=== PATIENT | male | born 1960 | race American Indian/Alaskan Native ===

== ENCOUNTER 2017-01-27 03:15 | Inpatient (IN) | payer MEDICAID ==
[2017-01-27 03:21] VITALS: BMI 47.1
--- NOTE | 2017-01-27 03:52 | ED PDOC ---
Arrival/HPI - General Chief Complaint: Shortness Of Breath Time Seen by Provider: 01/27/17 03:30 Historian: Patient - History of Present Illness Narrative History of Present Illness (Text): 01/27/17 03:52 Naresh Riley is a 56 year old male, whose past medical history includes hypertension, COPD, sleep apnea, and DVT/PE, who presents to the Emergency department complaining of shortness of breath at home tonight. Patient was given Solu-medrol and Albuterol by EMS in the field. Patient denies any fever, chills, chest pain, nausea, vomiting, diarrhea, urinary symptoms, back pain, neck pain, headache, dizziness, or any other complaints. Time/Duration: Other (tonight) Symptom Onset: Gradual Symptom Course: Unchanged Activities at Onset: Rest, Light Context: Home Past Medical History - Provider Review Nursing Documentation Reviewed: Yes - Infectious Disease Hx of Infectious Diseases: None - Tetanus Immunization Tetanus Immunization: Unknown - Cardiac Hx Cardiac Disorders: Yes (cardiomyopathy, dvt pe) Hx Cardiac Arrhythmia: Yes Hx Congestive Heart Failure: Yes Hx Hypertension: Yes Hx Pacemaker: No Hx Peripheral Edema: Yes (renal insuff) - Pulmonary Hx Respiratory Disorders: (pe has monty filter) Hx Asthma: Yes Hx Chronic Obstructive Pulmonary Disease (COPD): Yes Hx Pneumonia: Yes Hx Sleep Apnea: Yes - Neurological Hx Neurological Disorder: No - HEENT Hx HEENT Disorder: No - Renal Hx Renal Failure: (RENAL INSUFFICIENCY) - Endocrine/Metabolic Hx Endocrine Disorders: No Hx Diabetes Mellitus Type 2: Yes - Hematological/Oncological Hx Blood Disorders: No - Integumentary Hx Dermatological Disorder: No Other/Comment: bilateral lower extremity and feet discolored dry skin , redness tightness - Musculoskeletal/Rheumatological Hx Falls: No - Gastrointestinal Hx Gastrointestinal Disorders: (obese) Hx Gastroesophageal Reflux: Yes - Genitourinary/Gynecological Hx Genitourinary Disorders: No - Psychiatric Hx Anxiety: Yes Hx Depression: No Hx Emotional Abuse: No Hx Physical Abuse: No Hx Substance Use: No Other/Comment: hx heroin use quit 3 yrs ago, substance abuse. - Past Surgical History Past Surgical History: Non-Contributing - Surgical History Hx Cardiac Catheterization: Yes Other/Comment: back sx "yrs ago", right shoulder sx for fx has pins,monty filter - Anesthesia Hx Anesthesia: Yes Hx Anesthesia Reactions: No Hx Malignant Hyperthermia: No - Suicidal Assessment Feels Threatened In Home Enviroment: No Family/Social History - Physician Review Nursing Documentation Reviewed: Yes Family/Social History: No Known Family HX Smoking Status: Heavy Smoker > 10 Cigarettes Daily Hx Alcohol Use: No Hx Substance Use: No Hx Substance Use Treatment: No Allergies/Home Meds Allergies/Adverse Reactions: Allergies No Known Allergies Allergy (Verified 06/07/16 20:28) Home Medications: Home Meds Medication Instructions Recorded Confirmed Digoxin 250 mcg PO DAILY 05/24/12 10/16/15 Enalapril Maleate [Enalapril] 10 mg PO DAILY 05/24/12 10/16/15 Furosemide 40 mg PO DAILY 05/24/12 10/16/15 Metoprolol Tartrate 50 mg PO DAILY 02/09/14 10/16/15 Albuterol Sulfate [Ventolin Hfa] 0.09 mg IH PRN PRN 12/23/14 10/16/15 Metformin Hydrochloride [Metformin] 500 mg PO BID 12/23/14 10/16/15 Cyclobenzaprine [Flexeril] 1 tab PO Q8 PRN 09/28/15 10/16/15 Spironolactone [Aldactone] 1 tab PO BID 09/28/15 10/16/15 Tizanidine HCl 2 tab PO HS PRN 09/28/15 10/16/15 Multivitamin [Ashanti-Plus G] 1 cap PO DAILY 09/29/15 10/16/15 Review of Systems - Physician Review All systems were reviewed & negative as marked: Yes - Review of Systems Constitutional: Normal. absent: Fevers Eyes: Normal ENT: Normal Respiratory: SOB. absent: Cough Cardiovascular: Normal. absent: Chest Pain Gastrointestinal: Normal. absent: Abdominal Pain, Diarrhea, Nausea, Vomiting Genitourinary Male: Normal. absent: Dysuria, Frequency, Hematuria, Urinary Output Changes Musculoskeletal: Normal. absent: Back Pain, Neck Pain Skin: Normal. absent: Rash Neurological: Normal. absent: Headache, Dizziness Endocrine: Normal Hemo/Lymphatic: Normal Psychiatric: Normal Physical Exam Vital Signs Reviewed: Yes Vital Signs Temp Pulse Resp BP Pulse Ox 01/27/17 05:36 112 H 01/27/17 05:24 116/63 01/27/17 03:21 99.1 F 126 H 96 H 134/70 96 Temperature: Afebrile Blood Pressure: Normal Pulse: Regular Respiratory Rate: Normal Appearance: Positive for: Well-Appearing, Non-Toxic, Comfortable Pain Distress: None Mental Status: Positive for: Alert and Oriented X 3 - Systems Exam Head: Present: Atraumatic, Normocephalic Pupils: Present: PERRL Extroacular Muscles: Present: EOMI Conjunctiva: Present: Normal Mouth: Present: Moist Mucous Membranes Neck: Present: Normal Range of Motion Respiratory/Chest: Present: Decreased Breath Sounds (Decreased breath sounds bilaterally). No: Respiratory Distress, Accessory Muscle Use Cardiovascular: Present: Regular Rate and Rhythm, Normal S1, S2. No: Murmurs Abdomen: Present: Normal Bowel Sounds. No: Tenderness, Distention, Peritoneal Signs Back: Present: Normal Inspection Upper Extremity: Present: Normal Inspection. No: Cyanosis, Edema Lower Extremity: Present: Normal Inspection. No: Edema Neurological: Present: GCS=15, CN II-XII Intact, Speech Normal Skin: Present: Warm, Dry, Normal Color. No: Rashes Psychiatric: Present: Alert, Oriented x 3, Normal Insight, Normal Concentration Medical Decision Making ED Course and Treatment: 01/27/17 03:52 Impression: 56 year old male complaining of shortness of breath tonight. Differential Diagnosis include but are not limited to: CHF vs. COPD vs. pneumonia vs. dyspnea Plan: -- EKG -- Chest X-ray -- Labs, cardiac enzymes, BNP -- Duoneb -- Reassess and disposition Prior Visits: Notes and results from previous visits were reviewed. Progress Notes: Reviewed EKG, sinus tachycardia at 120 bpm. Inferior infarct. Non-specific ST/T wave changes. 01/27/17 05:06 Reviewed radiology, Chest X-ray shows mild vascular congestion. Case discussed with manager medical writing, who is aware and agrees with plan. 01/27/17 05:[address] Kingsley, who is aware and agrees with plan. Accepts pt in to hospitalist service. Pt will be admitted to Telemetry for COPD and CHF. - Lab Interpretations Lab Results: 01/27/17 04:08 01/27/17 04:08 Lab Results 01/27/17 04:50: pCO2 56 H, pO2 109.0 H, HCO3 31.6 H, ABG pH 7.36, ABG Total CO2 33.3 H, ABG O2 Saturation 99.5 H, ABG O2 Content 17.4, ABG Base Excess 4.6 H, ABG Hemoglobin 13.5, ABG Carboxyhemoglobin 7.7 H, POC ABG HHb (Measured) 0.5, ABG Methemoglobin 0.9, ABG O2 Capacity 17.5, Hgb O2 Saturation 90.9 L, FiO2 40.0 01/27/17 04:08: WBC 10.2, RBC 4.74, Hgb 14.3, Hct 42.7, MCV 90.1, MCH 30.2, MCHC 33.5, RDW 17.1 H, Plt Count 189, MPV 11.2 H, PT 15.2 H, INR 1.41 H, APTT 28.8, Sodium 138, Potassium 4.2, Chloride 95 L, Carbon Dioxide 37 H, Anion Gap 10, BUN 15, Creatinine 0.9, Est GFR ( Amer) > 60, Est GFR (Non-Af Amer) > 60, Random Glucose 222 H, Calcium 8.1 L, Total Bilirubin 1.0, AST 29, ALT 46, Alkaline Phosphatase 76, Lactate Dehydrogenase 593, Total Creatine Kinase 212, Troponin I 0.09 D, NT-Pro-B Natriuret Pep 1989 H, Total Protein 6.9, Albumin 3.4, Globulin 3.6, Albumin/Globulin Ratio 0.9 L I have reviewed the lab results: Yes - RAD Interpretation Radiology Orders: 01/27/17 03:31 CHEST PORTABLE [RAD] Stat Teaching Dietitian: ED Physician - EKG Interpretation Interpreted by ED Physician: Yes Type: 12 lead EKG - Medication Orders Current Medication Orders: Albuterol/Ipratropium (Duoneb 3 Mg/0.5 Mg (3 Ml) Ud) 3 ml IH Q2 PRN PRN Reason: Shortness of Breath Stop: 01/27/17 10:01 Albuterol/Ipratropium (Duoneb 3 Mg/0.5 Mg (3 Ml) Ud) 3 ml IH Q6 KATIE Stop: 01/27/17 18:01 Cyclobenzaprine HCl (Flexeril) 10 mg PO Q8 PRN PRN Reason: Pain, Mild (1-3) Digoxin (Lanoxin) 0.25 mg PO 1400 KATIE Enoxaparin Sodium (Lovenox) 40 mg SC DAILY KATIE PRN Reason: Protocol Escitalopram Oxalate (Lexapro) 10 mg PO DAILY KATIE Furosemide (Lasix) 60 mg IVP Q12 KATIE Azithromycin (Zithromax 500mg In Ns) 250 mls @ 167 mls/hr IVPB DAILY KATIE PRN Reason: Protocol Insulin Human Regular (Humulin R Low) 0 units SC ACHS KATIE PRN Reason: Protocol Lisinopril (Zestril) 10 mg PO DAILY KATIE Methylprednisolone (Solu-Medrol) 40 mg IVP Q8 KATIE Metoprolol Tartrate (Lopressor) 50 mg PO DAILY KATIE Multivitamins (Thera Tab) 1 tab PO DAILY KATIE Pantoprazole Sodium (Protonix Inj) 40 mg IVP DAILY KATIE Spironolactone (Aldactone) 25 mg PO BID KATIE Warfarin Sodium (Coumadin) 7.5 mg PO 1800 KATIE Discontinued Medications Albuterol/Ipratropium (Duoneb 3 Mg/0.5 Mg (3 Ml) Ud) 3 ml IH ONCE STA Stop: 01/27/17 03:54 Last Admin: 01/27/17 04:10 Dose: 3 ML Albuterol/Ipratropium (Duoneb 3 Mg/0.5 Mg (3 Ml) Ud) 3 ml IH ONCE STA Stop: 01/27/17 04:27 Last Admin: 01/27/17 04:46 Dose: 3 ML Furosemide (Lasix) 60 mg IVP ONCE ONE Stop: 01/27/17 05:07 Last Admin: 01/27/17 05:24 Dose: Not Given Non-Admin Reason: BP Parameters Not Met MAR Blood Pressure Document 01/27/17 05:24 SB (Rec: 01/27/17 05:24 SB [id number]) Blood Pressure Blood Pressure (100/60-150/90 mm Hg) 116/63 - Scribe Statement The provider has reviewed the documentation as recorded by the Curt Smith Provider Attestation: All medical record entries made by the Curt were at my direction and personally dictated by me. I have reviewed the chart and agree that the record accurately reflects my personal performance of the history, physical exam, medical decision making, and the department course for this patient. I have also personally directed, reviewed, and agree with the discharge instructions and disposition. Disposition/Present on Arrival - Present on Arrival Any Indicators Present on Arrival: No History of DVT/PE: Yes History of Uncontrolled Diabetes: No Urinary Catheter: No History of Decub. Ulcer: No History Surgical Site Infection Following: None - Disposition Have Diagnosis and Disposition been Completed?: Yes Diagnosis: COPD (chronic obstructive pulmonary disease), Congestive heart failure (CHF) Disposition: HOSPITALIZED Disposition Time: 05:12 Patient Plan: Admission Patient Problems: Current Active Problems Problem Status Diagnosed COPD (chronic obstructive pulmonary disease) Acute Congestive heart failure (CHF) Acute Condition: STABLE
[2017-01-27] MEDS ORDERED: Albuterol-Ipratrop 3 mg / 0.5 (3 ml) UD IH STA ×2 (03:53→04:26)
[2017-01-27 04:28] LABS: HEMATOCRIT 42.7 % (42.0-52.0); MEAN CELL VOLUME 90.1 fL (80.0-105.0); MEAN CORPUSCULAR HEMOGLOBIN 30.2 pg (25.0-35.0); MEAN CORPUSCULAR HGB CONC 33.5 g/dl (31.0-37.0); MEAN PLATELET VOLUME 11.2 fl (7.0-11.0); RED CELL DISTRIBUTION WIDTH 17.1 % (11.5-14.5); WHITE BLOOD COUNT 10.2 10^3/ul (4.5-11.0)
[2017-01-27 04:34] LABS: ALB/GLOB RATIO 0.9 (1.1-1.8); ALKALINE PHOSPHATASE 76 U/L (38-133); ALT/SGPT 46 U/L (7-56); AST/SGOT 29 U/L (15-59); BLOOD UREA NITROGEN 15 mg/dL (7-21); CALCIUM 8.1 mg/dL (8.4-10.5); CARBON DIOXIDE 37 mmol/L (21-33); CHLORIDE 95 mmol/L (98-107); GFR AFRICAN-AMERICAN > 60; GLUCOSE,RANDOM 222 mg/dL (70-110); POTASSIUM 4.2 mmol/L (3.6-5.0); SODIUM 138 mmol/L (132-148); TOTAL PROTEIN 6.9 g/dL (5.8-8.3)
[2017-01-27 04:36] LABS: INR 1.41 (0.93-1.08); PARTIAL THROMBOPLASTIN TIME 28.8 Seconds (23.7-30.8)
[2017-01-27 04:47] LABS: TROPONIN I 0.09 ng/mL
[2017-01-27 05:00] LABS: ARTERIAL BLOOD GAS HCO3 31.6 mmol/L (21-28); ARTERIAL BLOOD GAS O2 CAPACITY 17.5 mL/dl (16-24); ARTERIAL BLOOD GAS O2 CONTENT 17.4 ML/dl (15-23); ARTERIAL BLOOD GAS PH 7.36 (7.35-7.45); ARTERIAL BLOOD HGB O2 SAT 90.9 % (95.0-98.0); CARBOXYHEMOGLOBIN 7.7 % (0.5-1.5); HHB 0.5 % (0-5); METHEMOGLOBIN 0.9 % (0.0-3.0)
[2017-01-27] MEDS ORDERED: Albuterol-Ipratrop 3 mg / 0.5 (3 ml) UD IH PRN (05:19)
--- NOTE | 2017-01-27 05:30 | CP.PCM.HP ---
<Luis Antonio Snow - Last Filed: 01/27/17 05:52> History of Present Illness - History of Present Illness History of Present Illness: This is a 56yo male with pmh COPD, likely DESTINEE, PE/DVT, HTN, HLD, CHF presenting with sob x 1 day. Pt was at home, began experiencing sob, called ambulance. Got albuterol and solumedrol in field. Pt is poor historian and lethargic at time of evaluation. Unable to answer many questions. Prior hx reviewed in chart. Pt denies fevers, chills, headache, nausea, vomiting, diarrhea, urinary sx, bloody BMs, any bleeding. PMH: COPD, DESTINEE, HTN, PE/DVT, HTN, HLD, CHF PSH: Unknown Allergies: NKDA Home meds: metformin, dig, lasix, spironolactone, enalapril, flexeril, tizanadine, metoprolol FH: Non contributory Social hx: Former smoker. Denies drinking and drug abuse. Present on Admission - Present on Admission Any Indicators Present on Admission: Yes History of DVT/PE: Yes History of Uncontrolled Diabetes: No Urinary Catheter: No Decubitus Ulcer Present: No Review of Systems - Review of Systems Systems not reviewed;Unavailable: Respiratory Distress All systems: reviewed and no additional remarkable complaints except Review of Systems: Negative except as stated in HPI. Past Patient History - Infectious Disease Hx of Infectious Diseases: None - Tetanus Immunizations Tetanus Immunization: Unknown - Past Medical History & Family History Past Medical History?: Yes Past Family History: Reviewed and not pertinent - Past Social History Smoking Status: Former Smoker Chewing Tobacco Use: No Cigar Use: No Alcohol: None Drugs: Denies Home Situation {Lives}: Alone Domestic Violence: Negative - CARDIAC Hx Cardiac Disorders: Yes (cardiomyopathy, dvt pe) Hx Cardia Arrhythmia: Yes Hx Congestive Heart Failure: Yes Hx Hypertension: Yes Hx Pacemaker: No Hx Peripheral Edema: Yes (renal insuff) - PULMONARY Hx Respiratory Disorders: (pe has monty filter) Hx Asthma: Yes Hx Chronic Obstructive Pulmonary Disease (COPD): Yes Hx Pneumonia: Yes Hx Sleep Apnea: Yes - NEUROLOGICAL Hx Neurological Disorder: No - HEENT Hx HEENT Problems: No - RENAL Hx Renal Failure: (RENAL INSUFFICIENCY) - ENDOCRINE/METABOLIC Hx Endocrine Disorders: No Hx Diabetes Mellitus Type 2: Yes - HEMATOLOGICAL/ONCOLOGICAL Hx Blood Disorders: No - INTEGUMENTARY Hx Dermatological Problems: No Other/Comment: bilateral lower extremity and feet discolored dry skin , redness tightness - MUSCULOSKELETAL/RHEUMATOLOGICAL Hx Falls: No - GASTROINTESTINAL Hx Gastrointestinal Disorders: (obese) Hx Gastroesophageal Reflux: Yes - GENITOURINARY/GYNECOLOGICAL Hx Genitourinary Disorders: No - PSYCHIATRIC Hx Anxiety: Yes Hx Depression: No Hx Emotional Abuse: No Hx Physical Abuse: No Hx Substance Use: No Other/Comment: hx heroin use quit 3 yrs ago, substance abuse. - SURGICAL HISTORY Hx Cardiac Catheterization: Yes Other/Comment: back sx "yrs ago", right shoulder sx for fx has pins,monty filter - ANESTHESIA Hx Anesthesia: Yes Hx Anesthesia Reactions: No Hx Malignant Hyperthermia: No Meds Allergies/Adverse Reactions: Allergies Allergy/AdvReac Type Severity Reaction Status Date / Time No Known Allergies Allergy Verified 06/07/16 20:28 Physical Exam - Constitutional Appears: In Acute Distress - Head Exam Head Exam: ATRAUMATIC, NORMAL INSPECTION, NORMOCEPHALIC - Eye Exam Eye Exam: EOMI - ENT Exam ENT Exam: Mucous Membranes Moist - Neck Exam Neck exam: Positive for: Normal Inspection - Respiratory Exam Respiratory Exam: Rales, Wheezes. absent: Accessory Muscle Use, NORMAL BREATHING PATTERN - Cardiovascular Exam Cardiovascular Exam: Tachycardia, +S1, +S2 - GI/Abdominal Exam GI & Abdominal Exam: Normal Bowel Sounds, Soft. absent: Tenderness - Extremities Exam Extremities exam: Positive for: normal inspection - Back Exam Back exam: NORMAL INSPECTION - Neurological Exam Neurological exam: Altered - Psychiatric Exam Psychiatric exam: Flat Affect - Skin Skin Exam: Dry, Intact, Normal Color, Warm Results - Vital Signs Recent Vital Signs: Last Vital Signs Temp 99.1 F 01/27/17 03:21 Pulse 126 H 01/27/17 03:21 Resp 96 H 01/27/17 03:21 BP 116/63 01/27/17 05:24 Pulse Ox 96 01/27/17 03:21 - Labs Result Diagrams: 01/27/17 04:08 01/27/17 04:08 Labs: Laboratory Results - last 24 hr 01/27/17 01/27/17 04:08 04:50 WBC 10.2 RBC 4.74 Hgb 14.3 Hct 42.7 MCV 90.1 MCH 30.2 MCHC 33.5 RDW 17.1 H Plt Count 189 MPV 11.2 H PT 15.2 H INR 1.41 H APTT 28.8 pCO2 56 H pO2 109.0 H HCO3 31.6 H ABG pH 7.36 ABG Total CO2 33.3 H ABG O2 Saturation 99.5 H ABG O2 Content 17.4 ABG Base Excess 4.6 H ABG Hemoglobin 13.5 ABG Carboxyhemoglobin 7.7 H POC ABG HHb (Measured) 0.5 ABG Methemoglobin 0.9 ABG O2 Capacity 17.5 Hgb O2 Saturation 90.9 L FiO2 40.0 Sodium 138 Potassium 4.2 Chloride 95 L Carbon Dioxide 37 H Anion Gap 10 BUN 15 Creatinine 0.9 Est GFR ( Amer) > 60 Est GFR (Non-Af Amer) > 60 Random Glucose 222 H Calcium 8.1 L Total Bilirubin 1.0 AST 29 ALT 46 Alkaline Phosphatase 76 Lactate Dehydrogenase 593 Total Creatine Kinase 212 Troponin I 0.09 D NT-Pro-B Natriuret Pep 1990 H Total Protein 6.9 Albumin 3.4 Globulin 3.6 Albumin/Globulin Ratio 0.9 L Assessment & Plan - Assessment and Plan (Free Text) Assessment: This is a 56 yo male with past medical hx of COPD, DESTINEE, PE/DVT, HTN, HLD, CHF presenting with sob secondary to COPD exacerbation 1. COPD exacerbation -on Bipap 10/04 with O2 30 percent -cardio consult. Dr. Hayden. recs appreciated. -d dimer pending -serial cardiac enzymes, 1st trop indeterminate -duonebs prn and milton -azithromycin daily -solumedrol 40 q 8 2. hx of CHF -continue lasix 60 q 12 -serial cardiac enzymes -CXR pending -EKG shows sinus tachycardia -continue enalapril -continue dig -dig level pending -continue metoprolol -continue spironolactone 3. Hx of anxiety/depression -continue lexapro 4. hx of DM -hold metformin -ISS 5. hx of DVT -continue warfarin daily 6. GI/DVT ppx -lovenox 40 daily -protonix daily discussed with Dr. Kingsley <Sumanth Kingsley - Last Filed: 01/27/17 07:01> Results - Vital Signs Recent Vital Signs: Last Vital Signs Temp 99.1 F 01/27/17 03:21 Pulse 107 H 01/27/17 06:15 Resp 20 04/06/17 06:15 BP 120/80 01/27/17 06:15 Pulse Ox 93 L 01/27/17 06:15 - Labs Result Diagrams: 01/27/17 04:08 01/27/17 04:08 Attending/Attestation - Attestation I have personally seen and examined this patient.: Yes I have fully participated in the care of the patient.: Yes I have reviewed all pertinent clinical information: Yes Notes (Text): 01/27/17 07:01 Patient was seen when he was in bed # 8 in the ER . Agree with history, physical examination, assessment and plan.
[2017-01-27] MEDS: Insulin Reg-LOW-Coverage SC SCH ×4 (08:04→22:33)
[2017-01-27] MEDS: MethylPREDNISolone 40 mg Vial IVP SCH ×3 (08:05→21:23)
[2017-01-27] MEDS: Albuterol-Ipratrop 3 mg / 0.5 (3 ml) UD IH SCH ×2 (08:27→14:17)
[2017-01-27] MEDS: Enoxaparin 40 mg Syringe SC SCH (09:16)
[2017-01-27] MEDS: Multivitamin Therapeutic Tab PO SCH (09:17)
[2017-01-27] MEDS: Azithromycin 500MG/NS 250ml 250 ML IVPB SCH (09:17)
[2017-01-27 09:21] LABS: BASO # 0.01 K/mm3 (0.0-2.0); BASO % 0.1 % (0.0-3.0); GRAN # 9.56 (1.4-6.5); GRAN % 95.9 % (50.0-68.0); HEMATOCRIT 45.4 % (42.0-52.0); LYMPH # 0.4 (1.2-3.4); LYMPH % 3.6 % (22.0-35.0); MEAN CELL VOLUME 90.3 fL (80.0-105.0); MEAN CORPUSCULAR HGB CONC 33.3 g/dl (31.0-37.0); MEAN PLATELET VOLUME 11.6 fl (7.0-11.0); MONO % 0.4 % (1.0-6.0); PLATELET COUNT 197 10^3/uL (120.0-450.0)
[2017-01-27 09:23] LABS: ADD MANUAL DIFF? NO
[2017-01-27 09:31] LABS: ALB/GLOB RATIO 0.9 (1.1-1.8); ALKALINE PHOSPHATASE 98 U/L (38-133); ALT/SGPT 48 U/L (7-56); AST/SGOT 30 U/L (15-59); BILIRUBIN,TOTAL 0.9 mg/dL (0.2-1.3); BLOOD UREA NITROGEN 14 mg/dL (7-21); CALCIUM 8.4 mg/dL (8.4-10.5); CARBON DIOXIDE 34 mmol/L (21-33); CHLORIDE 94 mmol/L (98-107); GFR AFRICAN-AMERICAN > 60; GLUCOSE,RANDOM 254 mg/dL (70-110); POTASSIUM 4.3 mmol/L (3.6-5.0); SODIUM 138 mmol/L (132-148); TOTAL PROTEIN 7.7 g/dL (5.8-8.3)
[2017-01-27 09:36] LABS: INR 1.37 (0.93-1.08); PARTIAL THROMBOPLASTIN TIME 30.3 Seconds (23.7-30.8)
[2017-01-27 09:38] LABS: D DIMER 0.66 mg/L FEU (0-0.50)
--- NOTE | 2017-01-27 09:55 | RAD ---
HISTORY: sob COMPARISON: 10/20/2015 FINDINGS: LUNGS: Ill-defined opacities at lung bases may reflect atelectasis. Followup advised. PLEURA: No significant pleural effusion identified, no pneumothorax apparent. CARDIOVASCULAR: Normal. OSSEOUS STRUCTURES: No significant abnormalities. VISUALIZED UPPER ABDOMEN: Normal. OTHER FINDINGS: None. IMPRESSION: Ill-defined opacities at lung bases. Possible atelectasis. Followup advised.
[2017-01-27 12:17] LABS: TROPONIN I 0.09 ng/mL
[2017-01-27] MEDS: Digoxin 250 mcg (0.25 mg) Tab PO SCH (13:52)
[2017-01-27] MEDS ORDERED: Pneumococcal 23-Valent Vaccine IM ONE (13:59)
--- NOTE | 2017-01-27 17:56 | CARD ---
APPROVED REPORT EKG Measurement Heart [id number] <Conclusion> Sinus tachycardia Inferior infarct, age undetermined Possible Anterior infarct, age undetermined Abnormal ECG
--- NOTE | 2017-01-27 17:57 | CARD ---
APPROVED REPORT EKG Measurement Heart [id number] 104P [id number] <Conclusion> Sinus tachycardia with short UT Possible Inferior infarct, age undetermined Possible Anterior infarct, age undetermined Abnormal ECG
[2017-01-28 07:24] LABS: ADD MANUAL DIFF? NO
--- NOTE | 2017-01-28 07:28 | CON ---
DATE: 01/27/2017 REASON FOR CONSULTATION AND FOLLOWUP: Shortness of breath, possible acute exacerbation of COPD, card iac evaluation. 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 Came in to the Emergency Room with complaint of progressive worsening shortness of breath and COPD exacerbation. PAST HISTORY: Significant for PE, history of DVT, history of inferior vena cava filter, history of m orbid obesity, history of cardiac catheterization in 05/2014, nonobstructive coronary artery disease, essentially normal coronaries, ____ nonischemic cardiomyopathy, ejection fraction 25%. Later, unimpr donya. On 03/15/2014, patient had a ANTONIETA that shows ejection fraction 55% to 60%. Later on, the patien t had another repeat echo on 05/31/2014 that shows left ventricle is normal in size, ejection fraction 55%, diastolic dysfunction, trace mitral regurgitation, mild tricuspid regurgitation, RV systolic pre ssure 43, trace pericardial effusion dated ____. History of hypertension, diabetes, hyperlipidemia, morbid obesity, and COPD, active tobacco abuse. PREVIOUS CARDIAC WORKUP: As follows: The patient's most recent echocardiography on 09/27/2015 that s hows ejection fraction 55% to 60%, right ventricle moderately dilated, systolic function of RV is mod erately reduced, trace aortic regurgitation, mild aortic stenosis, trace mitral regurgitation, RV sys tolic pressure 43, dated ____. Prior to that, patient had a cardiac catheterization on 05/25/2014 that showed essentially normal coronaries. At that time, patient has cardiomyopathy, nonischemic and whi ch later on improved and subsequent echo 03/15/2014 ____ the ANTONIETA showed ejection fraction 55% to 60%. Later on, patient had another echo on 05/31/2014 that also showed ejection fraction 55%, diastolic dys function, trace mitral regurgitation, mild tricuspid regurgitation, RV systolic pressure of 43. SOCIAL HISTORY: Active tobacco abuse, ____ one pack a day, still smokes off and on. Denies any hist ory of alcohol abuse. ALLERGIES: No known drug allergy. CURRENT MEDICATIONS: The patient is taking digoxin, lisinopril, azithromycin, ____, metoprolol, cycl obenzaprine, Coumadin, spironolactone. History of DVT, PE ____ taking Coumadin. REVIEW OF SYSTEMS: As per follows. PHYSICAL EXAMINATION: As follows: VITAL SIGNS: Temperature afebrile, heart rate ____, blood pressure 123/86. HEENT: PERRLA, intact. NECK: Supple. No carotid bruits. No thyromegaly. CHEST: Clear to auscultation. HEART: S1, S2 regular. ABDOMEN: Soft. EXTREMITIES: Clubbing and cyanosis negative. BLOOD WORKUP: As follows: WBC 10, hemoglobin 15.1, hematocrit 45.4, platelet count 197. Chemistry shows sodium 130, potassium ____, chloride 94, carbon dioxide 34, anion gap of 14, BUN 14, creatinine 0.9. Troponin 0.09. IMPRESSION: Exacerbation of chronic obstructive pulmonary disease, right heart failure, severe hypok inesis, preserved left ventricular function on multiple echoes. Last echo was in 2014 with preserved left ventricular function. Prior to that, patient had a transesophageal echocardiogram on 03/15/2014 , ejection fraction 55% to 60%. Prior to that, patient had 05/2014 that shows ejection fraction 55%, trace mitral regurgitation, mild tricuspid regurgitation, right ventricular systolic pressure 43. Ch ronic obstructive pulmonary disease exacerbation, morbid obesity, diabetes, hypertension, hyperlipide víctor, history of chronic obstructive pulmonary disease, no evidence of acute myocardial infarction. PHYSICAL EXAMINATION: As follows: VITAL SIGNS: Temperature afebrile, heart rate ____, blood pressure 123/86. HEENT: PERRLA, intact. NECK: Supple. No carotid bruits. No thyromegaly. CHEST: Clear to auscultation. HEART: S1, S2 regular. ABDOMEN: Soft. EXTREMITIES: Clubbing and cyanosis negative. BLOOD WORKUP: As follows: WBC 10.0, hemoglobin 15.1, hematocrit 45.4, platelet count 197. Chemistr y shows sodium 130, potassium ____, chloride 94, carbon dioxide 34, anion gap of 14, BUN 14, creatini ne 0.9. Troponin 0.09. BNP ____. IMPRESSION: Essentially right heart failure, preserved left ventricular function on multiple echoes, history of nonischemic cardiomyopathy 2 years ago when the patient had cardiac catheterization. Nor mal coronaries dated 05/25/2014. History of deep venous thrombosis, pulmonary embolism, active tobacco abuse, hypertension, hyperlipidemia, morbid obesity. RECOMMENDATIONS: Continue aggressive treatment for COPD. Continue diuretics. We will get a MUGA sc an to assess LV function. We will follow with you. Thank you, Dr. Yi, for providing us the opportunity in taking care of the patient. We will ge t echo to assess valvular function and we will get a MUGA scan to assess RV and LV function. We will follow with you. Lulu Jacobo MD cc: [id number] TT: 01/27/2017 19:35:34 Confirmation # [id number] Dictation # [id number] 01/28/2017 06:27:16
[2017-01-28 07:32] LABS: BASO # 0.01 K/mm3 (0.0-2.0); BASO % 0.1 % (0.0-3.0); GRAN # 14.32 (1.4-6.5); GRAN % 89.4 % (50.0-68.0); HEMATOCRIT 43.9 % (42.0-52.0); LYMPH # 0.9 (1.2-3.4); LYMPH % 5.7 % (22.0-35.0); MEAN CELL VOLUME 90.3 fL (80.0-105.0); MEAN CORPUSCULAR HGB CONC 33.3 g/dl (31.0-37.0); MEAN PLATELET VOLUME 11.6 fl (7.0-11.0); MONO # 0.8 (0.1-0.6); MONO % 4.8 % (1.0-6.0); PLATELET COUNT 208 10^3/uL (120.0-450.0); RED CELL DISTRIBUTION WIDTH 16.8 % (11.5-14.5)
[2017-01-28 07:40] LABS: INR 1.49 (0.93-1.08)
[2017-01-28 07:43] LABS: ALB/GLOB RATIO 0.9 (1.1-1.8); ALKALINE PHOSPHATASE 79 U/L (38-133); ALT/SGPT 39 U/L (7-56); AST/SGOT 22 U/L (15-59); BILIRUBIN,TOTAL 0.8 mg/dL (0.2-1.3); BLOOD UREA NITROGEN 19 mg/dL (7-21); CALCIUM 8.3 mg/dL (8.4-10.5); CARBON DIOXIDE 37 mmol/L (21-33); CHLORIDE 93 mmol/L (98-107); CHOLESTEROL 148 mg/dL (130-200); GFR AFRICAN-AMERICAN > 60; GLUCOSE,RANDOM 163 mg/dL (70-110); PHOSPHOROUS 2.9 mg/dL (2.5-4.5); POTASSIUM 5.1 mmol/L (3.6-5.0); SODIUM 135 mmol/L (132-148); TOTAL PROTEIN 7.3 g/dL (5.8-8.3)
[2017-01-28] MEDS: MethylPREDNISolone 40 mg Vial IVP SCH (07:43)
[2017-01-28] MEDS: Insulin Reg-LOW-Coverage SC SCH ×4 (08:04→21:32)
[2017-01-28] MEDS: Enoxaparin 40 mg Syringe SC SCH (09:23)
[2017-01-28] MEDS: Azithromycin 500MG/NS 250ml 250 ML IVPB SCH (09:24)
[2017-01-28] MEDS: Multivitamin Therapeutic Tab PO SCH (09:24)
--- NOTE | 2017-01-28 11:30 | CP.PCM.PN ---
Addendum entered and electronically signed by Timothy Marie DO 01/28/17 12: 35: General: AAOx3, No acute distress Heart: RRR, +S1, +S2 Lungs: Clear to auscultation B/L, No rales, rhonchi, or wheezes Abdomen: Soft, nontender, nondistended. No distention Extremities: +1 pitting edema b/l lower extremities, improved from yesterday. Skin: Intact, warm, normal color Psych: Normal mood and affect. Original Note: <Timothy Marie - Last Filed: 01/28/17 12:11> Subjective - Date & Time of Evaluation Date of Evaluation: 01/28/17 Time of Evaluation: 11:24 - Subjective Subjective: Pt seen and examined at bedside. Pt states his breathing from previous day is improved, but he is still slightly short of breath. Pt is unable to sleep laying down due to increased abdominal circumference and size. Denies CP, fever , N/V/D, headaches. Objective - Vital Signs/Intake and Output Vital Signs (last 24 hours): Temp Pulse Resp BP Pulse Ox 98.3 F 82 19 118/75 99 01/28/17 06:00 01/28/17 09:24 01/28/17 06:00 01/28/17 09:24 01/28/17 06:00 - Medications Medications: Current Medications Alprazolam (Xanax) 0.25 mg PO DAILY PRN; Protocol PRN Reason: Anxiety Stop: 02/03/17 14:05 Last Admin: 01/27/17 14:22 Dose: 0.25 mg Cefpodoxime Proxetil (Vantin) 100 mg PO Q12 [facility] PRN Reason: Protocol Cyclobenzaprine HCl (Flexeril) 10 mg PO Q8 PRN PRN Reason: Pain, Mild (1-3) Last Admin: 01/27/17 22:08 Dose: 10 mg Digoxin (Lanoxin) 0.25 mg PO 1400 [facility] Last Admin: 01/27/17 13:52 Dose: 0.25 mg Enoxaparin Sodium (Lovenox) 40 mg SC DAILY [facility] PRN Reason: Protocol Last Admin: 01/28/17 09:23 Dose: 40 mg Escitalopram Oxalate (Lexapro) 10 mg PO DAILY [facility] Last Admin: 01/28/17 09:23 Dose: 10 mg Furosemide (Lasix) 60 mg IVP Q12 [facility] Last Admin: 01/28/17 09:22 Dose: 60 mg Insulin Human Regular (Humulin R Low) 0 units SC ACHS [facility] PRN Reason: Protocol Last Admin: 01/28/17 08:04 Dose: 1 units Lisinopril (Zestril) 10 mg PO DAILY [facility] Last Admin: 01/28/17 09:24 Dose: 10 mg Metoprolol Tartrate (Lopressor) 50 mg PO DAILY [facility] Last Admin: 01/28/17 09:23 Dose: 50 mg Multivitamins (Thera Tab) 1 tab PO DAILY [facility] Last Admin: 01/28/17 09:24 Dose: 1 tab Pantoprazole Sodium (Protonix Inj) 40 mg IVP DAILY [facility] Last Admin: 01/28/17 09:24 Dose: 40 mg Prednisone (Prednisone Tab) 40 mg PO DAILY [facility] Last Admin: 01/28/17 09:27 Dose: 40 mg Warfarin Sodium (Coumadin) 7.5 mg PO 1800 [facility] - Labs Labs: 01/28/17 06:30 01/28/17 06:30 PT 16.1 Seconds (9.9-11.8) H 01/28/17 06:30 INR 1.49 (0.93-1.08) H 01/28/17 06:30 APTT 30.3 Seconds (23.7-30.8) 01/27/17 09:00 - Constitutional Appears: Non-toxic Assessment and Plan - Assessment and Plan (Free Text) Plan: 56 y/o male with PMH of COPD, DESTINEE, PE/DVT, HTN, HLD, CHF presenting for COPD exacerbation. Pt being tapered on oral prednisone. Pt is scheduled for a MUGA scan and echocardiogram. Pt is being followed by cardiology at this time. 1. COPD exacerbation - Azithromycin switched to Vantin PO - Solumedrol switched to oral prednisone, continue to taper - Duonebs prn 2. Hx of CHF - Continue IV lasix - daily weights - strict I's and O's - Sprinolactone stopped as potassium elevated this morning, monitor in AM and restart accordingly. - Monitor for worsening SOB - MUGA scan ordered - Repeat EKG - Echocardriogram results pending - cardiology following, Dr. Meredith 3. Hx of anxiety/depression - Continue lexapro 4. Hx of DM - ISS - Glucose stable 5. hx of DVT - Continue warfarin - INR 1.49 - Extra dose given this morning to achieve therapeutic INR. 6. GI/DVT ppx - lovenox - protonix Seen, reviewed, and discussed with attending. Cynthia, PGY-1 <Abbie MONROE,Lulu - Last Filed: 01/28/17 17:24> Objective - Vital Signs/Intake and Output Vital Signs (last 24 hours): Temp Pulse Resp BP Pulse Ox 98 F 69 20 178/84 H 99 01/28/17 12:00 01/28/17 13:38 01/28/17 12:00 01/28/17 12:00 01/28/17 06:00 - Medications Medications: Current Medications Alprazolam (Xanax) 0.25 mg PO DAILY PRN; Protocol PRN Reason: Anxiety Stop: 02/03/17 14:05 Last Admin: 01/28/17 13:09 Dose: 0.25 mg Cefpodoxime Proxetil (Vantin) 100 mg PO Q12 [facility] PRN Reason: Protocol Cyclobenzaprine HCl (Flexeril) 10 mg PO Q8 PRN PRN Reason: Pain, Mild (1-3) Last Admin: 01/27/17 22:08 Dose: 10 mg Digoxin (Lanoxin) 0.25 mg PO 1400 [facility] Last Admin: 01/28/17 13:09 Dose: 0.25 mg Enoxaparin Sodium (Lovenox) 40 mg SC DAILY [facility] PRN Reason: Protocol Last Admin: 01/28/17 09:23 Dose: 40 mg Escitalopram Oxalate (Lexapro) 10 mg PO DAILY [facility] Last Admin: 01/28/17 09:23 Dose: 10 mg Furosemide (Lasix) 60 mg IVP Q12 [facility] Last Admin: 01/28/17 09:22 Dose: 60 mg Insulin Human Regular (Humulin R Low) 0 units SC ACHS [facility] PRN Reason: Protocol Last Admin: 01/28/17 16:40 Dose: Not Given Lisinopril (Zestril) 10 mg PO DAILY [facility] Last Admin: 01/28/17 09:24 Dose: 10 mg Metoprolol Tartrate (Lopressor) 50 mg PO DAILY [facility] Last Admin: 01/28/17 09:23 Dose: 50 mg Multivitamins (Thera Tab) 1 tab PO DAILY [facility] Last Admin: 01/28/17 09:24 Dose: 1 tab Pantoprazole Sodium (Protonix Inj) 40 mg IVP DAILY [facility] Last Admin: 01/28/17 09:24 Dose: 40 mg Prednisone (Prednisone Tab) 40 mg PO DAILY [facility] Last Admin: 01/28/17 09:27 Dose: 40 mg Warfarin Sodium (Coumadin) 7.5 mg PO 1800 [facility] - Labs Labs: 01/28/17 06:30 01/28/17 16:32 PT 16.1 Seconds (9.9-11.8) H 01/28/17 06:30 INR 1.49 (0.93-1.08) H 01/28/17 06:30 APTT 30.3 Seconds (23.7-30.8) 01/27/17 09:00 Attending/Attestation - Attestation I have personally seen and examined this patient.: Yes I have fully participated in the care of the patient.: Yes I have reviewed all pertinent clinical information, including history, physical exam and plan: Yes Notes (Text): Patient was seen and examined with medical writer .Agreed with resident assessment and plan. 56 M with acute on hypoxic respiratory failure due to CHF exacrbation and mild COPD exacerbation.Patient is improving, we will continue IV lasix. Patient has leukocytosis due to steroid.He is afebrile..IV steroid has been discontinued and he has been started on oral prednisone.We will continue monitoring. We will follow up Echo. Patient INR is not therapeautic.He has IVC filter, we will continue warfarin and monitor INR. He was not compliance with warfarin at home. The issue of compliance with medication was discussed in detail with him. Management plan was discussed in detail with patient Education was provided.
[2017-01-28] MEDS: Digoxin 250 mcg (0.25 mg) Tab PO SCH (13:09)
[2017-01-28 16:44] LABS: BLOOD UREA NITROGEN 22 mg/dL (7-21); CALCIUM 8.4 mg/dL (8.4-10.5); CHLORIDE 89 mmol/L (98-107); GFR AFRICAN-AMERICAN > 60; GLUCOSE,RANDOM 152 mg/dL (70-110); POTASSIUM 5.1 mmol/L (3.6-5.0); SODIUM 134 mmol/L (132-148)
[2017-01-28 16:55] LABS: CARBON DIOXIDE 41 mmol/L (21-33)
--- NOTE | 2017-01-28 18:48 | CARD ---
APPROVED REPORT EXAM: Two-dimensional and M-mode echocardiogram with Doppler and color Doppler. INDICATION Congestive Heart Failure 2D DIMENSIONS Left Atrium (2D)2.6 (1.6-4.0cm)IVSd1.0 (0.7-1.1cm) LVDd4.7 (3.9-5.9cm)PWd1.2 (0.7-1.1cm) LVDs3.4 (2.5-4.0cm)FS (%) 27.6 % LVEF (%)53.7 (>50%) M-Mode DIMENSIONS Aortic Root2.90 (2.2-3.7cm)Aortic Cusp Exc.1.30 (1.5-2.0cm) Aortic Valve AoV Peak Crgyxleh241.0cm/Sonja Peak GR.14mmHg Mitral Valve MV E Eduvjrrs33.4cm/sMV A Lrgagktc62.3cm/sE/A ratio0.8 TDI E/Lateral E'0.0E/Medial E'0.0 Tricuspid Valve TR Peak Boagziev393fr/sRAP [id number] Peak Gr.36mmHg [id number] LEFT VENTRICLE The left ventricle is normal size. There is borderline to mild concentric left ventricular hypertrophy. The left ventricular function is normal.EF-55-60% There is normal LV segmental wall motion. Transmitral Doppler flow pattern is Grade III-reversible restrictive diastolic dysfunction. No left ventricle thrombus noted on this study. There is no ventricular septal defect visualized. There is no left ventricular aneurysm. There is no mass noted in the left ventricle. RIGHT VENTRICLE The right ventricle is moderately dilated. The right ventricle is mildly hypertrophied. Systolic function of RV is moderately reduced. ATRIA The left atrium size is normal. The right atrium is moderately dilated. The interatrial septum is intact with no evidence for an atrial septal defect. AORTIC VALVE The aortic valve is calcified and displays decreased opening. There is trace aortic regurgitation. There is mild to moderate valvular aortic stenosis. There is no aortic valvular vegetation. MITRAL VALVE The mitral valve is thickened but opens well. Mitral regurgitation is trace. There is no mitral valve stenosis. There is no evidence of mitral valve prolapse. TRICUSPID VALVE The tricuspid valve leaflets are thickened , but open well. There is moderate tricuspid regurgitation.RVSP-46 mmof Hg. There is no tricuspid valve stenosis. There is no tricuspid valve prolapse or vegetation. PULMONIC VALVE The pulmonary valve is normal in structure. There is trace pulmonic valvular regurgitation. There is no pulmonic valvular stenosis. GREAT VESSELS The aortic root is normal in size. The ascending aorta is normal in size. The pulmonary artery is normal. The IVC is dilated. PERICARDIAL EFFUSION There is no pleural effusion. There is no pericardial effusion. <Conclusion> The left ventricle is normal size. There is borderline to mild concentric left ventricular hypertrophy. The left ventricular function is normal.EF-55-60% Systolic function of RV is moderately reduced. The right atrium is moderately dilated. There is trace aortic regurgitation. There is mild to moderate valvular aortic stenosis. Mitral regurgitation is trace. There is moderate tricuspid regurgitation.RVSP-46 mmof Hg. The IVC is dilated. There is no pericardial effusion.
--- NOTE | 2017-01-28 20:08 | PN ---
DATE: 01/28/2017 REASON FOR CONSULTATION AND FOLLOWUP: Shortness of breath, possible acute exacerbation of COPD and c ardiac evaluation. BRIEF CLINICAL HISTORY: This is a 56-year-old morbidly obese male with past medical history signific ant for morbid obesity, cardiomyopathy, history of COPD, hypoventilation, possible pickwickian syndro me, came to the Emergency Room with COPD exacerbation. The patient had a cardiac catheterization in 05/2014, nonobstructive coronary artery disease, essentially normal coronaries, cardiomyopathy, ejecti on fraction at that time was 25. Later on, the patient had significantly improved LV function. Repe at echo on 05/31/2014 shows ejection fraction 55%, diastolic dysfunction, trace mitral regurgitation, m ild tricuspid regurgitation, RV systolic pressure 43, trace pericardial effusion, history of hyperten toro, diabetes and morbid obesity. Denies any chest pain, shortness of breath. The patient is sched uled for MUGA scan today. PHYSICAL EXAMINATION: VITAL SIGNS: Temperature afebrile, heart rate 69, blood pressure 118/75. HEENT: PERRLA. Extraocular muscles intact. NECK: Supple. No carotid bruits. No thyromegaly. CHEST: Clear to auscultation. HEART: S1, S2 regular. ABDOMEN: Soft. EXTREMITIES: Clubbing, cyanosis negative. BLOOD WORKUP: WBC 16, hemoglobin 14.6, hematocrit 43.9, platelet count 208. Chemistry shows sodium 134, potassium 5.0, chloride 89, carbon dioxide 41, anion gap of 10, BUN 22, creatinine 0.9. TSH is 0.11. IMPRESSION: No evidence for acute myocardial infarction, chronic obstructive pulmonary disease exace rbation, status post cardiac catheterization 05/2014, nonobstructive coronary artery disease, normal c oronaries, cardiomyopathy, later on improved, hypertension, history of deep venous thrombosis, pulmon ricky embolism, right heart failure, preserved left ventricular function. RECOMMENDATION: Followup echo and followup MUGA scan today. Continue to aggressively treat blood pr essure. Avoid nephrotoxic medication. Continue aggressive treatment for COPD. We will put p.r.n. h ydralazine for deep venous thrombosis prophylaxis. We will follow with you. Thank you, Dr. Yi, for providing the opportunity in taking care of the patient. Will disconti nue telemetry. Repeat the blood workup in the morning. Will discontinue telemetry now. Lulu Jacobo MD cc: [id number] TT: 01/28/2017 20:08:02 Confirmation # [id number] Dictation # [id number] rn
--- NOTE | 2017-01-28 21:03 | CARD ---
APPROVED REPORT PROCEDURE The above named patient recieved 27.8 millicuries of Tc99m tagged red blood cells intravenously. After achieving equilibrium, gated imaging of 16/frame/cycle was performed utillizing Gamma camera interfaced with a digital computer and gated device. Gated imaging was then performed in the left anterior oblique, anterior, and the left lateral projections. Findings Left Ventricle: The quality of the study is suboptimal due to poor positioning. The left ventricle is within normal limits in size. The right ventricle is normal in size. Wall motion study shows good contractility of the left ventricle. RV wall motion is normal. The right atrium is dynamic.. The remainder of the study is unremarkable. Impressions Technically suboptimal study. Normal gated wall motion of left ventricle wall. LVEF = 60%. Normal RV wall motion.
[2017-01-28] MEDS: Albuterol-Ipratrop 3 mg / 0.5 (3 ml) UD IH SCH (21:06)
[2017-01-28] MEDS: Cefpodoxime (Vantin) 100 mg Tab PO SCH (21:49)
[2017-01-29 07:11] LABS: ADD MANUAL DIFF? NO
[2017-01-29 07:38] LABS: BASO # 0.01 K/mm3 (0.0-2.0); BASO % 0.1 % (0.0-3.0); EOS % 0.1 % (1.5-5.0); GRAN # 13.55 (1.4-6.5); HEMATOCRIT 43.5 % (42.0-52.0); LYMPH # 2.9 (1.2-3.4); LYMPH % 16.6 % (22.0-35.0); MEAN CELL VOLUME 90.2 fL (80.0-105.0); MEAN CORPUSCULAR HEMOGLOBIN 29.5 pg (25.0-35.0); MEAN CORPUSCULAR HGB CONC 32.6 g/dl (31.0-37.0); MEAN PLATELET VOLUME 11.3 fl (7.0-11.0); MONO # 0.9 (0.1-0.6); MONO % 5.2 % (1.0-6.0); PLATELET COUNT 226 10^3/uL (120.0-450.0); RED CELL DISTRIBUTION WIDTH 16.9 % (11.5-14.5); WHITE BLOOD COUNT 17.4 10^3/ul (4.5-11.0)
[2017-01-29] MEDS: Insulin Reg-LOW-Coverage SC SCH ×4 (08:14→22:26)
[2017-01-29] MEDS: Pantoprazole 40 mg EC Tab PO SCH (08:26)
[2017-01-29 08:55] LABS: INR 1.78 (0.93-1.08)
[2017-01-29 08:56] LABS: BLOOD UREA NITROGEN 24 mg/dL (7-21); CALCIUM 8.5 mg/dL (8.4-10.5); CARBON DIOXIDE 40 mmol/L (21-33); CHLORIDE 89 mmol/L (95-110); GFR AFRICAN-AMERICAN > 60; GLUCOSE,RANDOM 110 mg/dL (70-110); MAGNESIUM 2.1 mg/dL (1.7-2.2); PHOSPHOROUS 3.2 mg/dL (2.5-4.5); POTASSIUM 4.2 mmol/L (3.6-5.0); SODIUM 136 mmol/L (132-148)
[2017-01-29] MEDS: Enoxaparin 40 mg Syringe SC SCH (09:57)
[2017-01-29] MEDS: Multivitamin Therapeutic Tab PO SCH (09:58)
[2017-01-29] MEDS: Cefpodoxime (Vantin) 100 mg Tab PO SCH ×2 (09:58→22:26)
--- NOTE | 2017-01-29 10:14 | CP.PCM.PN ---
<CkAd - Last Filed: 01/29/17 10:07> Subjective - Date & Time of Evaluation Date of Evaluation: 01/29/17 Time of Evaluation: 07:40 - Subjective Subjective: Medicine Progress note. Dr. Leiva Pt seen and examined at bedside. No acute events overnight. States that the breathing has improved slightly. Denies F/C. No CP, still with mild SOB. No Abd pain. No N/V/D. No new complaints. Objective - Vital Signs/Intake and Output Vital Signs (last 24 hours): Temp Pulse Resp BP Pulse Ox 97.5 F L 59 L 18 96/57 L 95 01/29/17 06:00 01/29/17 06:00 01/29/17 06:00 01/29/17 09:56 01/29/17 06:00 - Medications Medications: Current Medications Alprazolam (Xanax) 0.25 mg PO DAILY PRN; Protocol PRN Reason: Anxiety Stop: 02/03/17 14:05 Last Admin: 01/28/17 13:09 Dose: 0.25 mg Cefpodoxime Proxetil (Vantin) 100 mg PO Q12 [facility] PRN Reason: Protocol Last Admin: 01/29/17 09:58 Dose: 100 mg Cyclobenzaprine HCl (Flexeril) 10 mg PO Q8 [facility] PRN Reason: Pain, Mild (1-3) Last Admin: 01/27/17 22:08 Dose: 10 mg Digoxin (Lanoxin) 0.25 mg PO 1400 [facility] Last Admin: 01/28/17 13:09 Dose: 0.25 mg Enoxaparin Sodium (Lovenox) 40 mg SC DAILY [facility] PRN Reason: Protocol Last Admin: 01/29/17 09:57 Dose: 40 mg Escitalopram Oxalate (Lexapro) 10 mg PO DAILY [facility] Last Admin: 01/29/17 09:57 Dose: 10 mg Furosemide (Lasix) 60 mg IVP Q12 [facility] Last Admin: 01/29/17 09:56 Dose: 60 mg Hydralazine HCl (Apresoline) 10 mg PO QID PRN PRN Reason: for sbp.170 & Diastolic>100 Insulin Human Regular (Humulin R Low) 0 units SC ACHS [facility] PRN Reason: Protocol Last Admin: 01/29/17 08:14 Dose: Not Given Lisinopril (Zestril) 10 mg PO DAILY [facility] Last Admin: 01/29/17 09:58 Dose: 10 mg Metoprolol Tartrate (Lopressor) 50 mg PO DAILY [facility] Last Admin: 01/29/17 09:57 Dose: 50 mg Multivitamins (Thera Tab) 1 tab PO DAILY [facility] Last Admin: 01/29/17 09:58 Dose: 1 tab Pantoprazole Sodium (Protonix Ec Tab) 40 mg PO ACB [facility] Last Admin: 01/29/17 08:26 Dose: 40 mg Prednisone (Prednisone Tab) 40 mg PO DAILY [facility] Last Admin: 01/29/17 09:57 Dose: 40 mg Warfarin Sodium (Coumadin) 7.5 mg PO 1800 [facility] Last Admin: 01/28/17 17:35 Dose: 7.5 mg - Labs Labs: 01/29/17 07:10 01/29/17 08:30 PT 19.2 Seconds (9.9-11.8) H 01/29/17 08:30 INR 1.78 (0.93-1.08) H 01/29/17 08:30 APTT 30.3 Seconds (23.7-30.8) 01/27/17 09:00 - Constitutional Appears: Well, No Acute Distress - Head Exam Head Exam: ATRAUMATIC, NORMAL INSPECTION, NORMOCEPHALIC - Eye Exam Eye Exam: EOMI, Normal appearance, PERRL. absent: Scleral icterus Pupil Exam: PERRL - ENT Exam ENT Exam: Mucous Membranes Moist - Respiratory Exam Respiratory Exam: NORMAL BREATHING PATTERN Additional comments: occasional ronchi bilaterally. No wheezes - Cardiovascular Exam Cardiovascular Exam: REGULAR RHYTHM, RRR, +S1, +S2. absent: JVD - GI/Abdominal Exam GI & Abdominal Exam: Soft, Normal Bowel Sounds. absent: Tenderness - Extremities Exam Extremities Exam: Normal Inspection Additional comments: Trace pretibial edema - Back Exam Back Exam: NORMAL INSPECTION - Neurological Exam Neurological Exam: Alert, Awake, Normal Gait, Oriented x3 - Psychiatric Exam Psychiatric exam: Normal Affect, Normal Mood - Skin Skin Exam: Normal Color, Warm Assessment and Plan - Assessment and Plan (Free Text) Assessment: 56yo M with PMHx of COPD, DESTINEE, PE/DVT on anticoagulation, HTN, HLD, CHF here with COPD exacerbation. 1. COPD exacerbation Vantin PO continue to taper Prednisone Duonebs prn f/u Procalcitonin due increased WBC. Likely secondary to steroids 2. Hx of CHF Continue IV lasix daily weights: 318 lbs to 315 lbs strict I's and O's K improved this morning. Will discontinue Spironolactone Monitor for worsening SOB MUGA scan - LVEF 60% Echocardriogram - mild LVH, EF 55%-60%, Trace AR, Trace MR, Moderate TR, Moderate cardiology following, Dr. Jacobo 3. Hx of anxiety/depression Continue lexapro 4. Hx of DM ISS Accuchecks HbA1c 5.9 5. hx of DVT Continue warfarin INR 1.78 6. GI/DVT ppx lovenox until INR therapeutic protonix Seen, reviewed, and discussed with Dr. Abbie Stover PGY1 <Abbie MONROE,[place]ont[place] cityj[place] daniel - Last Filed: 01/30/17 13:19> Objective - Vital Signs/Intake and Output Vital Signs (last 24 hours): Temp Pulse Resp BP Pulse Ox 97.6 F 66 20 104/65 97 01/30/17 08:00 01/30/17 10:10 01/30/17 08:00 01/30/17 10:10 01/30/17 08:00 Intake and Output: 01/30/17 01/30/17 06:59 18:59 Intake Total 1020 Balance 1020 - Medications Medications: Current Medications Alprazolam (Xanax) 0.25 mg PO DAILY PRN; Protocol PRN Reason: Anxiety Stop: 02/03/17 14:05 Last Admin: 01/29/17 13:10 Dose: 0.25 mg Cefpodoxime Proxetil (Vantin) 100 mg PO Q12 [facility] PRN Reason: Protocol Last Admin: 01/30/17 10:09 Dose: 100 mg Cyclobenzaprine HCl (Flexeril) 10 mg PO Q8 PRN PRN Reason: Pain, Mild (1-3) Last Admin: 01/30/17 10:09 Dose: 10 mg Digoxin (Lanoxin) 0.25 mg PO 1400 [facility] Last Admin: 01/29/17 13:10 Dose: 0.25 mg Escitalopram Oxalate (Lexapro) 10 mg PO DAILY [facility] Last Admin: 01/30/17 10:09 Dose: 10 mg Furosemide (Lasix) 60 mg IVP Q12 [facility] Last Admin: 01/30/17 10:09 Dose: 60 mg Hydralazine HCl (Apresoline) 10 mg PO QID PRN PRN Reason: for sbp.170 & Diastolic>100 Insulin Human Regular (Humulin R Low) 0 units SC ACHS [facility] PRN Reason: Protocol Last Admin: 01/30/17 08:13 Dose: 1 units Lisinopril (Zestril) 10 mg PO DAILY [facility] Last Admin: 01/30/17 10:10 Dose: Not Given Metoprolol Tartrate (Lopressor) 50 mg PO DAILY [facility] Last Admin: 01/30/17 10:10 Dose: Not Given Multivitamins (Thera Tab) 1 tab PO DAILY [facility] Last Admin: 01/30/17 10:09 Dose: 1 tab Pantoprazole Sodium (Protonix Ec Tab) 40 mg PO ACB [facility] Last Admin: 01/30/17 08:14 Dose: 40 mg Prednisone (Prednisone Tab) 40 mg PO DAILY [facility] Last Admin: 01/30/17 10:09 Dose: 40 mg Warfarin Sodium (Coumadin) 7.5 mg PO 1800 [facility] - Labs Labs: 01/30/17 07:06 01/30/17 07:06 PT 24.1 Seconds (9.9-11.8) H 01/30/17 07:06 INR 2.23 (0.93-1.08) H 01/30/17 07:06 APTT 30.3 Seconds (23.7-30.8) 01/27/17 09:00 Attending/Attestation - Attestation I have personally seen and examined this patient.: Yes I have fully participated in the care of the patient.: Yes I have reviewed all pertinent clinical information, including history, physical exam and plan: Yes Notes (Text): Patient was seen and examined with medical pathologist .Agreed with resident assessment and plan. Patient breathing is better but his WBC has increased likely due to steroid.We will get repeat chest x ray and will continue monitoring.Patient is afebrile. Management plan was discussed in detail with patient Education was provided.
[2017-01-29] MEDS: Digoxin 250 mcg (0.25 mg) Tab PO SCH (13:10)
--- NOTE | 2017-01-29 15:12 | RAD ---
HISTORY: CHF COMPARISON: 01/27/2017 TECHNIQUE: Chest PA and lateral FINDINGS: LUNGS: No active pulmonary disease. PLEURA: No significant pleural effusion identified. No pneumothorax apparent. CARDIOVASCULAR: Normal. OSSEOUS STRUCTURES: No significant abnormalities. VISUALIZED UPPER ABDOMEN: Normal. OTHER FINDINGS: None. IMPRESSION: No active disease.
[2017-01-29 17:07] VITALS: RESP 20
--- NOTE | 2017-01-29 17:09 | PN ---
DATE: 01/29/2017 REASON FOR CONSULTATION AND FOLLOWUP: Shortness of breath, possible acute exacerbation of COPD, card iac evaluation. BRIEF CLINICAL HISTORY: This is a 56-year-old morbidly obese male with past medical history signific ant for morbid obesity, cardiomyopathy, history of COPD, hypoventilation, possible Pickwickian syndro me, who came to the Emergency Room with shortness of breath exacerbation. The patient had a cardiac catheterization in 05/2014 showing nonobstructive coronary artery disease, essentially normal coronar ies, cardiomyopathy, ejection fraction 25%. Later on, ejection fraction significantly improved. Lat er on, echo shows preserved left ventricular function, ejection fraction 55%, dated 05/31/2014. Yest erday, patient underwent a MUGA scan that shows ejection fraction 60% LV, normal RV. The patient den ies any chest pain, shortness of breath, any palpitation. PHYSICAL EXAMINATION: VITAL SIGNS: Temperature afebrile, heart rate 59, blood pressure 102/63. HEENT: PERRLA. Extraocular muscles intact. NECK: Supple. No carotid bruits. No thyromegaly. CHEST: Clear to auscultation. HEART: S1, S2 regular. ABDOMEN: Soft. EXTREMITIES: Clubbing and cyanosis negative. BLOOD WORKUP: WBC ____, hemoglobin 14.____, hematocrit 43.5, platelet count 226. Chemistry shows so dium ____, potassium 4.2, chloride 99, carbon dioxide 40, anion gap of 11, BUN 24, creatinine 0.8. IMPRESSION: Acute exacerbation of chronic obstructive pulmonary disease, morbid obesity, body mass i ndex 47 kg/m2 with body weight 314 pounds. Yesterday, MUGA scan showed ejection fraction 60% left ve ntricular, normal right ventricle, status post cardiac catheterization on 05/31/2014, essentially nor mal coronaries. At that time, patient ____ ejection fraction was significantly reduced. Morbid obes ity, history of chronic obstructive pulmonary disease, history of deep venous thrombosis, history of pulmonary embolism, right heart failure secondary to obesity and chronic obstructive pulmonary diseas e. RECOMMENDATION: Continue anticoagulation. Goal is to keep INR between 2 to 2.5. INR is today 1.75. Continue anticoagulation. Continue with Coumadin. Continue digoxin. Continue Lasix. Continue me toprolol. Once the INR is more than 2, will discontinue Lovenox. Will follow with you. Thank you, Dr. Lulu Leiva, for providing the opportunity in taking care of the patient. Will fol low with you. Lulu Jacobo MD cc: [id number] TT: 01/29/2017 17:07:49 Confirmation # [id number] Dictation # [id number] mn
[2017-01-30 07:07] LABS: ADD MANUAL DIFF? NO
[2017-01-30 07:19] LABS: BASO # 0.01 K/mm3 (0.0-2.0); BASO % 0.1 % (0.0-3.0); EOS % 0.2 % (1.5-5.0); GRAN # 9.34 (1.4-6.5); GRAN % 70.5 % (50.0-68.0); HEMATOCRIT 44.5 % (42.0-52.0); LYMPH % 22.6 % (22.0-35.0); MEAN CELL VOLUME 89.4 fL (80.0-105.0); MEAN CORPUSCULAR HEMOGLOBIN 29.5 pg (25.0-35.0); MEAN PLATELET VOLUME 10.8 fl (7.0-11.0); MONO # 0.9 (0.1-0.6); MONO % 6.6 % (1.0-6.0); PLATELET COUNT 215 10^3/uL (120.0-450.0); RED CELL DISTRIBUTION WIDTH 16.8 % (11.5-14.5); WHITE BLOOD COUNT 13.3 10^3/ul (4.5-11.0)
[2017-01-30 07:25] LABS: INR 2.23 (0.93-1.08)
[2017-01-30 07:27] LABS: ALB/GLOB RATIO 0.8 (1.1-1.8); ALKALINE PHOSPHATASE 70 U/L (38-133); ALT/SGPT 36 U/L (7-56); AST/SGOT 16 U/L (15-59); BILIRUBIN,TOTAL 0.7 mg/dL (0.2-1.3); BLOOD UREA NITROGEN 33 mg/dL (7-21); CALCIUM 8.1 mg/dL (8.4-10.5); CARBON DIOXIDE 39 mmol/L (21-33); CHLORIDE 92 mmol/L (98-107); GFR AFRICAN-AMERICAN > 60; GLUCOSE,RANDOM 96 mg/dL (70-110); POTASSIUM 3.8 mmol/L (3.6-5.0); SODIUM 136 mmol/L (132-148); TOTAL PROTEIN 6.8 g/dL (5.8-8.3)
[2017-01-30 08:07] VITALS: PULSE 66; TEMP 97.6; O2SAT 97
[2017-01-30] MEDS: Insulin Reg-LOW-Coverage SC SCH ×2 (08:13→12:00)
[2017-01-30] MEDS: Pantoprazole 40 mg EC Tab PO SCH (08:14)
[2017-01-30] MEDS: Cefpodoxime (Vantin) 100 mg Tab PO SCH (10:09)
[2017-01-30] MEDS: Multivitamin Therapeutic Tab PO SCH (10:09)
[2017-01-30 10:11] VITALS: BP 104/65
[2017-01-30] MEDS: Enoxaparin 40 mg Syringe SC SCH (11:23)
--- NOTE | 2017-01-30 12:55 | CP.PCM.DIS ---
<CanoAgustoandre - Last Filed: 02/02/17 23:24> Provider - Provider Date of Admission: 01/27/17 05:08 Attending physician: Lulu Leiva MD Primary care physician: Dr. Young Consults: Cardio: Dr. Hayden Time Spent in preparation of Discharge (in minutes): 40 Diagnosis - Discharge Diagnosis (1) COPD (chronic obstructive pulmonary disease) Status: Chronic (2) Congestive heart failure (CHF) Status: Chronic (3) History of DVT (deep vein thrombosis) Status: Resolved (4) Diabetes Status: Chronic (5) Anxiety Status: Chronic (6) Depression Status: Chronic Hospital Course - Lab Results Lab Results: Most Recent Lab Values WBC 13.3 10^3/ul (4.5-11.0) H D 01/30/17 07:06 RBC 4.98 10^6/uL (3.5-6.1) 01/30/17 07:06 Hgb 14.7 gm/dL (14.0-18.0) 01/30/17 07:06 Hct 44.5 % (42.0-52.0) 01/30/17 07:06 MCV 89.4 fL (80.0-105.0) 01/30/17 07:06 MCH 29.5 pg (25.0-35.0) 01/30/17 07:06 MCHC 33.0 g/dl (31.0-37.0) 01/30/17 07:06 RDW 16.8 % (11.5-14.5) H 01/30/17 07:06 Plt Count 215 10^3/uL (120.0-450.0) 01/30/17 07:06 MPV 10.8 fl (7.0-11.0) 01/30/17 07:06 Gran % 70.5 % (50.0-68.0) H 01/30/17 07:06 Lymph % (Auto) 22.6 % (22.0-35.0) 01/30/17 07:06 [place] % (Auto) 6.6 % (1.0-6.0) H 01/30/17 07:06 Eos % (Auto) 0.2 % (1.5-5.0) L 01/30/17 07:06 Baso % (Auto) 0.1 % (0.0-3.0) 01/30/17 07:06 Gran # 9.34 (1.4-6.5) H 01/30/17 07:06 Lymph # 3.0 (1.2-3.4) 01/30/17 07:06 Blackford # 0.9 (0.1-0.6) H 01/30/17 07:06 Eos # 0.0 (0.0-0.7) 01/30/17 07:06 Baso # 0.01 K/mm3 (0.0-2.0) 01/30/17 07:06 PT 24.1 Seconds (9.9-11.8) H 01/30/17 07:06 INR 2.23 (0.93-1.08) H 01/30/17 07:06 APTT 30.3 Seconds (23.7-30.8) 01/27/17 09:00 D-Dimer, Quantitative 0.66 mg/L FEU (0-0.50) H 01/27/17 09:00 pCO2 56 mm/Hg (35-45) H 01/27/17 04:50 pO2 109.0 mm/Hg (80-100) H 01/27/17 04:50 HCO3 31.6 mmol/L (21-28) H 01/27/17 04:50 ABG pH 7.36 (7.35-7.45) 01/27/17 04:50 ABG Total CO2 33.3 mmol.L (22-28) H 01/27/17 04:50 ABG O2 Saturation 99.5 % (95-98) H 01/27/17 04:50 ABG O2 Content 17.4 ML/dl (15-23) 01/27/17 04:50 ABG Base Excess 4.6 mmol/L (-2.0-3.0) H 01/27/17 04:50 ABG Hemoglobin 13.5 g/dL (11.7-17.4) 01/27/17 04:50 ABG Carboxyhemoglobin 7.7 % (0.5-1.5) H 01/27/17 04:50 POC ABG HHb (Measured) 0.5 % (0-5) 01/27/17 04:50 ABG Methemoglobin 0.9 % (0.0-3.0) 01/27/17 04:50 ABG O2 Capacity 17.5 mL/dl (16-24) 01/27/17 04:50 Hgb O2 Saturation 90.9 % (95.0-98.0) L 01/27/17 04:50 FiO2 40.0 % 01/27/17 04:50 Sodium 136 mmol/L (132-148) 01/30/17 07:06 Potassium 3.8 mmol/L (3.6-5.0) 01/30/17 07:06 Chloride 92 mmol/L (98-107) L 01/30/17 07:06 Carbon Dioxide 39 mmol/L (21-33) H 01/30/17 07:06 Anion Gap 9 (10-20) L 01/30/17 07:06 BUN 33 mg/dL (7-21) H 01/30/17 07:06 Creatinine 0.9 mg/dL (0.5-1.4) 01/30/17 07:06 Est GFR ( Amer) > 60 01/30/17 07:06 Est GFR (Non-Af Amer) > 60 01/30/17 07:06 POC Glucose (mg/dL) 112 mg/dL (65-110) H 01/29/17 07:58 Random Glucose 96 mg/dL (70-110) 01/30/17 07:06 Hemoglobin A1c 5.9 % (4.2-6.5) 01/28/17 06:30 Calcium 8.1 mg/dL (8.4-10.5) L 01/30/17 07:06 Phosphorus 3.2 mg/dL (2.5-4.5) 01/29/17 08:30 Magnesium 2.1 mg/dL (1.7-2.2) 01/29/17 08:30 Total Bilirubin 0.7 mg/dL (0.2-1.3) 01/30/17 07:06 AST 16 U/L (15-59) 01/30/17 07:06 ALT 36 U/L (7-56) 01/30/17 07:06 Alkaline Phosphatase 70 U/L (38-133) 01/30/17 07:06 Lactate Dehydrogenase 533 U/L (333-699) 01/27/17 11:40 Total Creatine Kinase 203 U/L (35-230) 01/27/17 11:40 Troponin I 0.06 ng/mL D 01/27/17 20:15 NT-Pro-B Natriuret Pep 1990 pg/mL (0-450) H 01/27/17 04:08 Total Protein 6.8 g/dL (5.8-8.3) 01/30/17 07:06 Albumin 3.1 g/dL (3.0-4.8) 01/30/17 07:06 Globulin 3.7 gm/dL 01/30/17 07:06 Albumin/Globulin Ratio 0.8 (1.1-1.8) L 01/30/17 07:06 Triglycerides 98 mg/dL (35-160) 01/28/17 06:30 Cholesterol 148 mg/dL (130-200) 01/28/17 06:30 LDL Cholesterol Direct 88 mg/dL (0-129) 01/28/17 06:30 HDL Cholesterol 31 mg/dL (29-60) 01/28/17 06:30 Procalcitonin 0.12 NG/ML (0.19-0.49) L 01/29/17 12:20 TSH 3rd Generation 0.11 mIU/mL (0.46-4.68) L 01/28/17 06:30 Digoxin 0.6 ng/mL (0.8-2.0) L 01/27/17 09:00 - Hospital Course Hospital Course: 56 year old male with past medical history of COPD, DESTINEE, PE/DVT, HTN, HLD, CHF presenting with sob x 1 day. Pt was at home, began experiencing sob, called ambulance. Got albuterol and solumedrol in field. Pt is poor historian and lethargic at time of evaluation. Unable to answer many questions. Prior hx reviewed in chart. Pt denies fevers, chills, headache, nausea, vomiting, diarrhea, urinary sx, bloody BMs, any bleeding. In the ED, EKG showed sinus tachycardia at 120 bpm. Inferior infarct. Non-specific ST/T wave changes. Chest X-ray shows mild vascular congestion. BNP was found to be at 1990 and troponin of 0,09. Patient was given Duoneb. Upon admission, patient was started on BIPAP , azithromycin, solumedrol, resumed all home meds except for metformin. Cardiology was consulted. Patient had leukocytosis likely secondary to IV steroid. Patient was switched to PO prednisone. ECHO and MUGA showed patient's EF at 60%. Patient's symptoms improved. Repeat CXR showed improvement of congestion. The discharge plan and follow ups were extensively discussed with the patient and her son. At this time, after discussion of all issues, the patient was deemed medically fit for discharge. - Date & Time of H&P Date of H&P: 01/27/17 Time of H&P: 05:29 Discharge Exam - Head Exam Head Exam: ATRAUMATIC, NORMAL INSPECTION, NORMOCEPHALIC - Eye Exam Eye Exam: EOMI, Normal appearance, PERRL - ENT Exam ENT Exam: Mucous Membranes Moist - Neck Exam Neck exam: Normal Inspection - Respiratory Exam Respiratory Exam: NORMAL BREATHING PATTERN. absent: Wheezes, Respiratory Distress - Cardiovascular Exam Cardiovascular Exam: REGULAR RHYTHM, RRR, +S1, +S2 - GI/Abdominal Exam GI & Abdominal Exam: Normal Bowel Sounds, Soft. absent: Tenderness - Extremities Exam Extremities exam: normal inspection - Back Exam Back exam: NORMAL INSPECTION - Neurological Exam Neurological exam: Alert, Oriented x3 - Psychiatric Exam Psychiatric exam: Normal Affect, Normal Mood - Skin Skin Exam: Normal Color, Warm Discharge Plan - Discharge Medications Prescriptions: Furosemide [Lasix] 60 mg PO BID 14 Days Cefpodoxime [Vantin] 100 mg PO Q12 #4 tab predniSONE [predniSONE Tab] 20 mg PO DAILY #2 tab - Follow Up Plan Condition: STABLE Disposition: HOME/ ROUTINE Instructions: Warfarin (By mouth), Heart Failure (DC), Hypertrophic Cardiomyopathy (GEN), Heart Healthy Diet (DC), Weight Management (DC), Multigated Acquisition Scan (GEN), COPD (Chronic Obstructive Pulmonary Disease) (DC), Basic Carbohydrate Counting (DC), Meal Planning with the Plate Method (DC) , Meal Planning with Diabetes Exchanges (DC), Obesity (DC) Additional Instructions: Patient was instructed to follow with PMD Dr. Young and Cardiology Dr. Jacobo within 1 week of hospital discharge Patient was instructed to have his INR checked with Dr. Young in 3 days Patient will take medications as prescribed Go to the nearest ED if symptoms return or worsen Referrals: Lulu Jacobo MD [Staff Provider] - Yoni Young MD [Family Provider] - <Lulu Leiva MD - Last Filed: 02/07/17 14:15> Provider - Provider Date of Admission: 01/27/17 05:08 Attending physician: Lulu Leiva MD Hospital Course - Lab Results Lab Results: Most Recent Lab Values WBC 13.3 10^3/ul (4.5-11.0) H D 01/30/17 07:06 RBC 4.98 10^6/uL (3.5-6.1) 01/30/17 07:06 Hgb 14.7 gm/dL (14.0-18.0) 01/30/17 07:06 Hct 44.5 % (42.0-52.0) 01/30/17 07:06 MCV 89.4 fL (80.0-105.0) 01/30/17 07:06 MCH 29.5 pg (25.0-35.0) 01/30/17 07:06 MCHC 33.0 g/dl (31.0-37.0) 01/30/17 07:06 RDW 16.8 % (11.5-14.5) H 01/30/17 07:06 Plt Count 215 10^3/uL (120.0-450.0) 01/30/17 07:06 MPV 10.8 fl (7.0-11.0) 01/30/17 07:06 Gran % 70.5 % (50.0-68.0) H 01/30/17 07:06 Lymph % (Auto) 22.6 % (22.0-35.0) 01/30/17 07:06 Blackford % (Auto) 6.6 % (1.0-6.0) H 01/30/17 07:06 Eos % (Auto) 0.2 % (1.5-5.0) L 01/30/17 07:06 Baso % (Auto) 0.1 % (0.0-3.0) 01/30/17 07:06 Gran # 9.34 (1.4-6.5) H 01/30/17 07:06 Lymph # 3.0 (1.2-3.4) 01/30/17 07:06 Blackford # 0.9 (0.1-0.6) H 01/30/17 07:06 Eos # 0.0 (0.0-0.7) 01/30/17 07:06 Baso # 0.01 K/mm3 (0.0-2.0) 01/30/17 07:06 PT 24.1 Seconds (9.9-11.8) H 01/30/17 07:06 INR 2.23 (0.93-1.08) H 01/30/17 07:06 APTT 30.3 Seconds (23.7-30.8) 01/27/17 09:00 D-Dimer, Quantitative 0.66 mg/L FEU (0-0.50) H 01/27/17 09:00 pCO2 56 mm/Hg (35-45) H 01/27/17 04:50 pO2 109.0 mm/Hg (80-100) H 01/27/17 04:50 HCO3 31.6 mmol/L (21-28) H 01/27/17 04:50 ABG pH 7.36 (7.35-7.45) 01/27/17 04:50 ABG Total CO2 33.3 mmol.L (22-28) H 01/27/17 04:50 ABG O2 Saturation 99.5 % (95-98) H 01/27/17 04:50 ABG O2 Content 17.4 ML/dl (15-23) 01/27/17 04:50 ABG Base Excess 4.6 mmol/L (-2.0-3.0) H 01/27/17 04:50 ABG Hemoglobin 13.5 g/dL (11.7-17.4) 01/27/17 04:50 ABG Carboxyhemoglobin 7.7 % (0.5-1.5) H 01/27/17 04:50 POC ABG HHb (Measured) 0.5 % (0-5) 01/27/17 04:50 ABG Methemoglobin 0.9 % (0.0-3.0) 01/27/17 04:50 ABG O2 Capacity 17.5 mL/dl (16-24) 01/27/17 04:50 Hgb O2 Saturation 90.9 % (95.0-98.0) L 01/27/17 04:50 FiO2 40.0 % 01/27/17 04:50 Sodium 136 mmol/L (132-148) 01/30/17 07:06 Potassium 3.8 mmol/L (3.6-5.0) 01/30/17 07:06 Chloride 92 mmol/L (98-107) L 01/30/17 07:06 Carbon Dioxide 39 mmol/L (21-33) H 01/30/17 07:06 Anion Gap 9 (10-20) L 01/30/17 07:06 BUN 33 mg/dL (7-21) H 01/30/17 07:06 Creatinine 0.9 mg/dL (0.5-1.4) 01/30/17 07:06 Est GFR ( Amer) > 60 01/30/17 07:06 Est GFR (Non-Af Amer) > 60 01/30/17 07:06 POC Glucose (mg/dL) 112 mg/dL (65-110) H 01/29/17 07:58 Random Glucose 96 mg/dL (70-110) 01/30/17 07:06 Hemoglobin A1c 5.9 % (4.2-6.5) 01/28/17 06:30 Calcium 8.1 mg/dL (8.4-10.5) L 01/30/17 07:06 Phosphorus 3.2 mg/dL (2.5-4.5) 01/29/17 08:30 Magnesium 2.1 mg/dL (1.7-2.2) 01/29/17 08:30 Total Bilirubin 0.7 mg/dL (0.2-1.3) 01/30/17 07:06 AST 16 U/L (15-59) 01/30/17 07:06 ALT 36 U/L (7-56) 01/30/17 07:06 Alkaline Phosphatase 70 U/L (38-133) 01/30/17 07:06 Lactate Dehydrogenase 533 U/L (333-699) 01/27/17 11:40 Total Creatine Kinase 203 U/L (35-230) 01/27/17 11:40 Troponin I 0.06 ng/mL D 01/27/17 20:15 NT-Pro-B Natriuret Pep 1990 pg/mL (0-450) H 01/27/17 04:08 Total Protein 6.8 g/dL (5.8-8.3) 01/30/17 07:06 Albumin 3.1 g/dL (3.0-4.8) 01/30/17 07:06 Globulin 3.7 gm/dL 01/30/17 07:06 Albumin/Globulin Ratio 0.8 (1.1-1.8) L 01/30/17 07:06 Triglycerides 98 mg/dL (35-160) 01/28/17 06:30 Cholesterol 148 mg/dL (130-200) 01/28/17 06:30 LDL Cholesterol Direct 88 mg/dL (0-129) 01/28/17 06:30 HDL Cholesterol 31 mg/dL (29-60) 01/28/17 06:30 Procalcitonin 0.12 NG/ML (0.19-0.49) L 01/29/17 12:20 TSH 3rd Generation 0.11 mIU/mL (0.46-4.68) L 01/28/17 06:30 Digoxin 0.6 ng/mL (0.8-2.0) L 01/27/17 09:00 Attending/Attestation - Attestation I have personally seen and examined this patient.: Yes I have fully participated in the care of the patient.: Yes I have reviewed all pertinent clinical information, including history, physical exam and plan: Yes Notes (Text): Patient was seen and examined with medical and health services manager .Agreed with resident assessment and plan. 56 year old male with past medical history of COPD, DESTINEE, PE/DVT, SP IVC filter on anticoagulation with warfarin HTN, Hyperlipidemia , diastolic CHF , non compliance with medication was admitted with worsening dyspnea due to CHF exacerbation due to acute on chronic diastolic CHF. Patient symptoms are improved with diuresis.Patient is feeling close to his base line.His INR is therapeutic at the time of discharge.The issue of compliance with medication was discussed in detail. Patient will be discharged home and will follow up with PCP . Management plan was discussed in detail with patient Education was provided.
[2017-01-30] MEDS: Digoxin 250 mcg (0.25 mg) Tab PO SCH (13:17)
[2017-01-30 13:18] VITALS: PULSE 68
--- NOTE | 2017-01-30 16:13 | PN ---
DATE: 01/30/2017 REASON FOR CONSULTATION AND FOLLOWUP: Shortness of breath, possible acute exacerbation of chronic ob structive pulmonary disease, cardiac evaluation. 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 The patient had a ca rdiac catheterization on 05/2014 showing nonobstructive coronary artery disease, essentially normal c oronaries, cardiomyopathy, ejection fraction 25%. Later on ejection fraction significantly improved. Later on echo also shows preserved left ventricular function with ejection fraction 55% dated 05/31. Yesterday, the patient underwent a MUGA scan that shows ejection fraction LV 60%, normal RV f unction. The patient denies any chest pain, shortness of breath or any palpitations. PHYSICAL EXAMINATION: VITAL SIGNS: Temperature afebrile, heart rate , blood pressure 104/65. HEENT: PERRLA. Extraocular muscles intact. NECK: Supple. No carotid bruit or thyromegaly. CHEST: Clear to auscultation. HEART: S1, S2 regular. ABDOMEN: Soft. EXTREMITIES: Clubbing and cyanosis negative. LABORATORY DATA: Blood workup as follows: WBC 13.3, hemoglobin , hematocrit 44.5, platelet cou nt 215. Chemistry shows sodium 130, potassium , chloride , carbon dioxide 39, anion gap of 9, BUN 33, creatinine 0.9. IMPRESSION: Acute exacerbation of chronic obstructive pulmonary disease, morbid obesity, body mass i ndex of 50 kg/m2, weight of the patient is 315 pounds, is status post cardiac catheterization and nor mal coronaries 05/2014. His MUGA shows preserved left ventricular function, normal right ventricular function, history of deep venous thrombosis, pulmonary embolus, right heart failure secondary to obe sity and chronic obstructive pulmonary disease . Recommendation is to continue anticoagulation. Goa l is to keep INR between 2-2.5. Today's INR is 2.23. RECOMMENDATIONS: Continue anticoagulation. Continue hydralazine. Continue Lasix p.o. Continue met oprolol. Will follow with you. Thank you, Dr. Yi, for providing us the opportunity in taking care of your patient. Lulu Jacobo MD cc: [id number] TT: 01/30/2017 16:13:42 Confirmation # [id number] Dictation # [id number]
== END 2017-01-30 14:46 | disposition home or self-care (01) | DRG 541 ==
LOC: ED 03:15 → ERH 05:08 → 2RNO 07:08 → 5RNO 01-29 10:44
PROVIDERS: ADMIT Internal Medicine; ATTEND Internal Medicine
PROC: 5A0935Z Assistance with Respiratory Ventilation, Less than 24 Consecutive Hours (ICD-10-PCS; principal; 2017-01-27)
PROC: 3E0F7GC Introduction of Other Therapeutic Substance into Respiratory Tract, Via Natural or Artificial Opening (ICD-10-PCS; 2017-01-27)
DX: J44.1 Chronic obstructive pulmonary disease with (acute) exacerbation (principal); J96.01 Acute respiratory failure with hypoxia; I11.0 Hypertensive heart disease with heart failure; I50.9 Heart failure, unspecified; Z68.42 Body mass index [BMI] 45.0-49.9, adult; I42.9 Cardiomyopathy, unspecified; E11.9 Type 2 diabetes mellitus without complications; I25.10 Atherosclerotic heart disease of native coronary artery without angina pectoris; F17.210 Nicotine dependence, cigarettes, uncomplicated; E66.01 Morbid (severe) obesity due to excess calories; G47.33 Obstructive sleep apnea (adult) (pediatric); E78.5 Hyperlipidemia, unspecified; D72.829 Elevated white blood cell count, unspecified; T38.0X5A Adverse effect of glucocorticoids and synthetic analogues, initial encounter; F32.9 Major depressive disorder, single episode, unspecified; F41.9 Anxiety disorder, unspecified; Z79.84 Long term (current) use of oral hypoglycemic drugs; Z79.01 Long term (current) use of anticoagulants; Z86.718 Personal history of other venous thrombosis and embolism; Z86.711 Personal history of pulmonary embolism

== ENCOUNTER 2017-04-06 20:18 | Inpatient (IN) | payer MEDICAID ==
[2017-04-06] MEDS ORDERED: Albuterol-Ipratrop 3 mg / 0.5 (3 ml) UD IH STA (20:45)
--- NOTE | 2017-04-06 20:56 | ED PDOC ---
Arrival/HPI - General Chief Complaint: Shortness Of Breath Time Seen by Provider: 04/06/17 20:25 Historian: Patient - History of Present Illness Narrative History of Present Illness (Text): 04/06/17 20:57 A 56 year old male, whose past medical history includes obesity, COPD, cardiomyopathy, hypoventilation syndrome and DVT, presents to the emergency department complaining of shortness of breath for the past few days. Patient denies chest pain, fever, chills, cough or any other complaints at this time. Time/Duration: < week Symptom Onset: Sudden Symptom Course: Unchanged Activities at Onset: Rest Context: Home Past Medical History - Provider Review Nursing Documentation Reviewed: Yes - Infectious Disease Hx of Infectious Diseases: None - Tetanus Immunization Tetanus Immunization: Unknown - Cardiac Hx Cardiac Disorders: Yes (cardiomyopathy, dvt pe) Hx Cardiac Arrhythmia: Yes Hx Congestive Heart Failure: Yes Hx Hypertension: Yes Hx Pacemaker: No Hx Peripheral Edema: Yes (renal insuff) - Pulmonary Hx Respiratory Disorders: (pe has monty filter) Hx Asthma: Yes Hx Chronic Obstructive Pulmonary Disease (COPD): Yes Hx Pneumonia: Yes Hx Sleep Apnea: Yes - Neurological Hx Neurological Disorder: Yes (SYNCOPE) - HEENT Hx HEENT Disorder: No - Renal Hx Renal Failure: (RENAL INSUFFICIENCY) - Endocrine/Metabolic Hx Endocrine Disorders: No Hx Diabetes Mellitus Type 2: Yes - Hematological/Oncological Hx Blood Disorders: No - Integumentary Hx Dermatological Disorder: No Other/Comment: bilateral lower extremity and feet discolored dry skin , redness tightness - Musculoskeletal/Rheumatological Hx Falls: Yes - Gastrointestinal Hx Gastrointestinal Disorders: (obese) Hx Gastroesophageal Reflux: Yes - Genitourinary/Gynecological Hx Genitourinary Disorders: No - Psychiatric Hx Psychophysiologic Disorder: Yes (DRUG OD) Hx Anxiety: Yes Hx Depression: No Hx Emotional Abuse: No Hx Physical Abuse: No Hx Substance Use: Yes (HEROINE ABUSE.HAS QUIT 3 YRS AGO.DENIES BEING IN A PROGRAM.) Other/Comment: hx heroin use quit 3 yrs ago, substance abuse. - Past Surgical History Past Surgical History: Non-Contributing - Surgical History Hx Cardiac Catheterization: Yes Other/Comment: back sx "yrs ago", right shoulder sx for fx has pins,monty filter - Anesthesia Hx Anesthesia: Yes Hx Anesthesia Reactions: No Hx Malignant Hyperthermia: No - Suicidal Assessment Feels Threatened In Home Enviroment: No Family/Social History - Physician Review Nursing Documentation Reviewed: Yes Family/Social History: No Known Family HX Smoking Status: Heavy Smoker > 10 Cigarettes Daily Hx Alcohol Use: No Hx Substance Use: Yes (HEROINE ABUSE.HAS QUIT 3 YRS AGO.DENIES BEING IN A PROGRAM.) Hx Substance Use Treatment: No Allergies/Home Meds Allergies/Adverse Reactions: Allergies No Known Allergies Allergy (Verified 04/06/17 20:31) Home Medications: Home Meds Medication Instructions Recorded Confirmed Digoxin [Digitek] 250 mcg PO DAILY 01/27/17 04/06/17 Enalapril Maleate [Vasotec] 10 mg PO DAILY 01/27/17 04/06/17 Metformin HCl [Glucophage] 500 mg PO BID 01/27/17 04/06/17 Metoprolol Tartrate [Lopressor] 50 mg PO DAILY 01/27/17 04/06/17 Warfarin Sodium [Jantoven] 7.5 mg PO DAILY 01/27/17 04/06/17 Review of Systems - Physician Review All systems were reviewed & negative as marked: Yes - Review of Systems Constitutional: absent: Fevers, Other (chills) Respiratory: SOB. absent: Cough Cardiovascular: absent: Chest Pain Physical Exam Vital Signs Temp Pulse Resp BP Pulse Ox 04/06/17 23:45 98.1 F 90 18 105/67 94 L 04/06/17 20:45 20 93 L Appearance: Positive for: Well-Appearing, Non-Toxic, Comfortable Pain Distress: None Mental Status: Positive for: Alert and Oriented X 3 - Systems Exam Head: Present: Atraumatic, Normocephalic Pupils: Present: PERRL Extroacular Muscles: Present: EOMI Conjunctiva: Present: Normal Mouth: Present: Moist Mucous Membranes Neck: Present: Normal Range of Motion Respiratory/Chest: Present: Decreased Breath Sounds (bilaterally). No: Accessory Muscle Use Cardiovascular: Present: Regular Rate and Rhythm, Normal S1, S2. No: Murmurs Abdomen: Present: Normal Bowel Sounds. No: Tenderness, Distention, Peritoneal Signs Back: Present: Normal Inspection Upper Extremity: Present: Normal Inspection. No: Cyanosis, Edema Lower Extremity: Present: Normal Inspection. No: Edema Neurological: Present: GCS=15, CN II-XII Intact, Speech Normal Skin: Present: Warm, Dry, Normal Color. No: Rashes Psychiatric: Present: Alert, Oriented x 3, Normal Insight, Normal Concentration Medical Decision Making ED Course and Treatment: 04/06/17 20:52 Impression: A 56 year old male with shortness of breath. Differential Diagnosis included but are not limited to: COPD vs. cor pulmonale vs. bronchitis vs. pneumonia Plan: -- EKG -- chest xray -- labs -- Duoneb -- Reassess and disposition Prior Visits: Notes and results from previous visits were reviewed. Patient last reported to the emergency department on 01/27/17 for evaluation of shortness of breath. Patient admitted to Telemetry for COPD and CHF. Patient discharged 01/30/17. Progress Notes: Reviewed EKG, sinus tachycardia at 113 bpm. Inferior infarct. Anterior infarct. Non-specific ST/T wave changes. Unchanged from EKG on 01/27/2017. 04/06/17 23:16 Reviewed radiology, CXR shows cardiomegaly, no other acute processes. 04/07/17 00:[address] Young, who requests pt go to hospitalist service. 04/07/17 00:35 Case discussed with medical office representative combination man, who is aware and agrees with plan. 04/07/17 00:[address] Gonzáles, who is aware and agrees with plan. Accepts pt in to hospitalist service. Pt will be admitted to Telemetry for NSTEMI and COPD exacerbation. - Critical Care Critical Care Minutes: 30 minutes - Lab Interpretations Lab Results: 04/06/17 22:10 04/06/17 22:10 Lab Results 04/06/17 22:10: WBC 11.5 H, RBC 5.37, Hgb 15.8, Hct 49.0, MCV 91.2, MCH 29.4, MCHC 32.2, RDW 16.7 H, Plt Count 170, MPV 10.6 04/06/17 22:10: Sodium 138, Potassium 3.4 L, Chloride 96 L, Carbon Dioxide 35 H , Anion Gap 10, BUN 9, Creatinine 0.8, Est GFR ( Amer) > 60, Est GFR (Non -Af Amer) > 60, Random Glucose 130 H, Calcium 8.5, Total Bilirubin 2.6 H, AST 17 , ALT 28, Alkaline Phosphatase 69, Lactate Dehydrogenase 476, Total Creatine Kinase 91, Troponin I 0.18 H* D, NT-Pro-B Natriuret Pep 1790 H, Total Protein 6.3, Albumin 3.2, Globulin 3.1, Albumin/Globulin Ratio 1.0 L 04/06/17 22:10: PT 12.4 H, INR 1.15 H, APTT 27.8 I have reviewed the lab results: Yes - RAD Interpretation Radiology Orders: 04/06/17 20:44 CHEST PORTABLE [RAD] Stat Technical Business Systems Analyst: ED Physician - EKG Interpretation Interpreted by ED Physician: Yes Type: 12 lead EKG - Medication Orders Current Medication Orders: Acetaminophen (Tylenol 325mg Tab) 650 mg PO Q6H PRN PRN Reason: Fever >100.4 F Atorvastatin Calcium (Lipitor) 80 mg PO DIN KATIE Famotidine (Pepcid) 20 mg IVP Q12 KATIE Lisinopril (Zestril) 10 mg PO DAILY KATIE Metoprolol Tartrate (Lopressor) 50 mg PO DAILY KATIE Discontinued Medications Albuterol/Ipratropium (Duoneb 3 Mg/0.5 Mg (3 Ml) Ud) 3 ml IH ONCE STA Stop: 04/06/17 20:46 Last Admin: 04/06/17 22:18 Dose: 3 ml Albuterol/Ipratropium (Duoneb 3 Mg/0.5 Mg (3 Ml) Ud) 3 ml IH ONCE STA Stop: 04/07/17 00:24 Last Admin: 04/07/17 00:59 Dose: 3 ml Aspirin (Aspirin Chewable) 324 mg PO STAT STA Stop: 04/07/17 01:41 Atorvastatin Calcium (Lipitor) 80 mg PO ONCE STA Stop: 04/07/17 01:44 Enoxaparin Sodium (Lovenox) 100 mg SC STAT STA PRN Reason: Protocol Stop: 04/06/17 23:18 Last Admin: 04/06/17 23:41 Dose: 100 mg Methylprednisolone (Solu-Medrol) 125 mg IVP ONCE ONE Stop: 04/07/17 00:24 Last Admin: 04/07/17 01:00 Dose: 125 mg Metoprolol Tartrate (Lopressor) 50 mg PO DAILY KATIE Non-Formulary Medication (Enalapril Maleate [Vasotec]) 10 mg PO DAILY KATIE Potassium Chloride (K-Dur 20 Meq Er Tab) 20 meq PO STAT STA Stop: 04/07/17 00:24 Last Admin: 04/07/17 01:00 Dose: 20 meq - Scribe Statement The provider has reviewed the documentation as recorded by the Curt Zeng Provider Curt Attestation: All medical record entries made by the Laureenibrussell were at my direction and personally dictated by me. I have reviewed the chart and agree that the record accurately reflects my personal performance of the history, physical exam, medical decision making, and the department course for this patient. I have also personally directed, reviewed, and agree with the discharge instructions and disposition. Disposition/Present on Arrival - Present on Arrival Any Indicators Present on Arrival: No History of DVT/PE: Yes History of Uncontrolled Diabetes: Yes Urinary Catheter: No History of Decub. Ulcer: No History Surgical Site Infection Following: None - Disposition Have Diagnosis and Disposition been Completed?: Yes Diagnosis: COPD (chronic obstructive pulmonary disease), NSTEMI (non-ST elevated myocardial infarction) Disposition: HOSPITALIZED Disposition Time: 00:26 Patient Plan: Admission Patient Problems: Current Active Problems Problem Status Onset NSTEMI (non-ST elevated myocardial infarction) Acute COPD (chronic obstructive pulmonary disease) Chronic Condition: STABLE
[2017-04-06 22:40] LABS: ALKALINE PHOSPHATASE 69 U/L (38-133); ALT/SGPT 28 U/L (7-56); AST/SGOT 17 U/L (15-59); BILIRUBIN,TOTAL 2.6 mg/dL (0.2-1.3); BLOOD UREA NITROGEN 9 mg/dL (7-21); CALCIUM 8.5 mg/dL (8.4-10.5); CARBON DIOXIDE 35 mmol/L (21-33); GFR AFRICAN-AMERICAN > 60; GLUCOSE,RANDOM 130 mg/dL (70-110); POTASSIUM 3.4 mmol/L (3.6-5.0); SODIUM 138 mmol/L (132-148); TOTAL PROTEIN 6.3 g/dL (5.8-8.3)
[2017-04-06 22:42] LABS: CHLORIDE 96 mmol/L (98-107)
[2017-04-06 22:46] LABS: MEAN CELL VOLUME 91.2 fL (80.0-105.0); MEAN CORPUSCULAR HEMOGLOBIN 29.4 pg (25.0-35.0); MEAN CORPUSCULAR HGB CONC 32.2 g/dl (31.0-37.0); MEAN PLATELET VOLUME 10.6 fl (7.0-11.0); RED CELL DISTRIBUTION WIDTH 16.7 % (11.5-14.5); WHITE BLOOD COUNT 11.5 10^3/ul (4.5-11.0)
[2017-04-06 22:54] LABS: TROPONIN I 0.18 ng/mL
[2017-04-06 23:07] LABS: INR 1.15 (0.93-1.08); PARTIAL THROMBOPLASTIN TIME 27.8 Seconds (23.7-30.8)
[2017-04-06] MEDS ORDERED: Enoxaparin 100 mg Syringe SC STA (23:17)
[2017-04-07] MEDS: Albuterol-Ipratrop 3 mg / 0.5 (3 ml) UD IH STA ×2 (00:59→09:11)
[2017-04-07] MEDS: Potassium Chloride 20 mEq ER Tab PO STA ×2 (01:00→09:12)
--- NOTE | 2017-04-07 01:48 | CP.PCM.HP ---
Addendum entered and electronically signed by Matt Swenson DO 04/07/17 03:28: not CP-->CC (chief complaint) Addendum entered and electronically signed by Matt Swenson DO 04/07/17 03:27: beginning should read "CP: SOB This is a patient with COPD, DESTINEE..." and continue from there Original Note: <Matt Swenson - Last Filed: 04/07/17 02:14> History of Present Illness - History of Present Illness History of Present Illness: OPD, DESTINEE, PE/DVT, SP IVC filter on anticoagulation with warfarin HTN, Hyperlipidemia , diastolic CHF , non compliance with medication who is an extremely poor historian; was trying to urinate for over 30minutes and slurring most of his words. States he has not been taking any of his medications " because I don't know why". Patient states he took a xanx before he got here, and takes multiple different pain medicines that are not in his MAR and he could not provide dosages or a doctor that prescribes them. I could not get any more worthwhile history from him. Past medical history: COPD, DESTINEE, PE/DVT, SP IVC filter on anticoagulation with warfarin HTN, Hyperlipidemia , diastolic CHF , non compliance with medication PSH: Unknown Allergies: NKDA Home meds: metformin, dig, lasix, spironolactone, enalapril, flexeril, tizanadine, metoprolol, noncompliant with all of them FH: Non contributory Social hx: Former smoker. Denies drinking and drug abuse Present on Admission - Present on Admission Any Indicators Present on Admission: No History of DVT/PE: Yes History of Uncontrolled Diabetes: No Urinary Catheter: No Decubitus Ulcer Present: No Past Patient History - Infectious Disease Hx of Infectious Diseases: None - Tetanus Immunizations Tetanus Immunization: Unknown - Past Medical History & Family History Past Medical History?: Yes - Past Social History Smoking Status: Heavy Smoker > 10 Cigarettes Daily - CARDIAC Hx Cardiac Disorders: Yes (cardiomyopathy, dvt pe) Hx Cardia Arrhythmia: Yes Hx Congestive Heart Failure: Yes Hx Hypertension: Yes Hx Pacemaker: No Hx Peripheral Edema: Yes (renal insuff) - PULMONARY Hx Respiratory Disorders: (pe has monty filter) Hx Asthma: Yes Hx Chronic Obstructive Pulmonary Disease (COPD): Yes Hx Pneumonia: Yes Hx Sleep Apnea: Yes - NEUROLOGICAL Hx Neurological Disorder: Yes (SYNCOPE) - HEENT Hx HEENT Problems: No - RENAL Hx Renal Failure: (RENAL INSUFFICIENCY) - ENDOCRINE/METABOLIC Hx Endocrine Disorders: No Hx Diabetes Mellitus Type 2: Yes - HEMATOLOGICAL/ONCOLOGICAL Hx Blood Disorders: No - INTEGUMENTARY Hx Dermatological Problems: No Other/Comment: bilateral lower extremity and feet discolored dry skin , redness tightness - MUSCULOSKELETAL/RHEUMATOLOGICAL Hx Falls: Yes - GASTROINTESTINAL Hx Gastrointestinal Disorders: (obese) Hx Gastroesophageal Reflux: Yes - GENITOURINARY/GYNECOLOGICAL Hx Genitourinary Disorders: No - PSYCHIATRIC Hx Psychophysiologic Disorder: Yes (DRUG OD) Hx Anxiety: Yes Hx Depression: No Hx Emotional Abuse: No Hx Physical Abuse: No Hx Substance Use: Yes (HEROINE ABUSE.HAS QUIT 3 YRS AGO.DENIES BEING IN A PROGRAM.) Other/Comment: hx heroin use quit 3 yrs ago, substance abuse. - SURGICAL HISTORY Hx Cardiac Catheterization: Yes Other/Comment: back sx "yrs ago", right shoulder sx for fx has pins,monty filter - ANESTHESIA Hx Anesthesia: Yes Hx Anesthesia Reactions: No Hx Malignant Hyperthermia: No Meds Allergies/Adverse Reactions: Allergies Allergy/AdvReac Type Severity Reaction Status Date / Time No Known Allergies Allergy Verified 04/06/17 20:31 Physical Exam - Constitutional Appears: Non-toxic Additional comments: Morbidly obese male, responding inappropriately to questions, mumbling, and slurring words - Head Exam Head Exam: ATRAUMATIC - Eye Exam Eye Exam: EOMI Pupil Exam: NORMAL ACCOMODATION - ENT Exam ENT Exam: Mucous Membranes Moist - Neck Exam Neck exam: Positive for: Full Rom. Negative for: Lymphadenopathy - Respiratory Exam Additional comments: crackles at lung bases - Cardiovascular Exam Cardiovascular Exam: REGULAR RHYTHM Additional comments: distant heart sounds; patient is extremely obese with extreme gynecomastia - GI/Abdominal Exam Additional comments: morbidely rotund and obese abdomen - Rectal Exam Rectal Exam: Deferred - Extremities Exam Extremities exam: Positive for: full ROM, normal inspection. Negative for: calf tenderness, pedal edema - Back Exam Back exam: NORMAL INSPECTION. absent: CVA tenderness (L), CVA tenderness (R) - Psychiatric Exam Psychiatric exam: Normal Affect, Normal Mood - Skin Skin Exam: Warm Results - Vital Signs Recent Vital Signs: Last Vital Signs Temp 98.1 F 04/06/17 23:45 Pulse 90 04/06/17 23:45 Resp 18 04/06/17 23:45 BP 105/67 04/06/17 23:45 Pulse Ox 94 L 04/06/17 23:45 - Labs Result Diagrams: 04/06/17 22:10 04/06/17 22:10 Assessment & Plan - Assessment and Plan (Free Text) Assessment: NSTEMI -patient getting Lovenox 100mcg/Q12H -Aspirin 325 given in hospital, continue 81mg aspirin daily, beta tony, RACHAEL -Cardiology Consult placed; [place] -trend troponins -patient is chronically non compliant with meds; has multiple stents in the past Previous DVT/PE -supposed to be taking warfarin; not -INR not therapeutic -s/p IVC filter -restarting warfin 7.5mg to bridge with lovenox COPD -no prescribed inhalers that the patient is taking -O2 saturation good currently -PRN duonebs DESTINEE, -CPAP ordered, Pressure 12 on room air HTN, -c/w home meds Hyperlipidemia -Lipitor 80mg daily Diastolic CHF -Chronic -c/w digoxin -check dig level -last echo 02/07 Proph -Pepcid -On Lovenox and Warfarin -Fall Risk Case discussed with Dr. Gonzáles Decision To Admit - Pt Status Changed To: Hospital Disposition Of: Inpatient Admission - Admit Certification Admit to Inpatient:: After my assessment, the patient will require hospitalization for at least two midnights. This is because of the severity of symptoms shown, intensity of services needed, and/or the medical risk in this patient being treated as an outpatient. - . Bed Request Type: Telemetry Admitting Physician: Fernie Gonzáles <Fernie Gonzáles - Last Filed: 04/07/17 04:54> Results - Vital Signs Recent Vital Signs: Last Vital Signs Temp 98.1 F 04/06/17 23:45 Pulse 91 H 04/07/17 03:56 Resp 18 04/07/17 03:56 BP 105/61 04/07/17 03:56 Pulse Ox 95 04/07/17 03:56 - Labs Result Diagrams: 04/06/17 22:10 04/06/17 22:10 Labs: Laboratory Results - last 24 hr 04/07/17 04/07/17 04/07/17 02:20 02:20 03:30 POC Glucose (mg/dL) Urine Color Yellow Urine Appearance Sl cloudy Urine pH 6.0 Ur Specific [place] >= 1.030 Urine Protein 100 H Urine Glucose (UA) Negative Urine Ketones Negative Urine Blood Negative Urine Nitrate Negative Urine Bilirubin Small H Urine Urobilinogen >=8.0 Ur Leukocyte Esterase Negative Urine RBC 0 - 2 Urine WBC 1 - 3 Ur Epithelial Cells 0 - 2 Urine Bacteria Occ Digoxin < 0.4 L Urine Opiates Screen Positive H Urine Methadone Screen Negative Ur Barbiturates Screen Negative Ur Phencyclidine Scrn Negative Ur Amphetamines Screen Negative U Benzodiazepines Scrn Positive H U Oth Cocaine Metabols Negative U Cannabinoids Screen Negative 04/07/17 04:14 POC Glucose (mg/dL) 140 H Urine Color Urine Appearance Urine pH Ur Specific [place] Urine Protein Urine Glucose (UA) Urine Ketones Urine Blood Urine Nitrate Urine Bilirubin Urine Urobilinogen Ur Leukocyte Esterase Urine RBC Urine WBC Ur Epithelial Cells Urine Bacteria Digoxin Urine Opiates Screen Urine Methadone Screen Ur Barbiturates Screen Ur Phencyclidine Scrn Ur Amphetamines Screen U Benzodiazepines Scrn U Oth Cocaine Metabols U Cannabinoids Screen Attending/Attestation - Attestation I have personally seen and examined this patient.: Yes I have fully participated in the care of the patient.: Yes I have reviewed all pertinent clinical information: Yes
[2017-04-07 03:31] LABS: URINE BILIRUBIN SMALL (NEGATIVE); URINE BLOOD NEGATIVE (NEGATIVE); URINE GLUCOSE (UA) NEGATIVE (NEGATIVE); URINE KETONE NEGATIVE (NEGATIVE); URINE LEUKOCYTE ESTERASE NEGATIVE Leu/uL (NEGATIVE); URINE PROTEIN 100 mg/dL (<30 mg/dL); URINE UROBILINOGEN >=8.0 E.U./dL (<1 E.U./dL)
[2017-04-07] MEDS ORDERED: Levalbuterol 1.25 MG/3 ML Inhal Soln UD IH PRN (03:31)
[2017-04-07 03:32] LABS: URINE APPEARANCE SL CLOUDY (CLEAR); URINE COLOR YELLOW (YELLOW)
[2017-04-07] MEDS: Digoxin 125 mcg (0.125 mg) Tab PO STA ×2 (03:35→09:12)
[2017-04-07 03:41] LABS: URINE BACTERIA OCC (NEG); URINE EPITHELIAL CELLS 0 - 2 /hpf (0-5); URINE RBC 0 - 2 /hpf (0-2)
[2017-04-07 05:29] VITALS: BMI 53.6
[2017-04-07] MEDS: Insulin Lispro 1 UNITS/0.01 ML SC SCH ×4 (08:04→22:43)
--- NOTE | 2017-04-07 08:26 | RAD ---
HISTORY: Shortness of breath COMPARISON: 01/29/2017 FINDINGS: LUNGS: The lungs are clear. PLEURA: No significant pleural effusion identified, no pneumothorax apparent. CARDIOVASCULAR: Normal. OSSEOUS STRUCTURES: No significant abnormalities. VISUALIZED UPPER ABDOMEN: Normal. OTHER FINDINGS: None. IMPRESSION: No active pulmonary disease.
[2017-04-07 09:31] LABS: ALKALINE PHOSPHATASE 77 U/L (38-133); ALT/SGPT 34 U/L (7-56); AST/SGOT 20 U/L (15-59); BILIRUBIN,TOTAL 2.1 mg/dL (0.2-1.3); BLOOD UREA NITROGEN 9 mg/dL (7-21); CALCIUM 8.5 mg/dL (8.4-10.5); CARBON DIOXIDE 35 mmol/L (21-33); CHLORIDE 97 mmol/L (98-107); GFR AFRICAN-AMERICAN > 60; GLUCOSE,RANDOM 144 mg/dL (70-110); POTASSIUM 4.4 mmol/L (3.6-5.0); SODIUM 137 mmol/L (132-148); TOTAL PROTEIN 6.8 g/dL (5.8-8.3)
[2017-04-07] MEDS ORDERED: Famotidine 20mg/50ml 50 ML IV SCH (10:00)
[2017-04-07] MEDS ORDERED: Iohexol 350 MG/100 ML VIAL ONE (12:33)
--- NOTE | 2017-04-07 15:14 | CT ---
PROCEDURE: CT Chest with contrast (Pulmonary Angiogram) HISTORY: R/O PE COMPARISON: None available. TECHNIQUE: Axial computed tomography images were obtained of the chest in the pulmonary arterial phase of enhancement. Coronal and sagittal reformatted images were created and reviewed. Intravenous contrast dose: 100 cc of Visipaque Radiation dose: Total exam DLP = 851 mGy-cm. This CT exam was performed using one or more of the following dose reduction techniques: Automated exposure control, adjustment of the mA and/or kV according to patient size, and/or use of iterative reconstruction technique. FINDINGS: PULMONARY ARTERIES: Unremarkable. No pulmonary embolism. AORTA: No acute findings. No thoracic aortic aneurysm. LUNGS: Unremarkable. No nodule, mass or pulmonary consolidation. Minimal bibasilar atelectasis PLEURAL SPACES: Unremarkable. No effusion or pneuomothorax. HEART: Unremarkable. No cardiomegaly. No significant pericardial effusion. Minimal coronary artery calcification LYMPH NODES: No lymphadenopathy. BONES, CHEST WALL: Unremarkable. No fracture or destructive lesion OTHER FINDINGS: Unremarkable. IMPRESSION: Unremarkable CT pulmonary angiogram. No pulmonary embolus.
--- NOTE | 2017-04-07 15:46 | US ---
HISTORY: Leg pain and swelling. Evaluate for DVT PHYSICIAN(S): Edgar Cifuentes MD. TECHNIQUE: Duplex sonography and color-flow Doppler with graded compression were used to evaluate the deep venous systems of both lower extremities. The exam is limited by edema and body habitus. FINDINGS: The visualized deep venous systems of both lower extremities are sonographically normal and compressible. Normal wave forms and augmentation are seen. There is no sonographic evidence for deep venous thrombosis in the visualized segments of both lower extremities. IMPRESSION: No sonographic evidence for deep venous thrombosis in the visualized segments of both lower extremities. Limited study.
[2017-04-07] MEDS: Enoxaparin 100 mg Syringe SC SCH (15:56)
[2017-04-07] MEDS: Digoxin 250 mcg (0.25 mg) Tab PO SCH (15:56)
--- NOTE | 2017-04-07 16:31 | CON ---
DATE: 04/07/2017 REASON FOR CONSULTATION: Congestive heart failure. HISTORY OF PRESENT ILLNESS: The patient is a 56-year-old -Greek male who has a history of nonischemic cardiomyopathy, history of atrial fibrillation in the past. Was on Lopressor, digoxin an d warfarin therapy according to him. He was admitted because of drowsiness according to the patient after he consulted with his primary physician. The patient denies any history of stroke in the past. The patient underwent cardiac catheterization in 05/2012 which concluded nonischemic cardiomyopathy with ejection fraction of 30%, however, a recent echocardiographic study in 01/2017 revealed an ejec tion fraction in the range of 55-60% with mild to moderate aortic stenosis and right ventricular syst olic pressure of 46 mmHg. REVIEW OF SYSTEMS: No fever or chills. No productive cough. No history of stroke in the past. MEDICATIONS: Coumadin 10 mg daily, aspirin 81 mg once a day, Lanoxin 0.25 mg daily, Lasix 40 mg intr avenous twice a day, Lipitor 80 mg once a day, Lopressor 50 mg daily, Lovenox 100 mg subcutaneous twi ce a day, Pepcid 20 mg intravenous twice a day, Xopenex inhaler q. 4 hours p.r.n., Zestril 10 mg once a day. PHYSICAL EXAMINATION: GENERAL: The patient is an obese, middle-aged male who does not appear to be in acute distress. VITAL SIGNS: Blood pressure 124/79, heart rate 81, temperature 97.8, respirations 19. HEENT: No facial edema. NECK: No JVD. CHEST: Bibasilar rhonchi. HEART: S1, S2 regular and distant. ABDOMEN: Soft. EXTREMITIES: 2+ pitting edema. LABORATORY DATA: CBC: WBC 11.5, hemoglobin 15.8, hematocrit 49, platelet count 170,000. SMA-7: So dium 137, potassium 4.4, chloride 97, CO2 35, glucose 144. BUN 9, creatinine 0.7. Troponin 0.18 and 0.08. ProBNP is 1790. INR is 1.15. Chest x-ray revealed cardiomegaly with mild CHF. EKG revealed sinus rhythm at a rate of 86m anterior ischemic T-wave changes; however, right ventricular strain pa ttern is a possibility. ASSESSMENT: 1. Nonischemic cardiomyopathy. 2. Rule out pulmonary embolism. 3. Borderline troponin elevation. Rule out [id number] myocardial infarction. RECOMMENDATIONS: Continue aspirin 81 mg once a day, Lanoxin 0.25 mg daily, Lasix 40 mg intravenous t wice a day, Lipitor at 80 mg once a day, Lopressor at 50 mg once a day, therapeutic subcutaneous Love nox at 100 mg twice a day, Zestril at [address] angio of the chest as well as venous Do ppler of the lower extremities. Digoxin level was obtained and is less than less than 0.4. Pacheco Wilburn MD cc: [id number] TT: 04/07/2017 16:30:39 Confirmation # [id number] Dictation # [id number]
--- NOTE | 2017-04-07 22:52 | CARD ---
APPROVED REPORT EKG Measurement Heart [id number] ME [id number] [id number] <Conclusion> Normal sinus rhythm Cannot rule out Inferior infarct, age undetermined ST & T wave abnormality, consider anterior ischemia Abnormal ECG
--- NOTE | 2017-04-07 23:22 | CARD ---
APPROVED REPORT EKG Measurement Heart [id number] <Conclusion> Sinus tachycardia Possible Inferior infarct, age undetermined Possible Anterior infarct, age undetermined Abnormal ECG
[2017-04-08] MEDS: Enoxaparin 100 mg Syringe SC SCH ×3 (00:30→23:48)
[2017-04-08 06:25] LABS: ADD MANUAL DIFF? NO
[2017-04-08 06:29] LABS: BASO # 0.01 K/mm3 (0.0-2.0); BASO % 0.1 % (0.0-3.0); EOS % 0.1 % (1.5-5.0); GRAN # 11.23 (1.4-6.5); GRAN % 79.3 % (50.0-68.0); HEMATOCRIT 50.2 % (42.0-52.0); LYMPH # 1.8 (1.2-3.4); MEAN CORPUSCULAR HEMOGLOBIN 29.3 pg (25.0-35.0); MEAN CORPUSCULAR HGB CONC 32.9 g/dl (31.0-37.0); MEAN PLATELET VOLUME 11.2 fl (7.0-11.0); MONO # 1.1 (0.1-0.6); MONO % 7.5 % (1.0-6.0); PLATELET COUNT 184 10^3/uL (120.0-450.0); RED CELL DISTRIBUTION WIDTH 16.6 % (11.5-14.5); WHITE BLOOD COUNT 14.2 10^3/ul (4.5-11.0)
[2017-04-08 06:47] LABS: ALB/GLOB RATIO 0.9 (1.1-1.8); ALKALINE PHOSPHATASE 75 U/L (38-133); ALT/SGPT 28 U/L (7-56); AST/SGOT 17 U/L (15-59); BILIRUBIN,TOTAL 2.1 mg/dL (0.2-1.3); BLOOD UREA NITROGEN 13 mg/dL (7-21); CALCIUM 8.5 mg/dL (8.4-10.5); CARBON DIOXIDE 36 mmol/L (21-33); CHLORIDE 94 mmol/L (98-107); GFR AFRICAN-AMERICAN > 60; GLUCOSE,RANDOM 94 mg/dL (70-110); POTASSIUM 3.5 mmol/L (3.6-5.0); SODIUM 139 mmol/L (132-148); TOTAL PROTEIN 6.7 g/dL (5.8-8.3)
[2017-04-08 06:48] LABS: INR 1.24 (0.93-1.08)
[2017-04-08] MEDS: Insulin Lispro 1 UNITS/0.01 ML SC SCH ×4 (08:27→21:38)
--- NOTE | 2017-04-08 09:58 | PN ---
DATE: 04/08/2017 SUBJECTIVE: The patient is more awake. He actually could not sleep overnight. He denies any chest pain or shortness of breath. PHYSICAL EXAMINATION: VITAL SIGNS: Blood pressure 122/64, heart rate 82, temperature 98.6, respirations 22. HEENT: Normocephalic. NECK: No JVD. CHEST: Minimal basal rhonchi. HEART: S1, S2 regular. ABDOMEN: Soft. EXTREMITIES: 1+ pitting edema. LABORATORIES: Hemoglobin and hematocrit 16.5 and 50.2, white count and platelet count are 14.1 and 1 84,000. Urine drug screen is positive for opiates and benzodiazepines. Digoxin level is less than 0 .4. Today's potassium is 3.5. Venous Doppler of lower extremities, no sonographic evidence of DVT. CT angio of the chest was unremarkable, no pulmonary embolus. ASSESSMENT: 1. Nonischemic cardiomyopathy. 2. Indeterminate range of troponin. 3. Mild hypokalemia. 4. Cor pulmonale and right-sided failure. RECOMMENDATIONS: Continue current Coumadin 10 mg daily, aspirin 81 mg once a day, digoxin 0.25 mg grace villar, Lasix at 40 mg intravenous twice a day, Lipitor at 80 mg once a day, Lopressor 50 mg daily, ther apeutic subcutaneous Lovenox at 10 mg twice a day until therapeutic INR is achieved. Continue Zestri l at 10 mg once a day. Pacheco Wilburn MD cc: [id number] TT: 04/08/2017 09:57:19 Confirmation # [id number] Dictation # [id number]
[2017-04-08] MEDS ORDERED: Potassium Chloride 20 mEq ER Tab PO STA (10:24)
--- NOTE | 2017-04-08 12:03 | CP.PCM.PN ---
<Jose Odonnell - Last Filed: 04/08/17 11:56> Subjective - Date & Time of Evaluation Date of Evaluation: 04/08/17 Time of Evaluation: 08:20 - Subjective Subjective: Internal Medicine Progress Note for Dr. Yi Patient seen and examined at bedside. Today is hospital day 2. No acute events overnight. Patient denies any complaints today. Not somnolent/drowsy during exam today, but remains flat affect and mumbling few word answers. Denies chest pain, shortness of breath, nausea, emesis, leg swelling, leg pain, or weakness. Objective - Vital Signs/Intake and Output Vital Signs (last 24 hours): Temp Pulse Resp BP Pulse Ox 98.7 F 74 18 122/76 95 04/08/17 11:54 04/08/17 11:54 04/08/17 11:54 04/08/17 11:54 04/07/17 03:56 Intake and Output: 04/08/17 04/08/17 06:59 18:59 Intake Total 840 Output Total 2975 Balance -2135 - Medications Medications: Current Medications Acetaminophen (Tylenol 325mg Tab) 650 mg PO Q6H PRN PRN Reason: Fever >100.4 F Last Admin: 04/08/17 07:38 Dose: 650 mg Aspirin (Ecotrin) 81 mg PO DAILY [facility] Last Admin: 04/08/17 09:49 Dose: 81 mg Atorvastatin Calcium (Lipitor) 80 mg PO DIN [facility] Last Admin: 04/07/17 17:14 Dose: 80 mg Digoxin (Lanoxin) 0.25 mg PO 1400 [facility] Last Admin: 04/07/17 15:56 Dose: 0.25 mg Enoxaparin Sodium (Lovenox) 100 mg SC Q12H [facility] PRN Reason: Protocol Last Admin: 04/08/17 00:30 Dose: 100 mg Famotidine (Pepcid) 20 mg PO Q12 [facility] Last Admin: 04/08/17 09:50 Dose: 20 mg Furosemide (Lasix) 40 mg IVP DAILY [facility] Insulin Human Lispro (Humalog) 0 units SC ACHS [facility] PRN Reason: Protocol Last Admin: 04/08/17 08:27 Dose: Not Given Levalbuterol HCl (Xopenex) 1.25 mg IH Q4H PRN PRN Reason: SOB Lisinopril (Zestril) 10 mg PO DAILY [facility] Last Admin: 04/08/17 09:49 Dose: 10 mg Metoprolol Tartrate (Lopressor) 50 mg PO DAILY [facility] Last Admin: 04/08/17 09:51 Dose: 50 mg Warfarin Sodium (Coumadin) 10 mg PO 1800 [facility] PRN Reason: Protocol Last Admin: 04/07/17 17:14 Dose: 10 mg Warfarin Sodium (Coumadin) 2.5 mg PO 1800 ONE PRN Reason: Protocol Stop: 04/08/17 18:01 - Labs Labs: 04/08/17 05:45 04/08/17 05:45 PT 13.4 Seconds (9.9-11.8) H 04/08/17 05:45 INR 1.24 (0.93-1.08) H 04/08/17 05:45 APTT 27.8 Seconds (23.7-30.8) 04/06/17 22:10 - Constitutional Appears: Non-toxic, No Acute Distress, Other (morbidly obese) - Head Exam Head Exam: ATRAUMATIC, NORMAL INSPECTION, NORMOCEPHALIC - Eye Exam Eye Exam: EOMI, Normal appearance. absent: Conjunctival injection, Scleral icterus Pupil Exam: absent: Irregular, Unequal - ENT Exam ENT Exam: Mucous Membranes Moist - Neck Exam Neck Exam: Full ROM - Respiratory Exam Respiratory Exam: Decreased Breath Sounds (diffusely decreased breath sounds in all auscultated alexandre, likely 2/2 body habitus), Clear to Ausculation Bilateral , NORMAL BREATHING PATTERN. absent: Accessory Muscle Use, Chest Wall Tenderness , Rales, Rhonchi, Wheezes - Cardiovascular Exam Cardiovascular Exam: REGULAR RHYTHM, RRR, +S1, +S2. absent: Bradycardia, Tachycardia, Irregular Rhythm, +S4 Additional comments: Distant heart sounds, Difficult to auscultate due to body habitus - GI/Abdominal Exam GI & Abdominal Exam: Soft, Normal Bowel Sounds. absent: Distended (obese but not distended), Firm, Rigid, Tenderness, Diminished Bowel Sounds, Hyperactive Bowel Sounds, Hypoactive Bowel Sounds - Extremities Exam Extremities Exam: Full ROM. absent: Calf Tenderness, Pedal Edema, Tenderness - Back Exam Back Exam: NORMAL INSPECTION. absent: rash noted - Neurological Exam Neurological Exam: Alert, Awake, Oriented x3 - Psychiatric Exam Psychiatric exam: Flat Affect, Normal Mood - Skin Skin Exam: Dry, Intact, Normal Color, Warm Assessment and Plan - Assessment and Plan (Free Text) Assessment: This is a 56 yo AA M with COPD, DESTINEE, PE/DVT s/p IVC filter on anticoagulation with warfarin HTN, Hyperlipidemia, diastolic CHF, and medication non-compliance who presented to [facility] [place] for suspected medication overdose (Xanax +/- percocet), COPD exacerbation, and was later found to have an NSTEMI (Trop 0.18). Plan: 1) NSTEMI: Improved -patient getting Lovenox 100mcg/Q12H, bridging to coumadin (INR 1.24, was 1.15) -Aspirin 325 given in hospital, continue 81mg aspirin daily, beta tony, RACHAEL -Cardio (Dr. Wilburn) consulted, appreciate all recs; continue medical management, Lovenox until bridged to coumadin -Continue Asa, Lisinopril, high-dose statin, Lopressor, Digoxin, Lasix -Initial Trop 0.18, repeat 0.08 -patient is chronically non compliant with meds; has multiple stents in the past 2) Hx DVT/PE -INR not therapeutic, patient again non-compliant with regimen -s/p IVC filter -INR still subtherapeutic at 1.24, increased coumadin tonight to 12.5mg, will f/ u AM INR -Therapeutic Lovenox covers for DVT/PE ppx 3) Diastolic CHF -Chronic -Dig level low, unsurprising in setting of chronic non-compliance with home medications -Continue dig as per cardio -last echo 02/07: LVEF 53.7, Normal LV size, borderline-mild concentric LVH, mod reduction of RV systolic fxn, RA mod dilated, trace AR, mild-mod , trace MR, mod TR with RVSP 46 mmHg, dilated IVC, no pericardial effusion 4) Possible Drug Overdose -patient reports taking extra Xanax, states OD as accident -poor insight into medications, their purposes, unclear on what he is taking -Psych consulted, appreciate their recs 5) COPD -O2 saturation good currently -PRN Xopenex -PT to see 6) DESTINEE -CPAP ordered, Pressure 12 on room air 7) HTN -continue Lisinopril, Lopressor, Lasix 8) Hyperlipidemia -continue high dose statin Dispo: Telemetry, bridging to coumadin with Lovenox, pending therapeutic INR FEN: Consistent carb heart healthy Access: Peripheral IV Consults: Psych, Cardio Ppx: Pepcid for GI, Lovenox/Coumadin covers for DVT Patient seen, reviewed, and discussed with attending, Dr. Yi. <Smiley Yi - Last Filed: 04/08/17 13:58> Objective - Vital Signs/Intake and Output Vital Signs (last 24 hours): Temp Pulse Resp BP Pulse Ox 98.7 F 74 18 122/76 95 04/08/17 11:54 04/08/17 11:54 04/08/17 11:54 04/08/17 11:54 04/07/17 03:56 Intake and Output: 04/08/17 04/08/17 06:59 18:59 Intake Total 840 Output Total 2975 Balance -2135 - Medications Medications: Current Medications Acetaminophen (Tylenol 325mg Tab) 650 mg PO Q6H PRN PRN Reason: Fever >100.4 F Last Admin: 04/08/17 07:38 Dose: 650 mg Aspirin (Ecotrin) 81 mg PO DAILY [facility] Last Admin: 04/08/17 09:49 Dose: 81 mg Atorvastatin Calcium (Lipitor) 80 mg PO DIN [facility] Last Admin: 04/07/17 17:14 Dose: 80 mg Digoxin (Lanoxin) 0.25 mg PO 1400 [facility] Last Admin: 04/07/17 15:56 Dose: 0.25 mg Enoxaparin Sodium (Lovenox) 100 mg SC Q12H [facility] PRN Reason: Protocol Last Admin: 04/08/17 00:30 Dose: 100 mg Famotidine (Pepcid) 20 mg PO Q12 [facility] Last Admin: 04/08/17 09:50 Dose: 20 mg Furosemide (Lasix) 40 mg IVP DAILY [facility] Insulin Human Lispro (Humalog) 0 units SC ACHS [facility] PRN Reason: Protocol Last Admin: 04/08/17 08:27 Dose: Not Given Levalbuterol HCl (Xopenex) 1.25 mg IH Q4H PRN PRN Reason: SOB Lisinopril (Zestril) 10 mg PO DAILY [facility] Last Admin: 04/08/17 09:49 Dose: 10 mg Metoprolol Tartrate (Lopressor) 50 mg PO DAILY [facility] Last Admin: 04/08/17 09:51 Dose: 50 mg Warfarin Sodium (Coumadin) 10 mg PO 1800 [facility] PRN Reason: Protocol Last Admin: 04/07/17 17:14 Dose: 10 mg Warfarin Sodium (Coumadin) 2.5 mg PO 1800 ONE PRN Reason: Protocol Stop: 04/08/17 18:01 - Labs Labs: 04/08/17 05:45 04/08/17 05:45 PT 13.4 Seconds (9.9-11.8) H 04/08/17 05:45 INR 1.24 (0.93-1.08) H 04/08/17 05:45 APTT 27.8 Seconds (23.7-30.8) 04/06/17 22:10 Attending/Attestation - Attestation I have personally seen and examined this patient.: Yes I have fully participated in the care of the patient.: Yes I have reviewed all pertinent clinical information, including history, physical exam and plan: Yes Notes (Text): 04/08/17 13:53 attending note; Patient seen and examined with resident. Patient is a 56-year-old male with a past medical history of diastolic dysfunction, hypertension, diastolic heart failure, COPD, obesity, noncompliance with follow-up is admitted with lethargy. Patient took extra Xanax and Percocet. Drug abuse cessation is strongly advised. Patient is more alert and awake. Denied any suicidal ideation. Psychiatric evaluation requested. Side effects of Combination of opiates and benzodiazepine with a history of COPD and CHF explained in detail. Leg edema; is improving. Continue IV Lasix. shortness of breath; resolving. Lower extremity Doppler is negative. CT angios is negative. history of DVT; INR is subtherapeutic secondary to noncompliance. Coumadin dosage increased. Follow up INR closely. Cardiology evaluation appreciated. Physical therapy evaluation requested. upon discharge the patient will follow-up with PMD Dr. Young. 04/08/17 13:56
--- NOTE | 2017-04-08 14:23 | CON ---
DATE: 04/08/2017 HISTORY OF PRESENT ILLNESS: Shortly, the patient is a 56-year-old -Algerian male with multipl e medical problems including obesity, COPD, cardiomyopathy, hyperventilation syndrome and DVT. The p kip was admitted on the medical floor for evaluation of shortness of breath. A psych consult was called for evaluation of depressive symptoms as well as insomnia and possible drug overdose. The stephanie payne was seen and examined today. The patient denied that he overdosed intentionally on Xanax. The patient reported that he has chronic insomnia. The patient reported that he was not able to sleep an d took extra pills of Xanax. The patient reported that he has difficulty to fall asleep and to stay asleep for a while and his primary care physician sent him here for evaluation of sleep apnea and it was not confirmed. The patient denied being depressed, denied thoughts of harming himself or others, denied intent or plan. The patient denied hearing voices, denied seeing things. The patient denied intentional overdose on medications. The patient was interested to be started on medication for sle ep. This fha underwriter offered the patient to be on trazodone in order to address mood symptoms as well as insomnia. The patient is willing to do so. Risks, benefits, alternatives of the medication were exp lained to the patient. PAST PSYCHIATRIC HISTORY: The patient denied ever being evaluated by psychiatrist before. Denied vaughn icidal attempts, denied family history of mental illness. VITAL SIGNS: This fha underwriter reviewed vital signs. Temperature 98.7, pulse 74, blood pressure 122/96, r espirations 18. MEDICATIONS: Reviewed. Tylenol, aspirin, Lipitor, digoxin, Lovenox, Pepcid, Lasix, Humalog, Xopenex , Zestril, Lopressor, Coumadin as well. LABORATORY DATA: Reviewed. WBC cells elevated 14.2 today. The patient has some electrolyte imbalan ce, potassium 3.5, chloride 94, carbon dioxide is 36. Urinalysis within normal limits. Toxicology p ositive for opioids as well as benzodiazepines. MENTAL STATUS EXAMINATION: The patient presented to be alert and oriented, pleasant and cooperative. Speech was normal rate, tone, quality, and quantity. Fair eye contact. Mood described as, "I have difficulty to fall asleep, to stay asleep, at the morning time I feel worse." Affect was reactive, but constricted. Thought process was coherent and goal directed. Thought content: The patient shana ed visual, auditory, or tactile hallucinations. Denied paranoid ideations. The patient denied thoug hts of harming himself or others, denied intent or plan. Insight and judgment are improving. Impuls es are well controlled. The patient does not present in any distress. Not psychotic. Does not pres ent to be depressed. IMPRESSION: Most likely accidental overdose on Xanax. The patient has chronic insomnia, rule out mo od disorder due to general medical condition. PLAN: This fha underwriter implemented trazodone at the nighttime 50 mg. The patient was educated about risks , benefits and alternatives of that medication. The patient needs to lose weight and eat healthy. T his fha underwriter will this case to Dr. Lee in order to make sure that the patient tolerates trazodo ne at the nighttime well. Will follow up and advise accordingly. The patient adamantly denied that he wanted to kill himself prior to coming to the hospital, but he wanted to take medication in order to fall asleep and to stay asleep. Sleep study is recommended. The patient needs to be seen by pulmo nologist. Thank you very much for letting me participate in the care of your patient. Should you have any ques tions, give me a call back. Felicia Kothari MD cc: [id number] TT: 04/08/2017 14:22:24 Confirmation # [id number] Dictation # [id number] edmund
[2017-04-08] MEDS: Digoxin 250 mcg (0.25 mg) Tab PO SCH (14:28)
[2017-04-09 07:32] LABS: ADD MANUAL DIFF? NO
[2017-04-09 07:36] LABS: BASO # 0.02 K/mm3 (0.0-2.0); BASO % 0.2 % (0.0-3.0); EOS # 0.1 (0.0-0.7); EOS % 0.6 % (1.5-5.0); GRAN # 7.16 (1.4-6.5); GRAN % 71.8 % (50.0-68.0); HEMATOCRIT 49.6 % (42.0-52.0); LYMPH # 1.9 (1.2-3.4); LYMPH % 18.7 % (22.0-35.0); MEAN CORPUSCULAR HEMOGLOBIN 29.1 pg (25.0-35.0); MEAN CORPUSCULAR HGB CONC 32.7 g/dl (31.0-37.0); MEAN PLATELET VOLUME 11.2 fl (7.0-11.0); MONO # 0.9 (0.1-0.6); MONO % 8.7 % (1.0-6.0); PLATELET COUNT 205 10^3/uL (120.0-450.0); RED CELL DISTRIBUTION WIDTH 16.5 % (11.5-14.5)
[2017-04-09 07:55] LABS: INR 1.28 (0.93-1.08)
[2017-04-09 08:06] LABS: ALKALINE PHOSPHATASE 72 U/L (38-133); ALT/SGPT 30 U/L (7-56); AST/SGOT 21 U/L (15-59); BILIRUBIN,TOTAL 1.8 mg/dL (0.2-1.3); BLOOD UREA NITROGEN 14 mg/dL (7-21); CARBON DIOXIDE 36 mmol/L (21-33); CHLORIDE 93 mmol/L (98-107); GFR AFRICAN-AMERICAN > 60; GLUCOSE,RANDOM 87 mg/dL (70-110); POTASSIUM 3.9 mmol/L (3.6-5.0); SODIUM 137 mmol/L (132-148); TOTAL PROTEIN 6.7 g/dL (5.8-8.3)
[2017-04-09] MEDS: Insulin Lispro 1 UNITS/0.01 ML SC SCH ×4 (08:37→21:47)
--- NOTE | 2017-04-09 10:51 | CP.PCM.PN ---
<German Stinson - Last Filed: 04/09/17 10:43> Subjective - Date & Time of Evaluation Date of Evaluation: 04/09/17 Time of Evaluation: 08:30 - Subjective Subjective: Medicine Progress Note: Patient seen and examined at bedside. No acute events overnight. Patient denies any complaints today. Denies any amaya, dizziness, f/c, sob, cp, abd pain, n/v/d. Objective - Vital Signs/Intake and Output Vital Signs (last 24 hours): Temp Pulse Resp BP Pulse Ox 96.1 F L 69 20 110/76 98 04/09/17 06:00 04/09/17 06:00 04/09/17 06:00 04/09/17 06:00 04/09/17 06:00 Intake and Output: 04/09/17 04/09/17 06:59 18:59 Output Total 600 Balance -600 - Medications Medications: Current Medications Acetaminophen (Tylenol 325mg Tab) 650 mg PO Q6H PRN PRN Reason: Fever >100.4 F Last Admin: 04/08/17 07:38 Dose: 650 mg Aspirin (Ecotrin) 81 mg PO DAILY [facility] Last Admin: 04/08/17 09:49 Dose: 81 mg Atorvastatin Calcium (Lipitor) 80 mg PO DIN [facility] Last Admin: 04/08/17 17:20 Dose: 80 mg Digoxin (Lanoxin) 0.25 mg PO 1400 [facility] Last Admin: 04/08/17 14:28 Dose: 0.25 mg Enoxaparin Sodium (Lovenox) 100 mg SC Q12H KATIE PRN Reason: Protocol Last Admin: 04/08/17 23:48 Dose: 100 mg Famotidine (Pepcid) 20 mg PO Q12 [facility] Last Admin: 04/08/17 21:07 Dose: 20 mg Furosemide (Lasix) 40 mg IVP DAILY [facility] Insulin Human Lispro (Humalog) 0 units SC ACHS [facility] PRN Reason: Protocol Last Admin: 04/09/17 08:37 Dose: Not Given Levalbuterol HCl (Xopenex) 1.25 mg IH Q4H PRN PRN Reason: SOB Lisinopril (Zestril) 10 mg PO DAILY [facility] Last Admin: 04/08/17 09:49 Dose: 10 mg Metoprolol Tartrate (Lopressor) 50 mg PO DAILY [facility] Last Admin: 04/08/17 09:51 Dose: 50 mg Trazodone HCl (Desyrel) 50 mg PO HS KATIE Warfarin Sodium (Coumadin) 12.5 mg PO 1800 [facility] PRN Reason: Protocol - Labs Labs: 04/09/17 07:00 04/09/17 07:00 PT 13.8 Seconds (9.9-11.8) H 04/09/17 07:00 INR 1.28 (0.93-1.08) H 04/09/17 07:00 APTT 27.8 Seconds (23.7-30.8) 04/06/17 22:10 - Constitutional Appears: No Acute Distress - Head Exam Head Exam: ATRAUMATIC, NORMAL INSPECTION, NORMOCEPHALIC - Eye Exam Eye Exam: EOMI, Normal appearance, PERRL Pupil Exam: NORMAL ACCOMODATION, PERRL - ENT Exam ENT Exam: Mucous Membranes Moist, Normal Exam - Neck Exam Neck Exam: Full ROM, Normal Inspection. absent: Lymphadenopathy - Respiratory Exam Respiratory Exam: Clear to Ausculation Bilateral, NORMAL BREATHING PATTERN. absent: Wheezes - Cardiovascular Exam Cardiovascular Exam: REGULAR RHYTHM, RRR, +S1, +S2. absent: Murmur - GI/Abdominal Exam GI & Abdominal Exam: Soft, Normal Bowel Sounds. absent: Distended, Tenderness - Extremities Exam Extremities Exam: Full ROM, Normal Capillary Refill, Normal Inspection, Pedal Edema (1+ b/l ). absent: Joint Swelling - Neurological Exam Neurological Exam: Alert, Awake, CN II-XII Intact, Normal Gait, Oriented x3 - Psychiatric Exam Psychiatric exam: Normal Affect, Normal Mood - Skin Skin Exam: Dry, Intact, Normal Color, Warm Assessment and Plan - Assessment and Plan (Free Text) Assessment: This is a 56 yo AA M with COPD, DESTINEE, PE/DVT s/p IVC filter on anticoagulation with warfarin HTN, Hyperlipidemia, diastolic CHF, and medication non-compliance who presented to [facility] suspected medication overdose (Xanax +/- percocet), COPD exacerbation, and was later found to have an NSTEMI (Trop 0.18). 1) NSTEMI: resolved -Cont Lovenox 100mcg/Q12H, bridging to coumadin (INR 1.24, was 1.15) -Aspirin 81mg daily, beta tony, RACHAEL -Cardio (Dr. Wilburn) consulted, appreciate all recs; continue medical management, Lovenox until bridged to coumadin -Continue Asa, Lisinopril, high-dose statin, Lopressor, Digoxin, Lasix -Initial Trop 0.18-->0.08 -patient is chronically non compliant with meds; has multiple stents in the past 2) Hx DVT/PE -INR not therapeutic, patient again non-compliant with regimen -s/p IVC filter -INR still subtherapeutic at 1.28, Coumadin 12.5mg ton, will f/u AM INR -Therapeutic Lovenox covers for DVT/PE ppx 3) Diastolic CHF -Chronic -Continue dig as per cardio -last echo 02/07: LVEF 53.7, Normal LV size, borderline-mild concentric LVH, mod reduction of RV systolic fxn, RA mod dilated, trace AR, mild-mod , trace MR, mod TR with RVSP 46 mmHg, dilated IVC, no pericardial effusion 4) Possible Drug Overdose -patient reports taking extra Xanax, states OD as accident -poor insight into medications, their purposes, unclear on what he is taking -Psych consulted - started trazadone 5) COPD -O2 saturation good currently -PRN Xopenex 6) DESTINEE -CPAP ordered, Pressure 12 on room air - may benefit from sleep study 7) HTN -continue Lisinopril, Lopressor, Lasix 8) Hyperlipidemia -continue high dose statin 9) GI/DVT ppx - Protonix and Lovenox - Cont PT Patient seen, reviewed, and discussed in detail with Dr. Tsang. <Kody Tsang - Last Filed: 04/09/17 11:43> Objective - Vital Signs/Intake and Output Vital Signs (last 24 hours): Temp Pulse Resp BP Pulse Ox 96.1 F L 69 20 110/76 98 04/09/17 06:00 04/09/17 06:00 04/09/17 06:00 04/09/17 06:00 04/09/17 06:00 Intake and Output: 04/09/17 04/09/17 06:59 18:59 Output Total 600 Balance -600 - Medications Medications: Current Medications Acetaminophen (Tylenol 325mg Tab) 650 mg PO Q6H PRN PRN Reason: Fever >100.4 F Last Admin: 04/08/17 07:38 Dose: 650 mg Aspirin (Ecotrin) 81 mg PO DAILY [facility] Last Admin: 04/08/17 09:49 Dose: 81 mg Atorvastatin Calcium (Lipitor) 80 mg PO DIN [facility] Last Admin: 04/08/17 17:20 Dose: 80 mg Digoxin (Lanoxin) 0.25 mg PO 1400 [facility] Last Admin: 04/08/17 14:28 Dose: 0.25 mg Enoxaparin Sodium (Lovenox) 100 mg SC Q12H [facility] PRN Reason: Protocol Last Admin: 04/08/17 23:48 Dose: 100 mg Famotidine (Pepcid) 20 mg PO Q12 [facility] Last Admin: 04/08/17 21:07 Dose: 20 mg Furosemide (Lasix) 40 mg IVP DAILY [facility] Insulin Human Lispro (Humalog) 0 units SC ACHS [facility] PRN Reason: Protocol Last Admin: 04/09/17 08:37 Dose: Not Given Levalbuterol HCl (Xopenex) 1.25 mg IH Q4H PRN PRN Reason: SOB Lisinopril (Zestril) 10 mg PO DAILY [facility] Last Admin: 04/08/17 09:49 Dose: 10 mg Metoprolol Tartrate (Lopressor) 50 mg PO DAILY [facility] Last Admin: 04/08/17 09:51 Dose: 50 mg Trazodone HCl (Desyrel) 50 mg PO HS [facility] Warfarin Sodium (Coumadin) 12.5 mg PO 1800 [facility] PRN Reason: Protocol - Labs Labs: 04/09/17 07:00 04/09/17 07:00 PT 13.8 Seconds (9.9-11.8) H 04/09/17 07:00 INR 1.28 (0.93-1.08) H 04/09/17 07:00 APTT 27.8 Seconds (23.7-30.8) 04/06/17 22:10 Attending/Attestation - Attestation I have personally seen and examined this patient.: Yes I have fully participated in the care of the patient.: Yes I have reviewed all pertinent clinical information, including history, physical exam and plan: Yes Notes (Text): 04/09/17 11:35 56 year old male with past medical history of DVT on coumadin, hypertension, COPD and diastolic heart failure who presented with lethargy likely secondary to medications (reports taking an extra xanax and percocet). He was counselled on risks of drug abuse. Psychiatry evaluation was appreciated. He was found to have elevated troponin which has trended down. Cardiology is following. He is on lovenox, aspirin, statin and metoprolol. He is on lovenox and increased dose of coumadin for subtherapeutic INR for history of DVT. LE doppler and CT angio were negative. PT evaluation was requested and is pending. Upon discharge patient can follow up with his pmd Dr. Young. Kody Tsang MD Hospitalist.
[2017-04-09] MEDS: Enoxaparin 100 mg Syringe SC SCH (12:45)
--- NOTE | 2017-04-09 14:37 | PN ---
DATE: 04/09/2017 The patient denies chest pain. His leg swelling has improved. PHYSICAL EXAMINATION: VITAL SIGNS: Blood pressure 138/95, heart rate 85, temperature 98.3, respirations 18. HEENT: Normocephalic. CHEST: Clear. HEART: S1, S2 regular. EXTREMITIES: 2+ pitting edema. LABORATORIES: Hemoglobin and hematocrit 16.1, 49.6, white count and platelet count are within normal limits. SMA-7 is within normal limits, except for chloride of 93 and carbon dioxide 36. Total bili caicedo slightly elevated at 1.8. ASSESSMENT: 1. Nonischemic cardiomyopathy. 2. Indeterminate range of troponin. 3. Improved hypokalemia. 4. Cor pulmonale and right-sided failure. RECOMMENDATIONS: Continue aspirin 81 mg once a day, Lanoxin 0.25 mg daily, Lasix 40 mg intravenously daily, Lipitor 80 mg once a day, Lopressor 50 mg daily, Lovenox at 100 mg subcutaneous twice a day. Coumadin will be given 12.5 mg today, and the most recent INR is 1.28. I will repeat 12-lead EKG to day. Pacheco Wilburn MD cc: [id number] TT: 04/09/2017 14:36:24 Confirmation # [id number] Dictation # [id number] ln
--- NOTE | 2017-04-09 14:53 | CON ---
DATE: 04/09/2017 The patient is a 56-year-old -Dominican male who is being followed by psychiatry after a consul t was called for evaluation of depression, as well as insomnia and possible drug overdose. I reviewe d Dr. Kothari's consultation and it did appear the patient did not overdose intentional on Xanax and rather this was an accidental overdose, because he has difficulty falling asleep and staying asle ep. The patient denied being depressed, denied thoughts of harming herself or others, intent or plan , per Dr. Kothari. I reviewed her consult and I also met with the patient at bedside and the pat ient continues to indicate that he does not have any suicidal thoughts and denies having any depressi on at this time. He denies hearing voices. He is not delusional, and he continues to report that he has difficulty with sleep. The patient was supposed to be started on trazodone dose yesterday . On review of the records, indicates the trazodone was never started for him. an alternativ e to trazodone was effective, and this could not be done. Nonetheless, the patient does report that to determine. The patient is consistent with his report that he did not overdose on the Xanax intentionally and is not currently suffering any mood or for acute anxiety symptoms. Thought process is coherent and responses seems fairly reliable. Insight and judgment are considered to be fair. VITAL SIGNS: Reviewed by this provider. LABORATORY DATA: Reviewed by this provider. Relevant to the patient's medications, the patient does not seem to be on any psychiatric medications at this time, as trazodone was not started yesterday. IMPRESSION: Accidental overdose on Xanax, issues of sleep. The patient denies any mood symptoms cur rently and reports that he is doing fairly well. RECOMMENDATIONS: We will start trazodone 50 mg p.o. at bedtime to help patient with insomnia. Again , I reviewed indications and off label indications of this medication. The patient was agreeable to trial. I also reviewed possible side effects of this medication. Discussed careful use of the Xanax , including the risks of respiratory depression and if taken excessively, as well as the risks of withdrawal seizures if stopped abruptly. Psychiatry will continue to follow up with patient and jose daniel hernandezine his tolerance to trazodone. If he should be medically cleared, he may be discharged with a referral for psychiatric management, to help with his insomnia, to further elucidate causes of his in somnia. He does not meet criteria for psychiatric inpatient hospitalization at this time. Mc Lee MD cc: [id number] TT: 04/09/2017 14:53:04 Confirmation # [id number] Dictation # [id number] ln
[2017-04-09] MEDS: Digoxin 250 mcg (0.25 mg) Tab PO SCH (14:57)
--- NOTE | 2017-04-09 16:00 | CARD ---
APPROVED REPORT EKG Measurement Heart [id number] MA [id number] <Conclusion> Normal sinus rhythm Anterior infarct, age undetermined ST & T wave abnormality, consider lateral ischemia Abnormal ECG
[2017-04-10] MEDS: Enoxaparin 100 mg Syringe SC SCH ×2 (00:51→12:42)
[2017-04-10 07:49] LABS: ADD MANUAL DIFF? NO
[2017-04-10 08:17] LABS: ALKALINE PHOSPHATASE 74 U/L (38-133); ALT/SGPT 33 U/L (7-56); AST/SGOT 27 U/L (15-59); BILIRUBIN,TOTAL 2.1 mg/dL (0.2-1.3); BLOOD UREA NITROGEN 14 mg/dL (7-21); CALCIUM 8.7 mg/dL (8.4-10.5); CARBON DIOXIDE 34 mmol/L (21-33); CHLORIDE 93 mmol/L (95-110); GFR AFRICAN-AMERICAN > 60; GLUCOSE,RANDOM 96 mg/dL (70-110); POTASSIUM 3.6 mmol/L (3.6-5.0); SODIUM 134 mmol/L (132-148); TOTAL PROTEIN 6.9 g/dL (5.8-8.3)
[2017-04-10 08:23] LABS: BASO # 0.02 K/mm3 (0.0-2.0); BASO % 0.2 % (0.0-3.0); EOS % 0.1 % (1.5-5.0); GRAN # 9.47 (1.4-6.5); GRAN % 81.8 % (50.0-68.0); HEMATOCRIT 48.6 % (42.0-52.0); LYMPH # 1.3 (1.2-3.4); MEAN CELL VOLUME 86.5 fL (80.0-105.0); MEAN CORPUSCULAR HEMOGLOBIN 28.6 pg (25.0-35.0); MEAN CORPUSCULAR HGB CONC 33.1 g/dl (31.0-37.0); MEAN PLATELET VOLUME 11.4 fl (7.0-11.0); MONO # 0.8 (0.1-0.6); MONO % 6.9 % (1.0-6.0); PLATELET COUNT 208 10^3/uL (120.0-450.0); RED CELL DISTRIBUTION WIDTH 16.1 % (11.5-14.5); WHITE BLOOD COUNT 11.6 10^3/ul (4.5-11.0)
[2017-04-10 08:28] LABS: INR 1.43 (0.93-1.08)
[2017-04-10] MEDS: Insulin Lispro 1 UNITS/0.01 ML SC SCH ×4 (08:48→21:48)
--- NOTE | 2017-04-10 10:15 | CON ---
DATE: 04/10/2017 The patient is a 56-year-old, -Malian male who is being followed by psychiatry after consult was called for evaluation of depression, as well as insomnia and possible drug overdose. I reviewed Dr. Kothari's consultation, and it appeared that the patient did not overdose intentionally on X anax, and rather, this was an accidental overdose. He has had difficulty falling and staying asleep. I met with patient yesterday, and the patient confirmed this account, and I meet again with him aquilino davidson to determine how well he tolerates trazodone 50 mg at bedtime, which we were using to primarily tr eat symptoms of insomnia, as the patient has denied any mood or anxiety symptoms at this time. The p atient recalls me from our interview yesterday, and he remains oriented to month, year, location, and circumstances. He reports that he did not sleep very well yesterday, and he does not even recall ge tting the trazodone dose, though nursing MAR indicated that the patient received 1 dose. He continue s to report that his mood is fine. Denies any anxiety issues. He denies hallucinations, and the res ponses are coherent and relevant to questioning. The patient is generally consistent with his report s, future oriented, and agreeable to increasing trazodone tonight to 100 mg to help with insomnia. I nsight and judgment are considered to be fair at this time. VITAL SIGNS AND LABORATORY DATA: Reviewed by this provider. PSYCHIATRIC MEDICATIONS: Include trazodone 50 mg at bedtime. IMPRESSION: Accidental overdose on Xanax, as well as insomnia. The patient denies any mood or anxie ty symptoms and currently reports that he is doing fairly well. The patient is looking forward to alis maria from the hospital once he is medically optimized. RECOMMENDATIONS: We will increase trazodone to 100 mg p.o. at bedtime to help the patient with insom bright. The patient is aware of the FDA-approved indications and off-label indications of this medicati on, and he was agreeable to increasing dose. Again, I discussed the of Xanax, including risk o f respiratory depression and if taken excessively, as well as the risks of withdrawal or seizur es if stopped abruptly. Psychiatry will continue to follow up with the patient to determine his tole mi to the trazodone. Mc Lee MD cc: [id number] TT: 04/10/2017 10:14:54 Confirmation # [id number] Dictation # [id number] fn
--- NOTE | 2017-04-10 10:47 | CP.PCM.PN ---
<Luis Antonio Snow - Last Filed: 04/10/17 10:47> Subjective - Date & Time of Evaluation Date of Evaluation: 04/10/17 Time of Evaluation: 10:45 - Subjective Subjective: Medicine progress note. Attending: Dr. Tsang Pt seen and examined at bedside. No acute distress. Pt may go for cardiac cath tomorrow. No cp, no sob. No fevers, chills. Cardio w/u in progress. Objective - Vital Signs/Intake and Output Vital Signs (last 24 hours): Temp Pulse Resp BP Pulse Ox 98.6 F 75 20 110/70 95 04/10/17 06:00 04/10/17 10:05 04/10/17 06:00 04/10/17 10:06 04/10/17 06:00 Intake and Output: 04/10/17 04/10/17 06:59 18:59 Intake Total 560 Output Total 400 Balance 160 - Medications Medications: Current Medications Acetaminophen (Tylenol 325mg Tab) 650 mg PO Q6H PRN PRN Reason: Fever >100.4 F Last Admin: 04/08/17 07:38 Dose: 650 mg Aspirin (Ecotrin) 81 mg PO DAILY [facility] Last Admin: 04/10/17 10:05 Dose: 81 mg Atorvastatin Calcium (Lipitor) 80 mg PO DIN [facility] Last Admin: 04/09/17 18:27 Dose: 80 mg Digoxin (Lanoxin) 0.25 mg PO 1400 [facility] Last Admin: 04/09/17 14:57 Dose: 0.25 mg Enoxaparin Sodium (Lovenox) 100 mg SC Q12H [facility] PRN Reason: Protocol Last Admin: 04/10/17 00:51 Dose: 100 mg Famotidine (Pepcid) 20 mg PO Q12 [facility] Last Admin: 04/10/17 10:05 Dose: 20 mg Furosemide (Lasix) 40 mg IVP DAILY [facility] Last Admin: 04/10/17 10:06 Dose: 40 mg Insulin Human Lispro (Humalog) 0 units SC ACHS [facility] PRN Reason: Protocol Last Admin: 04/10/17 08:48 Dose: Not Given Levalbuterol HCl (Xopenex) 1.25 mg IH Q4H PRN PRN Reason: SOB Lisinopril (Zestril) 10 mg PO DAILY [facility] Last Admin: 04/09/17 10:40 Dose: 10 mg Metoprolol Tartrate (Lopressor) 50 mg PO DAILY [facility] Last Admin: 04/10/17 10:05 Dose: 50 mg Trazodone HCl (Desyrel) 100 mg PO HS [facility] - Labs Labs: 04/10/17 07:47 04/10/17 07:45 PT 15.4 Seconds (9.9-11.8) H 04/10/17 07:47 INR 1.43 (0.93-1.08) H 04/10/17 07:47 APTT 27.8 Seconds (23.7-30.8) 04/06/17 22:10 - Constitutional Appears: Non-toxic, No Acute Distress - Head Exam Head Exam: ATRAUMATIC, NORMAL INSPECTION, NORMOCEPHALIC - Eye Exam Eye Exam: EOMI - ENT Exam ENT Exam: Mucous Membranes Moist - Neck Exam Neck Exam: Full ROM, Normal Inspection - Respiratory Exam Respiratory Exam: NORMAL BREATHING PATTERN. absent: Respiratory Distress - Cardiovascular Exam Cardiovascular Exam: +S1, +S2 - GI/Abdominal Exam GI & Abdominal Exam: Soft, Normal Bowel Sounds. absent: Tenderness - Extremities Exam Extremities Exam: Full ROM, Normal Inspection - Neurological Exam Neurological Exam: Alert, Awake, Oriented x3 - Psychiatric Exam Psychiatric exam: Normal Affect, Normal Mood - Skin Skin Exam: Dry, Intact, Normal Color, Warm Assessment and Plan - Assessment and Plan (Free Text) Assessment: This is a 56 yo male with COPD, DESTINEE, PE/DVT s/p IVC filter on anticoagulation with warfarin, HTN, hyperlipidemia, diastolic CHF, and medication non-compliance who [place] [facility] [place] (Xanax +/- percocet), COPD exacerbation, and was later found to have an NSTEMI (Trop 0.18). 1) NSTEMI: resolved -Cont Lovenox 100 mgQ12H, bridging to coumadin -Aspirin 81mg daily, beta tony, RACHAEL -Cardio (Dr. Wilburn) consulted, appreciate all recs; continue medical management, Lovenox until bridged to coumadin -Continue Asa, Lisinopril, high-dose statin, Lopressor, Digoxin, Lasix -Initial Trop 0.18-->0.08 -patient is chronically non compliant with meds; has multiple stents in the past -depending on cardiology, may go for cardiac cath in am. 2) Hx DVT/PE -will f/u INR today -s/p IVC filter -warfarin depending on INR today -Therapeutic Lovenox covers for DVT/PE ppx 3) Diastolic CHF -Chronic -Continue dig as per cardio -last echo 02/07: LVEF 53.7, Normal LV size, borderline-mild concentric LVH, mod reduction of RV systolic fxn, RA mod dilated, trace AR, mild-mod , trace MR, mod TR with RVSP 46 mmHg, dilated IVC, no pericardial effusion 4) Possible Drug Overdose -patient reports taking extra Xanax, states OD as accident -poor insight into medications, their purposes, unclear on what he is taking -Psych consulted - started trazadone 5) COPD -O2 saturation good currently -PRN Xopenex 6) DESTINEE -continue to monitor - may benefit from sleep study 7) HTN -continue Lisinopril, Lopressor, Lasix 8) Hyperlipidemia -continue high dose statin 9) GI/DVT ppx - Protonix and Lovenox - Cont PT Patient seen, reviewed, and discussed in detail with Dr. Tsang. <Kody Tsang - Last Filed: 04/11/17 08:36> Objective - Vital Signs/Intake and Output Vital Signs (last 24 hours): Temp Pulse Resp BP Pulse Ox 98.2 F 75 22 101/63 97 04/11/17 05:44 04/11/17 05:44 04/11/17 05:44 04/11/17 05:44 04/11/17 05:44 Intake and Output: 04/11/17 04/11/17 06:59 18:59 Intake Total 480 Output Total 1000 Balance -520 - Medications Medications: Current Medications Acetaminophen (Tylenol 325mg Tab) 650 mg PO Q6H PRN PRN Reason: Fever >100.4 F Last Admin: 04/08/17 07:38 Dose: 650 mg Aspirin (Ecotrin) 81 mg PO DAILY [facility] Last Admin: 04/10/17 10:05 Dose: 81 mg Atorvastatin Calcium (Lipitor) 80 mg PO DIN [facility] Last Admin: 04/10/17 17:11 Dose: 80 mg Digoxin (Lanoxin) 0.25 mg PO 1400 [facility] Last Admin: 04/10/17 14:34 Dose: 0.25 mg Enoxaparin Sodium (Lovenox) 100 mg SC Q12H [facility] PRN Reason: Protocol Last Admin: 04/11/17 00:00 Dose: 100 mg Famotidine (Pepcid) 20 mg PO Q12 [facility] Last Admin: 04/10/17 21:51 Dose: 20 mg Furosemide (Lasix) 40 mg IVP DAILY [facility] Last Admin: 04/10/17 10:06 Dose: 40 mg Insulin Human Lispro (Humalog) 0 units SC ACHS [facility] PRN Reason: Protocol Last Admin: 04/10/17 21:48 Dose: Not Given Levalbuterol HCl (Xopenex) 1.25 mg IH Q4H PRN PRN Reason: SOB Lisinopril (Zestril) 10 mg PO DAILY [facility] Last Admin: 04/10/17 12:42 Dose: 10 mg Metoprolol Tartrate (Lopressor) 50 mg PO DAILY [facility] Last Admin: 04/10/17 10:05 Dose: 50 mg Trazodone HCl (Desyrel) 100 mg PO HS [facility] Last Admin: 04/10/17 21:50 Dose: 100 mg Warfarin Sodium (Coumadin) 12.5 mg PO 1800 [facility] PRN Reason: Protocol Last Admin: 04/10/17 17:10 Dose: 12.5 mg - Labs Labs: 04/11/17 05:30 04/11/17 05:30 PT 17.1 Seconds (9.9-11.8) H 04/11/17 05:30 INR 1.58 (0.93-1.08) H 04/11/17 05:30 APTT 35.9 Seconds (23.7-30.8) H 04/11/17 05:30 Attending/Attestation - Attestation I have personally seen and examined this patient.: Yes I have fully participated in the care of the patient.: Yes I have reviewed all pertinent clinical information, including history, physical exam and plan: Yes Notes (Text): 04/10/17 56 year old male with past medical history of DVT on coumadin, hypertension, COPD and diastolic heart failure who presented with lethargy likely secondary to medications (reports taking an extra xanax and percocet). He was counselled on risks of drug abuse. He is being followed by psychiatry. He was found to have elevated troponin which has trended down. Cardiology is following and discussed with him regarding possible cardiac cath which he stated he will think about. He is on lovenox, aspirin, statin and metoprolol. He is on lovenox and increased dose of coumadin for subtherapeutic INR for history of DVT. LE doppler and CT angio were negative. He has history of noncompliance and was counselled on risks of noncompliance with his medications. He has history of IVC filter placement. Upon discharge patient can follow up with his pmd Dr. Young. Kody Tsang MD Hospitalist.
--- NOTE | 2017-04-10 14:11 | PN ---
DATE: 04/10/2017 SUBJECTIVE: The patient denies any chest pain or shortness of breath. He complains of insomnia. PHYSICAL EXAMINATION: VITAL SIGNS: Blood pressure 110/70, heart rate 74, temperature 98, respirations 19. HEENT: Normocephalic. CHEST: Minimal rhonchi. HEART: S1, S2 regular. EXTREMITIES: 1+ pitting edema. LABORATORIES: Hemoglobin and hematocrit 16.1 and 48.6. White count and platelet count are 11.6 and 208. SMA-7: Sodium 134, potassium 3.6, chloride 93, CO2 of 34, glucose 96, BUN 14, creatinine 0.8. Today's INR is 1.43. ASSESSMENT: 1. Cardiomyopathy. 2. New ischemic anterior EKG changes. 3. Cor pulmonale, right-sided failure. 4. History of atrial fibrillation. RECOMMENDATIONS: 1. Coumadin was discontinued yesterday. 2. Presented the cardiac catheterization option to the patient. When I discussed cardiac catheteriz ation, the patient declined the procedure, and he said he would think about it at a later time. In t he meantime, I will resume Coumadin today and continue Lasix at 40 mg intravenously twice a day, digo brianda 0.25 mg once a day, Lopressor 50 mg once a day, therapeutic subcutaneous Lovenox at 100 mg twice a day and Zestril at 10 mg once a day. The patient wants to leave by tomorrow because of some import ant appointments. Pacheco Wilburn MD cc: [id number] TT: 04/10/2017 14:10:47 Confirmation # [id number] Dictation # [id number] mn
[2017-04-10] MEDS: Digoxin 250 mcg (0.25 mg) Tab PO SCH (14:34)
[2017-04-11 05:45] VITALS: O2SAT 97
[2017-04-11 06:43] LABS: ADD MANUAL DIFF? NO
[2017-04-11 07:03] LABS: INR 1.58 (0.93-1.08); PARTIAL THROMBOPLASTIN TIME 35.9 Seconds (23.7-30.8)
[2017-04-11 07:11] LABS: BASO # 0.03 K/mm3 (0.0-2.0); BASO % 0.2 % (0.0-3.0); EOS # 0.1 (0.0-0.7); EOS % 0.5 % (1.5-5.0); GRAN # 9.75 (1.4-6.5); HEMATOCRIT 50.5 % (42.0-52.0); LYMPH # 1.4 (1.2-3.4); LYMPH % 11.3 % (22.0-35.0); MEAN CELL VOLUME 85.7 fL (80.0-105.0); MEAN CORPUSCULAR HEMOGLOBIN 29.2 pg (25.0-35.0); MEAN CORPUSCULAR HGB CONC 34.1 g/dl (31.0-37.0); MEAN PLATELET VOLUME 11.1 fl (7.0-11.0); PLATELET COUNT 199 10^3/uL (120.0-450.0); RED CELL DISTRIBUTION WIDTH 16.1 % (11.5-14.5); WHITE BLOOD COUNT 12.2 10^3/ul (4.5-11.0)
[2017-04-11 07:15] LABS: ALKALINE PHOSPHATASE 75 U/L (38-133); ALT/SGPT 34 U/L (7-56); AST/SGOT 39 U/L (15-59); BILIRUBIN,TOTAL 2.1 mg/dL (0.2-1.3); BLOOD UREA NITROGEN 15 mg/dL (7-21); CALCIUM 9.1 mg/dL (8.4-10.5); CARBON DIOXIDE 31 mmol/L (21-33); CHLORIDE 97 mmol/L (98-107); GFR AFRICAN-AMERICAN > 60; GLUCOSE,RANDOM 102 mg/dL (70-110); MAGNESIUM 1.8 mg/dL (1.7-2.2); PHOSPHOROUS 2.8 mg/dL (2.5-4.5); POTASSIUM 3.7 mmol/L (3.6-5.0); SODIUM 136 mmol/L (132-148); TOTAL PROTEIN 7.1 g/dL (5.8-8.3)
[2017-04-11] MEDS: Insulin Lispro 1 UNITS/0.01 ML SC SCH ×2 (09:00→11:55)
--- NOTE | 2017-04-11 09:53 | PN ---
DATE: 04/11/2017 The patient was followed up today. The patient reported that his sleep is improving. Denied any sadie e effects from the trazodone. The patient reported that he has future plans. He is thinking to move into his kids. The patient reported his mood is improving. The patient denied thoughts of harming himself or others. Denied intent or plan. VITAL SIGNS: Stable. Temperature 98.2, pulse is 75, blood pressure 101/63, respiration 22, oxygen s aturation is 97%. MEDICATIONS: Reviewed. The patient is on Tylenol, aspirin, Lipitor, digoxin, Lovenox, Pepcid, Lasix , Humalog, levalbuterol, lisinopril, Lopressor, trazodone 100 mg at the nighttime, Coumadin 12.5 mg a t 6 p.m. LABORATORIES: Reviewed. WBC cells 12.2, granulocytes 9.75. Coagulation reviewed. Chemistry review ed. Urinalysis reviewed. Toxicology: Benzodiazepines and opioids were positive at the time of admi ssion. Collaterals from the nursing staff. The patient slept better. No behavioral incidents. The patient does not present to be psychotic, depressed or anxious. MENTAL STATUS EXAMINATION: The patient appears to be alert and oriented, pleasant, cooperative. Anand r eye contact. Speech was underproductive, low volume. Mood described as "I feel better." Affect w as more reactive, mood congruent, but still constricted. Thought process coherent, goal directed. T hought content: The patient denied visual, auditory, or tactile hallucinations, denied paranoid idea tions. The patient denied thoughts of harming himself or others. Denied intent or plan. Insight an d judgment improving. Impulses are well controlled. IMPRESSION: Rule out mood disorder due to general medical condition, rule out insomnia. The patient has multiple medical problems. Please see medical team note for more detailed information. The pat ient had a non-ST elevation myocardial infarction, diastolic congestive heart failure, chronic obstru ctive pulmonary disease, hypertension, hyperlipidemia. PLAN: Continue current management. Continue trazodone 100 mg daily at the nighttime for insomnia an d depressive symptoms. Social work evaluation. [facility], please provide phone number either for [facility], [facility]. The patient appears to be not depressed. The patient denied thoug hts of harming himself or others. This resume writer will sign off from this case. Should you have any que stions, give me a call back. Thank you very much for letting me participate in care of your patient. Felicia Kothari MD cc: [phone] TT: 04/11/2017 09:53:15 Confirmation # [id number] Dictation # [id number]
[2017-04-11 12:32] VITALS: BP 101/70; PULSE 79; RESP 19; TEMP 98.6
[2017-04-11] MEDS: Digoxin 250 mcg (0.25 mg) Tab PO SCH (13:18)
[2017-04-11] MEDS: Enoxaparin 100 mg Syringe SC SCH ×2 (13:19)
[2017-04-11 13:20] VITALS: PULSE 71
--- NOTE | 2017-04-11 16:04 | PN ---
DATE: 04/11/2017 The patient denies any chest pain or shortness of breath. PHYSICAL EXAMINATION: VITAL SIGNS: Blood pressure 101/70, heart rate 79, temperature 98.6, respirations 19. HEENT: Normocephalic. CHEST: Minimal rhonchi. HEART: S1, S2 regular. EXTREMITIES: Have 1+ pitting edema. LABORATORIES: Today's white count is 12.2, hemoglobin and hematocrit 17.1 and 50.5, platelet count 1 99,000. Today's SMA-7 is within normal limits except for carbon dioxide of 97 and total bilirubin sl ightly elevated at 2.1. Today's INR is 1.58. ASSESSMENT: 1. Right-sided heart failure. 2. History of deep venous thrombosis and pulmonary embolus. 3. Morbid obesity. RECOMMENDATIONS: Continue therapeutic subcutaneous Lovenox. The case was discussed with Dr. Tsang. The patient will receive today 12.5 mg of Coumadin and will be discharged as per the patient request today on Coumadin 7.5 mg daily and to follow up with his primary physician, Dr. Young and have a fo llowup PT, PTT and INR monthly. In the meantime, the patient will be maintained on digoxin, oral Las ix, Lopressor and Vistaril therapy. Pacheco Wilburn MD cc: [id number] TT: 04/11/2017 16:03:58 Confirmation # [id number] Dictation # [id number] mn
[2017-04-11] MEDS ORDERED: Pneumococcal 23-Valent Vaccine IM ONE (16:05)
--- NOTE | 2017-04-11 16:10 | CP.PCM.DIS ---
<German Stinson - Last Filed: 04/11/17 15:55> Provider - Provider Date of Admission: 04/07/17 00:23 Attending physician: Kody Tsang MD Primary care physician: Yoni Young MD Consults: Cardiology, Psychiatry Time Spent in preparation of Discharge (in minutes): 45 Hospital Course - Lab Results Lab Results: Most Recent Lab Values WBC 12.2 10^3/ul (4.5-11.0) H 04/11/17 05:30 RBC 5.89 10^6/uL (3.5-6.1) 04/11/17 05:30 Hgb 17.2 gm/dL (14.0-18.0) 04/11/17 05:30 Hct 50.5 % (42.0-52.0) 04/11/17 05:30 MCV 85.7 fL (80.0-105.0) 04/11/17 05:30 MCH 29.2 pg (25.0-35.0) 04/11/17 05:30 MCHC 34.1 g/dl (31.0-37.0) 04/11/17 05:30 RDW 16.1 % (11.5-14.5) H 04/11/17 05:30 Plt Count 199 10^3/uL (120.0-450.0) 04/11/17 05:30 MPV 11.1 fl (7.0-11.0) H 04/11/17 05:30 Gran % 80.0 % (50.0-68.0) H 04/11/17 05:30 Lymph % (Auto) 11.3 % (22.0-35.0) L 04/11/17 05:30 [place] % (Auto) 8.0 % (1.0-6.0) H 04/11/17 05:30 Eos % (Auto) 0.5 % (1.5-5.0) L 04/11/17 05:30 Baso % (Auto) 0.2 % (0.0-3.0) 04/11/17 05:30 Gran # 9.75 (1.4-6.5) H 04/11/17 05:30 Lymph # 1.4 (1.2-3.4) 04/11/17 05:30 [place] # 1.0 (0.1-0.6) H 04/11/17 05:30 Eos # 0.1 (0.0-0.7) 04/11/17 05:30 Baso # 0.03 K/mm3 (0.0-2.0) 04/11/17 05:30 PT 17.1 Seconds (9.9-11.8) H 04/11/17 05:30 INR 1.58 (0.93-1.08) H 04/11/17 05:30 APTT 35.9 Seconds (23.7-30.8) H 04/11/17 05:30 Sodium 136 mmol/L (132-148) 04/11/17 05:30 Potassium 3.7 mmol/L (3.6-5.0) 04/11/17 05:30 Chloride 97 mmol/L (98-107) L 04/11/17 05:30 Carbon Dioxide 31 mmol/L (21-33) 04/11/17 05:30 Anion Gap 12 (10-20) 04/11/17 05:30 BUN 15 mg/dL (7-21) 04/11/17 05:30 Creatinine 0.8 mg/dL (0.5-1.4) 04/11/17 05:30 Est GFR ( Amer) > 60 04/11/17 05:30 Est GFR (Non-Af Amer) > 60 04/11/17 05:30 POC Glucose (mg/dL) 135 mg/dL (65-110) H 04/11/17 11:07 Random Glucose 102 mg/dL (70-110) 04/11/17 05:30 Calcium 9.1 mg/dL (8.4-10.5) 04/11/17 05:30 Phosphorus 2.8 mg/dL (2.5-4.5) 04/11/17 05:30 Magnesium 1.8 mg/dL (1.7-2.2) 04/11/17 05:30 Total Bilirubin 2.1 mg/dL (0.2-1.3) H 04/11/17 05:30 AST 39 U/L (15-59) 04/11/17 05:30 ALT 34 U/L (7-56) 04/11/17 05:30 Alkaline Phosphatase 75 U/L (38-133) 04/11/17 05:30 Lactate Dehydrogenase 476 U/L (333-699) 04/06/17 22:10 Total Creatine Kinase 91 U/L (35-230) 04/06/17 22:10 Troponin I 0.08 ng/mL D 04/07/17 09:14 NT-Pro-B Natriuret Pep 1790 pg/mL (0-450) H 04/06/17 22:10 Total Protein 7.1 g/dL (5.8-8.3) 04/11/17 05:30 Albumin 3.6 g/dL (3.0-4.8) 04/11/17 05:30 Globulin 3.5 gm/dL 04/11/17 05:30 Albumin/Globulin Ratio 1.0 (1.1-1.8) L 04/11/17 05:30 Urine Color Yellow (YELLOW) 04/07/17 02:20 Urine Appearance Sl cloudy (CLEAR) 04/07/17 02:20 Urine pH 6.0 (4.7-8.0) 04/07/17 02:20 Ur Specific [place] >= 1.030 (1.005-1.035) 04/07/17 02:20 Urine Protein 100 mg/dL (<30 mg/dL) H 04/07/17 02:20 Urine Glucose (UA) Negative mg/dL (NEGATIVE) 04/07/17 02:20 Urine Ketones Negative mg/dL (NEGATIVE) 04/07/17 02:20 Urine Blood Negative (NEGATIVE) 04/07/17 02:20 Urine Nitrate Negative (NEGATIVE) 04/07/17 02:20 Urine Bilirubin Small (NEGATIVE) H 04/07/17 02:20 Urine Urobilinogen >=8.0 E.U./dL (<1 E.U./dL) 04/07/17 02:20 Ur Leukocyte Esterase Negative [place]/uL (NEGATIVE) 04/07/17 02:20 Urine RBC 0 - 2 /hpf (0-2) 04/07/17 02:20 Urine WBC 1 - 3 /hpf (0-6) 04/07/17 02:20 Ur Epithelial Cells 0 - 2 /hpf (0-5) 04/07/17 02:20 Urine Bacteria Occ (NEG) 04/07/17 02:20 Digoxin 0.5 ng/mL (0.8-2.0) L 04/10/17 07:45 Urine Opiates Screen Positive (NEGATIVE) H 04/07/17 02:20 Urine Methadone Screen Negative (NEGATIVE) 04/07/17 02:20 Ur Barbiturates Screen Negative (NEGATIVE) 04/07/17 02:20 Ur Phencyclidine Scrn Negative (NEGATIVE) 04/07/17 02:20 Ur Amphetamines Screen Negative (NEGATIVE) 04/07/17 02:20 U Benzodiazepines Scrn Positive (NEGATIVE) H 04/07/17 02:20 U Oth Cocaine Metabols Negative (NEGATIVE) 04/07/17 02:20 U Cannabinoids Screen Negative (NEGATIVE) 04/07/17 02:20 - Hospital Course Hospital Course: 56 M with pmh of COPD, DESTINEE, PE/DVT, SP IVC filter on anticoagulation with warfarin HTN, Hyperlipidemia , diastolic CHF, non compliance with medication who presented with overdose of benzos at home. Pt very drowsy on presentation. In the Ed basic labwork and cardiac Iso was done. EKG showed sinus tach 112bpm, inferior/anterior infarct age undeterminate. Troponin was elevated .18 --> .08. CXR was done and showed no active pulmonary disease. CT angio did was negative for any PE. US of ext was negative for any DVTs. Pt was therapeutically anticoagulated with Lovenox and transferred [facility]. Cardiology was consulted and stated to continue medical management at this time. Psychiatry was consulted and stated accidental overdose of home med Xanax. Cardiology upon reevaluation recommended a cardiac cath which the patient refused, understanding the risks of not doing it. Coumadin was started. Upon poor compliance of the patient and the strict follow up required with Coumadin - Eliquis was started. I explained to the patient clearly the risks vs benefit of Eliquis and pt chose Eliquis for anticoagulation. Psychiatry recommended Trazadone 100mg HS PRN. Today the patient is feeling much better. Sob and cp has much improved. No complaints. Denies any, amaya, dizziness, f/c, sob , cp, palpitations, abd pain, n/v/d. Discharge Exam - Head Exam Head Exam: ATRAUMATIC, NORMAL INSPECTION, NORMOCEPHALIC - Eye Exam Eye Exam: EOMI, Normal appearance, PERRL Pupil Exam: NORMAL ACCOMODATION, PERRL - ENT Exam ENT Exam: Mucous Membranes Moist - Respiratory Exam Respiratory Exam: Clear to PA & Lateral. absent: Rales, Rhonchi, Wheezes, NORMAL BREATHING PATTERN - Cardiovascular Exam Cardiovascular Exam: REGULAR RHYTHM, RRR, +S1, +S2 - GI/Abdominal Exam GI & Abdominal Exam: Normal Bowel Sounds, Soft. absent: Tenderness - Neurological Exam Neurological exam: Alert, CN II-XII Intact, Normal Gait, Oriented x3, Reflexes Normal - Psychiatric Exam Psychiatric exam: Normal Affect, Normal Mood - Skin Skin Exam: Dry, Intact, Normal Color, Warm Discharge Plan - Discharge Medications Prescriptions: Apixaban [Eliquis] 5 mg PO BID #60 tablet traZODone [Desyrel] 100 mg PO HS PRN #7 tab PRN Reason: Insomnia - Follow Up Plan Condition: IMPROVED Disposition: HOME/ ROUTINE Patient education suggested?: Yes Instructions: Myocardial Infarction (DC), Myocardial Infarction (GEN), Heart Failure (DC), Heart Failure (GEN), Pacemaker (DC), Pacemaker (GEN), Pulmonary Edema (DC), Pulmonary Edema (GEN), Ascites (DC), Ascites (GEN) Additional Instructions: Start anticoagulation with Eliquis, and DISCONTINUE home Warfarin/coumadin. Trazadone 100mg HS as needed. Follow up with your PMD with in 2-3 days, and aoc plans intelligence officer with in the next week. If your symptoms recur come back to the closest ED. Referrals: Pcaheco Wilburn MD [Staff Provider] - Yoni Young MD [Primary Care Provider] - <Kody Tsang - Last Filed: 04/11/17 16:58> Provider - Provider Date of Admission: 04/07/17 00:23 Attending physician: Kody Tsang MD Primary care physician: Yoni Young MD Hospital Course - Lab Results Lab Results: Most Recent Lab Values WBC 12.2 10^3/ul (4.5-11.0) H 04/11/17 05:30 RBC 5.89 10^6/uL (3.5-6.1) 04/11/17 05:30 Hgb 17.2 gm/dL (14.0-18.0) 04/11/17 05:30 Hct 50.5 % (42.0-52.0) 04/11/17 05:30 MCV 85.7 fL (80.0-105.0) 04/11/17 05:30 MCH 29.2 pg (25.0-35.0) 04/11/17 05:30 MCHC 34.1 g/dl (31.0-37.0) 04/11/17 05:30 RDW 16.1 % (11.5-14.5) H 04/11/17 05:30 Plt Count 199 10^3/uL (120.0-450.0) 04/11/17 05:30 MPV 11.1 fl (7.0-11.0) H 04/11/17 05:30 Gran % 80.0 % (50.0-68.0) H 04/11/17 05:30 Lymph % (Auto) 11.3 % (22.0-35.0) L 04/11/17 05:30 [place] % (Auto) 8.0 % (1.0-6.0) H 04/11/17 05:30 Eos % (Auto) 0.5 % (1.5-5.0) L 04/11/17 05:30 Baso % (Auto) 0.2 % (0.0-3.0) 04/11/17 05:30 Gran # 9.75 (1.4-6.5) H 04/11/17 05:30 Lymph # 1.4 (1.2-3.4) 04/11/17 05:30 [place] # 1.0 (0.1-0.6) H 04/11/17 05:30 Eos # 0.1 (0.0-0.7) 04/11/17 05:30 Baso # 0.03 K/mm3 (0.0-2.0) 04/11/17 05:30 PT 17.1 Seconds (9.9-11.8) H 04/11/17 05:30 INR 1.58 (0.93-1.08) H 04/11/17 05:30 APTT 35.9 Seconds (23.7-30.8) H 04/11/17 05:30 Sodium 136 mmol/L (132-148) 04/11/17 05:30 Potassium 3.7 mmol/L (3.6-5.0) 04/11/17 05:30 Chloride 97 mmol/L (98-107) L 04/11/17 05:30 Carbon Dioxide 31 mmol/L (21-33) 04/11/17 05:30 Anion Gap 12 (10-20) 04/11/17 05:30 BUN 15 mg/dL (7-21) 04/11/17 05:30 Creatinine 0.8 mg/dL (0.5-1.4) 04/11/17 05:30 Est GFR ( Amer) > 60 04/11/17 05:30 Est GFR (Non-Af Amer) > 60 04/11/17 05:30 POC Glucose (mg/dL) 135 mg/dL (65-110) H 04/11/17 11:07 Random Glucose 102 mg/dL (70-110) 04/11/17 05:30 Calcium 9.1 mg/dL (8.4-10.5) 04/11/17 05:30 Phosphorus 2.8 mg/dL (2.5-4.5) 04/11/17 05:30 Magnesium 1.8 mg/dL (1.7-2.2) 04/11/17 05:30 Total Bilirubin 2.1 mg/dL (0.2-1.3) H 04/11/17 05:30 AST 39 U/L (15-59) 04/11/17 05:30 ALT 34 U/L (7-56) 04/11/17 05:30 Alkaline Phosphatase 75 U/L (38-133) 04/11/17 05:30 Lactate Dehydrogenase 476 U/L (333-699) 04/06/17 22:10 Total Creatine Kinase 91 U/L (35-230) 04/06/17 22:10 Troponin I 0.08 ng/mL D 04/07/17 09:14 NT-Pro-B Natriuret Pep 1790 pg/mL (0-450) H 04/06/17 22:10 Total Protein 7.1 g/dL (5.8-8.3) 04/11/17 05:30 Albumin 3.6 g/dL (3.0-4.8) 04/11/17 05:30 Globulin 3.5 gm/dL 04/11/17 05:30 Albumin/Globulin Ratio 1.0 (1.1-1.8) L 04/11/17 05:30 Urine Color Yellow (YELLOW) 04/07/17 02:20 Urine Appearance Sl cloudy (CLEAR) 04/07/17 02:20 Urine pH 6.0 (4.7-8.0) 04/07/17 02:20 Ur Specific [place] >= 1.030 (1.005-1.035) 04/07/17 02:20 Urine Protein 100 mg/dL (<30 mg/dL) H 04/07/17 02:20 Urine Glucose (UA) Negative mg/dL (NEGATIVE) 04/07/17 02:20 Urine Ketones Negative mg/dL (NEGATIVE) 04/07/17 02:20 Urine Blood Negative (NEGATIVE) 04/07/17 02:20 Urine Nitrate Negative (NEGATIVE) 04/07/17 02:20 Urine Bilirubin Small (NEGATIVE) H 04/07/17 02:20 Urine Urobilinogen >=8.0 E.U./dL (<1 E.U./dL) 04/07/17 02:20 Ur Leukocyte Esterase Negative [place]/uL (NEGATIVE) 04/07/17 02:20 Urine RBC 0 - 2 /hpf (0-2) 04/07/17 02:20 Urine WBC 1 - 3 /hpf (0-6) 04/07/17 02:20 Ur Epithelial Cells 0 - 2 /hpf (0-5) 04/07/17 02:20 Urine Bacteria Occ (NEG) 04/07/17 02:20 Digoxin 0.5 ng/mL (0.8-2.0) L 04/10/17 07:45 Urine Opiates Screen Positive (NEGATIVE) H 04/07/17 02:20 Urine Methadone Screen Negative (NEGATIVE) 04/07/17 02:20 Ur Barbiturates Screen Negative (NEGATIVE) 04/07/17 02:20 Ur Phencyclidine Scrn Negative (NEGATIVE) 04/07/17 02:20 Ur Amphetamines Screen Negative (NEGATIVE) 04/07/17 02:20 U Benzodiazepines Scrn Positive (NEGATIVE) H 04/07/17 02:20 U Oth Cocaine Metabols Negative (NEGATIVE) 04/07/17 02:20 U Cannabinoids Screen Negative (NEGATIVE) 04/07/17 02:20 Attending/Attestation - Attestation I have personally seen and examined this patient.: Yes I have fully participated in the care of the patient.: Yes I have reviewed all pertinent clinical information, including history, physical exam and plan: Yes Notes (Text): 04/11/17 16:54 56 year old male with past medical history of DVT on coumadin, hypertension, COPD and diastolic heart failure who presented with lethargy likely secondary to medications (reports taking an extra xanax and percocet). He was counselled on risks of drug abuse. He was counselled on dangers of overdosing of benzodiazepines and opiates with risks of respiratory depression. He was followed by psychiatry and started on trazodone for insomnia. He was found to have elevated troponin which has trended down. Cardiology was following and discussed with him regarding possible cardiac cath which he decline. He was on lovenox, aspirin, statin and metoprolol. He is to follow up with cardiology as outpatient. He was on lovenox and increased dose of coumadin for subtherapeutic INR for history of DVT. LE doppler and CT angio were negative. He has history of noncompliance and was counselled on risks of noncompliance with his medications. He has history of IVC filter placement. I spoke with pmd Dr. Young today who recommended switching to eliquis. Patient is discharged home today to follow up with his pmd Dr. Young. Follow up with cardiology. Follow up with psychiatrist or at [facility]. Counselled on medication and outpatient follow up compliance. Counselled on risks of substance/medication abuse. Kody Tsang MD Hospitalist.
--- NOTE | 2017-04-12 09:09 | CP.PCM.PCO ---
Physician Communication Note - Physician Communication Note Physician Communication Note: pt was d/c
== END 2017-04-11 19:29 | disposition home or self-care (01) | DRG 121 ==
LOC: ED 20:18 → ERH 04-07 00:23 → 2RNO 04-07 04:01
PROVIDERS: ADMIT Internal Medicine; ATTEND Internal Medicine
PROC: 3E0234Z Introduction of Serum, Toxoid and Vaccine into Muscle, Percutaneous Approach (ICD-10-PCS; principal; 2017-04-11)
DX: I21.4 Non-ST elevation (NSTEMI) myocardial infarction (principal); I50.30 Unspecified diastolic (congestive) heart failure; I42.8 Other cardiomyopathies; I11.0 Hypertensive heart disease with heart failure; I27.81 Cor pulmonale (chronic); Z68.42 Body mass index [BMI] 45.0-49.9, adult; E87.6 Hypokalemia; I35.0 Nonrheumatic aortic (valve) stenosis; J44.1 Chronic obstructive pulmonary disease with (acute) exacerbation; T42.4X1A Poisoning by benzodiazepines, accidental (unintentional), initial encounter; E66.01 Morbid (severe) obesity due to excess calories; E11.9 Type 2 diabetes mellitus without complications; E78.5 Hyperlipidemia, unspecified; F51.04 Psychophysiologic insomnia; G47.33 Obstructive sleep apnea (adult) (pediatric); I48.91 Unspecified atrial fibrillation; K21.9 Gastro-esophageal reflux disease without esophagitis; Z79.01 Long term (current) use of anticoagulants; Z79.899 Other long term (current) drug therapy; Z86.711 Personal history of pulmonary embolism; Z86.718 Personal history of other venous thrombosis and embolism; Z87.01 Personal history of pneumonia (recurrent); Z91.14 Patient's other noncompliance with medication regimen; Z91.19 Patient's noncompliance with other medical treatment and regimen; Z91.81 History of falling; J45.909 Unspecified asthma, uncomplicated; N28.9 Disorder of kidney and ureter, unspecified; Z87.898 Personal history of other specified conditions; F17.210 Nicotine dependence, cigarettes, uncomplicated; F41.9 Anxiety disorder, unspecified; Z23 Encounter for immunization

== ENCOUNTER 2017-05-17 16:07 | Inpatient (IN) | payer MEDICAID ==
--- NOTE | 2017-05-17 17:12 | ED PDOC ---
Arrival/HPI - General Chief Complaint: Medical Clearance Time Seen by Provider: 05/17/17 16:24 Historian: Patient - History of Present Illness Narrative History of Present Illness (Text): 05/17/17 16:30 Naresh Riley is a 56 year old male, whose past medical history includes obesity , cardiomyopathy, hypoventilation syndrome, NSTEMI, COPD, DVT, hypertension, and CHF, who was sent to emergency department by Dr. Valdez Miller, [employer], for a syncopal episode and slurred speech in office. Patient was in Dr. Miller's office for bariatric surgery clearance when patient lost consciousness. Upon becoming arousable, patient had slurred speech. In emergency department, patient endorses that he took Xanax prior to going to Dr. Miller's office and oxycodone in the morning. Patient states that he feel asleep in the office and was responsive when his name was called. Patient denies any of the current complaints or any other complaint at this time. PMD: Dr. Young Time/Duration: 1-3 hours Symptom Onset: Sudden Symptom Course: Improving Activities at Onset: Light Context: Home, Other (Dr. Miller's office) Past Medical History - Provider Review Nursing Documentation Reviewed: Yes - Infectious Disease Hx of Infectious Diseases: None - Tetanus Immunization Tetanus Immunization: Unknown - Cardiac Hx Cardiac Disorders: Yes (cardiomyopathy, dvt pe) Hx Congestive Heart Failure: Yes Hx Hypertension: Yes - Pulmonary Hx Chronic Obstructive Pulmonary Disease (COPD): Yes - Neurological Hx Neurological Disorder: Yes (SYNCOPE) - HEENT Hx HEENT Disorder: No - Renal Hx Renal Failure: (RENAL INSUFFICIENCY) - Endocrine/Metabolic Hx Diabetes Mellitus Type 2: Yes - Hematological/Oncological Hx Blood Disorders: No - Integumentary Hx Dermatological Disorder: No Other/Comment: bilateral lower extremity and feet discolored dry skin , redness tightness - Musculoskeletal/Rheumatological Hx Falls: Yes - Gastrointestinal Hx Gastrointestinal Disorders: (obese) Hx Gastroesophageal Reflux: Yes - Genitourinary/Gynecological Hx Genitourinary Disorders: No - Psychiatric Hx Psychophysiologic Disorder: Yes (DRUG OD) Hx Anxiety: Yes Hx Depression: No Hx Emotional Abuse: No Hx Physical Abuse: No Hx Substance Use: No (quit 3 years ago) Other/Comment: hx heroin use quit 3 yrs ago, substance abuse. - Past Surgical History Past Surgical History: Non-Contributing - Surgical History Hx Cardiac Catheterization: Yes Other/Comment: back sx "yrs ago", right shoulder sx for fx has pins,monty filter - Anesthesia Hx Anesthesia: Yes Hx Anesthesia Reactions: No Hx Malignant Hyperthermia: No - Suicidal Assessment Feels Threatened In Home Enviroment: No Family/Social History - Physician Review Nursing Documentation Reviewed: Yes Family/Social History: No Known Family HX Smoking Status: Heavy Smoker > 10 Cigarettes Daily Hx Alcohol Use: No Hx Substance Use: No (quit 3 years ago) Hx Substance Use Treatment: No Allergies/Home Meds Allergies/Adverse Reactions: Allergies No Known Allergies Allergy (Verified 05/17/17 16:56) Home Medications: Home Meds Medication Instructions Recorded Confirmed Digoxin [Digitek] 250 mcg PO DAILY 01/27/17 05/17/17 Enalapril Maleate [Vasotec] 10 mg PO DAILY 01/27/17 05/17/17 Metformin HCl [Glucophage] 500 mg PO BID 01/27/17 05/17/17 Metoprolol Tartrate [Lopressor] 50 mg PO DAILY 01/27/17 05/17/17 Review of Systems - Physician Review All systems were reviewed & negative as marked: Yes - Review of Systems Constitutional: absent: Fevers, Night Sweats Eyes: absent: Vision Changes ENT: absent: Hearing Changes Respiratory: absent: SOB, Cough Cardiovascular: Syncope Gastrointestinal: absent: Abdominal Pain Genitourinary Male: absent: Dysuria Musculoskeletal: absent: Arthralgias Skin: absent: Rash Neurological: Speech Changes (slurred speech) Endocrine: absent: Diaphoresis Hemo/Lymphatic: absent: Adenopathy Psychiatric: absent: Anxiety Physical Exam Vital Signs Reviewed: Yes Vital Signs Temp Pulse Resp BP Pulse Ox 05/17/17 20:00 104 H 18 107/62 96 05/17/17 17:13 78 18 94/70 L 96 05/17/17 16:46 98.0 F 80 18 92/51 L 95 Temperature: Afebrile Blood Pressure: Hypotensive Pulse: Regular Respiratory Rate: Normal Appearance: Positive for: Non-Toxic Pain Distress: None Mental Status: Positive for: Lethargic - Systems Exam Head: Present: Atraumatic, Normocephalic Pupils: Present: PERRL Conjunctiva: Present: Normal Mouth: Present: Moist Mucous Membranes Pharnyx: Present: Normal. No: ERYTHEMA, EXUDATE Neck: Present: Normal Range of Motion Respiratory/Chest: Present: Clear to Auscultation, Good Air Exchange. No: Respiratory Distress, Accessory Muscle Use Cardiovascular: Present: Regular Rate and Rhythm, Normal S1, S2. No: Murmurs Abdomen: Present: Normal Bowel Sounds. No: Tenderness, Distention, Peritoneal Signs Back: Present: Normal Inspection Upper Extremity: Present: Normal Inspection. No: Cyanosis, Edema Lower Extremity: Present: Normal Inspection. No: Edema Neurological: No: Speech Normal (Slurred Speech) Skin: Present: Warm, Dry, Normal Color. No: Rashes Psychiatric: Present: Alert, Oriented x 3, Normal Insight, Normal Concentration Medical Decision Making ED Course and Treatment: 05/17/17 16:30 Impression: 56 year old male complaining of a syncopal episode and slurred speech in Dr. Miller's office prior to arrival. Differential: xanax / opiate toxicity vs. CO2 narcosis vs less likely cva Plan: -- EKG -- Chest X-ray -- Head Ct w/o contrast -- Urinalysis -- Labs -- Reassess and disposition Prior Visits: Notes and results from previous visits were reviewed. Patient last seen in the ED on 04/06/17 for shortness of breath for a few days. Patient was admitted to hospitalist care for further evaluation. Progress Notes: 05/17/17 21:47 Patient with noted history. Concern for patient to be possible drowsy due to xanax or percocet; however limited improvement with time in the emergency department. ABG then done showing patient's CO2 to be 78 with acidotic pH of 7.24 - will need Bipap. Patient's admissions of late go to hospitalist. Case discussed with Dr. Arrington for admission to the hospitalist's service. - Lab Interpretations Lab Results: 05/17/17 18:44 05/17/17 18:44 Lab Results 05/17/17 20:17: pCO2 78 H*, pO2 71.0 L, HCO3 33.4 H, ABG pH 7.24 L, ABG Total CO2 35.8 H, ABG O2 Saturation 96.4, ABG O2 Content 17.3, ABG Base Excess 3.4 H, ABG Hemoglobin 13.7, ABG Carboxyhemoglobin 6.5 H, POC ABG HHb (Measured) 3.3, ABG Methemoglobin 0.6, ABG O2 Capacity 17.9, Hgb O2 Saturation 89.6 L, FiO2 28.0 05/17/17 20:00: Urine Color Yellow, Urine Appearance Clear, Urine pH 6.0, Ur Specific [place] 1.010, Urine Protein Trace H, Urine Glucose (UA) Negative, Urine Ketones Negative, Urine Blood Negative, Urine Nitrate Negative, Urine Bilirubin Negative, Urine Urobilinogen 0.2, Ur Leukocyte Esterase Negative, Urine RBC 0 - 2, Urine WBC 0 - 2, Ur Epithelial Cells 0 - 2 05/17/17 18:44: Digoxin 0.8 05/17/17 18:44: PT 11.2, INR 1.04, APTT 26.6 05/17/17 18:44: Sodium 140, Potassium 3.7, Chloride 100, Carbon Dioxide 34 H, Anion Gap 10, BUN 6 L, Creatinine 0.6, Est GFR ( Amer) > 60, Est GFR (Non -Af Amer) > 60, Random Glucose 87, Calcium 8.1 L, Magnesium 1.5 L, Total Bilirubin 0.9, AST 27, ALT 37, Alkaline Phosphatase 76, Lactate Dehydrogenase 409, Total Creatine Kinase 128, Troponin I < 0.01 D, Total Protein 6.8, Albumin 3.4, Globulin 3.4, Albumin/Globulin Ratio 1.0 L, Lipase 28 05/17/17 18:44: WBC 12.0 H, RBC 4.68, Hgb 13.6 L, Hct 40.8 L, MCV 87.2, MCH 29.1 , MCHC 33.3, RDW 17.9 H, Plt Count 177, MPV 10.6, Gran % 74.6 H, Lymph % (Auto) 18.4 L, [place] % (Auto) 5.9, Eos % (Auto) 1.0 L, Baso % (Auto) 0.1, Gran # 8.96 H , Lymph # 2.2, [place] # 0.7 H, Eos # 0.1, Baso # 0.01 I have reviewed the lab results: Yes - RAD Interpretation Radiology Orders: 05/17/17 16:51 CHEST PORTABLE [RAD] Stat 05/17/17 16:52 Brain [HEAD W/O CONTRAST] [CT] Stat - Medication Orders Current Medication Orders: Magnesium Sulfate 2 gm/ Sodium (Chloride) 104 mls @ 102 mls/hr IVPB STAT STA Stop: 05/17/17 22:41 Insulin Human Lispro (Humalog Med) 0 units SC ACHS KATIE PRN Reason: Protocol Pantoprazole Sodium (Protonix Ec Tab) 40 mg PO DAILY KATIE Discontinued Medications Calcium Carbonate (Caltrate) 600 mg PO STAT STA Stop: 05/17/17 21:42 Ipratropium Bowie (Atrovent) 0.5 mg IH STAT STA Stop: 05/17/17 20:29 Last Admin: 05/17/17 21:29 Dose: 0.5 mg Levalbuterol HCl (Xopenex) 1.25 mg IH STAT STA Stop: 05/17/17 20:28 Last Admin: 05/17/17 21:29 Dose: 1.25 mg Prednisone (Prednisone Tab) 40 mg PO STAT STA Stop: 05/17/17 20:28 - Scribe Statement The provider has reviewed the documentation as recorded by the Curt Whelan Provider Scribe Attestation: All medical record entries made by the Laureenibrussell were at my direction and personally dictated by me. I have reviewed the chart and agree that the record accurately reflects my personal performance of the history, physical exam, medical decision making, and the department course for this patient. I have also personally directed, reviewed, and agree with the discharge instructions and disposition. Disposition/Present on Arrival - Present on Arrival Any Indicators Present on Arrival: Yes History of DVT/PE: Yes History of Uncontrolled Diabetes: No Urinary Catheter: No History of Decub. Ulcer: No History Surgical Site Infection Following: None - Disposition Have Diagnosis and Disposition been Completed?: Yes Diagnosis: CO2 narcosis, Altered mental status Disposition: HOSPITALIZED Disposition Time: 20:30 Patient Plan: Admission Condition: FAIR
[2017-05-17 19:30] LABS: BASO # 0.01 K/mm3 (0.0-2.0); BASO % 0.1 % (0.0-3.0); EOS # 0.1 (0.0-0.7); GRAN # 8.96 (1.4-6.5); GRAN % 74.6 % (50.0-68.0); HEMOGLOBIN 13.6 gm/dL (14.0-18.0); LYMPH # 2.2 (1.2-3.4); LYMPH % 18.4 % (22.0-35.0); MEAN CELL VOLUME 87.2 fL (80.0-105.0); MEAN CORPUSCULAR HEMOGLOBIN 29.1 pg (25.0-35.0); MEAN CORPUSCULAR HGB CONC 33.3 g/dl (31.0-37.0); MEAN PLATELET VOLUME 10.6 fl (7.0-11.0); MONO # 0.7 (0.1-0.6); MONO % 5.9 % (1.0-6.0); PLATELET COUNT 177 10^3/uL (120.0-450.0); RBC 4.68 10^6/uL (3.5-6.1); RED CELL DISTRIBUTION WIDTH 17.9 % (11.5-14.5)
[2017-05-17 19:41] LABS: INR 1.04 (0.93-1.08); PARTIAL THROMBOPLASTIN TIME 26.6 Seconds (23.7-30.8); PROTHROMBIN TIME 11.2 Seconds (9.9-11.8)
[2017-05-17 19:43] LABS: ALBUMIN 3.4 g/dL (3.0-4.8); ALT/SGPT 37 U/L (7-56); AST/SGOT 27 U/L (15-59); BLOOD UREA NITROGEN 6 mg/dL (7-21); CALCIUM 8.1 mg/dL (8.4-10.5); GFR AFRICAN-AMERICAN > 60; GFR NON-AFRICAN AMERICAN > 60; LIPASE 28 U/L (23-300); MAGNESIUM 1.5 mg/dL (1.7-2.2)
[2017-05-17 19:59] LABS: TROPONIN I < 0.01 ng/mL
[2017-05-17 20:22] LABS: ARTERIAL BLOOD GAS HCO3 33.4 mmol/L (21-28); ARTERIAL BLOOD GAS HEMOGLOBIN 13.7 g/dL (11.7-17.4); ARTERIAL BLOOD GAS O2 CAPACITY 17.9 mL/dl (16-24); ARTERIAL BLOOD GAS O2 CONTENT 17.3 ML/dl (15-23); ARTERIAL BLOOD GAS O2 SAT 96.4 % (95-98); ARTERIAL BLOOD GAS PH 7.24 (7.35-7.45); ARTERIAL BLOOD GAS TCO2 35.8 mmol.L (22-28)
[2017-05-17 20:23] LABS: ARTERIAL BLOOD GAS PCO2 78 mm/Hg (35-45)
[2017-05-17] MEDS ORDERED: Levalbuterol 1.25 MG/3 ML Inhal Soln UD IH STA (20:27)
[2017-05-17] MEDS ORDERED: Ipratropium 0.02% Inhal Soln (0.5 mg/2.5 ml) UD IH STA (20:28)
--- NOTE | 2017-05-17 20:52 | CP.PCM.HP ---
<Tyron Moran - Last Filed: 05/18/17 00:37> History of Present Illness - History of Present Illness History of Present Illness: CC: Syncope Patient is a 56 year old male with a PMHx of NSTEMI, COPD, DESTINEE, PE/DVT, SP IVC filter on anticoagulation with warfarin HTN, Hyperlipidemia , and diastolic CHF who was sent to emergency department by Dr. Valdez Miller, Biomedical Engineering Technologist, for a syncopal episode and slurred speech in office. Patient was seeing DR. Miller for surgical clearance for bariatric surgery. Patient states these symptoms occurred after taking having taken xanax at home. States that he only took one pill as prescribed. Admits to dizziness which has subsided since onset. Recalls all events at the doctors office and remembers how he arrived to [facility] [place]. Patient denies fever, chills, chest pain, SOB, abdominal pain, N/V, diarrhea, constipation, and urinary symptoms. PMHx: NSTEMI, COPD, DESTINEE, PE/DVT, SP IVC filter on anticoagulation with warfarin HTN, Hyperlipidemia , diastolic CHF , non compliance with medication PSHx: pelvic fracture repair, skull fracture repair, right shoulder surgery Allergies: NKDA FH: Non contributory Social hx: Former cigarette smoker. Denies drinking and illicit drug abuse Home meds: please see med rec PMD: Dr. Sanchez EKG: NSR, HR 81 bpm, QTc 441 Present on Admission - Present on Admission Any Indicators Present on Admission: No Review of Systems - Review of Systems Review of Systems: 12 point review of systems negative except as indicated in the HPI. Past Patient History - Infectious Disease Hx of Infectious Diseases: None - Tetanus Immunizations Tetanus Immunization: Unknown - Past Medical History & Family History Past Medical History?: Yes - Past Social History Smoking Status: Heavy Smoker > 10 Cigarettes Daily - CARDIAC Hx Cardiac Disorders: Yes (cardiomyopathy, dvt pe) Hx Congestive Heart Failure: Yes Hx Hypertension: Yes - PULMONARY Hx Chronic Obstructive Pulmonary Disease (COPD): Yes - NEUROLOGICAL Hx Neurological Disorder: Yes (SYNCOPE) - HEENT Hx HEENT Problems: No - RENAL Hx Renal Failure: (RENAL INSUFFICIENCY) - ENDOCRINE/METABOLIC Hx Diabetes Mellitus Type 2: Yes - HEMATOLOGICAL/ONCOLOGICAL Hx Blood Disorders: No - INTEGUMENTARY Hx Dermatological Problems: No Other/Comment: bilateral lower extremity and feet discolored dry skin , redness tightness - MUSCULOSKELETAL/RHEUMATOLOGICAL Hx Falls: Yes - GASTROINTESTINAL Hx Gastrointestinal Disorders: (obese) Hx Gastroesophageal Reflux: Yes - GENITOURINARY/GYNECOLOGICAL Hx Genitourinary Disorders: No - PSYCHIATRIC Hx Psychophysiologic Disorder: Yes (DRUG OD) Hx Anxiety: Yes Hx Depression: No Hx Emotional Abuse: No Hx Physical Abuse: No Hx Substance Use: No (quit 3 years ago) Other/Comment: hx heroin use quit 3 yrs ago, substance abuse. - SURGICAL HISTORY Hx Cardiac Catheterization: Yes Other/Comment: back sx "yrs ago", right shoulder sx for fx has pins,monty filter - ANESTHESIA Hx Anesthesia: Yes Hx Anesthesia Reactions: No Hx Malignant Hyperthermia: No Meds Allergies/Adverse Reactions: Allergies Allergy/AdvReac Type Severity Reaction Status Date / Time No Known Allergies Allergy Verified 05/17/17 16:56 Physical Exam - Constitutional Appears: Non-toxic, No Acute Distress - Head Exam Head Exam: ATRAUMATIC, NORMAL INSPECTION Additional comments: [place] Pix negative - Eye Exam Eye Exam: EOMI Pupil Exam: PERRL Additional comments: scleral injection bilaterally nonicteric - ENT Exam ENT Exam: Mucous Membranes Moist - Neck Exam Neck exam: Positive for: Normal Inspection. Negative for: Tenderness, Thyromegaly - Respiratory Exam Respiratory Exam: NORMAL BREATHING PATTERN. absent: Rales, Rhonchi, Wheezes Additional comments: breath sounds diminished bilateral lower lobes - Cardiovascular Exam Cardiovascular Exam: REGULAR RHYTHM, +S1, +S2 - GI/Abdominal Exam GI & Abdominal Exam: Normal Bowel Sounds, Soft. absent: Distended, Firm, Guarding, Rebound, Rigid, Tenderness - Extremities Exam Extremities exam: Positive for: normal inspection, pedal pulses present. Negative for: tenderness Additional comments: right upper extremity ROM limited due to chronic pain in the right shoulder joint - Neurological Exam Neurological exam: Alert, CN II-XII Intact, Oriented x3 Additional comments: patient is awake, alert, responds to verbal stimuli, answers questions appropriately althought voice is sometimes difficult to hear, moves extremities spontaneously - Psychiatric Exam Psychiatric exam: Normal Affect, Normal Mood - Skin Skin Exam: Intact, Normal Color, Warm Results - Vital Signs Recent Vital Signs: Last Vital Signs Temp 98.0 F 05/17/17 16:46 Pulse 104 H 05/17/17 20:00 Resp 18 05/17/17 20:00 BP 107/62 05/17/17 20:00 Pulse Ox 96 05/17/17 20:00 - Labs Result Diagrams: 05/17/17 18:44 05/17/17 18:44 Labs: Laboratory Results - last 24 hr 05/17/17 05/17/17 05/17/17 18:44 18:44 18:44 WBC 12.0 H RBC 4.68 Hgb 13.6 L Hct 40.8 L MCV 87.2 MCH 29.1 MCHC 33.3 RDW 17.9 H Plt Count 177 MPV 10.6 Gran % 74.6 H Lymph % (Auto) 18.4 L Meagher % (Auto) 5.9 Eos % (Auto) 1.0 L Baso % (Auto) 0.1 Gran # 8.96 H Lymph # 2.2 Meagher # 0.7 H Eos # 0.1 Baso # 0.01 PT 11.2 INR 1.04 APTT 26.6 pCO2 pO2 HCO3 ABG pH ABG Total CO2 ABG O2 Saturation ABG O2 Content ABG Base Excess ABG Hemoglobin ABG Carboxyhemoglobin POC ABG HHb (Measured) ABG Methemoglobin ABG O2 Capacity Hgb O2 Saturation FiO2 Sodium 140 Potassium 3.7 Chloride 100 Carbon Dioxide 34 H Anion Gap 10 BUN 6 L Creatinine 0.6 Est GFR ( Amer) > 60 Est GFR (Non-Af Amer) > 60 Random Glucose 87 Calcium 8.1 L Magnesium 1.5 L Total Bilirubin 0.9 AST 27 ALT 37 Alkaline Phosphatase 76 Lactate Dehydrogenase 409 Total Creatine Kinase 128 Troponin I < 0.01 D Total Protein 6.8 Albumin 3.4 Globulin 3.4 Albumin/Globulin Ratio 1.0 L Lipase 28 Digoxin 05/17/17 05/17/17 18:44 20:17 WBC RBC Hgb Hct MCV MCH MCHC RDW Plt Count MPV Gran % Lymph % (Auto) Meagher % (Auto) Eos % (Auto) Baso % (Auto) Gran # Lymph # Meagher # Eos # Baso # PT INR APTT pCO2 78 H* pO2 71.0 L HCO3 33.4 H ABG pH 7.24 L ABG Total CO2 35.8 H ABG O2 Saturation 96.4 ABG O2 Content 17.3 ABG Base Excess 3.4 H ABG Hemoglobin 13.7 ABG Carboxyhemoglobin 6.5 H POC ABG HHb (Measured) 3.3 ABG Methemoglobin 0.6 ABG O2 Capacity 17.9 Hgb O2 Saturation 89.6 L FiO2 28.0 Sodium Potassium Chloride Carbon Dioxide Anion Gap BUN Creatinine Est GFR ( Amer) Est GFR (Non-Af Amer) Random Glucose Calcium Magnesium Total Bilirubin AST ALT Alkaline Phosphatase Lactate Dehydrogenase Total Creatine Kinase Troponin I Total Protein Albumin Globulin Albumin/Globulin Ratio Lipase Digoxin 0.8 Assessment & Plan - Assessment and Plan (Free Text) Assessment: Patient is a 56 year old male with a PMHx of OPD, DESTINEE, PE/DVT, SP IVC filter on anticoagulation with warfarin HTN, Hyperlipidemia , diastolic CHF who is being admitted for evaluation and treatment of a syncopal episode and slurred speech. 1. Syncopal Episode, Slurred Speech - likely 2/2 to xanx and oxycodone - Noncontrast CT of the head ordered by ED- reviewed at time of admission, No definite acute intracranial abnormality noted - avoid sedative/hypnotic medications - speech is at baseline as per physician who have participated in his care in the past 2. Hypercapnic Hypoxemic Respiratory Failure, Hx of COPD, Respiratory Acidosis - BiPAP 12-5-FIbO2 35% keep SaO2 between than 88%-94% - ipratropium - xopenex 3. SIRS Criteria Met - leukocytosis, tachycardic - blood cultures, urine cultures, lactate 4. History of DM - hold home metformin at this time - accu checks ACHS - insulin sliding scale 5. History of HTN - patient is currently normotensive despite not having taken anti-hypertensive medications - hold home enalapril and metoprolol at this time 6. History of Diastolic HF - continue home digoxin - check digoxin levels 7. History of PE/DVT s/p IVC Filter - continue home apixaban - continue home aspirin 8. History of Hyperlipidemia - continue home statin 9. Anemia - iron, TIBC, ferrtin, folate, B12 - monitor closely via CBC in AM 10. Hypomagnesemia - replete - monitor closely via Mag level in AM 11. Hypocalecmia - replete - monitor closely 12. PPx - on apixaban - ppx - patient seen, evaluated, and discussed with attending, Dr. Arrington. <Nury MONROE,Stephen - Last Filed: 05/20/17 08:10> Results - Vital Signs Recent Vital Signs: Last Vital Signs Temp 98 F 05/19/17 12:00 Pulse 83 07/27/17 14:00 Resp 18 05/19/17 12:00 BP 130/87 05/19/17 12:00 Pulse Ox 95 05/19/17 06:00 - Labs Result Diagrams: 05/19/17 05:40 05/19/17 05:40 Labs: Laboratory Results - last 24 hr 05/18/17 05/18/17 05/18/17 00:09 07:09 11:03 POC Glucose (mg/dL) 100 164 H 219 H 05/18/17 05/19/17 05/19/17 15:57 07:25 11:47 POC Glucose (mg/dL) 204 H 124 H 178 H Attending/Attestation - Attestation I have personally seen and examined this patient.: Yes I have fully participated in the care of the patient.: Yes I have reviewed all pertinent clinical information: Yes Notes (Text): -I agree with the above H&P completed by the resident physician with the following additions and/or changes: The patient is a 56 year old, morbidly obese man, with a history of NSTEMI, COPD , DESTINEE, PE/DVT (s/p IVC filter and chronic Warfarin), HTN, Hyperlipidemia, and diastolic CHF admitted with syncope and acute hypoxic respiratory distress ( requiring Bipap). Of note, patient also has a history of drowsiness after Xanax use, which may potentially be the underlying trigger for his current presentation.
[2017-05-17 20:55] LABS: URINE BILIRUBIN NEGATIVE (NEGATIVE); URINE BLOOD NEGATIVE (NEGATIVE); URINE GLUCOSE (UA) NEGATIVE (NEGATIVE); URINE LEUKOCYTE ESTERASE NEGATIVE Leu/uL (NEGATIVE); URINE NITRATE NEGATIVE (NEGATIVE); URINE PROTEIN TRACE mg/dL (<30 mg/dL); URINE UROBILINOGEN 0.2 E.U./dL (<1 E.U./dL)
[2017-05-17 21:08] LABS: URINE APPEARANCE CLEAR (CLEAR); URINE COLOR YELLOW (YELLOW)
[2017-05-17 21:15] LABS: URINE EPITHELIAL CELLS 0 - 2 /hpf (0-5); URINE RBC 0 - 2 /hpf (0-2); URINE WBC 0 - 2 /hpf (0-6)
--- NOTE | 2017-05-17 21:17 | CT ---
EXAM: CT Head Without Intravenous Contrast CLINICAL HISTORY: 56 years old, male; Signs and symptoms; Speech disturbance; Slurred speech; Additional info: Slurring of speech TECHNIQUE: Axial computed tomography images of the head/brain without intravenous contrast. This CT exam was performed using one or more of the following dose reduction techniques: automated exposure control, adjustment of the mA and/or kV according to patient size, and/or use of iterative reconstruction technique. COMPARISON: CT - HEAD W/O CONTRAST 10/15/2015 11:11:36 PM FINDINGS: Brain: No intracranial hemorrhage. No mass. No definite edema. Ventricles: No hydrocephalus. Bones/joints: No acute fracture. Soft tissues: RIGHT parietal soft tissue swelling. Sinuses: No acute sinusitis. Mastoid air cells: No mastoid effusion. Orbits: Unremarkable as visualized. IMPRESSION: 1. No definite acute intracranial abnormality. Acute infarction may be CT occult within first 24 hours. If a focal deficit persists, consider followup CT or MRI for further evaluation. 2. Incidental/non-acute findings are described above.
[2017-05-17] MEDS ORDERED: Magnesium Sulfate 2 GM in Sodium Chloride 0.9% 100 ML IVPB STA (21:40)
[2017-05-17] MEDS ORDERED: Nitroglycerin 2% Ointment Foilpak UD TOP STA (22:20)
[2017-05-18 00:25] VITALS: BMI 50.3
[2017-05-18] MEDS: Ipratropium 0.02% Inhal Soln (0.5 mg/2.5 ml) UD IH SCH ×5 (00:30→19:23)
[2017-05-18] MEDS: Levalbuterol 0.63 MG/3 ML Inhal Soln UD IH SCH ×5 (00:30→19:23)
[2017-05-18] MEDS: Insulin Lispro (humaLOG) MEDIUM Coverage SC SCH ×5 (00:48→22:20)
[2017-05-18 05:30] LABS: ARTERIAL BLOOD GAS HCO3 30.6 mmol/L (21-28); ARTERIAL BLOOD GAS HEMOGLOBIN 14.9 g/dL (11.7-17.4); ARTERIAL BLOOD GAS O2 CAPACITY 19.8 mL/dl (16-24); ARTERIAL BLOOD GAS O2 CONTENT 19.1 ML/dl (15-23); ARTERIAL BLOOD GAS O2 SAT 96.7 % (95-98); ARTERIAL BLOOD GAS PCO2 58 mm/Hg (35-45); ARTERIAL BLOOD GAS PH 7.33 (7.35-7.45); ARTERIAL BLOOD GAS TCO2 32.4 mmol.L (22-28)
[2017-05-18 05:31] LABS: HEMOGLOBIN 14.8 gm/dL (14.0-18.0); MEAN CELL VOLUME 86.5 fL (80.0-105.0); MEAN CORPUSCULAR HEMOGLOBIN 28.9 pg (25.0-35.0); MEAN CORPUSCULAR HGB CONC 33.4 g/dl (31.0-37.0); MEAN PLATELET VOLUME 11.1 fl (7.0-11.0); PLATELET COUNT 195 10^3/uL (120.0-450.0); RBC 5.12 10^6/uL (3.5-6.1); RED CELL DISTRIBUTION WIDTH 17.7 % (11.5-14.5); WHITE BLOOD COUNT 13.6 10^3/ul (4.5-11.0)
[2017-05-18 05:48] LABS: ALB/GLOB RATIO 1.1 (1.1-1.8); ALBUMIN 3.5 g/dL (3.0-4.8); ALT/SGPT 39 U/L (7-56); AST/SGOT 35 U/L (15-59); BLOOD UREA NITROGEN 6 mg/dL (7-21); CALCIUM 8.7 mg/dL (8.4-10.5); GFR AFRICAN-AMERICAN > 60; GFR NON-AFRICAN AMERICAN > 60
[2017-05-18 06:11] LABS: NEUTROPHIL 95 % (50.0-70.0)
[2017-05-18 06:12] LABS: ANISOCYTOSIS 1+; BAND 3 % (0-2); LYMPHOCYTE 2 % (22.0-35.0); PLATELET ESTIMATE NORMAL (NORMAL)
[2017-05-18 06:27] VITALS: O2SAT 95
--- NOTE | 2017-05-18 08:45 | RAD ---
HISTORY: syncope COMPARISON: No prior. FINDINGS: LUNGS: Borderline shallow lung volumes. No consolidation para PLEURA: No significant pleural effusion identified, no pneumothorax apparent. CARDIOVASCULAR: Mild cardiomegaly and central pulmonary vascular crowding versus congestion OSSEOUS STRUCTURES: No significant abnormalities. VISUALIZED UPPER ABDOMEN: Normal. OTHER FINDINGS: Large body habitus IMPRESSION: Mild cardiomegaly with either central pulmonary vascular congestion (versus crowding). No pleural effusion
[2017-05-18] MEDS: Pantoprazole 40 mg EC Tab PO SCH (09:53)
[2017-05-18] MEDS: Digoxin 250 mcg (0.25 mg) Tab PO SCH (09:54)
[2017-05-18 12:13] LABS: FOLATE 5.4 ng/mL
[2017-05-18] MEDS: Potassium & Sodium Phosphate PO SCH (12:36)
--- NOTE | 2017-05-18 13:59 | RAD ---
HISTORY: copd eval COMPARISON: 05/17/2017 FINDINGS: LUNGS: Coalescing left infrahilar bronchovascular marking prominence with or without peribronchial thickening. This is an interval change here PLEURA: The central pulmonary vasculature appears more prominent than before. An element of pulmonary venous congestion is suspect An additional left infrahilar peribronchial thickening bronchitis is not excluded. No clinical history provided of cough. Hence correlate clinically. An early infiltrate here versus coalescent pulmonary edema is also in the differential. Follow-up advised CARDIOVASCULAR: Mild cardiomegaly and central pulmonary vascular congestion -this appears increased since the prior exam OSSEOUS STRUCTURES: No significant abnormalities. VISUALIZED UPPER ABDOMEN: Normal. OTHER FINDINGS: None. IMPRESSION: Cardiomegaly-similar. The central pulmonary vasculature appears on the or-pulmonary vascular congestion is suspect for a additional left infrahilar coalescing bronchovascular markings, peribronchial thickening/ inflammatory changes also considerations. Correlate clinically and follow-up advised.
--- NOTE | 2017-05-18 17:13 | CP.PCM.PN ---
Subjective - Date & Time of Evaluation Date of Evaluation: 05/18/17 Time of Evaluation: 09:15 - Subjective Subjective: Pt seen and examined this morning. Pt reports the slurred speech has resolved and his speech quality is back to his baseline. Pt would like to be discharged. Denies fever, chills, SOB, chest pain, abd pain, dysuria, constipation, diarrhea. Has not been up and out of bed since admission. Objective - Vital Signs/Intake and Output Vital Signs (last 24 hours): Temp Pulse Resp BP Pulse Ox 99 F 89 20 143/91 H 95 05/18/17 12:00 05/18/17 14:00 05/18/17 12:00 05/18/17 12:00 05/18/17 06:00 Intake and Output: 05/18/17 05/18/17 06:59 18:59 Intake Total 420 Output Total 700 Balance -280 - Medications Medications: Current Medications Apixaban (Eliquis) 5 mg PO BID [facility] PRN Reason: Protocol Last Admin: 05/18/17 09:53 Dose: 5 mg Aspirin (Ecotrin) 81 mg PO DAILY [facility] Last Admin: 05/18/17 09:54 Dose: 81 mg Atorvastatin Calcium (Lipitor) 80 mg PO DIN KATIE Digoxin (Lanoxin) 0.25 mg PO DAILY [facility] Last Admin: 05/18/17 09:54 Dose: 0.25 mg Insulin Human Lispro (Humalog Med) 0 units SC ACHS [facility] PRN Reason: Protocol Last Admin: 05/18/17 12:34 Dose: 3 units Ipratropium [place] (Atrovent) 0.5 mg IH [id number] [facility] Last Admin: 05/18/17 13:28 Dose: 0.5 mg Levalbuterol HCl (Xopenex) 0.63 mg IH [id number] [facility] Last Admin: 05/18/17 13:28 Dose: 0.63 mg Pantoprazole Sodium (Protonix Ec Tab) 40 mg PO DAILY [facility] Last Admin: 05/18/17 09:53 Dose: 40 mg Potassium Phos/Sodium Phos (Neutra-Phos) 2 pkt PO DAILY [facility] Last Admin: 05/18/17 12:36 Dose: 2 pkt - Labs Labs: 05/18/17 04:30 05/18/17 04:30 PT 11.2 Seconds (9.9-11.8) 05/17/17 18:44 INR 1.04 (0.93-1.08) 05/17/17 18:44 APTT 26.6 Seconds (23.7-30.8) 05/17/17 18:44 - Constitutional Appears: No Acute Distress, Unkempt - Head Exam Head Exam: ATRAUMATIC, NORMAL INSPECTION, NORMOCEPHALIC - Eye Exam Eye Exam: EOMI, Normal appearance, PERRL Pupil Exam: NORMAL ACCOMODATION - ENT Exam ENT Exam: Mucous Membranes Moist, Normal Exam - Neck Exam Neck Exam: Full ROM, Normal Inspection. absent: Lymphadenopathy, Meningismus, Tenderness, Thyromegaly - Respiratory Exam Respiratory Exam: Decreased Breath Sounds, Clear to Ausculation Bilateral, NORMAL BREATHING PATTERN. absent: Accessory Muscle Use, Chest Wall Tenderness, Rales, Rhonchi, Wheezes, Respiratory Distress, Stridor - Cardiovascular Exam Cardiovascular Exam: RRR, +S1, +S2. absent: Gallop, JVD, Rubs, Murmur - GI/Abdominal Exam GI & Abdominal Exam: Soft, Normal Bowel Sounds. absent: Distended, Guarding, Rigid, Tenderness, Organomegaly, Rebound Additional comments: obese - Extremities Exam Extremities Exam: Full ROM, Normal Inspection. absent: Calf Tenderness, Pedal Edema, Tenderness - Neurological Exam Neurological Exam: Altered (pt is arousable but falls asleep during conversation ), Oriented x3 - Psychiatric Exam Psychiatric exam: Normal Affect, Normal Mood - Skin Skin Exam: Normal Color, Warm - Additional Findings Additional findings: pt is drowsy, eyes remain closed, fell asleep multiple times during interview and exam Assessment and Plan - Assessment and Plan (Free Text) Assessment: Patient is a 56 year old male with a PMHx of OPD, DESTINEE, PE/DVT, SP IVC filter on anticoagulation with warfarin HTN, Hyperlipidemia , diastolic CHF who was admitted for evaluation and treatment of a syncopal episode and slurred speech, that has since resolved. Plan: 1. Slurred speech/near-syncopal episode -Likely 2/2 oxycodone/xanax ingestion vs DESTINEE vs stroke -Head CT neg for acute intercranial abnormalities -Drug screen, PT eval pending -h/o DESTINEE, has not seen lamps tester and inspector (Dr. Shannon) since 2014, does not use CPAP at home -Recommend outpt follow up with Dr. Pride for repeat sleep study and home CPAP 2. Hypercapnic hypoxemic respiratory failure - Likely 2/2 h/o COPD, DESTINEE - Pt on 2L O2, BIPAP 12-5-FiO2 30% - Continue ipratropium, xopenex - SaO2 on RA: 88% resting - ABG improved 3. SIRS criteria met on admission - This am - WBC 13.6, HR 85, T 97.7, RR 18 - Left shift (bands 3), lactic acid 1.1 - UA neg - Procal <0.05 - blood cx, urine cx pending - Antibiotics not necessary at this time 4. Hypophosphoremia - Phos 1.9 - Neutra-Phos daily - Monitor BMP daily 5. h/o DM Accuchecks ACHS, ISS 6. h/o HTN, controlled here - Hold home lasix 40mg daily, enalapril 10mg daily 7. h/o HLD - Lipitor 8. h/o PE/DVT s/p IVC filter - ASA, eliquis 9. h/o diastolic CHF - Digoxin GI ppx - PTX DVT ppx - IVC filter, eliquis Dispo - home w/ possible homeO2 Patient was seen, examined and discussed with attending, Dr. Oleg Joseph PGY1
[2017-05-18] MEDS ORDERED: Oxycodone/Acetaminophen 5/325 mg Tab PO PRN (18:03)
--- NOTE | 2017-05-18 19:10 | CARD ---
APPROVED REPORT EKG Measurement Heart [id number] <Conclusion> Normal sinus rhythm Normal ECG
[2017-05-18 23:00] LABS: BARBITURATES, UR NEGATIVE (NEGATIVE); BENZODIAZEPINES, UR POSITIVE (NEGATIVE); OPIATES, UR POSITIVE (NEGATIVE); PHENCYCLIDINE, UR NEGATIVE (NEGATIVE)
[2017-05-19] MEDS: Ipratropium 0.02% Inhal Soln (0.5 mg/2.5 ml) UD IH SCH ×3 (01:04→13:03)
[2017-05-19] MEDS: Levalbuterol 0.63 MG/3 ML Inhal Soln UD IH SCH ×3 (01:04→13:03)
[2017-05-19 06:22] LABS: BASO # 0.02 K/mm3 (0.0-2.0); BASO % 0.2 % (0.0-3.0); EOS % 0.3 % (1.5-5.0); GRAN # 9.75 (1.4-6.5); GRAN % 76.5 % (50.0-68.0); HEMOGLOBIN 12.6 gm/dL (14.0-18.0); LYMPH # 2.1 (1.2-3.4); LYMPH % 16.2 % (22.0-35.0); MEAN CELL VOLUME 85.3 fL (80.0-105.0); MEAN CORPUSCULAR HEMOGLOBIN 28.6 pg (25.0-35.0); MEAN CORPUSCULAR HGB CONC 33.5 g/dl (31.0-37.0); MEAN PLATELET VOLUME 10.5 fl (7.0-11.0); MONO # 0.9 (0.1-0.6); MONO % 6.8 % (1.0-6.0); PLATELET COUNT 196 10^3/uL (120.0-450.0); RBC 4.41 10^6/uL (3.5-6.1); RED CELL DISTRIBUTION WIDTH 18.1 % (11.5-14.5); WHITE BLOOD COUNT 12.7 10^3/ul (4.5-11.0)
[2017-05-19 07:14] LABS: ALB/GLOB RATIO 0.9 (1.1-1.8); ALBUMIN 2.9 g/dL (3.0-4.8); ALT/SGPT 27 U/L (7-56); AST/SGOT 32 U/L (15-59); BLOOD UREA NITROGEN 9 mg/dL (7-21); CALCIUM 8.3 mg/dL (8.4-10.5); GFR AFRICAN-AMERICAN > 60; GFR NON-AFRICAN AMERICAN > 60
[2017-05-19] MEDS: Insulin Lispro (humaLOG) MEDIUM Coverage SC SCH ×2 (08:04→12:05)
[2017-05-19] MEDS: Potassium & Sodium Phosphate PO SCH (09:26)
[2017-05-19] MEDS: Pantoprazole 40 mg EC Tab PO SCH (09:27)
[2017-05-19] MEDS: Digoxin 250 mcg (0.25 mg) Tab PO SCH (09:27)
[2017-05-19 09:33] VITALS: PULSE 87
[2017-05-19 13:44] VITALS: BP 130/87; RESP 18; TEMP 98
[2017-05-19 14:55] VITALS: PULSE 83
== END 2017-05-19 16:21 | disposition home or self-care (01) | DRG 533 ==
LOC: ED 16:07 → ERH 20:48 → 2RNO 05-18 00:18
PROVIDERS: ADMIT Hospitalist; ATTEND Internal Medicine
PROC: 5A09457 Assistance with Respiratory Ventilation, 24-96 Consecutive Hours, Continuous Positive Airway Pressure (ICD-10-PCS; principal; 2017-05-17)
DX: R47.81 Slurred speech (principal); J96.92 Respiratory failure, unspecified with hypercapnia; J96.91 Respiratory failure, unspecified with hypoxia; R55 Syncope and collapse; T42.4X5A Adverse effect of benzodiazepines, initial encounter; T40.2X5A Adverse effect of other opioids, initial encounter; I11.0 Hypertensive heart disease with heart failure; I50.32 Chronic diastolic (congestive) heart failure; E11.9 Type 2 diabetes mellitus without complications; D64.9 Anemia, unspecified; J44.9 Chronic obstructive pulmonary disease, unspecified; E83.42 Hypomagnesemia; G47.33 Obstructive sleep apnea (adult) (pediatric); E78.5 Hyperlipidemia, unspecified; E83.51 Hypocalcemia; E66.01 Morbid (severe) obesity due to excess calories; Z68.43 Body mass index [BMI] 50.0-59.9, adult; Z79.01 Long term (current) use of anticoagulants; I25.2 Old myocardial infarction; Z86.711 Personal history of pulmonary embolism; Z86.718 Personal history of other venous thrombosis and embolism; Z79.84 Long term (current) use of oral hypoglycemic drugs; Z87.891 Personal history of nicotine dependence

== ENCOUNTER 2017-12-13 17:26 | Inpatient (IN) | payer MEDICAID ==
[2017-12-13 17:27] VITALS: BMI 56.9
--- NOTE | 2017-12-13 17:47 | ED PDOC ---
Arrival/HPI <Gokul Reddy - Last Filed: 12/14/17 00:57> - General Historian: Patient <Zachary Flores - Last Filed: 12/15/17 12:18> - General Chief Complaint: Shortness Of Breath Time Seen by Provider: 12/13/17 17:37 - History of Present Illness Narrative History of Present Illness (Text): 12/13/17 17:41 57 y/o male, pmh including htn/dm/dvt/pe/copd/nstemi/chf, nkda, psychiatric of drug abuse, chronic smoker, biba c/o coughing and worsening of the shortness of breath. Pt. stated that he has been having productive coughing for the past 2 weeks, coughing with productive yellow color phelgm, stated that he has been shortness of breath, non compliance with the eliquis 5mg, no night sweat, no dizziness, no rash, no numbness or tingling, no change in vision, no abdominal or pelvic pain, no other medical or psychological complaints. (Zachary Flores) Past Medical History - Provider Review Nursing Documentation Reviewed: Yes - Infectious Disease Hx of Infectious Diseases: None - Tetanus Immunization Tetanus Immunization: Unknown - Cardiac Hx Cardiac Disorders: Yes Hx Hypertension: Yes - Pulmonary Hx Chronic Obstructive Pulmonary Disease (COPD): Yes - Neurological Hx Neurological Disorder: Yes (SYNCOPE) - HEENT Hx HEENT Disorder: No - Renal Hx Renal Disorder: Yes Hx Renal Failure: (RENAL INSUFFICIENCY) - Endocrine/Metabolic Hx Diabetes Mellitus Type 2: Yes - Hematological/Oncological Hx Blood Disorders: No - Integumentary Hx Dermatological Disorder: No Other/Comment: bilateral lower extremity and feet discolored dry skin , redness tightness - Musculoskeletal/Rheumatological Hx Musculoskeletal Disorders: Yes Hx Falls: Yes - Gastrointestinal Hx Gastrointestinal Disorders: (obese) Hx Gastroesophageal Reflux: Yes - Genitourinary/Gynecological Hx Genitourinary Disorders: No - Psychiatric Hx Psychophysiologic Disorder: Yes (DRUG OD) Hx Anxiety: Yes Hx Depression: No Hx Emotional Abuse: No Hx Physical Abuse: No Hx Substance Use: No (quit 3 years ago) Other/Comment: hx heroin use quit 3 yrs ago, substance abuse. - Past Surgical History Past Surgical History: Non-Contributing - Surgical History Hx Cardiac Catheterization: Yes Other/Comment: back sx "yrs ago", right shoulder sx for fx has pins,monty filter - Anesthesia Hx Anesthesia: Yes Hx Anesthesia Reactions: No Hx Malignant Hyperthermia: No - Suicidal Assessment Feels Threatened In Home Enviroment: No <Zachary Flores - Last Filed: 12/15/17 12:18> Family/Social History - Physician Review Nursing Documentation Reviewed: Yes Family/Social History: Unknown Family HX Smoking Status: Heavy Smoker > 10 Cigarettes Daily Hx Alcohol Use: No Hx Substance Use: No (quit 3 years ago) Hx Substance Use Treatment: No <Zachary Flores - Last Filed: 12/15/17 12:18> Allergies/Home Meds <Gokul Reddy - Last Filed: 12/14/17 00:57> <Zachary Flores - Last Filed: 12/15/17 12:18> Allergies/Adverse Reactions: Allergies No Known Allergies Allergy (Verified 12/13/17 17:37) Home Medications: Home Meds Medication Instructions Recorded Confirmed Enalapril Maleate [Vasotec] 5 mg PO DAILY 01/27/17 12/13/17 Metoprolol Tartrate [Lopressor] 50 mg PO DAILY 01/27/17 12/13/17 Digoxin [Digitek] 125 mcg PO DAILY 07/25/17 12/13/17 Furosemide [Lasix] 10 mg PO DAILY 07/25/17 12/13/17 Alprazolam [Xanax] 2 mg PO BID 12/13/17 12/13/17 Furosemide [Lasix] 40 mg PO BID 12/13/17 12/13/17 MetFORMIN [glucoPHAGE] 1 tab PO DAILY 12/13/17 12/13/17 tiZANidine [Zanaflex] 4 mg PO DAILY 12/13/17 12/13/17 Review of Systems - Review of Systems Constitutional: Fatigue. absent: Fevers Eyes: absent: Vision Changes ENT: absent: Hearing Changes, Sore Throat, Rhinorrhea Respiratory: SOB, Cough, Sputum, Wheezing Cardiovascular: absent: Chest Pain Gastrointestinal: absent: Abdominal Pain, Nausea, Vomiting Genitourinary Male: absent: Dysuria Musculoskeletal: absent: Arthralgias, Back Pain, Neck Pain Skin: absent: Rash, Pruritis Neurological: absent: Headache, Dizziness Psychiatric: absent: Anxiety, Depression, Suicidal Ideation <Zachary Flores - Last Filed: 12/15/17 12:18> Physical Exam Vital Signs Reviewed: Yes Temperature: Afebrile Blood Pressure: Normal Pulse: Tachycardic Respiratory Rate: Tachypneic Appearance: Positive for: Ill-Appearing, Unkept Pain Distress: None Mental Status: Positive for: Alert and Oriented X 3, Lethargic - Systems Exam Head: Present: Atraumatic, Normocephalic Pupils: Present: PERRL Extroacular Muscles: Present: EOMI Conjunctiva: Present: Normal Mouth: Present: Moist Mucous Membranes Neck: Present: Normal Range of Motion Respiratory/Chest: Present: Clear to Auscultation, Good Air Exchange, Wheezes, Decreased Breath Sounds, Rhonchi, Tachypneic. No: Respiratory Distress, Accessory Muscle Use, Rales, Retracting, Tender to Palpation Cardiovascular: Present: Regular Rate and Rhythm, Normal S1, S2, Other (2+ pedal edema noted on the bilateral lower extremities). No: Murmurs Abdomen: Present: Normal Bowel Sounds. No: Tenderness, Distention, Peritoneal Signs, Rebound, Guarding Back: Present: Normal Inspection Upper Extremity: Present: Normal Inspection. No: Cyanosis, Edema Lower Extremity: Present: Normal Inspection. No: Edema Neurological: Present: GCS=15, CN II-XII Intact, Speech Normal Skin: Present: Warm, Dry, Normal Color. No: Rashes Psychiatric: Present: Alert, Oriented x 3, Normal Insight, Normal Concentration <Zachary Flores - Last Filed: 12/15/17 12:18> Vital Signs Temp Pulse Resp BP Pulse Ox 12/13/17 22:00 105 H 20 122/85 95 12/13/17 21:42 100 H 12/13/17 21:09 102 H 16 127/79 91 L 12/13/17 18:21 115 H 22 122/68 95 12/13/17 18:00 98.8 F 119 H 24 117/64 84 L 12/13/17 17:40 24 84 L Medical Decision Making <Gokul Reddy - Last Filed: 12/14/17 00:57> Reassessment Condition: Re-examined, Improving,but remains with symptoms - Critical Care Critical Care Minutes: 30 minutes Critical Care Time: Unstable, Other - RAD Interpretation Car Body Designer: Radiologist <Zachary Flores - Last Filed: 12/15/17 12:18> ED Course and Treatment: 12/13/17 22:52 Notified by [facility] of Chest CT findigns with suspicions of possible PE. Case discussed with Dr. Arrington, air conditioning installer, whom has started patient on Lovinox. Patient has apparent poor compliance with anticoagulents in the past. (Gokul Reddy) 12/13/17 17:55 -labs/ua/bnp/cardiac enzyme/rapid flu/blood cultures/vbg -CTA (Wells criteria is 7.5) -EKG -IV solumdrol/duoneb -Observe and reassess 12/13/17 17:59 -EKG: Sinus Tachycardia @ 119 BPM, no ST elevation or depression, no T wave inversion. 12/13/17 18:16 -Pt. remains hypoxic, around 88-93% with non-rebreather but will placed him on bipap due to the COPD/CHF, discussed with DR. Coronel about the case and he examined the patient, agreed on the labs/orders/bipap plan. 12/13/17 18:35 -Pt. appear somnlence through out the time, history of drug abuse, will give narcan 0.4mg IV 12/13/17 19:40 -Pt. is still somnlence on and off after narcan, oxygen saturated up to 97% at this time -EKG: Sinus Tachycardia @ 119 BPM, no ST elevation or depression, no T wave inversion. -VBG: pH 7.29, PCO2 79, HCO3 38, respiratory acidosis with metabolic compensation -Labs are non-significant except wbc 12.7 (blood cultures ordered), troponin 0.04 (needs to be trend), aspirin 325mg po ordered, BNP 1630 from 1790 -Chest xray show infiltrate with cardiomegally, IV rocephine and azithromycin ordered. Tamiflu ordered as well for empirically treatment. -CTA ordered to r/o any new PE findings, discussed with DR. Arrington and he will follow up. -UA is negative for UTI -UDS is positive for opiate and benzo. -I spoke to the medical cost consultant and Dr. Arrington (ICU attending and night house doctor), discussed about the case and agreed to admit the patient and Dr. Arrington will follow up on the CTA chest. -All care/labs/radiology study discussed with Dr. Coronel, he agreed on the admission and treatment plan. 12/13/17 21:07 -Pt. is back from the CTA, easily arousable, evaluated by Dr. Arrington and no ICU indicated at this point and stated to admit to the Telemetry as Dr. Arrington will keep close eye on the patient and will escalate to the ICU if indicated. -I discussed with DR. Edgar (incoming ER attending), he agreed on the telemetry admission and admission order. (Zachary Flores) - Critical Care Narrative Critical Care (Text): 12/13/17 19:45 hypoxic/respiratory acidosis/leukocytosis, xray concerning for pneumonia, BIPAP. (Zachary Flores) - Lab Interpretations Microbiology Results: Microbiology Results 12/13/17 18:15 Blood-Venous Blood Culture - Preliminary NO GROWTH AFTER 24 HOURS 12/13/17 18:00 Blood-Venous Blood Culture - Preliminary NO GROWTH AFTER 24 HOURS Lab Results: 12/13/17 18:15 12/13/17 18:15 Lab Results 12/13/17 19:28: Urine Color Yellow, Urine Appearance Clear, Urine pH 6.0, Ur Specific Leslie 1.025, Urine Protein 100 H, Urine Glucose (UA) Negative, Urine Ketones Negative, Urine Blood Negative, Urine Nitrate Negative, Urine Bilirubin Negative, Urine Urobilinogen 1.0 H, Ur Leukocyte Esterase Negative, Urine RBC 0 - 2, Urine WBC 1 - 3, Ur Epithelial Cells None, Amorphous Sediment Few, Urine Bacteria Many, Fine Granular Casts 0 - 2, Coarse Granular Casts Trace H, Urine Other Fiber 12/13/17 19:28: Urine Opiates Screen Positive H, Urine Methadone Screen Negative , Ur Barbiturates Screen Negative, Ur Phencyclidine Scrn Negative, Ur Amphetamines Screen Negative, U Benzodiazepines Scrn Positive, U Oth Cocaine Metabols Negative, U Cannabinoids Screen Negative 12/13/17 19:15: pCO2 75 H*, pO2 171.0 H, HCO3 37.8 H, ABG pH 7.31 L, ABG Total CO2 40.1 H, ABG O2 Saturation 100.1 H, ABG Base Excess 8.5 H, ABG Potassium 4.2 , Sodium 139.0, Chloride 102.0, Glucose 118 H, Lactate 0.6 L, Mechanical Rate 16 , FiO2 100.0, Inspiratory BiPAP 12, Arterial Blood Potassium 4.2 12/13/17 18:15: TSH 3rd Generation 1.00, Alcohol, Quantitative < 10 12/13/17 18:15: Hemoglobin A1c 5.2 12/13/17 18:15: Triglycerides 130, Cholesterol 126 L, LDL Cholesterol Direct 71 , HDL Cholesterol 33 12/13/17 18:15: PT 14.1 H, INR 1.23 H, APTT 31.6 12/13/17 18:15: Influenza Typ A,B (EIA) Negative for flu a/b 12/13/17 18:15: pO2 137 H, VBG pH 7.29 L, VBG pCO2 79.0 H*, VBG HCO3 38.0 H, VBG Total CO2 40.4 H, VBG O2 Sat (Calc) 99.8 H, VBG Base Excess 8.3 H, VBG Potassium 5.3 H, Sodium 136.0, Chloride 101.0, Glucose 163 H, Lactate 1.3, FiO2 21.0, Venous Blood Potassium 5.3 H 12/13/17 18:15: WBC 12.7 H, RBC 5.25, Hgb 16.2, Hct 49.8, MCV 94.9, MCH 30.9, MCHC 32.5, RDW 16.2 H, Plt Count 121, MPV 11.4 H, Gran % 80.2 H, Lymph % (Auto) 14.3 L, [place] % (Auto) 4.8, Eos % (Auto) 0.5 L, Baso % (Auto) 0.2, Gran # 10.21 H , Lymph # (Auto) 1.8, [place] # (Auto) 0.6, Eos # (Auto) 0.1, Baso # (Auto) 0.03 12/13/17 18:15: Sodium 142, Chloride 99, Potassium 4.0, Carbon Dioxide 33, Anion Gap 14, BUN 20, Creatinine 0.8, Est GFR ( Amer) > 60, Est GFR (Non- Af Amer) > 60, Random Glucose 160 H, Calcium 8.8, Total Bilirubin 1.0, AST 26, ALT 29, Alkaline Phosphatase 68, Lactate Dehydrogenase 687, Total Creatine Kinase 97, Troponin I 0.04 D, NT-Pro-B Natriuret Pep 1630 H, Total Protein 6.5 , Albumin 3.2, Globulin 3.3, Albumin/Globulin Ratio 1.0 L 12/13/17 17:44: POC Glucose (mg/dL) 158 H - RAD Interpretation Radiology Orders: 12/13/17 17:58 ANGIO CHEST PE PROTOCOL [CT] Stat 12/13/17 18:51 CHEST PORTABLE [RAD] Stat 12/13/17 17:58 ANGIO CHEST PE PROTOCOL [CT] Stat 12/13/17 18:51 CHEST PORTABLE [RAD] Stat Chest xray: Opacity noted. CTA: Pending (Zachary Flores) - Medication Orders Current Medication Orders: Acetaminophen (Tylenol 325mg Tab) 650 mg PO Q6H PRN PRN Reason: Fever >100.4 F Albuterol/Ipratropium (Duoneb 3 Mg/0.5 Mg (3 Ml) Ud) 3 ml IH [id number] [facility] Last Admin: 12/15/17 11:41 Dose: 3 ml Albuterol/Ipratropium (Duoneb 3 Mg/0.5 Mg (3 Ml) Ud) 3 ml IH Q2H PRN PRN Reason: Shortness of Breath Apixaban (Eliquis) 10 mg PO BID [facility] PRN Reason: Protocol Stop: 12/20/17 23:59 Last Admin: 12/15/17 10:42 Dose: 10 mg Apixaban (Eliquis) 5 mg PO BID [facility] PRN Reason: Protocol Digoxin (Digoxin) 0.125 mg PO 1400 [facility] Last Admin: 12/14/17 13:44 Dose: 0.125 mg MAR Apical Pulse Rate Document 12/14/17 13:44 RDS (Rec: 12/14/17 13:44 RDS [id number]) Apical Pulse Rate Apical Pulse Rate (60-90 beats/min) 92 Furosemide (Lasix) 40 mg IVP Q12 [facility] Last Admin: 12/15/17 10:41 Dose: 40 mg MAR Blood Pressure Document 12/15/17 10:41 JFR (Rec: 12/15/17 10:41 JFR [id number]) Blood Pressure Blood Pressure (100/60-150/90) 113/69 IVP Administration Document 12/15/17 10:41 JFR (Rec: 12/15/17 10:41 [facility] [id number]) Charges for Administration # of IVP Administrations 1 Azithromycin 250 mg/ Sodium (Chloride) 250 mls @ 167 mls/hr IVPB DAILY KATIE PRN Reason: Protocol Last Admin: 12/15/17 10:41 Dose: 167 mls/hr eMAR Start Stop Document 12/15/17 10:41 JFR (Rec: 12/15/17 10:41 [facility] [id number]) Intravenous Solution Start Date 12/15/17 Start Time 10:41 Insulin Human Regular (Humulin R Med) 0 units SC ACHS KATIE PRN Reason: Protocol Last Admin: 12/15/17 07:31 Dose: Not Given Non-Admin Reason: Blood Sugar Parameter MAR Blood Glucose Document 12/15/17 07:31 JFR (Rec: 12/15/17 07:31 [id number]) Blood Glucose Finger Stick Blood Glucose (70-120) 147 Methylprednisolone (Solu-Medrol) 40 mg IV Q12H [facility] Last Admin: 12/15/17 06:28 Dose: 40 mg eMAR Start Stop Document 12/15/17 06:28 SBO (Rec: 12/15/17 06:29 SBO [id number]) Intravenous Solution Start Date 12/15/17 Start Time 06:29 End Date 12/15/17 End time 06:29 Total Infusion Time 0 Metoprolol Tartrate (Lopressor) 25 mg PO BID [facility] Last Admin: 12/15/17 10:41 Dose: 25 mg MAR Pulse and Blood Pressure Document 12/15/17 10:41 JFR (Rec: 12/15/17 10:42 [facility] [id number]) Pulse Pulse Rate (60-90) 81 Blood Pressure Blood Pressure (100/60-150/90) 113/69 Pantoprazole Sodium (Protonix Ec Tab) 40 mg PO 0600 [facility] Discontinued Medications Albuterol/Ipratropium (Duoneb 3 Mg/0.5 Mg (3 Ml) Ud) 3 ml IH Q15M KATIE Stop: 12/13/17 18:31 Last Admin: 12/13/17 18:55 Dose: 3 ml Aspirin (Aspirin) 325 mg PO STAT STA Stop: 12/13/17 20:03 Last Admin: 12/13/17 20:10 Dose: Not Given Non-Admin Reason: NPO Enoxaparin Sodium (Lovenox) 120 mg SC Q12 KATIE PRN Reason: Protocol Last Admin: 12/14/17 13:29 Dose: 120 mg Subcutaneous Administrations Document 12/14/17 13:29 RDS (Rec: 12/14/17 13:29 RDS [id number]) Charges for Administration # of Subcutaneous Administrations 1 Ceftriaxone Sodium (Rocephin 1 Gram Ivpb) 1 gm in 100 mls @ 200 mls/hr IVPB STAT STA PRN Reason: Protocol Stop: 12/13/17 19:36 Last Admin: 12/13/17 19:51 Dose: 200 mls/hr eMAR Start Stop Document 12/13/17 19:51 AD (Rec: 12/13/17 19:51 AD [id number]) Intravenous Solution Start Date 12/13/17 Start Time 19:51 Azithromycin (Zithromax 500mg In Ns) 500 mg in 250 mls @ 167 mls/hr IVPB STAT STA PRN Reason: Protocol Stop: 12/13/17 20:36 Last Admin: 12/13/17 19:45 Dose: 167 mls/hr eMAR Start Stop Document 12/13/17 19:45 AD (Rec: 12/13/17 19:45 AD [id number]) Intravenous Solution Start Date 12/13/17 Start Time 19:45 Ceftriaxone Sodium (Rocephin 1 Gram Ivpb) 1 gm in 100 mls @ 100 mls/hr IVPB DAILY KATIE PRN Reason: Protocol Last Admin: 12/14/17 10:35 Dose: 100 mls/hr eMAR Start Stop Document 12/14/17 10:35 RDS (Rec: 12/14/17 10:35 RDS [id number]) Intravenous Solution Start Date 12/14/17 Start Time 10:35 End Date 12/14/17 End time 11:35 Total Infusion Time 60 Insulin Human Regular (Humulin R Med) 0 units SC Q6H KATIE PRN Reason: Protocol Last Admin: 12/14/17 10:40 Dose: Not Given Non-Admin Reason: NPO Methylprednisolone (Solu-Medrol) 125 mg IVP STAT STA Stop: 12/13/17 17:51 Last Admin: 02/20/18 18:36 Dose: 125 mg IVP Administration Document 12/13/17 18:36 SF (Rec: 12/13/17 18:36 SF [id number]) Charges for Administration # of IVP Administrations 1 Methylprednisolone (Solu-Medrol) 60 mg IVP Q12 [facility] Last Admin: 12/14/17 10:35 Dose: 60 mg IVP Administration Document 12/14/17 10:35 RDS (Rec: 12/14/17 10:36 RDS [id number]) Charges for Administration # of IVP Administrations 1 Methylprednisolone (Solu-Medrol) 40 mg IVP Q12 [facility] Methylprednisolone (Solu-Medrol) 40 mg IV Q12H [facility] Last Admin: 12/14/17 17:15 Dose: Naloxone HCl (Narcan 2mg/2ml) 0.4 mg IVP ONCE ONE Stop: 12/13/17 18:35 Last Admin: 12/13/17 19:04 Dose: 0.4 mg IVP Administration Document 12/13/17 19:04 SF (Rec: 12/13/17 19:04 SF [id number]) Charges for Administration # of IVP Administrations 1 Oseltamivir Phosphate (Tamiflu Cap) 75 mg PO STAT STA PRN Reason: Protocol Stop: 12/13/17 19:12 Last Admin: 12/13/17 19:25 Dose: Pantoprazole Sodium (Protonix Inj) 40 mg IVP DAILY [facility] Last Admin: 12/14/17 10:38 Dose: 40 mg IVP Administration Document 12/14/17 10:38 RDS (Rec: 12/14/17 10:38 RDS [id number]) Charges for Administration # of IVP Administrations 1 - PA / DEMURRAGE CLERK / Resident Statement VIJAY has reviewed & agrees with the documentation as recorded. VIJAY has examined the patient and agrees with the treatment plan. <Gokul Reddy - Last Filed: 12/14/17 00:57> - PA / DEMURRAGE CLERK / Resident Statement VIJAY has reviewed & agrees with the documentation as recorded. VIJAY has examined the patient and agrees with the treatment plan. <Zachary Flores - Last Filed: 12/15/17 12:18> Disposition/Present on Arrival <Gokul Reddy - Last Filed: 12/14/17 00:57> - Present on Arrival Any Indicators Present on Arrival: No History of DVT/PE: No History of Uncontrolled Diabetes: No Urinary Catheter: No History of Decub. Ulcer: No History Surgical Site Infection Following: None - Disposition Have Diagnosis and Disposition been Completed?: Yes Disposition Time: 19:11 Patient Plan: Admission, ICU, Telemetry <Zachary Flores - Last Filed: 12/15/17 12:18> - Disposition Diagnosis: Hypoxic, Lethargy, Leukocytosis, Pneumonia, Flu-like symptoms, Compensated respiratory acidosis, Troponin I above reference range, Congestive heart failure (CHF), Abnormal computed tomography angiography (CTA), Pulmonary embolism Disposition: HOSPITALIZED Patient Problems: Current Active Problems Problem Status Onset Leukocytosis Chronic Congestive heart failure (CHF) Chronic Lethargy Acute Hypoxic Acute Pneumonia Acute Flu-like symptoms Acute Compensated respiratory acidosis Acute Troponin I above reference range Acute Abnormal computed tomography angiography (CTA) Acute Pulmonary embolism Acute Condition: GUARDED
[2017-12-13] MEDS: Albuterol-Ipratrop 3 mg / 0.5 (3 ml) UD IH SCH ×4 (18:20→23:30)
[2017-12-13 18:28] LABS: BASO # 0.03 K/mm3 (0.0-2.0); BASO % 0.2 % (0.0-3.0); EOS # 0.1 (0.0-0.7); EOS % 0.5 % (1.5-5.0); GRAN # 10.21 (1.4-6.5); GRAN % 80.2 % (50.0-68.0); HEMOGLOBIN 16.2 g/dL (14.0-18.0); LYMPH # 1.8 (1.2-3.4); LYMPH % 14.3 % (22.0-35.0); MEAN CELL VOLUME 94.9 fl (80.0-105.0); MEAN CORPUSCULAR HEMOGLOBIN 30.9 pg (25.0-35.0); MEAN CORPUSCULAR HGB CONC 32.5 g/dl (31.0-37.0); MEAN PLATELET VOLUME 11.4 fl (7.0-11.0); MONO # 0.6 (0.1-0.6); MONO % 4.8 % (1.0-6.0); RBC 5.25 10^6/uL (3.5-6.1); RED CELL DISTRIBUTION WIDTH 16.2 % (11.5-14.5); WHITE BLOOD COUNT 12.7 10^3/ul (4.5-11.0)
[2017-12-13] MEDS ORDERED: Naloxone HCl 2mg/2ml syr IVP ONE (18:34)
[2017-12-13 18:36] LABS: VENOUS BLOOD GAS BASE EXCESS 8.3 mmol/L (0.0-2.0); VENOUS BLOOD GAS PO2 137 mm/Hg (30-55); VENOUS BLOOD PH 7.29 (7.32-7.43)
[2017-12-13 18:37] LABS: INR 1.23 (0.93-1.08); PARTIAL THROMBOPLASTIN TIME 31.6 Seconds (25.1-36.5); PROTHROMBIN TIME 14.1 SECONDS (9.4-12.5)
[2017-12-13 18:48] LABS: ALBUMIN 3.2 g/dL (3.0-4.8); ALT/SGPT 29 U/L (7-56); AST/SGOT 26 U/L (17-59); BLOOD UREA NITROGEN 20 mg/dL (7-21); CALCIUM 8.8 mg/dL (8.4-10.5); GFR AFRICAN-AMERICAN > 60; GFR NON-AFRICAN AMERICAN > 60
[2017-12-13 18:59] LABS: B-TYPE NATRIURETIC PEPTIDE 1630 pg/mL (0-450); TROPONIN I 0.04 ng/mL
[2017-12-13] MEDS ORDERED: Azithromycin 500MG/NS 250ml 500 MG/250 ML BAG IVPB STA (19:07)
[2017-12-13] MEDS ORDERED: cefTRIAXone 1 gm 1 GM/100 ML BAG IVPB STA (19:07)
[2017-12-13] MEDS ORDERED: Iohexol 350 MG/100 ML VIAL ONE (19:22)
[2017-12-13 19:25] LABS: ARTERIAL BLOOD GAS HCO3 37.8 mmol/L (21-28); ARTERIAL BLOOD GAS O2 SAT 100.1 % (95-98); ARTERIAL BLOOD GAS PH 7.31 (7.35-7.45); ARTERIAL BLOOD GAS TCO2 40.1 mmol.L (22-28)
[2017-12-13 19:26] LABS: ARTERIAL BLOOD GAS PCO2 75 mm/Hg (35-45)
[2017-12-13 19:37] LABS: URINE APPEARANCE CLEAR (CLEAR); URINE BILIRUBIN NEGATIVE (NEGATIVE); URINE BLOOD NEGATIVE (NEGATIVE); URINE COLOR YELLOW (YELLOW); URINE GLUCOSE (UA) NEGATIVE (NEGATIVE); URINE LEUKOCYTE ESTERASE NEGATIVE Leu/uL (NEGATIVE); URINE NITRATE NEGATIVE (NEGATIVE); URINE PROTEIN 100 mg/dL (<30 mg/dL)
[2017-12-13 19:41] LABS: URINE BACTERIA MANY (NEG); URINE RBC 0 - 2 /hpf (0-2)
[2017-12-13 19:42] LABS: URINE AMORPHOUS SEDIMENT FEW; URINE COARSE GRANULAR CAST TRACE /hpf (0-2); URINE FINE GRANULAR CAST 0 - 2 /hpf (0-2)
[2017-12-13 19:59] LABS: BARBITURATES, UR NEGATIVE (NEGATIVE); BENZODIAZEPINES, UR POSITIVE (NEGATIVE); OPIATES, UR POSITIVE (NEGATIVE); PHENCYCLIDINE, UR NEGATIVE (NEGATIVE)
[2017-12-13] MEDS ORDERED: Albuterol-Ipratrop 3 mg / 0.5 (3 ml) UD IH PRN (20:56)
--- NOTE | 2017-12-13 21:29 | CP.PCM.HP ---
Addendum entered and electronically signed by Katheryn Art DO 12/13/17 22: 33: CTA showed possible R segmental PE with artifact present. PE can not be ruled out. Will give weight based SC Lovenox for now. Original Note: <RubensKatheryn - Last Filed: 12/13/17 21:14> History of Present Illness - History of Present Illness History of Present Illness: H&P for HospitalistKain PGY2 This is a 57yo male with past medical history of COPD, DESTINEE, HTN, HLD, diastolic CHF, NSTEMI, DVT/PE on Eliquis (Non-compliant), s/p IVC filter and medication non-compliance who is here for shortness of breath and cough for 2 weeks. Patient is on Bipap and lethargic upon examination, but arousable and following commands. History was obtained through ED and previous records. Patient has been coughing up yellow sputum. He reports that he has not been taking his Eliquis at home. He had a stress test done in Aug 2017 which was normal. Patient was found to have similar symptoms on his last admission in April 2017. Patient was noted to have non-compliance with CPAP machine in past. At last admission, patient was recommended to have repeat outpatient sleep study for DESTINEE. In ED, patient was found to be in hypercapneic respiratory acidosis and was placed on Bipap. CXR showed pulm vasc congestion and possible LLL pneumonia. 12 point ROS could not be obtained. Past medical history: COPD, DESTINEE, HTN, HLD, diastolic CHF, NSTEMI, DVT/PE on Eliquis (Non-compliant), s/p IVC filter, possible DM? Past surgical history: IVC filter, pelvic fx repair, R shoulder surgery, skull fracture repair Home meds: As per DEC- Will confirm with [facility] pharmacy in AM Allergies: NKDA Social history: Former smoker. 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 Young Construction Project Administrator: Dr. Hayden Pulilda: Dr. Shannon Present on Admission - Present on Admission Any Indicators Present on Admission: Yes History of DVT/PE: Yes Review of Systems - Review of Systems Systems not reviewed;Unavailable: Altered Mental Status Past Patient History - Infectious Disease Hx of Infectious Diseases: None - Tetanus Immunizations Tetanus Immunization: Unknown - Past Medical History & Family History Past Medical History?: Yes - Past Social History Smoking Status: Heavy Smoker > 10 Cigarettes Daily - CARDIAC Hx Cardiac Disorders: Yes Hx Hypertension: Yes - PULMONARY Hx Chronic Obstructive Pulmonary Disease (COPD): Yes - NEUROLOGICAL Hx Neurological Disorder: Yes (SYNCOPE) - HEENT Hx HEENT Problems: No - RENAL Hx Chronic Kidney Disease: Yes Hx Renal Failure: (RENAL INSUFFICIENCY) - ENDOCRINE/METABOLIC Hx Diabetes Mellitus Type 2: Yes - HEMATOLOGICAL/ONCOLOGICAL Hx Blood Disorders: No - INTEGUMENTARY Hx Dermatological Problems: No Other/Comment: bilateral lower extremity and feet discolored dry skin , redness tightness - MUSCULOSKELETAL/RHEUMATOLOGICAL Hx Musculoskeletal Disorders: Yes Hx Falls: Yes - GASTROINTESTINAL Hx Gastrointestinal Disorders: (obese) Hx Gastroesophageal Reflux: Yes - GENITOURINARY/GYNECOLOGICAL Hx Genitourinary Disorders: No - PSYCHIATRIC Hx Psychophysiologic Disorder: Yes (DRUG OD) Hx Anxiety: Yes Hx Depression: No Hx Emotional Abuse: No Hx Physical Abuse: No Hx Substance Use: No (quit 3 years ago) Other/Comment: hx heroin use quit 3 yrs ago, substance abuse. - SURGICAL HISTORY Hx Cardiac Catheterization: Yes Other/Comment: back sx "yrs ago", right shoulder sx for fx has pins,monty filter - ANESTHESIA Hx Anesthesia: Yes Hx Anesthesia Reactions: No Hx Malignant Hyperthermia: No Meds Allergies/Adverse Reactions: Allergies Allergy/AdvReac Type Severity Reaction Status Date / Time No Known Allergies Allergy Verified 12/13/17 17:37 Physical Exam - Head Exam Head Exam: ATRAUMATIC, NORMAL INSPECTION, NORMOCEPHALIC - Eye Exam Eye Exam: PERRL Pupil Exam: PERRL - ENT Exam ENT Exam: Mucous Membranes Moist - Respiratory Exam Respiratory Exam: Rales. absent: Clear to Auscultation Bilateral, Wheezes - Cardiovascular Exam Cardiovascular Exam: Tachycardia, REGULAR RHYTHM, +S1, +S2. absent: Gallop, Rubs, Systolic Murmur - GI/Abdominal Exam GI & Abdominal Exam: Normal Bowel Sounds, Soft. absent: Mass, Rebound, Rigid, Tenderness - Extremities Exam Extremities exam: Positive for: pedal edema (+ 2 bilaterally ). Negative for: tenderness Additional comments: Bilateral erythema on lower extremities - Neurological Exam Neurological exam: CN II-XII Intact Additional comments: Lethargic, but follows commands. - Skin Skin Exam: Dry, Warm Results - Vital Signs Recent Vital Signs: Last Vital Signs Temp 98.8 F 12/13/17 18:00 Pulse 115 H 12/13/17 18:21 Resp 22 12/13/17 18:21 BP 122/68 12/13/17 18:21 Pulse Ox 95 12/13/17 18:21 - Labs Result Diagrams: 12/13/17 18:15 12/13/17 18:15 Labs: Laboratory Results - last 24 hr 12/13/17 12/13/17 12/13/17 17:44 18:15 18:15 WBC 12.7 H RBC 5.25 Hgb 16.2 Hct 49.8 MCV 94.9 MCH 30.9 MCHC 32.5 RDW 16.2 H Plt Count 121 MPV 11.4 H Gran % 80.2 H Lymph % (Auto) 14.3 L Granite % (Auto) 4.8 Eos % (Auto) 0.5 L Baso % (Auto) 0.2 Gran # 10.21 H Lymph # (Auto) 1.8 Granite # (Auto) 0.6 Eos # (Auto) 0.1 Baso # (Auto) 0.03 PT INR APTT pCO2 pO2 HCO3 ABG pH ABG Total CO2 ABG O2 Saturation ABG Base Excess ABG Potassium VBG pH VBG pCO2 VBG HCO3 VBG Total CO2 VBG O2 Sat (Calc) VBG Base Excess VBG Potassium Sodium 142 Chloride 99 Glucose Lactate Mechanical Rate FiO2 Inspiratory BiPAP Potassium 4.0 Carbon Dioxide 33 Anion Gap 14 BUN 20 Creatinine 0.8 Est GFR ( Amer) > 60 Est GFR (Non-Af Amer) > 60 POC Glucose (mg/dL) 158 H Random Glucose 160 H Calcium 8.8 Total Bilirubin 1.0 AST 26 ALT 29 Alkaline Phosphatase 68 Lactate Dehydrogenase 687 Total Creatine Kinase 97 Troponin I 0.04 D NT-Pro-B Natriuret Pep 1630 H Total Protein 6.5 Albumin 3.2 Globulin 3.3 Albumin/Globulin Ratio 1.0 L Arterial Blood Potassium Venous Blood Potassium Urine Color Urine Appearance Urine pH Ur Specific [place] Urine Protein Urine Glucose (UA) Urine Ketones Urine Blood Urine Nitrate Urine Bilirubin Urine Urobilinogen Ur Leukocyte Esterase Urine RBC Urine WBC Ur Epithelial Cells Amorphous Sediment Urine Bacteria Fine Granular Casts Coarse Granular Casts Urine Other Urine Opiates Screen Urine Methadone Screen Ur Barbiturates Screen Ur Phencyclidine Scrn Ur Amphetamines Screen U Benzodiazepines Scrn U Oth Cocaine Metabols U Cannabinoids Screen Influenza Typ A,B (EIA) 12/13/17 12/13/17 12/13/17 18:15 18:15 18:15 WBC RBC Hgb Hct MCV MCH MCHC RDW Plt Count MPV Gran % Lymph % (Auto) Granite % (Auto) Eos % (Auto) Baso % (Auto) Gran # Lymph # (Auto) Granite # (Auto) Eos # (Auto) Baso # (Auto) PT 14.1 H INR 1.23 H APTT 31.6 pCO2 pO2 137 H HCO3 ABG pH ABG Total CO2 ABG O2 Saturation ABG Base Excess ABG Potassium VBG pH 7.29 L VBG pCO2 79.0 H* VBG HCO3 38.0 H VBG Total CO2 40.4 H VBG O2 Sat (Calc) 99.8 H VBG Base Excess 8.3 H VBG Potassium 5.3 H Sodium 136.0 Chloride 101.0 Glucose 163 H Lactate 1.3 Mechanical Rate FiO2 21.0 Inspiratory BiPAP Potassium Carbon Dioxide Anion Gap BUN Creatinine Est GFR ( Amer) Est GFR (Non-Af Amer) POC Glucose (mg/dL) Random Glucose Calcium Total Bilirubin AST ALT Alkaline Phosphatase Lactate Dehydrogenase Total Creatine Kinase Troponin I NT-Pro-B Natriuret Pep Total Protein Albumin Globulin Albumin/Globulin Ratio Arterial Blood Potassium Venous Blood Potassium 5.3 H Urine Color Urine Appearance Urine pH Ur Specific [place] Urine Protein Urine Glucose (UA) Urine Ketones Urine Blood Urine Nitrate Urine Bilirubin Urine Urobilinogen Ur Leukocyte Esterase Urine RBC Urine WBC Ur Epithelial Cells Amorphous Sediment Urine Bacteria Fine Granular Casts Coarse Granular Casts Urine Other Urine Opiates Screen Urine Methadone Screen Ur Barbiturates Screen Ur Phencyclidine Scrn Ur Amphetamines Screen U Benzodiazepines Scrn U Oth Cocaine Metabols U Cannabinoids Screen Influenza Typ A,B (EIA) Negative for flu a/b 12/13/17 12/13/17 12/13/17 19:15 19:28 19:28 WBC RBC Hgb Hct MCV MCH MCHC RDW Plt Count MPV Gran % Lymph % (Auto) Granite % (Auto) Eos % (Auto) Baso % (Auto) Gran # Lymph # (Auto) Granite # (Auto) Eos # (Auto) Baso # (Auto) PT INR APTT pCO2 75 H* pO2 171.0 H HCO3 37.8 H ABG pH 7.31 L ABG Total CO2 40.1 H ABG O2 Saturation 100.1 H ABG Base Excess 8.5 H ABG Potassium 4.2 VBG pH VBG pCO2 VBG HCO3 VBG Total CO2 VBG O2 Sat (Calc) VBG Base Excess VBG Potassium Sodium 139.0 Chloride 102.0 Glucose 118 H Lactate 0.6 L Mechanical Rate 16 FiO2 100.0 Inspiratory BiPAP 12 Potassium Carbon Dioxide Anion Gap BUN Creatinine Est GFR ( Amer) Est GFR (Non-Af Amer) POC Glucose (mg/dL) Random Glucose Calcium Total Bilirubin AST ALT Alkaline Phosphatase Lactate Dehydrogenase Total Creatine Kinase Troponin I NT-Pro-B Natriuret Pep Total Protein Albumin Globulin Albumin/Globulin Ratio Arterial Blood Potassium 4.2 Venous Blood Potassium Urine Color Yellow Urine Appearance Clear Urine pH 6.0 Ur Specific [place] 1.025 Urine Protein 100 H Urine Glucose (UA) Negative Urine Ketones Negative Urine Blood Negative Urine Nitrate Negative Urine Bilirubin Negative Urine Urobilinogen 1.0 H Ur Leukocyte Esterase Negative Urine RBC 0 - 2 Urine WBC 1 - 3 Ur Epithelial Cells None Amorphous Sediment Few Urine Bacteria Many Fine Granular Casts 0 - 2 Coarse Granular Casts Trace H Urine Other Fiber Urine Opiates Screen Positive H Urine Methadone Screen Negative Ur Barbiturates Screen Negative Ur Phencyclidine Scrn Negative Ur Amphetamines Screen Negative U Benzodiazepines Scrn Positive U Oth Cocaine Metabols Negative U Cannabinoids Screen Negative Influenza Typ A,B (EIA) Assessment & Plan - Assessment and Plan (Free Text) Assessment: This is a 57yo male with past medical history of COPD, DESTINEE, HTN, HLD, diastolic CHF, NSTEMI, DVT/PE on Eliquis (Non-compliant), s/p IVC filter and medication non-compliance who is admitted for hypercapneic respiratory acidosis secondary to non-compliance with CPAP, COPD/CHF exacerbation and possible LLL pneumonia. Plan: 1. Hypercapneic respiratory failure w/ hx of DESTINEE and COPD - can be secondary to DESTINEE with CPAP non-compliance as well as underlying COPD/ CHF - ABG showed CO2 of 75 - Pt on Bipap - CTA to rule out PE - Duoneb schedule and prn - Repeat ABG in AM - Solumedrol 60q12 - Pulm consulted - Aspiration precaution, HOB elevated - Maintain spO2 ~92% 2. AMS - Secondary to CO2 narcosis v. intoxication - UDS + for opiates and benzo (pt prescribed xanax at home) - Given narcan once in ED - Alcohol pending - NPO - Hold sedating medication 3. Diastolic CHF - CXR showed vasc congestion - Lasix 40q12 and continue Home Digoxin - EKG showed sinus tach - trop 0.04 x 1- will continue to trend - Will check TSH and Dig level in AM - Will repeat EKG in AM - Strict I&O - Daily weight - Cardio consulted 4. LLL pneumonia - seen on CXR - Leukocytosis, afebrile - Flu negative - Will empirically start on Rocephin and Zithromax - Septic work up pending- will check PCT - Lactate normal 5. Hx of PE/DVT - Will continue home eliquis - Will check CTA to rule out PE 6. Hx of HTN - SBP 100-120s - Will only give Lasix for CHF exacerbation- hold if SBP<100 - Will hold other home BP meds for now 7. Hx of HLD - Unclear if on Statin at home - Will check lipid panel 8. Hx of DM - Questionable- last HgbA1c was 5.9 in 01/2017 - Pt on Metformin at home - Will check A1c - ISS, blood glucose monitor q6h Diet: NPO Fluids: Hold for now due to CHF exacerbation GI ppx: Protonix DVT ppx: Heparin SC Case seen, discussed and reviewed with Dr. Nury Art PGY2 <Nury MONROE,Stephen - Last Filed: 12/14/17 09:03> Results - Vital Signs Recent Vital Signs: Last Vital Signs Temp 98.1 F 12/14/17 05:00 Pulse 89 12/14/17 06:00 Resp 24 12/14/17 05:00 BP 111/70 12/14/17 05:00 Pulse Ox 91 L 12/14/17 05:00 - Labs Result Diagrams: 12/14/17 06:30 12/14/17 06:30 Labs: Laboratory Results - last 24 hr 12/13/17 12/14/17 12/14/17 21:53 00:10 00:50 WBC RBC Hgb Hct MCV MCH MCHC RDW Plt Count MPV Gran % Lymph % (Auto) Granite % (Auto) Eos % (Auto) Baso % (Auto) Gran # Lymph # (Auto) [place] # (Auto) Eos # (Auto) Baso # (Auto) Neutrophils % (Manual) Lymphocytes % (Manual) Atypical Lymphs % Monocytes % (Manual) Toxic Granulation Platelet Evaluation Large Platelets Anisocytosis (manual) pCO2 65 H pO2 55.0 L HCO3 32.0 H ABG pH 7.30 L ABG Total CO2 34.0 H ABG O2 Saturation 91.4 L ABG O2 Content 20.3 ABG Base Excess 3.1 H ABG Hemoglobin 16.7 ABG Carboxyhemoglobin 4.3 H POC ABG HHb (Measured) 8.1 H ABG Methemoglobin 1.1 ABG O2 Capacity 22.2 ABG Potassium Hgb O2 Saturation 86.6 L Sodium Chloride Glucose Lactate FiO2 35.0 Potassium Carbon Dioxide Anion Gap BUN Creatinine Est GFR ( Amer) Est GFR (Non-Af Amer) POC Glucose (mg/dL) 153 H Random Glucose Calcium Phosphorus Magnesium Total Bilirubin AST ALT Alkaline Phosphatase Troponin I 0.03 D Total Protein Albumin Globulin Albumin/Globulin Ratio Arterial Blood Potassium Digoxin 12/14/17 12/14/17 12/14/17 02:56 04:54 06:30 WBC 11.8 H RBC 5.53 Hgb 16.7 Hct 51.7 MCV 93.5 MCH 30.2 MCHC 32.3 RDW 16.4 H Plt Count 127 MPV 11.9 H Gran % 92.6 H Lymph % (Auto) 5.9 L [place] % (Auto) 1.4 Eos % (Auto) 0.0 L Baso % (Auto) 0.1 Gran # 10.93 H Lymph # (Auto) 0.7 L [place] # (Auto) 0.2 Eos # (Auto) 0.0 Baso # (Auto) 0.01 Neutrophils % (Manual) 91 H Lymphocytes % (Manual) 6 L Atypical Lymphs % 1 H Monocytes % (Manual) 2 Toxic Granulation Slight Platelet Evaluation Sl. jovana Large Platelets Present Anisocytosis (manual) Slight pCO2 57 H pO2 56.0 L HCO3 33.7 H ABG pH 7.38 ABG Total CO2 35.4 H ABG O2 Saturation 93.9 L ABG O2 Content ABG Base Excess 6.8 H ABG Hemoglobin ABG Carboxyhemoglobin POC ABG HHb (Measured) ABG Methemoglobin ABG O2 Capacity ABG Potassium 4.1 Hgb O2 Saturation Sodium 138.0 Chloride 103.0 Glucose 164 H Lactate 0.9 FiO2 40.0 Potassium Carbon Dioxide Anion Gap BUN Creatinine Est GFR ( Amer) Est GFR (Non-Af Amer) POC Glucose (mg/dL) 180 H Random Glucose Calcium Phosphorus Magnesium Total Bilirubin AST ALT Alkaline Phosphatase Troponin I Total Protein Albumin Globulin Albumin/Globulin Ratio Arterial Blood Potassium 4.1 Digoxin 12/14/17 12/14/17 12/14/17 06:30 06:30 07:35 WBC RBC Hgb Hct MCV MCH MCHC RDW Plt Count MPV Gran % Lymph % (Auto) [place] % (Auto) Eos % (Auto) Baso % (Auto) Gran # Lymph # (Auto) [place] # (Auto) Eos # (Auto) Baso # (Auto) Neutrophils % (Manual) Lymphocytes % (Manual) Atypical Lymphs % Monocytes % (Manual) Toxic Granulation Platelet Evaluation Large Platelets Anisocytosis (manual) pCO2 pO2 HCO3 ABG pH ABG Total CO2 ABG O2 Saturation ABG O2 Content ABG Base Excess ABG Hemoglobin ABG Carboxyhemoglobin POC ABG HHb (Measured) ABG Methemoglobin ABG O2 Capacity ABG Potassium Hgb O2 Saturation Sodium 143 Chloride 100 Glucose Lactate FiO2 Potassium 4.3 Carbon Dioxide 34 H Anion Gap 14 BUN 16 Creatinine 0.8 Est GFR ( Amer) > 60 Est GFR (Non-Af Amer) > 60 POC Glucose (mg/dL) 169 H Random Glucose 160 H Calcium 9.1 Phosphorus 3.0 Magnesium 1.8 Total Bilirubin 0.8 AST 22 ALT 22 Alkaline Phosphatase 80 Troponin I 0.01 D Total Protein 7.1 Albumin 3.5 Globulin 3.6 Albumin/Globulin Ratio 1.0 L Arterial Blood Potassium Digoxin < 0.4 L Attending/Attestation - Attestation I have personally seen and examined this patient.: Yes I have fully participated in the care of the patient.: Yes I have reviewed all pertinent clinical information: Yes Notes (Text): -I agree with the above H&P completed by the resident physician with the following additions and/or changes: -The patient is a 57 year old, obese man, with a history of COPD, DESTINEE, HTN, HLD , diastolic CHF, and DVT/PE (on Eliquis) who is being admitted with hypercapneic /hypoxic respiratory distress due mainly to acute COPD and CHF exacerbations as well as a possible acute pulmonary embolism (per CT-angio read) and possible LLL PNA. He will be started on BiPaP therapy, Duo-nebs and IV Solumedrol. Also, he will be given therapeutic dose of SC Lovenox given the questionable result of the CT-angio. Lastly, he will also be treated empirically with IV antibiotics and diuresed with IV Lasix. Cards and pulmonary have been consulted. Serial ABG's will be monitored.
[2017-12-13 21:48] LABS: HDL CHOLESTEROL 33 mg/dL (29-60)
[2017-12-13] MEDS: Insulin Reg-MEDIUM-Coverage SC SCH (21:52)
[2017-12-13] MEDS ORDERED: Insulin Regular 1 UNITS/0.01 ML ML ONE (21:56)
[2017-12-13 21:59] LABS: LDL CHOLESTEROL 71 mg/dL (0-129)
--- NOTE | 2017-12-13 22:26 | CT ---
EXAM: CT Angiography Chest With Intravenous Contrast EXAM DATE/TIME: 12/13/2017 5:58 PM CLINICAL HISTORY: The patient age is 57 years old and is male; Pain; Chest pain; Type not specified; Additional info: H/o pe, cough/shortness of breath, on [facility] Facility exam id and description: [facility] angio chest pe protocol TECHNIQUE: Axial computed tomographic angiography images of the chest with intravenous contrast using pulmonary embolism protocol. All CT scans at this facility use one or more dose reduction techniques, viz.: automated exposure control; ma/kV adjustment per patient size (including targeted exams where dose is matched to indication; i.e. head); or iterative reconstruction technique. MIP reconstructed images were created and reviewed. Coronal and sagittal reformatted images were created and reviewed. CONTRAST: 100 mL of omni 350 administered intravenously. COMPARISON: CT - ANGIO CHEST PE PROTOCOL 2017-04-07 13:51 FINDINGS: Pulmonary arteries: A filling defect is identified within segmental branches of the right upper lobe on series 3 image 46, suspicious for pulmonary embolism. Evaluation of the peripheral pulmonary arteries is significantly limited by suboptimal enhancement and artifact. There is no acute central pulmonary embolism. Aorta: No acute findings. No thoracic aortic aneurysm. Lungs: Consolidations are identified within the dependent portions of the lower lobes bilaterally, right side greater than left. This is suggestive of atelectatic change or infiltrates. Within the right upper lobe on series 3 image 35, there is a 4 mm nodule. Multiple nodules are identified within the right middle lobe of the lung. One of the larger nodules is seen on series 3 image 66 measuring 9-10 mm. Pleural space: There is an increase in pleural fat bilaterally. No significant effusion. No pneumothorax. Heart: No cardiomegaly. No significant pericardial effusion. No evidence of RV dysfunction. Mediastinum: There is a small hiatal hernia. Bones/joints: Hypertrophic degenerative changes are noted within the spine. Soft tissues: There is bilateral gynecomastia. Lymph nodes: There is an enlarged right lower paratracheal lymph node measuring 2.1 x 1.5 cm. This has mildly increased in the AP dimension. Small bilateral hilar lymph nodes are identified. There is an enlarged hilar lymph node on each side. On the right side, this measures 1.9 x 1.4 cm. Gallbladder and bile ducts: The gallbladder is elongated with multiple gallstones. Adrenals: Thickening of the left adrenal gland is again visualized. IMPRESSION: 1. A filling defect is identified within segmental branches of the right upper lobe on series 3 image 46, suspicious for pulmonary embolism. Evaluation of the peripheral pulmonary arteries is significantly limited by suboptimal enhancement and artifact. 2. Consolidations are identified within the dependent portions of the lower lobes bilaterally, right side greater than left. This is suggestive of atelectatic change or infiltrates. These consolidations have progressed. 3. There is an enlarged right lower paratracheal lymph node measuring 2.1 x 1.5 cm. This has mildly increased in the AP dimension. There is an enlarged hilar lymph node on each side. 4. Lung nodules are noted above, which is a progression compared to the prior study. PET/CT is recommended. 5. The gallbladder is elongated with multiple gallstones. 6. Additional CT findings described above.
[2017-12-13] MEDS ORDERED: Enoxaparin 120 mg Syringe SC SCH ×2 (22:33→22:41)
--- NOTE | 2017-12-13 22:54 | ED PDOC ---
Physical Exam Vital Signs Temp Pulse Resp BP Pulse Ox 12/13/17 21:42 100 H 12/13/17 21:09 102 H 16 127/79 91 L 12/13/17 18:21 115 H 22 122/68 95 12/13/17 18:00 98.8 F 119 H 24 117/64 84 L 12/13/17 17:40 24 84 L Finger Stick Blood Glucose: 153 Medical Decision Making ED Course and Treatment: 12/13/2017 21:00 Patient transferred to ri by Zachary GILL. 12/13/17 22:52 Notified by [facility] of Chest CT findigns with suspicions of possible PE. Case discussed with Dr. Arrington, commercial real estate broker, whom has started patient on Lovinox. Patient has apparent poor compliance with anticoagulents in the past. - Lab Interpretations Lab Results: 12/13/17 18:15 12/13/17 18:15 Lab Results 12/13/17 19:28: Urine Color Yellow, Urine Appearance Clear, Urine pH 6.0, Ur Specific [place] 1.025, Urine Protein 100 H, Urine Glucose (UA) Negative, Urine Ketones Negative, Urine Blood Negative, Urine Nitrate Negative, Urine Bilirubin Negative, Urine Urobilinogen 1.0 H, Ur Leukocyte Esterase Negative, Urine RBC 0 - 2, Urine WBC 1 - 3, Ur Epithelial Cells None, Amorphous Sediment Few, Urine Bacteria Many, Fine Granular Casts 0 - 2, Coarse Granular Casts Trace H, Urine Other Fiber 12/13/17 19:28: Urine Opiates Screen Positive H, Urine Methadone Screen Negative , Ur Barbiturates Screen Negative, Ur Phencyclidine Scrn Negative, Ur Amphetamines Screen Negative, U Benzodiazepines Scrn Positive, U Oth Cocaine Metabols Negative, U Cannabinoids Screen Negative 12/13/17 19:15: pCO2 75 H*, pO2 171.0 H, HCO3 37.8 H, ABG pH 7.31 L, ABG Total CO2 40.1 H, ABG O2 Saturation 100.1 H, ABG Base Excess 8.5 H, ABG Potassium 4.2 , Sodium 139.0, Chloride 102.0, Glucose 118 H, Lactate 0.6 L, Mechanical Rate 16 , FiO2 100.0, Inspiratory BiPAP 12, Arterial Blood Potassium 4.2 12/13/17 18:15: Triglycerides 130, Cholesterol 126 L, LDL Cholesterol Direct 71 , HDL Cholesterol 33 02/20/18 18:15: PT 14.1 H, INR 1.23 H, APTT 31.6 12/13/17 18:15: Influenza Typ A,B (EIA) Negative for flu a/b 12/13/17 18:15: pO2 137 H, VBG pH 7.29 L, VBG pCO2 79.0 H*, VBG HCO3 38.0 H, VBG Total CO2 40.4 H, VBG O2 Sat (Calc) 99.8 H, VBG Base Excess 8.3 H, VBG Potassium 5.3 H, Sodium 136.0, Chloride 101.0, Glucose 163 H, Lactate 1.3, FiO2 21.0, Venous Blood Potassium 5.3 H 12/13/17 18:15: WBC 12.7 H, RBC 5.25, Hgb 16.2, Hct 49.8, MCV 94.9, MCH 30.9, MCHC 32.5, RDW 16.2 H, Plt Count 121, MPV 11.4 H, Gran % 80.2 H, Lymph % (Auto) 14.3 L, Cassia % (Auto) 4.8, Eos % (Auto) 0.5 L, Baso % (Auto) 0.2, Gran # 10.21 H , Lymph # (Auto) 1.8, Cassia # (Auto) 0.6, Eos # (Auto) 0.1, Baso # (Auto) 0.03 12/13/17 18:15: Sodium 142, Chloride 99, Potassium 4.0, Carbon Dioxide 33, Anion Gap 14, BUN 20, Creatinine 0.8, Est GFR ( Amer) > 60, Est GFR (Non- Af Amer) > 60, Random Glucose 160 H, Calcium 8.8, Total Bilirubin 1.0, AST 26, ALT 29, Alkaline Phosphatase 68, Lactate Dehydrogenase 687, Total Creatine Kinase 97, Troponin I 0.04 D, NT-Pro-B Natriuret Pep 1630 H, Total Protein 6.5 , Albumin 3.2, Globulin 3.3, Albumin/Globulin Ratio 1.0 L 12/13/17 17:44: POC Glucose (mg/dL) 158 H - RAD Interpretation Radiology Orders: 12/13/17 17:58 ANGIO CHEST PE PROTOCOL [CT] Stat 12/13/17 18:51 CHEST PORTABLE [RAD] Stat - Medication Orders Current Medication Orders: Acetaminophen (Tylenol 325mg Tab) 650 mg PO Q6H PRN PRN Reason: Fever >100.4 F Albuterol/Ipratropium (Duoneb 3 Mg/0.5 Mg (3 Ml) Ud) 3 ml IH [id number] KATIE Albuterol/Ipratropium (Duoneb 3 Mg/0.5 Mg (3 Ml) Ud) 3 ml IH Q2H PRN PRN Reason: Shortness of Breath Apixaban (Eliquis) 5 mg PO BID KATIE PRN Reason: Protocol Digoxin (Digoxin) 0.125 mg PO 1400 KATIE Enoxaparin Sodium (Lovenox) 120 mg SC Q12 KATIE PRN Reason: Protocol Furosemide (Lasix) 40 mg IVP Q12 KATIE Ceftriaxone Sodium (Rocephin 1 Gram Ivpb) 1 gm in 100 mls @ 100 mls/hr IVPB DAILY KATIE PRN Reason: Protocol Azithromycin 250 mg/ Sodium (Chloride) 250 mls @ 167 mls/hr IVPB DAILY KATIE PRN Reason: Protocol Insulin Human Regular (Humulin R Med) 0 units SC Q6H KATIE PRN Reason: Protocol Last Admin: 12/13/17 21:52 Dose: 1 units MAR Blood Glucose Document 12/13/17 21:52 (Rec: 12/13/17 21:58 [id number]) Blood Glucose Finger Stick Blood Glucose (70-120) 153 Subcutaneous Administrations Document 12/13/17 21:52 (Rec: 12/13/17 21:58 [id number]) Injection Site MAR Injection Site Left Arm Charges for Administration # of Subcutaneous Administrations 1 Methylprednisolone (Solu-Medrol) 60 mg IVP Q12 KATIE Pantoprazole Sodium (Protonix Inj) 40 mg IVP DAILY [facility] Discontinued Medications Albuterol/Ipratropium (Duoneb 3 Mg/0.5 Mg (3 Ml) Ud) 3 ml IH Q15M KATIE Stop: 12/13/17 18:31 Last Admin: 12/13/17 18:55 Dose: 3 ml Aspirin (Aspirin) 325 mg PO STAT STA Stop: 12/13/17 20:03 Last Admin: 12/13/17 20:10 Dose: Not Given Non-Admin Reason: NPO Ceftriaxone Sodium (Rocephin 1 Gram Ivpb) 1 gm in 100 mls @ 200 mls/hr IVPB STAT STA PRN Reason: Protocol Stop: 12/13/17 19:36 Last Admin: 12/13/17 19:51 Dose: 200 mls/hr eMAR Start Stop Document 12/13/17 19:51 AD (Rec: 12/13/17 19:51 AD [id number]) Intravenous Solution Start Date 12/13/17 Start Time 19:51 Azithromycin (Zithromax 500mg In Ns) 500 mg in 250 mls @ 167 mls/hr IVPB STAT STA PRN Reason: Protocol Stop: 12/13/17 20:36 Last Admin: 12/13/17 19:45 Dose: 167 mls/hr eMAR Start Stop Document 12/13/17 19:45 AD (Rec: 12/13/17 19:45 AD [id number]) Intravenous Solution Start Date 12/13/17 Start Time 19:45 Methylprednisolone (Solu-Medrol) 125 mg IVP STAT STA Stop: 12/13/17 17:51 Last Admin: 12/13/17 18:36 Dose: 125 mg IVP Administration Document 12/13/17 18:36 SF (Rec: 12/13/17 18:36 SF [id number]) Charges for Administration # of IVP Administrations 1 Naloxone HCl (Narcan 2mg/2ml) 0.4 mg IVP ONCE ONE Stop: 12/13/17 18:35 Last Admin: 12/13/17 19:04 Dose: 0.4 mg IVP Administration Document 12/13/17 19:04 SF (Rec: 12/13/17 19:04 SF [id number]) Charges for Administration # of IVP Administrations 1 Oseltamivir Phosphate (Tamiflu Cap) 75 mg PO STAT STA PRN Reason: Protocol Stop: 12/13/17 19:12 Last Admin: 12/13/17 19:25 Dose: - Scribe Statement The provider has reviewed the documentation as recorded by the Curt Nguyễn Provider Scribe Attestation: All medical record entries made by the Scribe were at my direction and personally dictated by me. I have reviewed the chart and agree that the record accurately reflects my personal performance of the history, physical exam, medical decision making, and the department course for this patient. I have also personally directed, reviewed, and agree with the discharge instructions and disposition. Disposition/Present on Arrival - Present on Arrival Any Indicators Present on Arrival: Yes History of DVT/PE: Yes History of Uncontrolled Diabetes: No Urinary Catheter: No History of Decub. Ulcer: No History Surgical Site Infection Following: None - Disposition Diagnosis: Hypoxic, Lethargy, Leukocytosis, Pneumonia, Flu-like symptoms, Compensated respiratory acidosis, Troponin I above reference range Disposition: HOSPITALIZED Patient Problems: Current Active Problems Problem Status Onset Compensated respiratory acidosis Acute Flu-like symptoms Acute Hypoxic Acute Lethargy Acute Pneumonia Acute Troponin I above reference range Acute Leukocytosis Chronic Condition: GUARDED
[2017-12-13] MEDS: Enoxaparin 120 mg Syringe SC SCH (23:29)
[2017-12-14 00:13] LABS: ARTERIAL BLOOD GAS HEMOGLOBIN 16.7 g/dL (11.7-17.4); ARTERIAL BLOOD GAS O2 CAPACITY 22.2 mL/dl (16-24); ARTERIAL BLOOD GAS O2 CONTENT 20.3 ML/dl (15-23); ARTERIAL BLOOD GAS O2 SAT 91.4 % (95-98); ARTERIAL BLOOD GAS PCO2 65 mm/Hg (35-45)
[2017-12-14] MEDS: Insulin Reg-MEDIUM-Coverage SC SCH ×4 (03:13→22:25)
[2017-12-14] MEDS: Albuterol-Ipratrop 3 mg / 0.5 (3 ml) UD IH SCH ×6 (04:20→23:32)
[2017-12-14 04:58] LABS: ARTERIAL BLOOD GAS HCO3 33.7 mmol/L (21-28); ARTERIAL BLOOD GAS O2 SAT 93.9 % (95-98); ARTERIAL BLOOD GAS PCO2 57 mm/Hg (35-45); ARTERIAL BLOOD GAS PH 7.38 (7.35-7.45); ARTERIAL BLOOD GAS TCO2 35.4 mmol.L (22-28)
[2017-12-14 07:14] LABS: BASO # 0.01 K/mm3 (0.0-2.0); BASO % 0.1 % (0.0-3.0); GRAN # 10.93 (1.4-6.5); GRAN % 92.6 % (50.0-68.0); HEMOGLOBIN 16.7 g/dL (14.0-18.0); LYMPH # 0.7 (1.2-3.4); LYMPH % 5.9 % (22.0-35.0); MEAN CELL VOLUME 93.5 fl (80.0-105.0); MEAN CORPUSCULAR HEMOGLOBIN 30.2 pg (25.0-35.0); MEAN CORPUSCULAR HGB CONC 32.3 g/dl (31.0-37.0); MEAN PLATELET VOLUME 11.9 fl (7.0-11.0); MONO # 0.2 (0.1-0.6); MONO % 1.4 % (1.0-6.0); PLATELET COUNT 127 10^3/uL (120.0-450.0); RBC 5.53 10^6/uL (3.5-6.1); RED CELL DISTRIBUTION WIDTH 16.4 % (11.5-14.5); WHITE BLOOD COUNT 11.8 10^3/ul (4.5-11.0)
[2017-12-14 07:34] LABS: ALBUMIN 3.5 g/dL (3.0-4.8); ALT/SGPT 22 U/L (7-56); AST/SGOT 22 U/L (17-59); BLOOD UREA NITROGEN 16 mg/dL (7-21); CALCIUM 9.1 mg/dL (8.4-10.5); GFR AFRICAN-AMERICAN > 60; GFR NON-AFRICAN AMERICAN > 60; MAGNESIUM 1.8 mg/dL (1.7-2.2)
[2017-12-14 07:36] LABS: TROPONIN I 0.01 ng/mL
--- NOTE | 2017-12-14 08:48 | RAD ---
HISTORY: medical clearance COMPARISON: Comparison is made with 05/18/2017 FINDINGS: LUNGS: Interval improvement in the lungs since the previous exam. There is a left lower lobe opacity may represent atelectasis or less likely infiltrate. PLEURA: No significant pleural effusion identified, no pneumothorax apparent. CARDIOVASCULAR: Normal. OSSEOUS STRUCTURES: No significant abnormalities. VISUALIZED UPPER ABDOMEN: Normal. OTHER FINDINGS: None. IMPRESSION: Left lung base opacity may represent atelectasis.
[2017-12-14 08:56] LABS: ATYPICAL LYMPHOCYTE 1 % (0.0-0.0); LYMPHOCYTE 6 % (22.0-35.0); MONOCYTE 2 % (1.0-6.0); NEUTROPHIL 91 % (50.0-70.0); PLATELET ESTIMATE SL. DES (NORMAL)
[2017-12-14 08:57] LABS: ANISOCYTOSIS SLIGHT; LARGE PLATELETS PRESENT; TOXIC GRANULATION SLIGHT
--- NOTE | 2017-12-14 09:57 | RAD ---
HISTORY: reassess bi-basilar infiltrates COMPARISON: Comparison is made with the previous study dated 12/13/2017 TECHNIQUE: Chest PA and lateral FINDINGS: LUNGS: Again seen are bibasilar opacities larger on the right may represent atelectasis. PLEURA: No significant pleural effusion identified. No pneumothorax apparent. CARDIOVASCULAR: Normal. OSSEOUS STRUCTURES: No significant abnormalities. VISUALIZED UPPER ABDOMEN: Normal. OTHER FINDINGS: None. IMPRESSION: Bibasilar opacities appear larger on the right in this exam may represent atelectasis. No significant interval change otherwise noted in the lungs.
[2017-12-14] MEDS ORDERED: cefTRIAXone 1 gm 1 GM/100 ML BAG IVPB SCH (10:00)
[2017-12-14] MEDS: Enoxaparin 120 mg Syringe SC SCH (13:29)
[2017-12-14] MEDS: Azithromycin 250 MG in Sodium Chloride 0.9% 250 ML IVPB SCH (13:29)
[2017-12-14] MEDS: Digoxin 125 mcg (0.125 mg) Tab PO SCH (13:44)
--- NOTE | 2017-12-14 14:27 | CP.PCM.PN ---
<Jose Odonnell - Last Filed: 12/14/17 14:05> Subjective - Date & Time of Evaluation Date of Evaluation: 12/14/17 Time of Evaluation: 07:30 - Subjective Subjective: IM Progress Note for Hospitalist Service Patient seen and examined at bedside. More awake and alert this AM, as compared to altered state patient presented with. No acute events since admission. ABG this AM improved after interventions since admission. Patient denies acute complaints at this time, state he presented to [facility] shortness of breath/chronic cough with yellow sputum for approx 2 weeks. Admits to missing doses of medications, including his home blood thinner, stated that he didn't think it was an issue because "I got the filter, so I should be good." Currently denies chest pain, shortness of breath, nausea, emesis, diarrhea, focal weakness. Objective - Vital Signs/Intake and Output Vital Signs (last 24 hours): Temp Pulse Resp BP Pulse Ox 98.1 F 89 24 140/70 91 L 12/14/17 05:00 12/14/17 10:00 12/14/17 05:00 12/14/17 10:38 12/14/17 05:00 Intake and Output: 12/14/17 12/14/17 06:59 18:59 Intake Total 0 Output Total 700 Balance -700 - Medications Medications: Current Medications Acetaminophen (Tylenol 325mg Tab) 650 mg PO Q6H PRN PRN Reason: Fever >100.4 F Albuterol/Ipratropium (Duoneb 3 Mg/0.5 Mg (3 Ml) Ud) 3 ml IH [id number] [facility] Last Admin: 12/14/17 11:17 Dose: 3 ml Albuterol/Ipratropium (Duoneb 3 Mg/0.5 Mg (3 Ml) Ud) 3 ml IH Q2H PRN PRN Reason: Shortness of Breath Apixaban (Eliquis) 10 mg PO BID [facility] PRN Reason: Protocol Stop: 12/20/17 23:59 Apixaban (Eliquis) 5 mg PO BID [facility] PRN Reason: Protocol Digoxin (Digoxin) 0.125 mg PO 1400 [facility] Last Admin: 12/14/17 13:44 Dose: 0.125 mg Furosemide (Lasix) 40 mg IVP Q12 [facility] Last Admin: 12/14/17 10:38 Dose: 40 mg Ceftriaxone Sodium (Rocephin 1 Gram Ivpb) 1 gm in 100 mls @ 100 mls/hr IVPB DAILY [facility] PRN Reason: Protocol Last Admin: 12/14/17 10:35 Dose: 100 mls/hr Azithromycin 250 mg/ Sodium (Chloride) 250 mls @ 167 mls/hr IVPB DAILY [facility] PRN Reason: Protocol Last Admin: 12/14/17 13:29 Dose: 167 mls/hr Insulin Human Regular (Humulin R Med) 0 units SC ACHS [facility] PRN Reason: Protocol Methylprednisolone (Solu-Medrol) 60 mg IVP Q12 [facility] Last Admin: 12/14/17 10:35 Dose: 60 mg Metoprolol Tartrate (Lopressor) 25 mg PO BID [facility] Last Admin: 12/14/17 10:39 Dose: Not Given Pantoprazole Sodium (Protonix Inj) 40 mg IVP DAILY [facility] Last Admin: 12/14/17 10:38 Dose: 40 mg - Labs Labs: 12/14/17 06:30 12/14/17 06:30 PT 14.1 SECONDS (9.4-12.5) H 12/13/17 18:15 INR 1.23 (0.93-1.08) H 12/13/17 18:15 APTT 31.6 Seconds (25.1-36.5) 12/13/17 18:15 - Constitutional Appears: Non-toxic, No Acute Distress - Head Exam Head Exam: ATRAUMATIC, NORMAL INSPECTION, NORMOCEPHALIC - Eye Exam Eye Exam: EOMI, Normal appearance. absent: Conjunctival injection, Scleral icterus Pupil Exam: absent: Irregular, Unequal - ENT Exam ENT Exam: Mucous Membranes Moist - Neck Exam Neck Exam: Full ROM Additional comments: Bull-neck - Respiratory Exam Respiratory Exam: Decreased Breath Sounds (moderately decreased breath sounds in all alexandre, likely due to body habitus), Prolonged Expiratory Phase, Wheezes (faint end-expiratory wheezes at bilateral bases). absent: Clear to Ausculation Bilateral, Rales, Rhonchi, Respiratory Distress, Stridor, NORMAL BREATHING PATTERN - Cardiovascular Exam Cardiovascular Exam: REGULAR RHYTHM, +S1, +S2. absent: Bradycardia, Tachycardia , Irregular Rhythm, RRR Additional comments: difficult to hear heart sounds, most likely due to body habitus - GI/Abdominal Exam GI & Abdominal Exam: Soft, Normal Bowel Sounds. absent: Distended (morbidly obese, but not distended), Tenderness - Extremities Exam Extremities Exam: Pedal Edema (+1-2 pitting edema bilaterally, from feet to mid- shins). absent: Calf Tenderness - Neurological Exam Neurological Exam: Alert, Awake, Oriented x3 - Psychiatric Exam Psychiatric exam: Flat Affect, Normal Mood - Skin Skin Exam: Dry, Intact, Normal Color, Warm Assessment and Plan - Assessment and Plan (Free Text) Assessment: This is a 57 yo AA male with past medical history of COPD, DESTINEE, HTN, HLD, diastolic CHF, NSTEMI, DVT/PE on Eliquis (Non-compliant), s/p IVC filter and medication non-compliance who is admitted for hypercapneic respiratory failure and metabolic acidosis secondary to non-compliance with CPAP, COPD/CHF exacerbation and possible LLL pneumonia. Plan: 1) Hypercapneic respiratory failure w/ hx of DESTINEE and COPD -can be secondary to DESTINEE with CPAP non-compliance as well as underlying COPD/CHF -ABG showed CO2 of 75 on admission, improved to 57 this AM (baseline for pt is high 40's - mid 50's); improved acidosis on AM ABG -On 5L NC this AM, Resp therapist recs BiPAP when sleeping -CTA concerning for possible PE in RUL segmental branches; started on high-dose eliquis x7 days, then back to regular dose as per Cardio -Duoneb schedule and prn -Solumedrol 60q12 -Pulm ([facility]) consulted, appreciate all recs -Aspiration precaution, HOB elevated -Maintain spO2 88-92%, avoid over-oxygenation in COPD to prevent suppression of respiratory drive 2) AMS - resolved -Secondary to CO2 narcosis v. intoxication -UDS + for opiates and benzo (pt prescribed xanax at home), pt with hx of overuse of home opiates in past -Given narcan once in ED -Alcohol negative -If passes bedside swallow eval, will start on consistent carb heart healthy diet -sedating medication with caution, prefer to avoid where possible 3) Diastolic CHF -CXR showed vasc congestion -Lasix 40q12 and continue Home Digoxin -EKG showed sinus tach -trops 0.04, 0.03, 0.01 -TSH lvl 1, Dig level < 4 -AM EKG is NSR, otherwise unchanged from prior EKG -Strict I&O, Daily weight -Cardio ([facility]) consulted, appreciate all recs -Echo obtained, pending official read 4) Suspected LLL pneumonia -seen on CXR -Leukocytosis unchanged, remains afebrile -Flu negative, Procal negative -given negative procal and leukocytosis likely 2/2 steroids, will stop rocephin , can continue Zithromax given suspected anti-inflammatory element in setting of possible COPD exacerbation -Lactate normal -Blood cx pending 5) Hx of PE/DVT -Possible PE as above, Eliquis 10mg BID x7 days, and then 5mg BID as per Cardio 6) Hx of HTN -SBP 110s-140s, labile since admission -Will only give Lasix for CHF exacerbation- hold if SBP<100 -Will hold other home BP meds for now 7) Hx of HLD -Unclear if on Statin at home -Lipid panel notable for LDL 71, HDL 33, Chol 126, TG 130; would benefit from statin to increase HDL to protective levels, and low LDL in setting of DM/HTN 8) Hx of DM -Questionable- last HgbA1c was 5.9 in 01/2017, 5.2 today -Pt on Metformin at home -ISS, blood glucose monitor q6h 9) Worsening lung nodules on CT scan -Chest CTA also notable for Enlarging right paratracheal LN 2.1x1.5 cm, enlarged bilateral hilar LN (size progression as compared to prior scans) -given smoking hx, concerning for possible developing malignancy -Pulm following, appreciate their recs -Will likely need to follow up and obtain additional workup as an outpatient Dispo: Tele, pending additional recs from Pulm and Cardio, pending weaning down on steroids FEN: Consistent carb heart healthy Access: Peripheral IV Consults: Cardio, Pulm Ppx: Protonix for GI, Heparin SC for DVT Case seen, discussed and reviewed with attending, Dr. Leiva <Lulu Leiva - Last Filed: 12/14/17 17:47> Objective - Vital Signs/Intake and Output Vital Signs (last 24 hours): Temp Pulse Resp BP Pulse Ox 98.6 F 94 H 22 115/71 94 L 12/14/17 13:00 12/14/17 17:40 12/14/17 13:00 12/14/17 17:40 12/14/17 13:00 Intake and Output: 12/14/17 12/14/17 06:59 18:59 Intake Total 0 350 Output Total 700 Balance -700 350 - Medications Medications: Current Medications Acetaminophen (Tylenol 325mg Tab) 650 mg PO Q6H PRN PRN Reason: Fever >100.4 F Albuterol/Ipratropium (Duoneb 3 Mg/0.5 Mg (3 Ml) Ud) 3 ml IH [id number] [facility] Last Admin: 12/14/17 16:20 Dose: 3 ml Albuterol/Ipratropium (Duoneb 3 Mg/0.5 Mg (3 Ml) Ud) 3 ml IH Q2H PRN PRN Reason: Shortness of Breath Apixaban (Eliquis) 10 mg PO BID KATIE PRN Reason: Protocol Stop: 12/20/17 23:59 Last Admin: 12/14/17 17:40 Dose: 10 mg Apixaban (Eliquis) 5 mg PO BID KATIE PRN Reason: Protocol Digoxin (Digoxin) 0.125 mg PO 1400 [facility] Last Admin: 12/14/17 13:44 Dose: 0.125 mg Furosemide (Lasix) 40 mg IVP Q12 [facility] Last Admin: 12/14/17 10:38 Dose: 40 mg Azithromycin 250 mg/ Sodium (Chloride) 250 mls @ 167 mls/hr IVPB DAILY [facility] PRN Reason: Protocol Last Admin: 12/14/17 13:29 Dose: 167 mls/hr Insulin Human Regular (Humulin R Med) 0 units SC ACHS KATIE PRN Reason: Protocol Last Admin: 12/14/17 17:39 Dose: 1 units Methylprednisolone (Solu-Medrol) 40 mg IV Q12H [facility] Last Admin: 12/14/17 17:41 Dose: 40 mg Metoprolol Tartrate (Lopressor) 25 mg PO BID [facility] Last Admin: 12/14/17 17:40 Dose: 25 mg Pantoprazole Sodium (Protonix Inj) 40 mg IVP DAILY [facility] Last Admin: 12/14/17 10:38 Dose: 40 mg - Labs Labs: 12/14/17 06:30 12/14/17 06:30 PT 14.1 SECONDS (9.4-12.5) H 12/13/17 18:15 INR 1.23 (0.93-1.08) H 12/13/17 18:15 APTT 31.6 Seconds (25.1-36.5) 12/13/17 18:15 Attending/Attestation - Attestation I have personally seen and examined this patient.: Yes I have fully participated in the care of the patient.: Yes I have reviewed all pertinent clinical information, including history, physical exam and plan: Yes Notes (Text): 12/14/17 17:47 Patient was seen and examined with medical records supervisor. Agreed with assessment and plan. Management plan was discussed in detail with patient. Education was provided.
[2017-12-14] MEDS ORDERED: MethylPREDNISolone 40 mg Vial IV SCH (15:30)
--- NOTE | 2017-12-14 17:21 | CARD ---
APPROVED REPORT EXAM: Two-dimensional and M-mode echocardiogram with Doppler and color Doppler. INDICATION ACUTE PE 2D DIMENSIONS IVSd1.1 (0.7-1.1cm)LVDd4.5 (3.9-5.9cm) LVOT Diameter2.0 (1.8-2.4cm)PWd1.1 (0.7-1.1cm) LVDs3.0 (2.5-4.0cm)FS (%) 33.7 % LVEF (%)62.6 (>50%) M-Mode DIMENSIONS Aortic Root4.20 (2.2-3.7cm)Aortic Cusp Exc.1.30 (1.5-2.0cm) Aortic Valve AoV Peak Thnagbjw737.0cm/sAoV VTI41.8cmAO Peak GR.25mmHg LVOT Peak Uvjxmyef255.0cm/sLVOT VTI19.50cmAO Mean GR.12mmHg PAULO (VMAX)1.63pu9ERA (VTI)1.46cm2 Mitral Valve MV E Yhjonysb81.3cm/sMV A Extnyaie329.0cm/sE/A ratio0.7 TDI Lateral E' Peak V7.21cm/sMedial E' Peak V7.80cm/sE/Lateral E'9.8 E/Medial E'9.0 Pulmonary Valve PV Peak Jrimjkhz27.5cm/sPV Peak Grad.3mmHg Tricuspid Valve TR Peak Eojqetss531sb/sRAP POUQVYXA11hjAwWJ Peak Gr.41mmHg [id number] LEFT VENTRICLE The left ventricle is normal size. There is borderline concentric left ventricular hypertrophy. The left ventricular function is normal.EF-55-60% There is normal LV segmental wall motion. Transmitral Doppler flow pattern is Grade III-reversible restrictive diastolic dysfunction. No left ventricle thrombus noted on this study. There is no ventricular septal defect visualized. There is no left ventricular aneurysm. There is no mass noted in the left ventricle. RIGHT VENTRICLE The right ventricle is moderately dilated. The right ventricle is moderately hypertrophied. Systolic function of RV is moderately reduced. ATRIA The left atrium size is normal. The right atrium is moderately dilated. The interatrial septum is intact with no evidence for an atrial septal defect. AORTIC VALVE The aortic valve is calcified and displays decreased opening. The aortic valve is moderately sclerotic. There is trace aortic regurgitation. There is mild valvular aortic stenosis. There is no aortic valvular vegetation. MITRAL VALVE The mitral valve is mildly thickened. Mitral regurgitation is trace to mild. There is no mitral valve stenosis. There is no evidence of mitral valve prolapse. TRICUSPID VALVE The tricuspid valve leaflets are thickened , but open well. There is mild to mioderate tricuspid regurgitation.RVSP-51 mmof Hg. There is no tricuspid valve stenosis. There is no tricuspid valve prolapse or vegetation. PULMONIC VALVE The pulmonic valve is mildly thickened. There is trace pulmonic valvular regurgitation. There is no pulmonic valvular stenosis. GREAT VESSELS The aortic root is normal in size. The ascending aorta is normal in size. The pulmonary artery is normal. The IVC is dilated. PERICARDIAL EFFUSION There is no pleural effusion. There is no pericardial effusion. <Conclusion> The left ventricle is normal size. There is borderline concentric left ventricular hypertrophy. The left ventricular function is normal.EF-55-60% The right ventricle is moderately dilated. Systolic function of RV is moderately reduced. There is trace aortic regurgitation. There is mild valvular aortic stenosis. Mitral regurgitation is trace to mild. There is mild to mioderate tricuspid regurgitation.RVSP-51 mmof Hg. The IVC is dilated. There is no pericardial effusion.
[2017-12-14] MEDS: MethylPREDNISolone 40 mg Vial IV SCH (17:41)
--- NOTE | 2017-12-14 21:52 | CARD ---
APPROVED REPORT EKG Measurement Heart [id number] CT [id number] <Conclusion> Normal sinus rhythm Possible Inferior infarct, age undetermined T wave abnormality, consider anterior ischemia Abnormal ECG
--- NOTE | 2017-12-14 22:08 | CON ---
DATE: REASON FOR THE CONSULTATION: Followup cardiac evaluation, diabetes, with shortness of breath, hypoxic, history of COPD, rule out congestive heart failure. BRIEF CLINICAL HISTORY: This is a 57-year-old male with past medical history significant for morbid obesity, body mass index 50 kg/m2, cardiomyopathy, history of COPD, history of hypoventilation syndrome, possibly Pickwickian syndrome, came to the Emergency Room with complaint of progressively worsening shortness of breath for 3 to 4 days, getting worse after having upper respiratory tract infection, cold and coughing and sneezing. Patient was hypoxemic here and was under CPAP. PAST MEDICAL HISTORY: Significant for DVT, PE, history of inferior vena cava filter, history of morbid obesity; history of cardiac catheterization in 05/2014, nonobstructive coronary artery disease, essentially normal coronaries; nonischemic cardiomyopathy, ejection fraction 25%, later on it improved. On 03/15/2014, patient underwent ANTONIETA that showed ejection fraction of 55% to 60%. Later on, patient had repeat echo on 05/31/2014 that showed ventricles are normal, ejection fraction 55%, diastolic dysfunction, trace MR, trace TR, RV systolic pressure 43. History of diabetes, history of morbid obesity, COPD, history of active tobacco abuse, history of hypertension, hyperlipidemia. Previous cardiac workup as follows: History of most recent echo 01/28/2017 that showed normal LV size, borderline concentric LVH, with ejection fraction of 55% to 60%, RV systolic function is moderately reduced, right atrium is moderately dilated, trace aortic regurgitation, [id number] valvular aortic stenosis, mitral regurgitation, moderate tricuspid regurgitation, RV systolic pressure of 46, dilated RV, peak gradient across the aortic valve is 14 mmHg consistent with mild aortic stenosis. Patient had a cardiac catheterization on 05/25/2014 that showed essentially normal coronaries. At that time, the heart function was decreased, ejection fraction was decreased. Later on, with a ANTONIETA, ejection fraction was 55% to 60%, and most recent echo as above, ejection fraction calculated at 53%. SOCIAL HISTORY: Active tobacco abuse, one pack a day, off and on, quit and then resumed back. Denies any history of alcohol abuse. ALLERGIES: NO KNOWN DRUG ALLERGIES. CURRENT MEDICATIONS: Patient is taking at home. Zanaflex, metoprolol 50 mg , metformin, Lasix, enalapril, digoxin, Eliquis 5 mg daily and Xanax. REVIEW OF SYSTEMS: As per HPI. PHYSICAL EXAMINATION: As follows: VITAL SIGNS: Height of the patient is 5 feet 8 inch, weight of the patient 313, body mass index 50 kg/m2. Heart rate 128, blood pressure 122/88. HEENT: PERRLA. Extraocular muscles intact. NECK: Supple. No carotid bruit or thyromegaly. CHEST: Clear to auscultation. HEART: S1 and S2, regular. ABDOMEN: Soft. EXTREMITIES: Clubbing and cyanosis negative. BiPAP machine is at the bedside. LABORATORY DATA: EKG shows sinus tachycardia, septal Q, heart rate 113. WBC 11.8, hemoglobin , hematocrit 51.7 and platelet count 127. Repeat chemistry shows sodium 140, potassium 4.3, chloride 100, carbon dioxide 34, anion gap of 14, BUN 16, creatinine 0.8. Troponin 0.01 x2, negative. X-ray reviewed, showed enlarged cardiomegaly, mild congestion. No definite CHF noted. IMPRESSION: Chronic obstructive pulmonary disease exacerbation, obstructive sleep apnea, Pickwickian syndrome, morbid obesity, body mass index 50 kg/m2; diabetes, hypertension, hyperlipidemia, active tobacco abuse off and on, normal coronaries, status post cardiac catheterization in 05/2014, nonobstructive coronary artery disease, essentially normal with decreased left ventricular function, later on left ventricular function improved. Most recent echo last year shows mild aortic stenosis with peak gradient of 14, but preserved left ventricular function. RECOMMENDATION: We will get a MUGA scan to assess LV function, continue Eliquis, patient is on Eliquis because of the DVT and PE, morbid obesity. No need to continue Eliquis as well as enoxaparin. We will discontinue enoxaparin, patient is on both, we will discontinue. Continue digoxin. We will get MUGA scan, we will get echo, continue gentle diuretics to keep negative fluid balance. We will put low dose of beta-tony to control heart rate. We will follow with you Lipid profile, TSH, hemoglobin A1c. Thank you Dr. Leiva for providing us the opportunity in taking care of Naresh Riley. Lulu Jacobo MD
--- NOTE | 2017-12-14 22:18 | CARD ---
APPROVED REPORT EKG Measurement Heart [id number] <Conclusion> Sinus tachycardia Otherwise normal ECG
--- NOTE | 2017-12-15 02:23 | CON ---
DATE: 12/14/2017 PULMONARY CONSULTATION REFERRING PHYSICIAN: Adam Dejesus MD. REASON FOR CONSULT: Chronic lung disease. HISTORY OF PRESENT ILLNESS: This is a 57-year-old gentleman with a known history of chronic obstructive lung disease, no sleep apnea in last study, hypertension, hyperlipidemia, chronic diastolic dysfunction, history of DE, PE, history of DVT, on anticoagulation, also history of substance abuse in the past, also has IVC filter placed and comes in with cough and shortness of breath. No headache. No body aches or pain. No nausea, no vomiting, and no diarrhea. PAST MEDICAL HISTORY: As per history of present illness. SOCIAL HISTORY: Former smoker. Also, has a history of heroin use. Positive history of opiates use. FAMILY HISTORY: No significant cardiopulmonary disease reported. ALLERGIES: NONE KNOWN. MEDICATIONS: He is on Zithromax 250 mg daily, digoxin 0.125 mg daily, DuoNeb q.2 hours p.r.n. and q.4 hours round the clock , Eliquis 10 mg twice a day, insulin coverage, Lasix 40 mg twice a day, metoprolol tartrate 25 mg twice a day, Protonix 40 mg daily, Rocephin 1 g daily, Solu-Medrol 60 mg IV q.12 hours, Tylenol p.r.n. basis. REVIEW OF SYSTEMS: No headache. No rhinitis. Has a cough, sputum production. No chest pain. No nausea, no vomiting, no diarrhea. No dysuria. No leg pain or leg swelling. PHYSICAL EXAMINATION: GENERAL: Sitting on the side of the bed, in no acute distress. VITAL SIGNS: Temp is 98, heart rate is 89, respiratory rate is 24, blood pressure 140/70, pulse ox 91% on BiPAP last night. HEENT: Moist mucous membrane. Crowded airway. Mallampati score is IV. NECK: Supple. No JVD. LUNGS: Have a few scattered rhonchi. HEART: S1 and S2. ABDOMEN: Soft, nontender. No organomegaly. EXTREMITIES: Not much edema. NEUROLOGICAL: Awake and alert. Follows simple command. LABORATORY DATA: Shows hemoglobin 16.7, hematocrit 51.7, WBC 11.8, platelet is 127. His INR 1.23, PTT 32. Blood gas shows pH 7.38, pCO2 is 34, O2 of 57. Sodium 142, potassium 4.3, chloride 100, bicarbonate 34, BUN 16, creatinine 0.8, glucose 160, calcium is 9.1, phosphorus 3.0. AST 22, ALT 22, alk phos is 80, albumin is 3.5. Procalcitonin 0.09. Opiates in the urine is positive. Influenza A and B is negative. Had a chest x-ray done today, which shows bibasilar opacity, right greater than the left. It could be atelectasis. Also, has a CAT scan of the chest done yesterday, shows filling defect within the segmental branch of the right upper lobe, on the CD 3, image 46. Suspicion of pulmonary embolism with some consolidation of the lower lobes. There is an enlarged right lower paratracheal lymph node measuring 2.1 x 1.5 cm, which is mildly increased on AP dimension. There is enlarged hilar lymph nodes on each side. Also, lung nodules are noted, which is a progression compared to the prior study. PET/CT is recommended. IMPRESSION AND PLAN: Pulmonary embolism, hilar and mediastinal lymphadenopathy, chronic obstructive lung disease, cardiomyopathy with diastolic dysfunction. I agree with the present management. Continue anticoagulation. He may need lifelong anticoagulation. Last sleep study was negative for sleep apnea syndrome. Does have chronic obstructive lung disease. I will suggest treating him with antibiotics, steroids, anticoagulation. Urged him to not to use Tylenol and opioids. Patient should have a followup CD in 2 to 3 months to assure the stability of adenopathy. I spoke to the patient about it. He expressed understanding. Thank you and we will follow with you. Lulu Shannon MD
[2017-12-15] MEDS: Albuterol-Ipratrop 3 mg / 0.5 (3 ml) UD IH SCH ×6 (05:29→23:47)
[2017-12-15] MEDS ORDERED: Pantoprazole 40 mg EC Tab PO SCH (06:00)
[2017-12-15] MEDS: MethylPREDNISolone 40 mg Vial IV SCH (06:28)
[2017-12-15 07:14] LABS: BASO # 0.01 K/mm3 (0.0-2.0); BASO % 0.1 % (0.0-3.0); GRAN # 15.45 (1.4-6.5); HEMOGLOBIN 16.3 g/dL (14.0-18.0); LYMPH # 1.6 (1.2-3.4); LYMPH % 8.8 % (22.0-35.0); MEAN CELL VOLUME 92.2 fl (80.0-105.0); MEAN CORPUSCULAR HEMOGLOBIN 30.4 pg (25.0-35.0); MEAN PLATELET VOLUME 12.6 fl (7.0-11.0); MONO # 0.9 (0.1-0.6); MONO % 5.1 % (1.0-6.0); RBC 5.36 10^6/uL (3.5-6.1); RED CELL DISTRIBUTION WIDTH 16.1 % (11.5-14.5)
[2017-12-15 07:22] LABS: ALB/GLOB RATIO 0.9 (1.1-1.8); ALBUMIN 3.4 g/dL (3.0-4.8); ALT/SGPT 23 U/L (7-56); AST/SGOT 16 U/L (17-59); BLOOD UREA NITROGEN 18 mg/dL (7-21); CALCIUM 9.1 mg/dL (8.4-10.5); GFR AFRICAN-AMERICAN > 60; GFR NON-AFRICAN AMERICAN > 60; MAGNESIUM 1.9 mg/dL (1.7-2.2)
[2017-12-15] MEDS: Insulin Reg-MEDIUM-Coverage SC SCH ×4 (07:31→22:00)
[2017-12-15] MEDS: Azithromycin 250 MG in Sodium Chloride 0.9% 250 ML IVPB SCH (10:41)
[2017-12-15] MEDS: Digoxin 125 mcg (0.125 mg) Tab PO SCH (13:28)
--- NOTE | 2017-12-15 15:48 | CP.PCM.PN ---
<Jose Odonnell - Last Filed: 12/15/17 15:43> Subjective - Date & Time of Evaluation Date of Evaluation: 12/15/17 Time of Evaluation: 08:20 - Subjective Subjective: IM Progress Note for Hospitalist Service Patient seen and examined at bedside. More awake and alert this AM, ambulating from bed to bathroom and back without NC O2. Completely awake and alert, reports improved breathing. Denies chest pain, productive cough, weakness, dizziness. Objective - Vital Signs/Intake and Output Vital Signs (last 24 hours): Temp Pulse Resp BP Pulse Ox 98 F 79 20 127/82 95 12/15/17 12:00 12/15/17 12:00 12/15/17 12:00 12/15/17 12:00 12/15/17 05:59 Intake and Output: 12/15/17 12/15/17 06:59 18:59 Intake Total 900 Output Total 3100 Balance -2200 - Medications Medications: Current Medications Acetaminophen (Tylenol 325mg Tab) 650 mg PO Q6H PRN PRN Reason: Fever >100.4 F Albuterol/Ipratropium (Duoneb 3 Mg/0.5 Mg (3 Ml) Ud) 3 ml IH [id number] [facility] Last Admin: 12/15/17 11:41 Dose: 3 ml Albuterol/Ipratropium (Duoneb 3 Mg/0.5 Mg (3 Ml) Ud) 3 ml IH Q2H PRN PRN Reason: Shortness of Breath Apixaban (Eliquis) 10 mg PO BID [facility] PRN Reason: Protocol Stop: 12/20/17 23:59 Last Admin: 12/15/17 10:42 Dose: 10 mg Apixaban (Eliquis) 5 mg PO BID KATIE PRN Reason: Protocol Digoxin (Digoxin) 0.125 mg PO 1400 [facility] Last Admin: 12/15/17 13:28 Dose: 0.125 mg Furosemide (Lasix) 40 mg IVP Q12 [facility] Last Admin: 12/15/17 10:41 Dose: 40 mg Azithromycin 250 mg/ Sodium (Chloride) 250 mls @ 167 mls/hr IVPB DAILY KATIE PRN Reason: Protocol Last Admin: 12/15/17 10:41 Dose: 167 mls/hr Insulin Human Regular (Humulin R Med) 0 units SC ACHS KATIE PRN Reason: Protocol Last Admin: 12/15/17 12:32 Dose: Not Given Metoprolol Tartrate (Lopressor) 25 mg PO BID [facility] Last Admin: 12/15/17 10:41 Dose: 25 mg Pantoprazole Sodium (Protonix Ec Tab) 40 mg PO 0600 [facility] - Labs Labs: 12/15/17 06:30 12/15/17 06:00 PT 14.1 SECONDS (9.4-12.5) H 12/13/17 18:15 INR 1.23 (0.93-1.08) H 12/13/17 18:15 APTT 31.6 Seconds (25.1-36.5) 12/13/17 18:15 - Additional Findings Additional findings: - Constitutional Appears: Non-toxic, No Acute Distress - Head Exam Head Exam: ATRAUMATIC, NORMAL INSPECTION, NORMOCEPHALIC - Eye Exam Eye Exam: EOMI, Normal appearance. absent: Conjunctival injection, Scleral icterus Pupil Exam: absent: Irregular, Unequal - ENT Exam ENT Exam: Mucous Membranes Moist - Neck Exam Neck Exam: Full ROM, Bull-neck - Respiratory Exam Respiratory Exam: Decreased Breath Sounds (moderately decreased breath sounds in all alexandre, likely due to body habitus), Prolonged Expiratory Phase, Wheezes (faint end-expiratory wheezes at bilateral bases). absent: Clear to Ausculation Bilateral, Rales, Rhonchi, Respiratory Distress, Stridor, NORMAL BREATHING PATTERN - Cardiovascular Exam Cardiovascular Exam: REGULAR RHYTHM, +S1, +S2. absent: Bradycardia, Tachycardia , Irregular Rhythm, RRR Additional comments: difficult to hear heart sounds, most likely due to body habitus - GI/Abdominal Exam GI & Abdominal Exam: Soft, Normal Bowel Sounds. absent: Distended (morbidly obese, but not distended), Tenderness - Extremities Exam Extremities Exam: Pedal Edema (+1-2 pitting edema bilaterally, from feet to mid- shins). absent: Calf Tenderness - Neurological Exam Neurological Exam: Alert, Awake, Oriented x3 - Psychiatric Exam Psychiatric exam: Flat Affect, Normal Mood, Appears grossly apathetic about medical condition - Skin Skin Exam: Dry, Intact, Normal Color, Warm Assessment and Plan - Assessment and Plan (Free Text) Assessment: This is a 57 yo AA male with past medical history of COPD, DESTINEE, HTN, HLD, diastolic CHF, NSTEMI, DVT/PE on Eliquis (Non-compliant), s/p IVC filter and medication non-compliance who is admitted for hypercapneic respiratory failure and metabolic acidosis secondary to non-compliance with CPAP, COPD/CHF exacerbation and possible LLL pneumonia. Plan: 1) Hypercapneic respiratory failure w/ hx COPD, likely hx of Obesity hypoventilation syndrome -can be secondary underlying COPD/CHF in setting of medication noncompliance vs PE -ABG showed CO2 of 75 on admission, improved to 57; pending repeat ABG tomorrow AM -Off nasal canula this AM, but was on Bipap overnight, as per RT recs -CTA concerning for possible PE in RUL segmental branches; started on high-dose eliquis x7 days, then back to regular dose as per Cardio -Duoneb schedule and prn -Decreased to 40mg IVP daily today, will transition to PO steroid taper tomorrow if pt tolerates -Pulm Jair) consulted, appreciate all recs; continue current management -Aspiration precaution, HOB elevated -Maintain spO2 88-92%, avoid over-oxygenation in COPD to prevent suppression of respiratory drive -6-minute walk test ordered to assess need for home O2 2) AMS - resolved -Secondary to CO2 narcosis v. intoxication -UDS + for opiates and benzo (pt prescribed xanax at home), pt with hx of overuse of home opiates in past -Given narcan once in ED -Alcohol negative -sedating medication with caution, prefer to avoid where possible 3) Diastolic CHF -CXR showed vasc congestion -continue Digoxin, Lasix q12 with hold parameter -EKG showed sinus tach -trops 0.04, 0.03, 0.01 -TSH lvl 1, Dig level < 4 -Strict I&O, Daily weight -Cardio (Catracho) consulted, appreciate all recs -Echo obtained, pending official read 4) Suspected LLL pneumonia -seen on CXR -Leukocytosis unchanged, remains afebrile -Flu negative, Procal negative -can continue Zithromax given suspected anti-inflammatory element in setting of possible COPD exacerbation, otherwise no abx indicated (procal neg, flu neg, no leukocytosis, afebrile) -Lactate normal -Blood cx x2 negative at 24 hrs 5) Hx of PE/DVT -Possible PE as above, Eliquis 10mg BID x7 days, and then 5mg BID as per Cardio -non-compliant with AC in past due to poor understanding of condition and/or apathy, chronically non-compliant 6) Hx of HTN -Currently normotensive -Will only give Lasix for CHF exacerbation- hold if SBP<100 -Will hold other home BP meds for now 7) Hx of HLD -Unclear if on Statin at home -Lipid panel notable for LDL 71, HDL 33, Chol 126, TG 130; would benefit from statin to increase HDL to protective levels, and low LDL in setting of DM/HTN 8) Hx of DM -Questionable- last HgbA1c was 5.9 in 01/2017, 5.2 today -Pt on Metformin at home -ISS, blood glucose monitor q6h 9) Worsening lung nodules on CT scan -Chest CTA also notable for Enlarging right paratracheal LN 2.1x1.5 cm, enlarged bilateral hilar LN (size progression as compared to prior scans) -given smoking hx, concerning for possible developing malignancy -Pulm following, appreciate their recs; will need repeat CT as outpt to reassess concerning lymph nodes Dispo: Tele, pending weaning from steroids, pending 6-minute walk test to determine Home O2 need, likely d/c tmr FEN: Consistent carb heart healthy Access: Peripheral IV Consults: Cardio, Pulm Ppx: Protonix for GI, Heparin SC for DVT Case seen, discussed and reviewed with attending, Dr. Leiva <Lulu Leiva - Last Filed: 12/16/17 14:09> Objective - Vital Signs/Intake and Output Vital Signs (last 24 hours): Temp Pulse Resp BP Pulse Ox 98.9 F 81 20 108/68 97 12/16/17 05:35 12/16/17 10:31 12/16/17 05:35 12/16/17 10:31 12/16/17 05:35 Intake and Output: 12/16/17 12/16/17 06:59 18:59 Intake Total 420 Output Total 1700 Balance -1280 - Medications Medications: Current Medications Acetaminophen (Tylenol 325mg Tab) 650 mg PO Q6H PRN PRN Reason: Fever >100.4 F Albuterol/Ipratropium (Duoneb 3 Mg/0.5 Mg (3 Ml) Ud) 3 ml IH [id number] [facility] Last Admin: 12/16/17 11:03 Dose: 3 ml Albuterol/Ipratropium (Duoneb 3 Mg/0.5 Mg (3 Ml) Ud) 3 ml IH Q2H PRN PRN Reason: Shortness of Breath Apixaban (Eliquis) 10 mg PO BID [facility] PRN Reason: Protocol Stop: 12/20/17 23:59 Last Admin: 12/16/17 10:31 Dose: 10 mg Apixaban (Eliquis) 5 mg PO BID KATIE PRN Reason: Protocol Azithromycin (Zithromax) 250 mg PO DAILY [facility] Digoxin (Digoxin) 0.125 mg PO 1400 [facility] Last Admin: 12/15/17 13:28 Dose: 0.125 mg Furosemide (Lasix) 40 mg IVP Q12 [facility] Last Admin: 12/16/17 10:31 Dose: 40 mg Insulin Human Regular (Humulin R Med) 0 units SC ACHS [facility] PRN Reason: Protocol Last Admin: 12/16/17 11:53 Dose: 5 units Metoprolol Tartrate (Lopressor) 25 mg PO BID [facility] Last Admin: 12/16/17 10:31 Dose: 25 mg Pantoprazole Sodium (Protonix Ec Tab) 40 mg PO 0600 [facility] Last Admin: 12/16/17 05:02 Dose: 40 mg Prednisone (Prednisone Tab) 40 mg PO DAILY [facility] PRN Reason: Taper Stop: 12/24/17 11:44 Last Admin: 12/16/17 11:53 Dose: 40 mg - Labs Labs: 12/16/17 05:30 12/16/17 05:30 PT 14.1 SECONDS (9.4-12.5) H 12/13/17 18:15 INR 1.23 (0.93-1.08) H 12/13/17 18:15 APTT 31.6 Seconds (25.1-36.5) 12/13/17 18:15 Attending/Attestation - Attestation I have personally seen and examined this patient.: Yes I have fully participated in the care of the patient.: Yes I have reviewed all pertinent clinical information, including history, physical exam and plan: Yes Notes (Text): 12/16/17 14:07 Patient was seen and examined with medical laboratory technicians. Agreed with assessment and plan. Hypercapnic Resp Failure due to COPD exacerbation and Obesity Hypoventilation syndrome , has improved, will changed to oral Prednsione.We will evaluate patient for home oxygen. Diastolic CHF, has improved with IV lasix.Renal functions are stable. Pulmonary Embolism, on anticoagulation with Apixiban. Management plan was discussed in detail with patient. Education was provided.
--- NOTE | 2017-12-15 17:09 | PN ---
DATE: REASON FOR THE CONSULTATION AND FOLLOWUP: Cardiac evaluation, diabetes with shortness of breath, severe hypoxemia, history of chronic obstructive pulmonary disease, rule out congestive heart failure. SUBJECTIVE: The patient is sitting at the bedside, denies any chest pain, shortness of breath, or any palpitations. OBJECTIVE: GENERAL: Not in apparent distress. VITAL SIGNS: Temperature afebrile, heart rate 81, blood pressure 113/69. HEENT: PERRLA. Extraocular muscles Intact. NECK: Supple. No carotid bruits. No thyromegaly. CHEST: Clear to auscultation. HEART: S1 and S2, regular. ABDOMEN: Soft. EXTREMITIES: Clubbing and cyanosis negative. LABORATORY DATA: Blood workup as follows: WBC 18, hemoglobin 16.3, hematocrit 49.4, and platelet count 146. Chemistries show sodium 132, potassium 4.0, chloride 94, carbon dioxide 35, anion gap of 13. BUN 18 and creatinine 0.7. The patient had echocardiography done yesterday that showed ejection fraction of 55% with right ventricle moderately dilated, systolic function of RV moderately reduced, trace aortic regurgitation, mild valvular aortic stenosis, [id number] mitral regurgitation, [id number] tricuspid regurgitation, RV systolic pressure of 51, dilated RV. IMPRESSION: Morbid obesity, obstructive sleep apnea, chronic obstructive pulmonary disease, history of deep venous thrombosis and pulmonary embolism in the past, history of inferior vena cava filter, history of cardiac catheterization in 05/2014, nonobstructive coronary artery disease, essentially normal coronaries, cardiomyopathy nonischemic. Later on, by echo and ANTONIETA, ejection fraction significantly improved, most recent echo yesterday also showed improvement in the LV function. Peak gradient by cath is 14 mmHg consistent with mild aortic stenosis, yesterday echo also showed mild aortic stenosis. Obstructive sleep apnea, diabetes, hypertension, hypoventilation syndrome, Pickwickian syndrome, normal coronaries as mentioned. RECOMMENDATION: Aggressive treatment of COPD, continue Eliquis for DVT and PE, continue digoxin. Continue Eliquis 10 mg p.o. b.i.d., because of new evidence of PE for 1 week, followed by 5 mg p.o. b.i.d. Continue gentle diuretics, continue metoprolol. History of previous DVT and PE, history of recent PE again by CAT scan. CAT scan done yesterday that showed filling defect suspicious of pulmonary embolism. The hilar lymphadenopathy needs to be addressed later as an outpatient for followup. Continue treatment for COPD. Continue CPAP. We had increased yesterday Eliquis 10 mg p.o. b.i.d. for one week, followed by 5 mg daily. We will get MUGA scan to assess LV and RV function. Follow up the lab in the morning. has been discontinued. If he remains stable in a day or two, we will discontinue telemetry. Thank you Dr. Dejesus for providing us the opportunity in taking care of the patient, Naresh Riley. Lulu Jacobo MD
--- NOTE | 2017-12-15 21:42 | CARD ---
APPROVED REPORT INDICATION HYPOXIC/COPD/CONGESTIVE HEART DISEASE PROCEDURE The above named patient recieved 30 millicuries of Tc99m tagged red blood cells intravenously. After achieving equilibrium, gated imaging of 16/frame/cycle was performed utillizing Gamma camera interfaced with a digital computer and gated device. Gated imaging was then performed in the left anterior oblique, anterior, and the left lateral projections. Findings Left Ventricle: The quality of the study is suboptimal due to limited positioning. The left ventricle is within normal limits in size with thickened myocardium. The right ventricle is normal in size. Wall motion study shows good contractility of the left ventricle. RV wall motion is normal. The right atrium is dynamic.. The remainder of the study is unremarkable. Impressions Normal gated wall motion of left ventricle wall. LVEF = 60%. Normal RV wall motion.
--- NOTE | 2017-12-16 02:50 | PN ---
DATE: 12/15/2017 PULMONARY PROGRESS NOTE REFERRING PHYSICIAN: Adam Dejesus MD SUBJECTIVE: He is lying in the bed, head at 45 degree, night was unremarkable, feels little better. Decreased cough, decreased shortness of breath. No nausea. No vomiting. No diarrhea. No leg pain or leg swelling. OBJECTIVE: GENERAL: In no acute distress. VITAL SIGNS: Temperature is 98.0, heart rate 80, respiratory rate is 20, blood pressure 108/63, pulse ox 94% on 3 L nasal cannula. HEENT: Moist mucous membrane. Crowded airway. Mallampati score is IV. NECK: Supple. No JVD. LUNGS: Have a fair airflow with rhonchi. HEART: S1 and S2. ABDOMEN: Soft, nontender. No organomegaly. EXTREMITIES: No edema. NEUROLOGIC: Awake, alert. Follows simple command. MEDICATIONS: He is on Zithromax 250 mg daily, digoxin 0.125 mg daily, DuoNeb q. 2 hours and q. 4 hours round the clock , Eliquis 10 mg twice a day, insulin coverage, Lasix 40 mg twice a day, metoprolol tartrate 25 mg twice a day, Protonix 40 mg daily, Tylenol p.r.n. basis. LABORATORY DATA: Shows hemoglobin 16.3, hematocrit 49.4, WBC 18,000, platelets is 146. Sodium 137, potassium 4.2, chloride 94, bicarbonate 35, BUN 18, creatinine 0.7, glucose 144, calcium 9.1, phosphorus 3.2, magnesium 1.9, AST 16, ALT 23, alkaline phosphatase is 75, albumin is 3.4. Drug screen on admission, opiates are positive. Microbiology: Blood culture is no growth. IMPRESSION AND PLAN: Pulmonary embolism, hilar and mediastinal lymphadenopathy, chronic obstructive lung disease, cardiomyopathy, chronic diastolic dysfunction, obesity. We will continue anticoagulation, keep at 45 degrees. Gastric prophylaxis. The patient had sleep study done in the past, which was negative for sleep apnea. We will discontinue continuous positive airway pressure. Thank you and we will follow with you. Lulu Shannon MD
[2017-12-16] MEDS: Albuterol-Ipratrop 3 mg / 0.5 (3 ml) UD IH SCH ×4 (05:21→16:16)
[2017-12-16 05:36] VITALS: O2SAT 97
[2017-12-16 06:24] LABS: BASO # 0.01 K/mm3 (0.0-2.0); BASO % 0.1 % (0.0-3.0); EOS # 0.1 (0.0-0.7); EOS % 0.4 % (1.5-5.0); GRAN # 10.25 (1.4-6.5); GRAN % 73.9 % (50.0-68.0); HEMOGLOBIN 15.7 g/dL (14.0-18.0); LYMPH # 2.5 (1.2-3.4); MEAN CELL VOLUME 93.1 fl (80.0-105.0); MEAN CORPUSCULAR HEMOGLOBIN 30.1 pg (25.0-35.0); MEAN CORPUSCULAR HGB CONC 32.3 g/dl (31.0-37.0); MEAN PLATELET VOLUME 11.7 fl (7.0-11.0); MONO # 1.1 (0.1-0.6); MONO % 7.6 % (1.0-6.0); RBC 5.22 10^6/uL (3.5-6.1); RED CELL DISTRIBUTION WIDTH 16.2 % (11.5-14.5); WHITE BLOOD COUNT 13.9 10^3/ul (4.5-11.0)
[2017-12-16 06:59] LABS: ALBUMIN 3.4 g/dL (3.0-4.8); ALT/SGPT 34 U/L (7-56); AST/SGOT 17 U/L (17-59); BLOOD UREA NITROGEN 25 mg/dL (7-21); CALCIUM 8.7 mg/dL (8.4-10.5); GFR AFRICAN-AMERICAN > 60; GFR NON-AFRICAN AMERICAN > 60
[2017-12-16] MEDS: Insulin Reg-MEDIUM-Coverage SC SCH ×3 (07:55→16:55)
[2017-12-16] MEDS: Azithromycin 250 MG in Sodium Chloride 0.9% 250 ML IVPB SCH (10:22)
[2017-12-16 14:23] VITALS: RESP 18
--- NOTE | 2017-12-16 14:24 | PN ---
DATE: 12/15/2017 REASON FOR CONSULTATION AND FOLLOWUP: Cardiac evaluation, shortness of breath. SUBJECTIVE: The patient denies any chest pain, shortness of breath or any palpitations. OBJECTIVE: GENERAL: Not in apparent distress. VITAL SIGNS: As follows: Temperature afebrile, heart rate , blood pressure of 110/66. HEENT: PERRLA. Extraocular muscles intact. NECK: Supple. No carotid bruit or thyromegaly. CHEST: Clear to auscultation. HEART: S1, S2, regular. ABDOMEN: Soft. EXTREMITIES: Clubbing and cyanosis negative. LABORATORY DATA: Blood workup as follows: WBC 13.9, hemoglobin 15.7, hematocrit of 48.6, platelet count 146. Chemistry shows sodium 138, potassium , carbon dioxide 36, anion gap of 13, BUN 25, creatinine 0.6. Patient had a MUGA scan done yesterday to assess LV and RV function that revealed a normal RV motion, ejection fraction of 60%. Echo showed ejection fraction 55% to 60%, moderately dilated RV, trace aortic regurgitation, mild aortic stenosis, [id number] mitral regurgitation and [id number] tricuspid regurgitation, RV systolic pressure 51. IMPRESSION: Morbid obesity, body mass index close to kg/m2, exact 48 kg/m2; sleep apnea; chronic obstructive pulmonary disease; deep vein thrombosis; history of pulmonary embolism in the past; inferior vena cava filter status post ; history of cardiac catheterization, 05/2014; nonobstructive coronary artery disease, essentially normal coronaries; cardiomyopathy, later on significantly improved; mild aortic stenosis, peak gradient 14 mmHg. RECOMMENDATION: Aggressive treatment for COPD, continue CPAP, continue Eliquis 10 mg p.o. b.i.d. for 1 week followed by 5 mg because of history of recent pulmonary embolism. Discharge planning, discussed with taking care. Discussed the plan yesterday for possible discharge today. We will discontinue telemetry. As mentioned, continue Eliquis 10 mg b.i.d. till for one week followed by 5 mg daily from . Thank you, Dr. Yi/Dr. Leiva, for providing us the opportunity in taking care of Naresh Riley. Lulu Jacobo MD [facility] # [id number]
[2017-12-16] MEDS: Digoxin 125 mcg (0.125 mg) Tab PO SCH (14:41)
[2017-12-16 14:43] VITALS: PULSE 71
[2017-12-16 18:41] VITALS: BP 128/81; PULSE 90
[2017-12-16 19:04] VITALS: TEMP 97.8
--- NOTE | 2017-12-16 22:47 | PN ---
DATE: 12/16/2007 PULMONARY PROGRESS NOTE REFERRING PHYSICIAN: Dr. Tsang. SUBJECTIVE: Patient is sitting on side of the bed, having dinner. Night was unremarkable. Breathing is improved. No nausea, no vomiting, no diarrhea. No leg pain or leg swelling. OBJECTIVE: GENERAL: In no acute distress. VITAL SIGNS: Temp is 98, heart rate is 75, respiratory rate is 18, blood pressure 114/72, pulse ox 97% on nasal cannula. HEENT: Moist mucous membrane. Crowded airway. Mallampati score is IV. NECK: Supple. No JVD. LUNGS: Have a fair airflow with rhonchi. HEART: S1 and S2. ABDOMEN: Soft and nontender. No organomegaly. EXTREMITIES: No edema. NEUROLOGICAL: Awake and alert. Follows simple command. MEDICATIONS: He is on digoxin 0.125 mg daily, DuoNeb q. 2 hours p.r.n. and q. 4 hour round the clock, Eliquis 10 mg twice a day, insulin coverage, Lasix 40 mg twice a day, metoprolol tartrate 25 mg twice a day, prednisone 40 mg daily, Protonix 40 mg daily, Tylenol p.r.n., Zithromax 250 mg daily. LABORATORY DATA: Shows hemoglobin 15.7, hematocrit 48.6, WBC 13.9, platelet count is 146. Sodium 138, potassium 4.1, chloride 93, bicarbonate 36, BUN 25, creatinine 0.8, glucose 117, phosphorus 3.5, magnesium 2.8, AST 17, ALT 34, alk phos is 65. Albumin is 3.4. Microbiology, blood culture has been negative. IMPRESSION AND PLAN: Pulmonary embolism, hilar and mediastinal adenopathy, chronic obstructive lung disease, cardiomyopathy, diastolic dysfunction, obesity. Pulmonary point of view, doing okay. Patient can be discharged on tapered dose of steroids, has no sleep apnea syndrome. CPAP/BiPAP could be discontinued. Continue anticoagulation, fall precaution. Followup CT as outpatient to assure the stability of adenopathy. Patient expressed understanding and will follow up with PMD. Thank you and we will follow with you. Lulu Shannon MD [facility] # [id number]
--- NOTE | 2017-12-18 17:42 | CP.PCM.DIS ---
Provider - Provider Date of Admission: 12/13/17 21:05 Attending physician: Lulu Leiva MD Primary care physician: Yoni Young MD Consults: Víctor: Mirtha Time Spent in preparation of Discharge (in minutes): 51 Hospital Course - Lab Results Lab Results: Most Recent Lab Values WBC 13.9 10^3/ul (4.5-11.0) H D 12/16/17 05:30 RBC 5.22 10^6/uL (3.5-6.1) 12/16/17 05:30 Hgb 15.7 g/dL (14.0-18.0) 12/16/17 05:30 Hct 48.6 % (42.0-52.0) 12/16/17 05:30 MCV 93.1 fl (80.0-105.0) 12/16/17 05:30 MCH 30.1 pg (25.0-35.0) 12/16/17 05:30 MCHC 32.3 g/dl (31.0-37.0) 12/16/17 05:30 RDW 16.2 % (11.5-14.5) H 12/16/17 05:30 Plt Count 146 10^3/uL (120.0-450.0) 12/16/17 05:30 MPV 11.7 fl (7.0-11.0) H 12/16/17 05:30 Gran % 73.9 % (50.0-68.0) H 12/16/17 05:30 Lymph % (Auto) 18.0 % (22.0-35.0) L 12/16/17 05:30 [place] % (Auto) 7.6 % (1.0-6.0) H 12/16/17 05:30 Eos % (Auto) 0.4 % (1.5-5.0) L 12/16/17 05:30 Baso % (Auto) 0.1 % (0.0-3.0) 12/16/17 05:30 Gran # 10.25 (1.4-6.5) H 12/16/17 05:30 Lymph # (Auto) 2.5 (1.2-3.4) 12/16/17 05:30 [place] # (Auto) 1.1 (0.1-0.6) H 12/16/17 05:30 Eos # (Auto) 0.1 (0.0-0.7) 12/16/17 05:30 Baso # (Auto) 0.01 K/mm3 (0.0-2.0) 12/16/17 05:30 Neutrophils % (Manual) 91 % (50.0-70.0) H 12/14/17 06:30 Lymphocytes % (Manual) 6 % (22.0-35.0) L 12/14/17 06:30 Atypical Lymphs % 1 % (0.0-0.0) H 12/14/17 06:30 Monocytes % (Manual) 2 % (1.0-6.0) 12/14/17 06:30 Toxic Granulation Slight 12/14/17 06:30 Platelet Evaluation Sl. jovana (NORMAL) 12/14/17 06:30 Large Platelets Present 12/14/17 06:30 Anisocytosis (manual) Slight 12/14/17 06:30 PT 14.1 SECONDS (9.4-12.5) H 12/13/17 18:15 INR 1.23 (0.93-1.08) H 12/13/17 18:15 APTT 31.6 Seconds (25.1-36.5) 12/13/17 18:15 pCO2 57 mm/Hg (35-45) H 12/14/17 04:54 pO2 56.0 mm/Hg (80-100) L 12/14/17 04:54 HCO3 33.7 mmol/L (21-28) H 12/14/17 04:54 ABG pH 7.38 (7.35-7.45) 12/14/17 04:54 ABG Total CO2 35.4 mmol.L (22-28) H 12/14/17 04:54 ABG O2 Saturation 93.9 % (95-98) L 12/14/17 04:54 ABG O2 Content 20.3 ML/dl (15-23) 12/14/17 00:10 ABG Base Excess 6.8 mmol/L (-2.0-3.0) H 12/14/17 04:54 ABG Hemoglobin 16.7 g/dL (11.7-17.4) 12/14/17 00:10 ABG Carboxyhemoglobin 4.3 % (0.5-1.5) H 12/14/17 00:10 POC ABG HHb (Measured) 8.1 % (0-5) H 12/14/17 00:10 ABG Methemoglobin 1.1 % (0.0-3.0) 12/14/17 00:10 ABG O2 Capacity 22.2 mL/dl (16-24) 12/14/17 00:10 ABG Potassium 4.1 mmol/L (3.6-5.2) 12/14/17 04:54 VBG pH 7.29 (7.32-7.43) L 12/13/17 18:15 VBG pCO2 79.0 (40-60) H* 12/13/17 18:15 VBG HCO3 38.0 mmol/l (21-28) H 12/13/17 18:15 VBG Total CO2 40.4 mmol.L (22-28) H 12/13/17 18:15 VBG O2 Sat (Calc) 99.8 % (40-65) H 12/13/17 18:15 VBG Base Excess 8.3 mmol/L (0.0-2.0) H 12/13/17 18:15 VBG Potassium 5.3 mmol/L (3.6-5.2) H 12/13/17 18:15 Hgb O2 Saturation 86.6 % (95.0-98.0) L 12/14/17 00:10 Sodium 138.0 mmol/L (132-148) 12/14/17 04:54 Chloride 103.0 mmol/L (98-107) 12/14/17 04:54 Glucose 164 mg/dl (75-110) H 12/14/17 04:54 Lactate 0.9 mmol/L (0.7-2.1) 12/14/17 04:54 Mechanical Rate 16 12/13/17 19:15 FiO2 40.0 % 12/14/17 04:54 Inspiratory BiPAP 12 12/13/17 19:15 Sodium 138 mmol/L (132-148) 12/16/17 05:30 Potassium 4.1 mmol/L (3.6-5.0) 12/16/17 05:30 Chloride 93 mmol/L (98-107) L 12/16/17 05:30 Carbon Dioxide 36 mmol/L (21-33) H 12/16/17 05:30 Anion Gap 13 (10-20) 12/16/17 05:30 BUN 25 mg/dL (7-21) H 12/16/17 05:30 Creatinine 0.8 mg/dl (0.8-1.5) 12/16/17 05:30 Est GFR ( Amer) > 60 12/16/17 05:30 Est GFR (Non-Af Amer) > 60 12/16/17 05:30 POC Glucose (mg/dL) 160 mg/dL (65-110) H 12/16/17 16:00 Random Glucose 117 mg/dL (70-110) H 12/16/17 05:30 Hemoglobin A1c 5.2 % (4.2-6.5) 12/13/17 18:15 Calcium 8.7 mg/dL (8.4-10.5) 12/16/17 05:30 Phosphorus 3.4 mg/dL (2.5-4.5) 12/16/17 05:30 Magnesium 2.0 mg/dL (1.7-2.2) 12/16/17 05:30 Total Bilirubin 0.8 mg/dL (0.2-1.3) 12/16/17 05:30 AST 17 U/L (17-59) 12/16/17 05:30 ALT 34 U/L (7-56) 12/16/17 05:30 Alkaline Phosphatase 65 U/L (38-126) 12/16/17 05:30 Lactate Dehydrogenase 687 U/L (333-699) 12/13/17 18:15 Total Creatine Kinase 97 U/L (35-230) 12/13/17 18:15 Troponin I 0.01 ng/mL D 12/14/17 06:30 NT-Pro-B Natriuret Pep 1630 pg/mL (0-450) H 12/13/17 18:15 Total Protein 6.9 g/dL (5.8-8.3) 12/16/17 05:30 Albumin 3.4 g/dL (3.0-4.8) 12/16/17 05:30 Globulin 3.6 gm/dL 12/16/17 05:30 Albumin/Globulin Ratio 1.0 (1.1-1.8) L 12/16/17 05:30 Triglycerides 130 mg/dL (35-160) 12/13/17 18:15 Cholesterol 126 mg/dL (130-200) L 12/13/17 18:15 LDL Cholesterol Direct 71 mg/dL (0-129) 12/13/17 18:15 HDL Cholesterol 33 mg/dL (29-60) 12/13/17 18:15 Procalcitonin 0.09 NG/ML (0.19-0.49) L 12/14/17 06:30 TSH 3rd Generation 1.00 mIU/mL (0.46-4.68) 12/13/17 18:15 Arterial Blood Potassium 4.1 mmol/L (3.6-5.2) 12/14/17 04:54 Venous Blood Potassium 5.3 mmol/L (3.6-5.2) H 12/13/17 18:15 Urine Color Yellow (YELLOW) 12/13/17 19:28 Urine Appearance Clear (CLEAR) 12/13/17 19:28 Urine pH 6.0 (4.7-8.0) 12/13/17 19:28 Ur Specific [place] 1.025 (1.005-1.035) 12/13/17 19:28 Urine Protein 100 mg/dL (<30 mg/dL) H 12/13/17 19:28 Urine Glucose (UA) Negative mg/dL (NEGATIVE) 12/13/17 19:28 Urine Ketones Negative mg/dL (NEGATIVE) 12/13/17 19:28 Urine Blood Negative (NEGATIVE) 12/13/17 19:28 Urine Nitrate Negative (NEGATIVE) 12/13/17 19:28 Urine Bilirubin Negative (NEGATIVE) 12/13/17 19:28 Urine Urobilinogen 1.0 E.U./dL (<1 E.U./dL) H 12/13/17 19:28 Ur Leukocyte Esterase Negative [place]/uL (NEGATIVE) 12/13/17 19:28 Urine RBC 0 - 2 /hpf (0-2) 12/13/17 19:28 Urine WBC 1 - 3 /hpf (0-6) 12/13/17 19:28 Ur Epithelial Cells None /hpf (0-5) 12/13/17 19:28 Amorphous Sediment Few 12/13/17 19:28 Urine Bacteria Many (NEG) 12/13/17 19:28 Fine Granular Casts 0 - 2 /hpf (0-2) 12/13/17 19:28 Coarse Granular Casts Trace /hpf (0-2) H 12/13/17 19:28 Urine Other Fiber 12/13/17 19:28 Digoxin < 0.4 ng/mL (0.8-2.0) L 12/14/17 06:30 Urine Opiates Screen Positive (NEGATIVE) H 12/13/17 19:28 Urine Methadone Screen Negative (NEGATIVE) 12/13/17 19:28 Ur Barbiturates Screen Negative (NEGATIVE) 12/13/17 19:28 Ur Phencyclidine Scrn Negative (NEGATIVE) 12/13/17 19:28 Ur Amphetamines Screen Negative (NEGATIVE) 12/13/17 19:28 U Benzodiazepines Scrn Positive (NEGATIVE) 12/13/17 19:28 U Oth Cocaine Metabols Negative (NEGATIVE) 12/13/17 19:28 U Cannabinoids Screen Negative (NEGATIVE) 12/13/17 19:28 Alcohol, Quantitative < 10 mg/dL (0-10) 12/13/17 18:15 Influenza Typ A,B (EIA) Negative for flu a/b (NEGATIVE) 12/13/17 18:15 - Date & Time of H&P Date of H&P: 12/13/17 Time of H&P: 21:14 Discharge Exam - Head Exam Head Exam: ATRAUMATIC, NORMAL INSPECTION, NORMOCEPHALIC Discharge Plan - Discharge Medications Prescriptions: Albuterol HFA [Ventolin HFA 90 mcg/actuation (8 g)] 2 puff IH [id number] #1 puff Apixaban [Eliquis] 5 mg PO BID #28 tablet Apixaban [Eliquis] 10 mg PO BID #10 tab Budesonide [Pulmicort Flexhaler] 180 mcg IH BID #1 aer.pow.ba Furosemide [Lasix] 40 mg PO BID #28 tab MetFORMIN [glucoPHAGE] 1 tab PO DAILY #14 tab predniSONE [Prednisone] 10 mg PO DAILY #3 tab predniSONE [Prednisone] 40 mg PO DAILY #3 tab predniSONE [Prednisone] 20 mg PO DAILY #3 tab predniSONE [predniSONE Tab] 5 mg PO DAILY #3 tab - Follow Up Plan Condition: GUARDED Disposition: HOME/ ROUTINE Instructions: Heart Healthy Diet, Heart Failure, Adult (DC), Diabetes Diet , Oxygen Therapy, Adult (DC), How to Use Your Dry Powder Inhaler (Adults), How to Use Your Metered Dose Inhaler (Adults), Exacerbation of COPD (DC), Albuterol, Prednisone, Budesonide (Oral Inhalation) Additional Instructions: Please follow up with your primary care doctor within one week You will need to complete five more days of Eliquis 10mg twice a day and then resume taking Eliquis 5mg twice a day You have been placed on a tapering dose of Prednisone. You need to take the 40mg dose for three consecutive days, then the 20mg dose for three consecutive days, then the 10mg dose for three consecutive days and then the 5mg dose for three consecutive days to complete the course of this medication You have been prescribed two inhalers, Pulmicort and Albuterol. Please be sure to review how to use these with your nurse prior to discharge Please take all medications as prescribed Should your symptoms worsen or persist, please seek emergency medical attention Referrals: Yoni Young MD [Primary Care Provider] -
--- NOTE | 2017-12-18 18:05 | CP.PCM.DIS ---
Provider - Provider Date of Admission: 12/13/17 21:05 Attending physician: Lulu Leiva MD Primary care physician: Yoni Young MD Consults: Cardio: Catracho Leem: Mirtha Time Spent in preparation of Discharge (in minutes): 51 Hospital Course - Lab Results Lab Results: Most Recent Lab Values WBC 13.9 10^3/ul (4.5-11.0) H D 12/16/17 05:30 RBC 5.22 10^6/uL (3.5-6.1) 12/16/17 05:30 Hgb 15.7 g/dL (14.0-18.0) 12/16/17 05:30 Hct 48.6 % (42.0-52.0) 12/16/17 05:30 MCV 93.1 fl (80.0-105.0) 12/16/17 05:30 MCH 30.1 pg (25.0-35.0) 12/16/17 05:30 MCHC 32.3 g/dl (31.0-37.0) 12/16/17 05:30 RDW 16.2 % (11.5-14.5) H 12/16/17 05:30 Plt Count 146 10^3/uL (120.0-450.0) 12/16/17 05:30 MPV 11.7 fl (7.0-11.0) H 12/16/17 05:30 Gran % 73.9 % (50.0-68.0) H 12/16/17 05:30 Lymph % (Auto) 18.0 % (22.0-35.0) L 12/16/17 05:30 [place] % (Auto) 7.6 % (1.0-6.0) H 12/16/17 05:30 Eos % (Auto) 0.4 % (1.5-5.0) L 12/16/17 05:30 Baso % (Auto) 0.1 % (0.0-3.0) 12/16/17 05:30 Gran # 10.25 (1.4-6.5) H 12/16/17 05:30 Lymph # (Auto) 2.5 (1.2-3.4) 12/16/17 05:30 [place] # (Auto) 1.1 (0.1-0.6) H 12/16/17 05:30 Eos # (Auto) 0.1 (0.0-0.7) 12/16/17 05:30 Baso # (Auto) 0.01 K/mm3 (0.0-2.0) 12/16/17 05:30 Neutrophils % (Manual) 91 % (50.0-70.0) H 12/14/17 06:30 Lymphocytes % (Manual) 6 % (22.0-35.0) L 12/14/17 06:30 Atypical Lymphs % 1 % (0.0-0.0) H 12/14/17 06:30 Monocytes % (Manual) 2 % (1.0-6.0) 12/14/17 06:30 Toxic Granulation Slight 12/14/17 06:30 Platelet Evaluation Sl. jovana (NORMAL) 12/14/17 06:30 Large Platelets Present 12/14/17 06:30 Anisocytosis (manual) Slight 12/14/17 06:30 PT 14.1 SECONDS (9.4-12.5) H 12/13/17 18:15 INR 1.23 (0.93-1.08) H 12/13/17 18:15 APTT 31.6 Seconds (25.1-36.5) 12/13/17 18:15 pCO2 57 mm/Hg (35-45) H 12/14/17 04:54 pO2 56.0 mm/Hg (80-100) L 12/14/17 04:54 HCO3 33.7 mmol/L (21-28) H 12/14/17 04:54 ABG pH 7.38 (7.35-7.45) 12/14/17 04:54 ABG Total CO2 35.4 mmol.L (22-28) H 12/14/17 04:54 ABG O2 Saturation 93.9 % (95-98) L 12/14/17 04:54 ABG O2 Content 20.3 ML/dl (15-23) 12/14/17 00:10 ABG Base Excess 6.8 mmol/L (-2.0-3.0) H 12/14/17 04:54 ABG Hemoglobin 16.7 g/dL (11.7-17.4) 12/14/17 00:10 ABG Carboxyhemoglobin 4.3 % (0.5-1.5) H 12/14/17 00:10 POC ABG HHb (Measured) 8.1 % (0-5) H 12/14/17 00:10 ABG Methemoglobin 1.1 % (0.0-3.0) 12/14/17 00:10 ABG O2 Capacity 22.2 mL/dl (16-24) 12/14/17 00:10 ABG Potassium 4.1 mmol/L (3.6-5.2) 12/14/17 04:54 VBG pH 7.29 (7.32-7.43) L 12/13/17 18:15 VBG pCO2 79.0 (40-60) H* 12/13/17 18:15 VBG HCO3 38.0 mmol/l (21-28) H 12/13/17 18:15 VBG Total CO2 40.4 mmol.L (22-28) H 12/13/17 18:15 VBG O2 Sat (Calc) 99.8 % (40-65) H 12/13/17 18:15 VBG Base Excess 8.3 mmol/L (0.0-2.0) H 12/13/17 18:15 VBG Potassium 5.3 mmol/L (3.6-5.2) H 12/13/17 18:15 Hgb O2 Saturation 86.6 % (95.0-98.0) L 12/14/17 00:10 Sodium 138.0 mmol/L (132-148) 12/14/17 04:54 Chloride 103.0 mmol/L (98-107) 12/14/17 04:54 Glucose 164 mg/dl (75-110) H 12/14/17 04:54 Lactate 0.9 mmol/L (0.7-2.1) 12/14/17 04:54 Mechanical Rate 16 12/13/17 19:15 FiO2 40.0 % 12/14/17 04:54 Inspiratory BiPAP 12 12/13/17 19:15 Sodium 138 mmol/L (132-148) 12/16/17 05:30 Potassium 4.1 mmol/L (3.6-5.0) 12/16/17 05:30 Chloride 93 mmol/L (98-107) L 12/16/17 05:30 Carbon Dioxide 36 mmol/L (21-33) H 12/16/17 05:30 Anion Gap 13 (10-20) 12/16/17 05:30 BUN 25 mg/dL (7-21) H 12/16/17 05:30 Creatinine 0.8 mg/dl (0.8-1.5) 12/16/17 05:30 Est GFR ( Amer) > 60 12/16/17 05:30 Est GFR (Non-Af Amer) > 60 12/16/17 05:30 POC Glucose (mg/dL) 160 mg/dL (65-110) H 12/16/17 16:00 Random Glucose 117 mg/dL (70-110) H 12/16/17 05:30 Hemoglobin A1c 5.2 % (4.2-6.5) 12/13/17 18:15 Calcium 8.7 mg/dL (8.4-10.5) 12/16/17 05:30 Phosphorus 3.4 mg/dL (2.5-4.5) 12/16/17 05:30 Magnesium 2.0 mg/dL (1.7-2.2) 12/16/17 05:30 Total Bilirubin 0.8 mg/dL (0.2-1.3) 12/16/17 05:30 AST 17 U/L (17-59) 12/16/17 05:30 ALT 34 U/L (7-56) 12/16/17 05:30 Alkaline Phosphatase 65 U/L (38-126) 12/16/17 05:30 Lactate Dehydrogenase 687 U/L (333-699) 12/13/17 18:15 Total Creatine Kinase 97 U/L (35-230) 12/13/17 18:15 Troponin I 0.01 ng/mL D 12/14/17 06:30 NT-Pro-B Natriuret Pep 1630 pg/mL (0-450) H 12/13/17 18:15 Total Protein 6.9 g/dL (5.8-8.3) 12/16/17 05:30 Albumin 3.4 g/dL (3.0-4.8) 12/16/17 05:30 Globulin 3.6 gm/dL 12/16/17 05:30 Albumin/Globulin Ratio 1.0 (1.1-1.8) L 12/16/17 05:30 Triglycerides 130 mg/dL (35-160) 12/13/17 18:15 Cholesterol 126 mg/dL (130-200) L 12/13/17 18:15 LDL Cholesterol Direct 71 mg/dL (0-129) 12/13/17 18:15 HDL Cholesterol 33 mg/dL (29-60) 12/13/17 18:15 Procalcitonin 0.09 NG/ML (0.19-0.49) L 12/14/17 06:30 TSH 3rd Generation 1.00 mIU/mL (0.46-4.68) 12/13/17 18:15 Arterial Blood Potassium 4.1 mmol/L (3.6-5.2) 12/14/17 04:54 Venous Blood Potassium 5.3 mmol/L (3.6-5.2) H 12/13/17 18:15 Urine Color Yellow (YELLOW) 12/13/17 19:28 Urine Appearance Clear (CLEAR) 12/13/17 19: Urine pH 6.0 (4.7-8.0) 12/13/17 19: Ur Specific [place] 1.025 (1.005-1.035) 12/13/17 19: Urine Protein 100 mg/dL (<30 mg/dL) H 12/13/17 19:28 Urine Glucose (UA) Negative mg/dL (NEGATIVE) 12/13/17 19: Urine Ketones Negative mg/dL (NEGATIVE) 12/13/17 19:28 Urine Blood Negative (NEGATIVE) 12/13/17 19: Urine Nitrate Negative (NEGATIVE) 12/13/17 19: Urine Bilirubin Negative (NEGATIVE) 12/13/17 19:28 Urine Urobilinogen 1.0 E.U./dL (<1 E.U./dL) H 12/13/17 19:28 Ur Leukocyte Esterase Negative [place]/uL (NEGATIVE) 12/13/17 19: Urine RBC 0 - 2 /hpf (0-2) 12/13/17 19:28 Urine WBC 1 - 3 /hpf (0-6) 12/13/17 19:28 Ur Epithelial Cells None /hpf (0-5) 12/13/17 19:28 Amorphous Sediment Few 12/13/17 19:28 Urine Bacteria Many (NEG) 12/13/17 19:28 Fine Granular Casts 0 - 2 /hpf (0-2) 12/13/17 19:28 Coarse Granular Casts Trace /hpf (0-2) H 12/13/17 19:28 Urine Other Fiber 12/13/17 19:28 Digoxin < 0.4 ng/mL (0.8-2.0) L 12/14/17 06:30 Urine Opiates Screen Positive (NEGATIVE) H 12/13/17 19:28 Urine Methadone Screen Negative (NEGATIVE) 12/13/17 19:28 Ur Barbiturates Screen Negative (NEGATIVE) 12/13/17 19:28 Ur Phencyclidine Scrn Negative (NEGATIVE) 12/13/17 19:28 Ur Amphetamines Screen Negative (NEGATIVE) 12/13/17 19: U Benzodiazepines Scrn Positive (NEGATIVE) 12/13/17 19: U Oth Cocaine Metabols Negative (NEGATIVE) 12/13/17 19: U Cannabinoids Screen Negative (NEGATIVE) 12/13/17 19:28 Alcohol, Quantitative < 10 mg/dL (0-10) 12/13/17 18:15 Influenza Typ A,B (EIA) Negative for flu a/b (NEGATIVE) 12/13/17 18:15 - Hospital Course Hospital Course: 57 year old male with a past medical history significant for COPD, DESTINEE, HTN, HLD , diastolic CHF, NSTEMI, DVT/PE on Eliquis (Non-compliant), s/p IVC filter and medication non-compliance who presented with AMS secondary to hypercapneic respiratory acidosis secondary to non-compliance with CPAP, CHF exacerbation with PVC on chest x-ray and LLL pneumonia seen on chest x-ray. An ABG showed a carbon dioxide level of 75 without adequate compensation. Patient was placed on BiPAP, scheduled and as needed Duonebs, IV solu-medrol and pulmonology was consulted. BiPAP was used at night and CO2 retention resolved. Pulm recommended that patient did not require CPAP or BiPAP and these were stopped prior to discharge. Patient met requirements for home oxygen via [employer] and this was ordered and delivered prior to discharge. A UDS was positive for medications patient is prescribed at home, including benzo's and opiates. One dose of narcan was given in ED. IV Lasix was started, home digoxin was restarted and cardio was consulted. Troponins were found to be negative. Patient was started on Zithromax and Rocephin empirically for LLL PNE as patient had leukocytosis. Patient was eventually taken off of Rocephin but continued Zithromax throughout hospital stay. Flu testing was negative. Patient was started on home eliquis and a CTA was ordered and found possible R segmental PE with artifact present. One dose of weight based SC Lovenox was given. Patient was started on double the dose of his eliquis for a period of seven days, which was started as an inpatient and completed as an outpatient. An Echo was done and showed signs of pHTN and right heart strain. MUGA was done and showed normal LV and RV function. Patient was started on SSI for glycemic control. Patient was discharged 12/16/17 when he was HDS and cleared by cardiology and pulmonology. He was given the following instructions: Please follow up with your primary care doctor within one week You will need to complete five more days of Eliquis 10mg twice a day and then resume taking Eliquis 5mg twice a day You have been placed on a tapering dose of Prednisone. You need to take the 40mg dose for three consecutive days, then the 20mg dose for three consecutive days, then the 10mg dose for three consecutive days and then the 5mg dose for three consecutive days to complete the course of this medication You have been prescribed two inhalers, Pulmicort and Albuterol. Please be sure to review how to use these with your nurse prior to discharge Please take all medications as prescribed Should your symptoms worsen or persist, please seek emergency medical attention - Date & Time of H&P Date of H&P: 12/13/17 Time of H&P: 21:14 Discharge Exam - Head Exam Head Exam: ATRAUMATIC, NORMAL INSPECTION, NORMOCEPHALIC - Eye Exam Eye Exam: EOMI, Normal appearance, PERRL - ENT Exam ENT Exam: Mucous Membranes Moist - Respiratory Exam Respiratory Exam: Clear to PA & Lateral, NORMAL BREATHING PATTERN, UNREMARKABLE - Cardiovascular Exam Cardiovascular Exam: REGULAR RHYTHM - GI/Abdominal Exam GI & Abdominal Exam: Normal Bowel Sounds, Unremarkable - Extremities Exam Extremities exam: normal capillary refill, normal inspection, pedal pulses present - Neurological Exam Neurological exam: Alert, CN II-XII Intact, Normal Gait, Oriented x3 - Psychiatric Exam Psychiatric exam: Normal Affect, Normal Mood - Skin Skin Exam: Dry, Intact, Normal Color, Warm Discharge Plan - Discharge Medications Prescriptions: Albuterol HFA [Ventolin HFA 90 mcg/actuation (8 g)] 2 puff IH [id number] #[id number] puff Apixaban [Eliquis] 5 mg PO BID #28 tablet Apixaban [Eliquis] 10 mg PO BID #10 tab Budesonide [Pulmicort Flexhaler] 180 mcg IH BID #1 aer.[email or web address] Furosemide [Lasix] 40 mg PO BID #28 tab MetFORMIN [glucoPHAGE] 1 tab PO DAILY #14 tab predniSONE [Prednisone] 10 mg PO DAILY #3 tab predniSONE [Prednisone] 40 mg PO DAILY #3 tab predniSONE [Prednisone] 20 mg PO DAILY #3 tab predniSONE [predniSONE Tab] 5 mg PO DAILY #3 tab - Follow Up Plan Condition: GUARDED Disposition: HOME/ ROUTINE Instructions: Heart Healthy Diet, Heart Failure, Adult (DC), Diabetes Diet , Oxygen Therapy, Adult (DC), How to Use Your Dry Powder Inhaler (Adults), How to Use Your Metered Dose Inhaler (Adults), Exacerbation of COPD (DC), Albuterol, Prednisone, Budesonide (Oral Inhalation) Additional Instructions: Please follow up with your primary care doctor within one week You will need to complete five more days of Eliquis 10mg twice a day and then resume taking Eliquis 5mg twice a day You have been placed on a tapering dose of Prednisone. You need to take the 40mg dose for three consecutive days, then the 20mg dose for three consecutive days, then the 10mg dose for three consecutive days and then the 5mg dose for three consecutive days to complete the course of this medication You have been prescribed two inhalers, Pulmicort and Albuterol. Please be sure to review how to use these with your nurse prior to discharge Please take all medications as prescribed Should your symptoms worsen or persist, please seek emergency medical attention Referrals: Yoni Young MD [Primary Care Provider] -
== END 2017-12-16 20:57 | disposition home or self-care (01) | DRG 541 ==
LOC: ED 17:26 → ERH 21:05 → 3RSO 22:24
PROVIDERS: ADMIT Internal Medicine; ATTEND Internal Medicine
DX: I26.99 Other pulmonary embolism without acute cor pulmonale (principal); I50.32 Chronic diastolic (congestive) heart failure; J96.92 Respiratory failure, unspecified with hypercapnia; I13.0 Hypertensive heart and chronic kidney disease with heart failure and stage 1 through stage 4 chronic kidney disease, or unspecified chronic kidney disease; J18.9 Pneumonia, unspecified organism; E87.2 Acidosis; E11.22 Type 2 diabetes mellitus with diabetic chronic kidney disease; E66.2 Morbid (severe) obesity with alveolar hypoventilation; I42.9 Cardiomyopathy, unspecified; N18.9 Chronic kidney disease, unspecified; I35.0 Nonrheumatic aortic (valve) stenosis; J44.0 Chronic obstructive pulmonary disease with (acute) lower respiratory infection; J44.1 Chronic obstructive pulmonary disease with (acute) exacerbation; R09.02 Hypoxemia; I08.3 Combined rheumatic disorders of mitral, aortic and tricuspid valves; E78.5 Hyperlipidemia, unspecified; G47.33 Obstructive sleep apnea (adult) (pediatric); I25.10 Atherosclerotic heart disease of native coronary artery without angina pectoris; I25.2 Old myocardial infarction; I49.3 Ventricular premature depolarization; K21.9 Gastro-esophageal reflux disease without esophagitis; Z72.0 Tobacco use; Z79.01 Long term (current) use of anticoagulants; Z86.711 Personal history of pulmonary embolism; Z86.718 Personal history of other venous thrombosis and embolism; Z91.14 Patient's other noncompliance with medication regimen; Z91.19 Patient's noncompliance with other medical treatment and regimen; R40.2412 Glasgow coma scale score 13-15, at arrival to emergency department; R59.0 Localized enlarged lymph nodes

== ENCOUNTER 2018-03-14 09:47 | Day surgery (SDC) | payer MEDICAID ==
[2018-03-08 11:13] VITALS: BMI 48.0
[2018-03-14 10:35] VITALS: RESP 16
[2018-03-14] MEDS ORDERED: Propofol 10 mg/ml Inj (20 ML) ONE (12:05)
[2018-03-14] MEDS ORDERED: Benzocaine/Butamben/Tetracai 14-2-2% TOP Spray TOP ONE (12:11)
[2018-03-14] MEDS ORDERED: Sodium Chloride 0.9% 1,000 ML IV SCH (12:30)
[2018-03-14 12:42] VITALS: TEMP 97.5
[2018-03-14 12:46] VITALS: PULSE 78
[2018-03-14 13:05] VITALS: BP 130/76; O2SAT 91
== END 2018-03-14 15:16 | disposition home or self-care (01) ==
LOC: ENDO 09:47
PROVIDERS: ATTEND Internal Medicine
DX: Z01.818 Encounter for other preprocedural examination (principal); K29.50 Unspecified chronic gastritis without bleeding; B96.81 Helicobacter pylori [H. pylori] as the cause of diseases classified elsewhere; E66.9 Obesity, unspecified; I10 Essential (primary) hypertension; E11.9 Type 2 diabetes mellitus without complications; E78.00 Pure hypercholesterolemia, unspecified; I48.91 Unspecified atrial fibrillation; Z86.718 Personal history of other venous thrombosis and embolism; Z87.81 Personal history of (healed) traumatic fracture; Z87.891 Personal history of nicotine dependence; Z68.42 Body mass index [BMI] 45.0-49.9, adult; Z12.11 Encounter for screening for malignant neoplasm of colon
CPT/HCPCS: 43239; 82948; 88305; 88342; J2001; J2704; J7040 ×2

== ENCOUNTER 2018-05-22 04:50 | Inpatient (IN) | payer MEDICAID ==
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
[2018-05-22 05:42] LABS: HEMOGLOBIN 15.4 g/dL (14.0-18.0); MEAN CORPUSCULAR HEMOGLOBIN 31.2 pg (25.0-35.0); MEAN CORPUSCULAR HGB CONC 35.4 g/dl (31.0-37.0); RBC 4.93 10^6/uL (3.5-6.1); RED CELL DISTRIBUTION WIDTH 13.9 % (11.5-14.5); WHITE BLOOD COUNT 15.2 10^3/ul (4.5-11.0)
[2018-05-22 05:46] LABS: MEAN CELL VOLUME 88.2 fl (80.0-105.0)
[2018-05-22 05:58] LABS: ALB/GLOB RATIO 1.1 (1.1-1.8); ALBUMIN 3.9 g/dL (3.0-4.8); ALT/SGPT 38 U/L (7-56); AST/SGOT 25 U/L (17-59); BLOOD UREA NITROGEN 12 mg/dL (7-21); CALCIUM 8.9 mg/dL (8.4-10.5); GFR AFRICAN-AMERICAN > 60; GFR NON-AFRICAN AMERICAN > 60
[2018-05-22] MEDS ORDERED: Potassium Chloride 20 mEq ER Tab PO STA (06:04)
[2018-05-22 07:36] LABS: BARBITURATES, UR NEGATIVE (NEGATIVE); BENZODIAZEPINES, UR NEGATIVE (NEGATIVE); OPIATES, UR POSITIVE (NEGATIVE); PHENCYCLIDINE, UR NEGATIVE (NEGATIVE)
--- NOTE | 2018-05-22 08:36 | RAD ---
Date of service: 05/22/2018 HISTORY: medical clearance COMPARISON: No prior. FINDINGS: LUNGS: No active pulmonary disease. PLEURA: No significant pleural effusion identified, no pneumothorax apparent. CARDIOVASCULAR: Mild cardiomegaly OSSEOUS STRUCTURES: No significant abnormalities. VISUALIZED UPPER ABDOMEN: Normal. OTHER FINDINGS: None. IMPRESSION: No active disease.
--- NOTE | 2018-05-22 09:37 | ED PDOC ---
Physical Exam Vital Signs Reviewed: Yes Vital Signs Pulse Resp BP Pulse Ox 05/22/18 14:30 74 16 150/87 98 05/22/18 12:17 72 18 146/86 99 05/22/18 09:48 82 18 152/76 H 99 05/22/18 07:30 70 18 148/70 99 05/22/18 05:26 67 19 159/77 H 95 Temperature: Afebrile Blood Pressure: Other (152/76) Pulse: Regular Respiratory Rate: Normal Appearance: Positive for: Well-Appearing, Non-Toxic, Comfortable Pain Distress: None Mental Status: Positive for: Alert and Oriented X 3 Finger Stick Blood Glucose: 158 - Systems Exam Head: Present: Atraumatic, Normocephalic Pupils: Present: PERRL Extroacular Muscles: Present: EOMI Conjunctiva: Present: Normal Mouth: Present: Moist Mucous Membranes Neck: Present: Normal Range of Motion Respiratory/Chest: Present: Clear to Auscultation, Good Air Exchange. No: Respiratory Distress, Accessory Muscle Use Cardiovascular: Present: Regular Rate and Rhythm, Normal S1, S2. No: Murmurs Abdomen: No: Tenderness, Distention, Peritoneal Signs Back: Present: Normal Inspection Upper Extremity: Present: Normal Inspection. No: Cyanosis, Edema Lower Extremity: Present: Normal Inspection. No: Edema Neurological: Present: GCS=15, CN II-XII Intact, Speech Normal Skin: Present: Warm, Dry, Normal Color. No: Rashes Psychiatric: Present: Alert, Other (tangential thoughts, paranoid behavior) Medical Decision Making ED Course and Treatment: 05/22/18 07:10 Impression: 57 year old male brought in for agitation and paranoia. Plan: -- EKG -- Chest X-ray -- Labs, alcohol level -- Urine drug screen -- Reassess and disposition Progress Notes: 05/22/18 05:27 Reviewed EKG, NSR at [address]-segment elevations or depressions, no T-wave inversions, normal intervals 05/22/18 07:00 Case endorsed to me for/pending medical clearance/psych evaluation/final disposition Chest x-ray reviewed by radiologist for medical clearance, shows: FINDINGS: LUNGS: No active pulmonary disease. PLEURA: No significant pleural effusion identified, no pneumothorax apparent. CARDIOVASCULAR: Mild cardiomegaly OSSEOUS STRUCTURES: No significant abnormalities. VISUALIZED UPPER ABDOMEN: Normal. OTHER FINDINGS: None. IMPRESSION: No active disease. 05/22/18 10:28 Even though I believe elevated White Blood Count is due to demargination, psychiatrist prefers if we repeat white blood count test to ensure the count is down. Patient is not confused. This is not a psychiatric issue we are dealing with, it is a drug abuse issue. Mental health worker will reevaluate 4 hours from now for disposition. 05/22/18 16:54: Patient's white count is elevated but there is no evidence of infection. Patient is medically cleared for psychiatric disposition. Patient will have his white count checked as an outpatient within the next 5-7 days. - Lab Interpretations Lab Results: 05/22/18 16:00 05/22/18 16:00 Lab Results 05/22/18 16:00: Sodium 144, Potassium 4.2, Chloride 95 L, Carbon Dioxide 32, Anion Gap 22 H, BUN 11, Creatinine 0.7 L, Est GFR ( Amer) > 60, Est GFR ( Non-Af Amer) > 60, Random Glucose 94, Calcium 10.1, Phosphorus 2.5, Magnesium 1.9, Total Bilirubin 2.1 H, AST 32, ALT 23, Alkaline Phosphatase 102, Total Protein 9.2 H, Albumin 4.9 H, Globulin 4.3, Albumin/Globulin Ratio 1.1 05/22/18 16:00: WBC 17.1 H, RBC 5.90, Hgb 18.7 H*, Hct 52.8 H, MCV 89.5, MCH 31.7, MCHC 35.4, RDW 13.8, Plt Count 184, MPV 12.6 H, Gran % 83.7 H, Lymph % ( Auto) 9.2 L, Ida % (Auto) 6.8 H, Eos % (Auto) 0.1 L, Baso % (Auto) 0.2, Gran # 14.33 H, Lymph # (Auto) 1.6, Ida # (Auto) 1.2 H, Eos # (Auto) 0.0, Baso # (Auto ) 0.03 05/22/18 15:50: Urine Color Yellow, Urine Appearance Clear, Urine pH 8.0, Ur Specific [place] 1.010, Urine Protein Negative, Urine Glucose (UA) Negative, Urine Ketones Trace H, Urine Blood Negative, Urine Nitrate Negative, Urine Bilirubin Negative, Urine Urobilinogen 2.0 H, Ur Leukocyte Esterase Negative 05/22/18 11:30: WBC 19.1 H D, RBC 5.36, Hgb 16.8, Hct 47.5, MCV 88.6, MCH 31.3, MCHC 35.4, RDW 13.8, Plt Count 197, MPV 12.1 H, Gran % 85.6 H, Lymph % (Auto) 9.2 L, Ida % (Auto) 5.0, Eos % (Auto) 0.1 L, Baso % (Auto) 0.1, Gran # 16.36 H , Lymph # (Auto) 1.8, Ida # (Auto) 1.0 H, Eos # (Auto) 0.0, Baso # (Auto) 0.02 05/22/18 06:35: Urine Opiates Screen Positive H, Urine Methadone Screen Positive H, Ur Barbiturates Screen Negative, Ur Phencyclidine Scrn Negative, Ur Amphetamines Screen Negative, U Benzodiazepines Scrn Negative, U Oth Cocaine Metabols Negative, U Cannabinoids Screen Negative 05/22/18 05:25: WBC 15.2 H, RBC 4.93, Hgb 15.4, Hct 43.5, MCV 88.2 D, MCH 31.2 , MCHC 35.4, RDW 13.9, Plt Count 167, MPV 12.0 H 05/22/18 05:25: Alcohol, Quantitative < 10 05/22/18 05:25: Sodium 137, Potassium 2.9 L* D, Chloride 96 L, Carbon Dioxide 29 , Anion Gap 14, BUN 12, Creatinine 0.8, Est GFR ( Amer) > 60, Est GFR ( Non-Af Amer) > 60, Random Glucose 164 H, Calcium 8.9, Total Bilirubin 1.8 H, AST 25, ALT 38, Alkaline Phosphatase 74, Total Protein 7.3, Albumin 3.9, Globulin 3.4, Albumin/Globulin Ratio 1.1 - RAD Interpretation Radiology Orders: 05/22/18 05:06 CHEST PORTABLE [RAD] Stat Steel Finisher: Radiologist - EKG Interpretation Interpreted by ED Physician: Yes Type: 12 lead EKG - Medication Orders Current Medication Orders: Discontinued Medications Potassium Chloride (K-Dur 20 Meq Er Tab) 40 meq PO STAT STA Stop: 05/22/18 06:05 Last Admin: 05/22/18 06:24 Dose: 40 meq - Scribe Statement The provider has reviewed the documentation as recorded by the Laureenibrussell Jaquez All medical record entries made by the Laureenibrussell were at my direction and personally dictated by me. I have reviewed the chart and agree that the record accurately reflects my personal performance of the history, physical exam, medical decision making, and the department course for this patient. I have also personally directed, reviewed, and agree with the discharge instructions and disposition. Disposition/Present on Arrival - Present on Arrival Any Indicators Present on Arrival: No History of DVT/PE: No History of Uncontrolled Diabetes: No Urinary Catheter: No History of Decub. Ulcer: No History Surgical Site Infection Following: None - Disposition Have Diagnosis and Disposition been Completed?: Yes Diagnosis: Psychosis, Pneumonia, Sepsis Disposition: HOSPITALIZED Disposition Time: 09:51 Patient Plan: Admission Patient Problems: Current Active Problems Problem Status Onset Pneumonia Acute Psychosis Acute Sepsis Acute Condition: GUARDED
--- NOTE | 2018-05-22 11:11 | CARD ---
APPROVED REPORT Date of service: 05/22/2018 EKG Measurement Heart [id number] <Conclusion> Normal sinus rhythm Normal ECG
[2018-05-22 11:46] LABS: BASO # 0.02 K/mm3 (0.0-2.0); BASO % 0.1 % (0.0-3.0); EOS % 0.1 % (1.5-5.0); GRAN # 16.36 (1.4-6.5); GRAN % 85.6 % (50.0-68.0); HEMOGLOBIN 16.8 g/dL (14.0-18.0); LYMPH # 1.8 (1.2-3.4); LYMPH % 9.2 % (22.0-35.0); MEAN CELL VOLUME 88.6 fl (80.0-105.0); MEAN CORPUSCULAR HEMOGLOBIN 31.3 pg (25.0-35.0); MEAN CORPUSCULAR HGB CONC 35.4 g/dl (31.0-37.0); MEAN PLATELET VOLUME 12.1 fl (7.0-11.0); RBC 5.36 10^6/uL (3.5-6.1); RED CELL DISTRIBUTION WIDTH 13.8 % (11.5-14.5); WHITE BLOOD COUNT 19.1 10^3/ul (4.5-11.0)
[2018-05-22 16:12] LABS: URINE BILIRUBIN NEGATIVE (NEGATIVE); URINE BLOOD NEGATIVE (NEGATIVE); URINE GLUCOSE (UA) NEGATIVE (NEGATIVE); URINE LEUKOCYTE ESTERASE NEGATIVE Leu/uL (NEGATIVE)
[2018-05-22 16:13] LABS: URINE APPEARANCE CLEAR (CLEAR); URINE COLOR YELLOW (YELLOW); URINE PROTEIN NEGATIVE mg/dL (<30 mg/dL)
[2018-05-22 16:32] LABS: ALB/GLOB RATIO 1.1 (1.1-1.8); ALBUMIN 4.9 g/dL (3.0-4.8); ALT/SGPT 23 U/L (7-56); AST/SGOT 32 U/L (17-59); BLOOD UREA NITROGEN 11 mg/dL (7-21); CALCIUM 10.1 mg/dL (8.4-10.5); GFR AFRICAN-AMERICAN > 60; GFR NON-AFRICAN AMERICAN > 60
[2018-05-22 16:39] LABS: BASO # 0.03 K/mm3 (0.0-2.0); BASO % 0.2 % (0.0-3.0); EOS % 0.1 % (1.5-5.0); GRAN # 14.33 (1.4-6.5); GRAN % 83.7 % (50.0-68.0); LYMPH # 1.6 (1.2-3.4); LYMPH % 9.2 % (22.0-35.0); MEAN CELL VOLUME 89.5 fl (80.0-105.0); MEAN CORPUSCULAR HEMOGLOBIN 31.7 pg (25.0-35.0); MEAN CORPUSCULAR HGB CONC 35.4 g/dl (31.0-37.0); MEAN PLATELET VOLUME 12.6 fl (7.0-11.0); MONO # 1.2 (0.1-0.6); MONO % 6.8 % (1.0-6.0); RBC 5.9 10^6/uL (3.5-6.1); RED CELL DISTRIBUTION WIDTH 13.8 % (11.5-14.5); WHITE BLOOD COUNT 17.1 10^3/ul (4.5-11.0)
[2018-05-22 16:42] LABS: HEMOGLOBIN 18.7 g/dL (14.0-18.0)
--- NOTE | 2018-05-22 20:25 | ED PDOC ---
Physical Exam Vital Signs Temp Pulse Resp BP Pulse Ox 05/23/18 01:21 100.6 F H 112 H 14 134/74 98 05/22/18 22:35 80 18 144/79 96 05/22/18 17:00 80 18 140/84 99 05/22/18 14:30 74 16 150/87 98 05/22/18 12:17 72 18 146/86 99 05/22/18 09:48 82 18 152/76 H 99 05/22/18 07:30 70 18 148/70 99 05/22/18 05:26 67 19 159/77 H 95 Finger Stick Blood Glucose: 158 Medical Decision Making ED Course and Treatment: 05/22/18 20:23 Case endorsed to me by Dr. Varela. Patient is [place] [facility] [place]. On evaluation, patient is resting comfortable. Patient is medically cleared. Pending reassessment and disposition. 05/23/18 00:10 Notified by nursing staff that patient was irritable with respiratory distress. Patient was evaluated and noted to be experiencing respiratory distress. Pulse Ox reading noted to be low. Patient became increasingly tachypneic and difficulty oxygenating at 100% O2. Patient deemed to be in respiratory distress in pending respiratory failure. Decision made to emergently intubate. 05/23/18 00:21 PROCEDURE: INTUBATION Performed by the emergency provider Time: 12:21 Consent: Discussion of the risks, benefits, and alternatives to the procedure, along with informed consent was precluded by the urgency of the procedure and the patient condition. Timeout: A timeout to verify the correct patient, procedure, and site was performed. Indication: Respiratory distress in pending respiratory failure. Pre-oxygenation: [id number] Medications: See MAR for details. ETT Size: 8.0 Confirmation: Cords directly visualized as tube passed, good bilateral breath sounds, positive CO2 detector color change, tube fogging, adequate chest rise, improving pulse oximetry reading, improved skin color, and absence of gastric sounds,. ETT Secured: The cuff was inflated and the tube was secured appropriately at a distance of 24cm at the lip. Post-Procedure: There were no immediate complications. CXR Confirmation: YES CXR Impression: As read by me, ET tube above radha/right lower lung infiltrate. 05/23/18 00:43 EKG shows Sinus Tachycardia at 150 BPM with inferior infarct. Non-specific ST changes. Interpreted by me. 05/23/18 01:23 Case discussed with Internal Grinder Tender and Dr. Franco who was present in ER during the Patient's emergent intervention and is aware of the patient. Accepts patient into intensive care unit. Patient is currently ongoing evaluation. 05/23/18 01:40 Code Sepsis called. 05/23/18 02:10 Pt. with likely diagnosis of pneumonia/sepsis possible accompanying CHF.He was administered IV antibiotics.Careful hydration.Further CT studies to follow. 05/23/18 02:50 Case discussed in full with grade tamper who will follow patients progress along with the healthcare or medical. - Critical Care Critical Care Minutes: 45 minutes - Lab Interpretations Lab Results: 05/23/18 01:09 05/23/18 01:09 Lab Results 05/23/18 01:09: pO2 74 H, VBG pH 7.37, VBG pCO2 37.0 L, VBG HCO3 21.4, VBG Total CO2 22.5, VBG O2 Sat (Calc) 97.2 H, VBG Base Excess -3.4 L, VBG Potassium 3.5 L, Glucose 184 H, Lactate 9.2 H*, FiO2 21.0, Sodium 140.0, Chloride 99.0, Venous Blood Potassium 3.5 L 05/23/18 01:09: Urine Color Yellow, Urine Appearance Clear, Urine pH 7.0, Ur Specific Granger 1.010, Urine Protein 100 H, Urine Glucose (UA) Negative, Urine Ketones 15 H, Urine Blood Negative, Urine Nitrate Negative, Urine Bilirubin Negative, Urine Urobilinogen 2.0 H, Ur Leukocyte Esterase Negative, Urine RBC 0 - 2, Urine WBC 0 - 2, Ur Epithelial Cells 0 - 2 05/23/18 01:09: WBC 25.2 H* D, RBC 5.30, Hgb 17.0, Hct 46.7, MCV 88.1, MCH 32.1 , MCHC 36.4, RDW 13.9, Plt Count 198, MPV 11.8 H 05/23/18 01:09: Sodium 142, Potassium 3.5 L, Chloride 99, Carbon Dioxide 22, Anion Gap 25 H, BUN 11, Creatinine 0.9, Est GFR ( Amer) > 60, Est GFR ( Non-Af Amer) > 60, Random Glucose 180 H, Calcium 9.7, Total Bilirubin 2.0 H, AST 37, ALT 26, Alkaline Phosphatase 91, Lactate Dehydrogenase 571, Total Creatine Kinase 301 H, CK-MB (CK-2) Pending, CK-MB (CK-2) % Pending, Troponin I 0.04 D, NT-Pro-B Natriuret Pep 1590 H, Total Protein 7.8, Albumin 4.4, Globulin 3.4, Albumin/Globulin Ratio 1.3 05/23/18 01:09: PT 13.8, INR 1.21, APTT 26.9 05/23/18 00:08: POC Glucose (mg/dL) 142 H 05/22/18 16:00: Sodium 144, Potassium 4.2, Chloride 95 L, Carbon Dioxide 32, Anion Gap 22 H, BUN 11, Creatinine 0.7 L, Est GFR ( Amer) > 60, Est GFR ( Non-Af Amer) > 60, Random Glucose 94, Calcium 10.1, Phosphorus 2.5, Magnesium 1.9, Total Bilirubin 2.1 H, AST 32, ALT 23, Alkaline Phosphatase 102, Total Protein 9.2 H, Albumin 4.9 H, Globulin 4.3, Albumin/Globulin Ratio 1.1 05/22/18 16:00: WBC 17.1 H, RBC 5.90, Hgb 18.7 H*, Hct 52.8 H, MCV 89.5, MCH 31.7, MCHC 35.4, RDW 13.8, Plt Count 184, MPV 12.6 H, Gran % 83.7 H, Lymph % ( Auto) 9.2 L, Kaufman % (Auto) 6.8 H, Eos % (Auto) 0.1 L, Baso % (Auto) 0.2, Gran # 14.33 H, Lymph # (Auto) 1.6, Kaufman # (Auto) 1.2 H, Eos # (Auto) 0.0, Baso # (Auto ) 0.03 05/22/18 15:50: Urine Color Yellow, Urine Appearance Clear, Urine pH 8.0, Ur Specific Granger 1.010, Urine Protein Negative, Urine Glucose (UA) Negative, Urine Ketones Trace H, Urine Blood Negative, Urine Nitrate Negative, Urine Bilirubin Negative, Urine Urobilinogen 2.0 H, Ur Leukocyte Esterase Negative 05/22/18 11:30: WBC 19.1 H D, RBC 5.36, Hgb 16.8, Hct 47.5, MCV 88.6, MCH 31.3, MCHC 35.4, RDW 13.8, Plt Count 197, MPV 12.1 H, Gran % 85.6 H, Lymph % (Auto) 9.2 L, Kaufman % (Auto) 5.0, Eos % (Auto) 0.1 L, Baso % (Auto) 0.1, Gran # 16.36 H , Lymph # (Auto) 1.8, Kaufman # (Auto) 1.0 H, Eos # (Auto) 0.0, Baso # (Auto) 0.02 05/22/18 06:35: Urine Opiates Screen Positive H, Urine Methadone Screen Positive H, Ur Barbiturates Screen Negative, Ur Phencyclidine Scrn Negative, Ur Amphetamines Screen Negative, U Benzodiazepines Scrn Negative, U Oth Cocaine Metabols Negative, U Cannabinoids Screen Negative 05/22/18 05:25: WBC 15.2 H, RBC 4.93, Hgb 15.4, Hct 43.5, MCV 88.2 D, MCH 31.2 , MCHC 35.4, RDW 13.9, Plt Count 167, MPV 12.0 H 05/22/18 05:25: Alcohol, Quantitative < 10 05/22/18 05:25: Sodium 137, Potassium 2.9 L* D, Chloride 96 L, Carbon Dioxide 29 , Anion Gap 14, BUN 12, Creatinine 0.8, Est GFR ( Amer) > 60, Est GFR ( Non-Af Amer) > 60, Random Glucose 164 H, Calcium 8.9, Total Bilirubin 1.8 H, AST 25, ALT 38, Alkaline Phosphatase 74, Total Protein 7.3, Albumin 3.9, Globulin 3.4, Albumin/Globulin Ratio 1.1 - RAD Interpretation Radiology Orders: 05/22/18 05:06 CHEST PORTABLE [RAD] Stat 05/23/18 00:05 CHEST PORTABLE [RAD] Stat 05/23/18 01:07 CHEST, ABDOMEN W/O CONTRAST [CT] Stat HEAD W/O CONTRAST [CT] Stat - Medication Orders Current Medication Orders: Propofol (Diprivan) 1,000 mg in 100 mls @ 3.402 mls/hr IV .Q24H PRN; Protocol; 5 MCG/KG/MIN PRN Reason: TITRATE PER MD ORDER Last Titration: 05/23/18 01:55 Dose: 40 mcg/kg/min, 27.216 mls/hr Cooper Agitation Sedation Document 05/23/18 01:55 RG (Rec: 05/23/18 01:58 RG [id number]) Cooper Agitation Sedation Scale Cooper Agitation Sedation Scale Score -3 Moderate Sedation:Movement or eye opening to voice (no eye contact) Titration Intervention Document 05/23/18 01:55 RG (Rec: 05/23/18 01:58 RG [id number]) Titration Intake Titration Intake 25 Cumulative Intake 25 Cumulative Intake (Rx) 25 Waste Amount 0 Container Volume 75 Titration Dosing Titration Dose 40 IV Rate 27.216 Intake/Decrease Increased Cumulative Dose 250 Vancomycin HCl (Vancomycin 1gm) 1 gm in 250 mls @ 167 mls/hr IVPB STAT STA PRN Reason: Protocol Stop: 05/23/18 02:56 Sodium Chloride (Sodium Chloride 0.9%) 1,000 mls @ 999 mls/hr IV .Q1H1M STA Stop: 05/23/18 02:49 Last Admin: 05/23/18 01:50 Dose: 999 mls/hr eMAR Start Stop Document 05/23/18 01:50 RG (Rec: 05/23/18 02:00 RG [id number]) Intravenous Solution Start Date 05/23/18 Start Time 01:50 Discontinued Medications Piperacillin Sod/Tazobactam Sod (Zosyn 3.375 In Ns 100ml) 100 mls @ 200 mls/hr IV STAT STA PRN Reason: Protocol Stop: 05/23/18 01:54 Last Admin: 05/23/18 01:49 Dose: 200 mls/hr eMAR Start Stop Document 05/23/18 01:49 RG (Rec: 05/23/18 01:50 RG [id number]) Intravenous Solution Start Date 05/23/18 Start Time 01:49 Lorazepam (Ativan) 2 mg IM ONCE ONE Stop: 05/22/18 23:00 Last Admin: 05/22/18 23:32 Dose: 2 mg IM Administration Charges Document 05/22/18 23:32 RG (Rec: 05/22/18 23:34 RG [id number]) Injection Site MAR Injection Site Right Deltoid Charges for Administration # of IM Administrations 1 Potassium Chloride (K-Dur 20 Meq Er Tab) 40 meq PO STAT STA Stop: 05/22/18 06:05 Last Admin: 05/22/18 06:24 Dose: 40 meq Propofol (Diprivan) 100 mg IVP ONCE ONE Stop: 05/23/18 00:37 Last Admin: 05/23/18 00:37 Dose: 100 mg IVP Administration Document 05/23/18 00:37 JAUN (Rec: 05/23/18 01:57 JAUN [id number]) Charges for Administration # of IVP Administrations 1 - Scribe Statement The provider has reviewed the documentation as recorded by the Scribe Bettye Salas Provider Scribe Attestation: All medical record entries made by the Scribe were at my direction and personally dictated by me. I have reviewed the chart and agree that the record accurately reflects my personal performance of the history, physical exam, medical decision making, and the department course for this patient. I have also personally directed, reviewed, and agree with the discharge instructions and disposition. Disposition/Present on Arrival - Present on Arrival Any Indicators Present on Arrival: No History of DVT/PE: No History of Uncontrolled Diabetes: No Urinary Catheter: No History of Decub. Ulcer: No History Surgical Site Infection Following: None - Disposition Have Diagnosis and Disposition been Completed?: Yes Diagnosis: Psychosis, Pneumonia, Sepsis Disposition: HOSPITALIZED Disposition Time: 02:00 Patient Plan: Admission Patient Problems: Current Active Problems Problem Status Onset Psychosis Acute Condition: GUARDED
[2018-05-23] MEDS ORDERED: Propofol 10 mg/ml Inj (20 ML) ONE (00:10)
[2018-05-23] MEDS: Propofol 10 mg/ml 1,000 MG/100 ML VIAL IV PRN ×2 (00:25→06:28)
[2018-05-23] MEDS ORDERED: Propofol 10 mg/ml 1,000 MG/100 ML VIAL ONE (00:25)
[2018-05-23] MEDS ORDERED: Propofol 10 mg/ml Inj (20 ML) IVP ONE (00:36)
[2018-05-23] MEDS ORDERED: Piperacillin/Tazobact 3.375 gm 100 ML IV STA (01:25)
[2018-05-23] MEDS ORDERED: Vancomycin 1gm in NS 250ml 1 GM/250 ML BAG IVPB STA (01:27)
[2018-05-23 01:33] LABS: MEAN CELL VOLUME 88.1 fl (80.0-105.0); MEAN CORPUSCULAR HEMOGLOBIN 32.1 pg (25.0-35.0); MEAN CORPUSCULAR HGB CONC 36.4 g/dl (31.0-37.0); MEAN PLATELET VOLUME 11.8 fl (7.0-11.0); RBC 5.3 10^6/uL (3.5-6.1); RED CELL DISTRIBUTION WIDTH 13.9 % (11.5-14.5)
[2018-05-23 01:36] LABS: URINE BILIRUBIN NEGATIVE (NEGATIVE); URINE BLOOD NEGATIVE (NEGATIVE); URINE GLUCOSE (UA) NEGATIVE (NEGATIVE); URINE LEUKOCYTE ESTERASE NEGATIVE Leu/uL (NEGATIVE); URINE PROTEIN 100 mg/dL (<30 mg/dL)
[2018-05-23 01:37] LABS: URINE APPEARANCE CLEAR (CLEAR); URINE COLOR YELLOW (YELLOW)
[2018-05-23 01:38] LABS: VENOUS BLOOD GAS BASE EXCESS -3.4 mmol/L (0.0-2.0); VENOUS BLOOD GAS PO2 74 mm/Hg (30-55); VENOUS BLOOD PH 7.37 (7.32-7.43)
[2018-05-23 01:39] LABS: INR 1.21; PROTHROMBIN TIME 13.8 SECONDS; WHITE BLOOD COUNT 25.2 10^3/ul (4.5-11.0)
[2018-05-23 01:42] LABS: PARTIAL THROMBOPLASTIN TIME 26.9 Seconds
[2018-05-23 01:48] LABS: ALB/GLOB RATIO 1.3 (1.1-1.8); ALBUMIN 4.4 g/dL (3.0-4.8); ALT/SGPT 26 U/L (7-56); AST/SGOT 37 U/L (17-59); BLOOD UREA NITROGEN 11 mg/dL (7-21); CALCIUM 9.7 mg/dL (8.4-10.5); GFR AFRICAN-AMERICAN > 60; GFR NON-AFRICAN AMERICAN > 60; URINE EPITHELIAL CELLS 0 - 2 /hpf (0-5); URINE RBC 0 - 2 /hpf (0-2); URINE WBC 0 - 2 /hpf (0-6)
[2018-05-23 01:48] LABS: ARTERIAL BLOOD GAS HCO3 22.6 mmol/L (21-28); ARTERIAL BLOOD GAS HEMOGLOBIN 15.2 g/dL (11.7-17.4); ARTERIAL BLOOD GAS O2 CAPACITY 20.8 mL/dl (16-24); ARTERIAL BLOOD GAS O2 CONTENT 20.9 ML/dl (15-23); ARTERIAL BLOOD GAS O2 SAT 100.3 % (95-98); ARTERIAL BLOOD GAS PCO2 34 mm/Hg (35-45); ARTERIAL BLOOD GAS PH 7.43 (7.35-7.45); ARTERIAL BLOOD GAS TCO2 23.6 mmol.L (22-28)
[2018-05-23] MEDS ORDERED: Sodium Chloride 0.9% 1,000 ML IV STA ×2 (01:49→02:10)
[2018-05-23 01:57] LABS: B-TYPE NATRIURETIC PEPTIDE 1590 pg/mL (0-450); TROPONIN I 0.04 ng/mL
[2018-05-23] MEDS ORDERED: Albuterol-Ipratrop 3 mg / 0.5 (3 ml) UD IH PRN (02:21)
--- NOTE | 2018-05-23 02:31 | CP.PCM.HP ---
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 Of note at time of H&P patient was intubated and sedated. Patient history was gathered from chart review, nursing, and physician reports. Patient was evaluated in ED and found to have stable vital signs and leukocytosis. Patient was attempted to be evaluated and [place] [facility] [place] but was denied secondary to elevated WBC. Patient remained in ED during the entire day shift and into night. Patient was noted to be hemodynamically stable and not in respiratory distress until air traffic control specialist of 05/23. Per nursing patient was noted to have difficulty breathing and became unresponsive. Patient was deemed to be in respiratory distress with pending respiratory failure and intubated by ED physician and placed on ventilator. Patient was sedated with propofol and further investigation for etiology of respiratory distress and elevated WBC were conducted. Patient had VBG drawn which showed lactate of 9. Code sepsis was called for elevated lactate, leukocytosis, tachycardia. Patient was given Vancomycin and Zosyn as well as one liter bolus fluids. 12 point ROS could not be obtained. PMH: COPD, DESTINEE, HTN, HLD, diastolic CHF, NSTEMI, DVT/PE on Eliquis (Non- compliant), s/p IVC filter, possible DM? PSH: IVC filter, pelvic fx repair, R shoulder surgery, skull fracture repair Home meds: As per MAR- Will confirm with [facility] [place] ALL: NKDA SocHx: Former smoker. 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 Young Manager Asset Management: Dr. Catracho Renee: Dr. Shannon Present on Admission - Present on Admission Any Indicators Present on Admission: Yes History of DVT/PE: Yes Review of Systems - Review of Systems Systems not reviewed;Unavailable: Intubated Past Patient History - Infectious Disease Hx of Infectious Diseases: None - Tetanus Immunizations Tetanus Immunization: Unknown - Past Medical History & Family History Past Medical History?: Yes - Past Social History Smoking Status: Heavy Smoker > 10 Cigarettes Daily - CARDIAC Hx Cardiac Disorders: No Hx Hypertension: Yes - PULMONARY Hx Tuberculosis: No - NEUROLOGICAL HX Cerebrovascular Accident: No Hx Seizures: No - HEENT Hx HEENT Problems: No - RENAL Hx Chronic Kidney Disease: Yes Hx Renal Failure: (RENAL INSUFFICIENCY) - ENDOCRINE/METABOLIC Hx Diabetes Mellitus Type 2: Yes - HEMATOLOGICAL/ONCOLOGICAL Hx Cancer: No Hx Human Immunodeficiency Virus (HIV): No - INTEGUMENTARY Hx Dermatological Problems: No Other/Comment: bilateral lower extremity and feet discolored dry skin , redness tightness - MUSCULOSKELETAL/RHEUMATOLOGICAL Hx Musculoskeletal Disorders: Yes - GASTROINTESTINAL Hx Gastrointestinal Disorders: (obese) Hx Gastroesophageal Reflux: Yes - GENITOURINARY/GYNECOLOGICAL Hx Sexually Transmitted Disorders: No - PSYCHIATRIC Hx Emotional Abuse: No Hx Physical Abuse: No Hx Substance Use: No - SURGICAL HISTORY Hx Cardiac Catheterization: Yes Other/Comment: back sx "yrs ago", right shoulder sx for fx has pins,monty filter - ANESTHESIA Hx Anesthesia Reactions: No Hx Malignant Hyperthermia: No Meds Allergies/Adverse Reactions: Allergies Allergy/AdvReac Type Severity Reaction Status Date / Time No Known Allergies Allergy Verified 05/22/18 04:56 Physical Exam - Constitutional Additional comments: intubated and sedated - Head Exam Head Exam: ATRAUMATIC, NORMAL INSPECTION - Eye Exam Eye Exam: PERRL Pupil Exam: absent: Fixed, Irregular - Neck Exam Neck exam: Negative for: Lymphadenopathy - Respiratory Exam Respiratory Exam: Decreased Breath Sounds (secondary to body habitus), NORMAL BREATHING PATTERN. absent: Wheezes - Cardiovascular Exam Cardiovascular Exam: Tachycardia, REGULAR RHYTHM, +S1, +S2 - GI/Abdominal Exam GI & Abdominal Exam: Normal Bowel Sounds, Soft. absent: Tenderness - Extremities Exam Extremities exam: Positive for: normal capillary refill. Negative for: pedal edema - Neurological Exam Additional comments: intubated and sedated Motor and Sensory grossly intact, patient moving all four extremities spontaneously - Skin Skin Exam: Abrasion, Dry, Intact Results - Vital Signs Recent Vital Signs: Last Vital Signs Temp 100.6 F H 05/23/18 01:21 Pulse 112 H 05/23/18 01:21 Resp 14 05/23/18 01:21 BP 134/74 07/31/18 01:21 Pulse Ox 98 05/23/18 01:21 - Labs Result Diagrams: 05/23/18 01:09 05/23/18 01:09 Labs: Laboratory Results - last 24 hr 05/23/18 01:35 pCO2 34 L pO2 152.0 H HCO3 22.6 ABG pH 7.43 ABG Total CO2 23.6 ABG O2 Saturation 100.3 H ABG O2 Content 20.9 ABG Base Excess -1.0 ABG Hemoglobin 15.2 ABG Carboxyhemoglobin 2.2 H POC ABG HHb (Measured) -0.3 L ABG Methemoglobin 1.2 ABG O2 Capacity 20.8 Hgb O2 Saturation 96.8 FiO2 100.0 Assessment & Plan - Assessment and Plan (Free Text) Assessment: 57yo male with past medical history of COPD, DESTINEE, HTN, HLD, diastolic CHF, NSTEMI, 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 Patient intubated and sedated in ED and transferred to ICU. Patient currently being evaluated and managed for sepsis, respiratory failure and electrolyte abnormalities. Plan: Acute Respiratory Failure - Respiratory distress and unresponsive - Intubated in ED and placed on ventilator, sedated with propofol - CXR interpreted by me showing possible infiltrate right lower lobe - ABG pending Sepsis (Lactate of 9, WBC 25, Temp 100.6F, Tachycardia) - Patient noted to be hemodynamically stable at time of evaluation - Etiology: Abdominal source vs. UTI vs. URI - UA negative leuk est, nitrate - Vanc and zosyn administered in ED - Continue abx - Abdominal/Pelvis CT ordered, f/u - 1 Liter fluid bolus, f/u lactate Hx of DVT/PE s/p IV filter - Xarelto for anticoagulation - Holding AC pending Head CT Hx of COPD - Intubated and sedated - Continue home medications Hx of diastolic CHF - Last echo 12/14: LV normal size, EF 55-60%, RV mod dilated, Sys RV function mod reduced, mild to moderate RVSP 51 - Elevated BNP, appears to be normal from previous admission - Maintain euvolemic - Meds: Enalapril Hx of DM2 - ISS low - ACHS - Monitor, maintain euglycemia GI/DVT ppx Protonix Holding AC pending CT head scan Case and plan discussed with attending - Date & Time Date: 05/23/18 Time: 02:34 <Josef Franco P - Last Filed: 05/23/18 03:54> Results - Vital Signs Recent Vital Signs: Last Vital Signs Temp 100.6 F H 05/23/18 01:21 Pulse 112 H 05/23/18 01:21 Resp 14 05/23/18 01:21 BP 134/74 05/23/18 01:21 Pulse Ox 98 05/23/18 01:21 - Labs Result Diagrams: 05/23/18 01:09 05/23/18 01:09 Labs: Laboratory Results - last 24 hr 05/23/18 01:35 pCO2 34 L pO2 152.0 H HCO3 22.6 ABG pH 7.43 ABG Total CO2 23.6 ABG O2 Saturation 100.3 H ABG O2 Content 20.9 ABG Base Excess -1.0 ABG Hemoglobin 15.2 ABG Carboxyhemoglobin 2.2 H POC ABG HHb (Measured) -0.3 L ABG Methemoglobin 1.2 ABG O2 Capacity 20.8 Hgb O2 Saturation 96.8 FiO2 100.0 Attending/Attestation - Attestation I have personally seen and examined this patient.: Yes I have fully participated in the care of the patient.: Yes I have reviewed all pertinent clinical information: Yes Notes (Text): 05/23/18 03:49 57yo male with past medical history of COPD, DESTINEE, HTN, HLD, diastolic CHF, NSTEMI, 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 Patient intubated and sedated in ED and transferred to ICU. Patient currently being evaluated and managed for sepsis, respiratory failure and electrolyte abnormalities. CTchest shows b/l consolidation in the lower lobes CT head unremarkable, abd/pelvis unremarkable in my review Elevated lactic acid likely form hyperventilation, work of breathing in the presence of metformin, BP maintained all the time Plan Vent support titrate fio2 to keep spo2 above 90, currently on 50% Abx, vancomycin and zosyn Continue Eliquis Sedation for vent currently on high dose propofol Accucheck, sliding scale coverage, dc metformin IVF for hemoconcentration GI prophylaxis Psych eval once medically stable off ventilator.
[2018-05-23 02:36] LABS: CK-MB 2.1 ng/mL (0.0-3.6)
[2018-05-23] MEDS ORDERED: Dextrose 50% SYRINGE Inj (50 ml) IV PRN (03:17)
[2018-05-23 04:14] LABS: VENOUS BLOOD GAS BASE EXCESS 2.2 mmol/L (0.0-2.0); VENOUS BLOOD GAS PO2 48 mm/Hg (30-55); VENOUS BLOOD PH 7.41 (7.32-7.43)
[2018-05-23 04:42] LABS: BASO # 0.02 K/mm3 (0.0-2.0); BASO % 0.1 % (0.0-3.0); GRAN # 23.17 (1.4-6.5); GRAN % 89.9 % (50.0-68.0); HEMOGLOBIN 16.7 g/dL (14.0-18.0); LYMPH # 1.1 (1.2-3.4); LYMPH % 4.3 % (22.0-35.0); MEAN CELL VOLUME 88.4 fl (80.0-105.0); MEAN CORPUSCULAR HEMOGLOBIN 31.7 pg (25.0-35.0); MEAN CORPUSCULAR HGB CONC 35.8 g/dl (31.0-37.0); MEAN PLATELET VOLUME 11.9 fl (7.0-11.0); MONO # 1.5 (0.1-0.6); MONO % 5.7 % (1.0-6.0); PLATELET COUNT 159 10^3/uL (120.0-450.0); RBC 5.27 10^6/uL (3.5-6.1)
[2018-05-23 04:55] LABS: WHITE BLOOD COUNT 25.8 10^3/ul (4.5-11.0)
[2018-05-23 05:47] LABS: ALB/GLOB RATIO 1.1 (1.1-1.8); ALBUMIN 3.8 g/dL (3.0-4.8); ALT/SGPT 30 U/L (7-56); AST/SGOT 37 U/L (17-59); BLOOD UREA NITROGEN 11 mg/dL (7-21); CALCIUM 8.9 mg/dL (8.4-10.5); GFR AFRICAN-AMERICAN > 60; GFR NON-AFRICAN AMERICAN > 60
[2018-05-23 05:54] LABS: ARTERIAL BLOOD GAS HCO3 17.7 mmol/L (21-28); ARTERIAL BLOOD GAS O2 SAT 96.4 % (95-98); ARTERIAL BLOOD GAS PCO2 28 mm/Hg (35-45); ARTERIAL BLOOD GAS PH 7.41 (7.35-7.45); ARTERIAL BLOOD GAS TCO2 18.6 mmol.L (22-28)
[2018-05-23] MEDS ORDERED: Pantoprazole 40 mg Susp UD PO SCH (06:00)
[2018-05-23] MEDS ORDERED: Piperacillin/Tazobact 2.25gm 2.25 GM/100 ML BAG IVPB SCH ×2 (06:00→10:00)
[2018-05-23 06:35] LABS: BAND 3 % (0-2); LYMPHOCYTE 3 % (22.0-35.0); MONOCYTE 4 % (1.0-6.0); NEUTROPHIL 90 % (50.0-70.0); PLATELET ESTIMATE NORMAL (NORMAL)
[2018-05-23] MEDS: Insulin Regular 1 UNITS/0.01 ML ML SC SCH (07:20)
[2018-05-23] MEDS ORDERED: Insulin Lispro (humaLOG) LOW Coverage SC SCH (07:30)
--- NOTE | 2018-05-23 07:34 | CT ---
Date of service: 05/23/2018 PROCEDURE: CT HEAD WITHOUT CONTRAST. HISTORY: ams COMPARISON: 05/17/2017 TECHNIQUE: Axial computed tomography images were obtained through the head/brain without intravenous contrast. Radiation dose: Total exam DLP = 1058 mGy-cm. This CT exam was performed using one or more of the following dose reduction techniques: Automated exposure control, adjustment of the mA and/or kV according to patient size, and/or use of iterative reconstruction technique. FINDINGS: HEMORRHAGE: No intracranial hemorrhage. BRAIN: No mass effect or edema. No atrophy or chronic microvascular ischemic changes. VENTRICLES: Unremarkable. No hydrocephalus. CALVARIUM: Unremarkable. PARANASAL SINUSES: Unremarkable as visualized. No significant inflammatory changes. MASTOID AIR CELLS: Unremarkable as visualized. No inflammatory changes. OTHER FINDINGS: The report concurs with the preliminary [facility] report IMPRESSION: No acute findings
[2018-05-23] MEDS: Albuterol-Ipratrop 3 mg / 0.5 (3 ml) UD IH SCH ×2 (07:46→20:54)
--- NOTE | 2018-05-23 07:56 | PCM.SEPTIC ---
Sepsis Progress Note - Reassessment Type Date of Evaluation: 05/23/18 Time of Evaluation: 08:19 Reassessment Type: Non-invasive reassessment - Non Invasive Reassessment Were the most recent vital sign reviewed: Yes Vital Sign (Latest): Temp Pulse Resp BP Pulse Ox 97.2 F L 68 16 121/79 99 05/23/18 07:50 05/23/18 07:50 05/23/18 04:17 05/23/18 07:45 05/23/18 07:50 Cardiovascular: Yes: Regular Rate, Rhythm Respiratory: Yes: Normal Breath Sounds Capillary Refill: Normal (Less than 2 sec) Skin: Warm, Dry
[2018-05-23] MEDS ORDERED: Piperacillin/Tazobact 3.375 gm 100 ML IVPB SCH (08:00)
--- NOTE | 2018-05-23 08:07 | RAD ---
Date of service: 05/23/2018 HISTORY: sob COMPARISON: 05/22/2018 FINDINGS: LUNGS: No consolidation. Mild pulmonary venous interstitial type congestion Interval insertion endotracheal tube tip approximately 3 to 4 cm from radha - bordering inferior clavicles. PLEURA: No significant pleural effusion identified, no pneumothorax apparent. CARDIOVASCULAR: Mild cardiomegaly OSSEOUS STRUCTURES: No significant abnormalities. VISUALIZED UPPER ABDOMEN: Nasogastric tube inserted tip beyond the inferior edge of this image. OTHER FINDINGS: None. IMPRESSION: Interval insertion endotracheal tube and nasogastric tube - endotracheal tube appears satisfactory. Nasogastric tube not visually included on this exam. (Per white spooler image of CT chest and abdomen without contrast -the tip of the NG tube projects in the stomach on the 05/23/2018 CT white spooler image from 02:50 2 hours)
[2018-05-23] MEDS: Dexmedetomidine 400mcg/100mL 400 MCG/100 ML BOTTLE IV PRN (08:59)
--- NOTE | 2018-05-23 09:04 | CARD ---
APPROVED REPORT Date of service: 05/23/2018 EKG Measurement Heart [id number] <Conclusion> Sinus tachycardia Possible Inferior infarct, age undetermined Abnormal ECG
--- NOTE | 2018-05-23 09:07 | CT ---
Date of service: 05/23/2018 PROCEDURE: CT Chest and abdomen without intravenous and oral contrast HISTORY: sob COMPARISON: None available. TECHNIQUE: IV dose administered: Radiation dose: Total exam DLP = mGy-cm. This CT exam was performed using one or more of the following dose reduction techniques: Automated exposure control, adjustment of the mA and/or kV according to patient size, and/or use of iterative reconstruction technique. FINDINGS: CT CHEST: LUNGS: ETT in place with NG tube in the stomach. Bibasilar consolidation with small right pleural effusion. MEDIASTINUM: Unremarkable. Normal caliber aorta and pulmonary arterial trunk. No aortic dissection. Normal size heart. LYMPH NODES: Unremarkable. PLEURA: Unremarkable. No pneumothorax. No pleural fluid. BONES: Unremarkable. OTHER FINDINGS:: None. CT ABDOMEN: LIVER: Unremarkable. No gross lesion or ductal dilatation. GALLBLADDER AND BILE DUCTS: Cholelithiasis. PANCREAS: Unremarkable. No gross lesion or ductal dilatation. SPLEEN: Unremarkable. ADRENALS: Unremarkable. No mass. KIDNEYS AND URETERS: Unremarkable. No hydronephrosis. No solid mass. VASCULATURE: IVC filter in place. No aortic aneurysm. STOMACH AND BOWEL: Unremarkable, as visualized. The entire bowel was not visualized, as the pelvis was not included in this study. PERITONEUM: Unremarkable. No free fluid. No free air. LYMPH NODES: Unremarkable. No enlarged lymph nodes. BONES: No acute fracture. OTHER FINDINGS: None. IMPRESSION: Bibasilar consolidation. ETT and NG tube in place. cholelithiasis.
[2018-05-23 10:23] VITALS: BMI 49.3
[2018-05-23] MEDS ORDERED: Pneumococcal 23-Valent Vaccine IM ONE (10:23)
--- NOTE | 2018-05-23 10:32 | RAD ---
Date of service: 05/23/2018 HISTORY: Evaluation COMPARISON: 05/23/2018 FINDINGS: LUNGS: No active pulmonary disease. PLEURA: No significant pleural effusion identified, no pneumothorax apparent. CARDIOVASCULAR: Moderate cardiomegaly OSSEOUS STRUCTURES: No significant abnormalities. VISUALIZED UPPER ABDOMEN: Normal. OTHER FINDINGS: None. IMPRESSION: The endotracheal tube and nasogastric tube are in satisfactory position. No active disease
[2018-05-23] MEDS: Cefepime 1gm in NS 100ml 1 GM/100 ML BAG IVPB SCH (11:24)
--- NOTE | 2018-05-23 13:52 | CP.CCUPN ---
<Karo Choudhury - Last Filed: 05/23/18 14:30> CCU Subjective - Physician Review Events Since Last Encounter (Free Text): 05/23/18 13:35 Karo Choudhury, PGY-1 ICU progress note for Dr. Riojas Patient is resting comfortably. Vitals are stable and patient is afebrile. Patient has no complaints at this time except for chronic back pain. Was extubated this morning without incident. No wheezing or difficulty breathing at this time. CCU Objective - Vital Signs / Intake & Output Vital Signs (Last 4 hours): Vital Signs Temp Pulse Resp BP Pulse Ox 05/23/18 11:31 99.0 F 59 L 21 171/88 H 95 05/23/18 11:30 99.0 F 60 22 94 L 05/23/18 11:20 99.0 F 69 26 H 98 05/23/18 11:16 99.0 F 59 L 20 169/86 H 95 05/23/18 11:10 98.8 F 61 21 96 05/23/18 11:01 98.8 F 59 L 20 166/90 H 96 05/23/18 11:00 98.8 F 59 L 21 94 L 05/23/18 10:50 98.6 F 65 27 H 95 05/23/18 10:46 98.6 F 65 26 H 161/84 H 97 05/23/18 10:40 98.6 F 59 L 20 94 L 05/23/18 10:31 98.4 F 62 24 170/90 H 98 05/23/18 10:30 98.4 F 58 L 21 95 05/23/18 10:20 98.2 F 63 28 H 94 L 05/23/18 10:16 98.2 F 63 170/86 H 99 05/23/18 10:10 98.2 F 57 L 98 05/23/18 10:01 98.1 F 62 173/93 H 100 05/23/18 10:00 98.1 F 67 98 05/23/18 09:50 97.9 F 65 99 05/23/18 09:46 97.9 F 64 173/92 H 99 05/23/18 09:40 97.9 F 63 98 Intake and Output (Last 8hrs): Intake & Output 05/22/18 05/23/18 05/23/18 22:59 06:59 14:59 Intake Total 100 470 Output Total 1300 Balance 100 -830 Weight 305 lb 6.4 oz Intake: IV 100 220 Left Antecubital 0 Right Antecubital 220 Right Forearm 0 Oral 0 Tube Feeding 0 TPN/PPN 0 Blood Product 0 Lipid 0 Albumin 0 Other 250 Output: Urine 1300 Urethral (Bryan) 1300 Stool 0 Urine/Stool Mix 0 Emesis 0 Oral Regurgitation 0 Other 0 Other: Voiding Method Indwelling Catheter # Voids Urethral (Bryan) 0 # Bowel Movements 0 - Physical Exam Head: Positive for: Atraumatic, Normocephalic Pupils: Positive for: PERRL Extroacular Muscles: Positive for: EOMI Conjunctiva: Positive for: Normal Mouth: Positive for: Moist Mucous Membranes Neck: Positive for: Normal Range of Motion Respiratory/Chest: Positive for: Clear to Auscultation (poor inspiratory effort noted). Negative for: Respiratory Distress, Accessory Muscle Use, Wheezes, Tachypneic Cardiovascular: Positive for: Regular Rate and Rhythm, Normal S1, S2. Negative for: Murmurs Abdomen: Negative for: Tenderness, Distention, Peritoneal Signs Back: Positive for: Normal Inspection Upper Extremity: Positive for: Normal Inspection. Negative for: Cyanosis, Edema Lower Extremity: Positive for: Normal Inspection. Negative for: Edema Neurological: Positive for: Speech Normal, Motor Func Grossly Intact, Normal Sensory Function Skin: Positive for: Warm, Dry, Normal Color. Negative for: Rashes Psychiatric: Positive for: Alert, Other (tangential thoughts, paranoid behavior) - Medications Active Medications: Active Medications Generic Name Dose Route Start Last Admin Trade Name Freq PRN Reason Stop Dose Admin Albuterol/Ipratropium 3 ml 05/23/18 08:00 05/23/18 07:46 Duoneb 3 Mg/0.5 Mg (3 Ml) Ud IH 3 ml [id number] KATIE Administration Albuterol/Ipratropium 3 ml 05/23/18 02:21 Duoneb 3 Mg/0.5 Mg (3 Ml) Ud IH Q2H PRN Shortness of Breath Apixaban 5 mg 05/23/18 10:00 Eliquis PO BID [facility] Protocol Dextrose 0 ml 05/23/18 03:17 Dextrose 50% Inj IV STAT PRN Hypoglycemia Protocol Protocol Digoxin 0.125 mg 05/23/18 14:00 Digoxin PO 1400 [facility] Doxycycline Hyclate 100 mg 05/23/18 22:00 Doryx PO 06/01/18 22:01 Q12 KATIE Protocol Propofol 1,000 mg in 100 mls @ 3.402 mls/hr 05/23/18 00:37 05/23/18 06:28 Diprivan IV 60 mcg/kg/min .Q24H PRN 40.823 mls/hr TITRATE PER MD ORDER Titration Protocol 5 MCG/KG/MIN Vancomycin HCl 1 gm in 250 mls @ 167 mls/hr 05/23/18 14:00 Vancomycin 1gm IVPB DAILY KATIE Protocol Dextrose 1,000 mls @ 0 mls/hr 05/23/18 03:17 Dextrose 5% In Water 1000 Ml IV .Q0M PRN Hypoglycemia Protocol Protocol Per Protocol Dexmedetomidine HCl 400 mcg in 100 mls @ 5.67 mls/hr 05/23/18 08:51 05/23/18 08:59 Precedex 400mcg/100ml IV 0.2 mcg/kg/hr .[id number] PRN 5.67 mls/hr Agitation Administration Protocol 0.2 MCG/KG/HR Cefepime HCl 1 gm in 100 mls @ 100 mls/hr 05/23/18 10:45 05/23/18 11:24 Maxipime 1gm IVPB 100 mls/hr Q24H KATIE Administration Protocol Insulin Human Regular 0 units 05/23/18 06:00 05/23/18 07:20 Humulin R SC Not Given Q6 [facility] Protocol Methadone HCl 10 mg 05/23/18 10:00 Methadone PO BID [facility] Metoprolol Tartrate 25 mg 05/23/18 10:00 Lopressor PO DAILY [facility] Pantoprazole Sodium 40 mg 05/23/18 06:00 05/23/18 08:28 Protonix Susp PO 40 mg 0600 [facility] Administration - Patient Studies Lab Studies: Lab Studies 05/23/18 05/23/18 05/23/18 Range/Units 07:17 05:45 04:30 WBC (4.5-11.0) 10^3/ul RBC (3.5-6.1) 10^6/uL Hgb (14.0-18.0) g/dL Hct (42.0-52.0) % MCV (80.0-105.0) fl MCH (25.0-35.0) pg MCHC (31.0-37.0) g/dl RDW (11.5-14.5) % Plt Count (120.0-450.0) 10^3/uL MPV (7.0-11.0) fl Gran % (50.0-68.0) % Lymph % (Auto) (22.0-35.0) % Elk % (Auto) (1.0-6.0) % Eos % (Auto) (1.5-5.0) % Baso % (Auto) (0.0-3.0) % Gran # (1.4-6.5) Lymph # (Auto) (1.2-3.4) Elk # (Auto) (0.1-0.6) Eos # (Auto) (0.0-0.7) Baso # (Auto) (0.0-2.0) K/mm3 Neutrophils % (Manual) (50.0-70.0) % Band Neutrophils % (0-2) % Lymphocytes % (Manual) (22.0-35.0) % Monocytes % (Manual) (1.0-6.0) % Platelet Evaluation (NORMAL) pCO2 28 L (35-45) mm/Hg pO2 61.0 L (80-100) mm/Hg HCO3 17.7 L (21-28) mmol/L ABG pH 7.41 (7.35-7.45) ABG Total CO2 18.6 L (22-28) mmol.L ABG O2 Saturation 96.4 (95-98) % ABG O2 Content (15-23) ML/dl ABG Base Excess -5.5 L (-2.0-3.0) mmol/L ABG Hemoglobin (11.7-17.4) g/dL ABG Carboxyhemoglobin (0.5-1.5) % POC ABG HHb (Measured) (0-5) % ABG Methemoglobin (0.0-3.0) % ABG O2 Capacity (16-24) mL/dl ABG Potassium 2.5 L* (3.6-5.2) mmol/L VBG pH (7.32-7.43) VBG pCO2 (40-60) VBG HCO3 (21-28) mmol/l VBG Total CO2 (22-28) mmol.L VBG O2 Sat (Calc) (40-65) % VBG Base Excess (0.0-2.0) mmol/L VBG Potassium (3.6-5.2) mmol/L Hgb O2 Saturation (95.0-98.0) % Sodium 148.0 144 (132-148) mmol/L Chloride 120.0 H 104 (98-107) mmol/L Glucose 58 L (75-110) mg/dl Lactate 1.1 (0.7-2.1) mmol/L FiO2 50.0 % Potassium 3.4 L (3.6-5.0) mmol/L Carbon Dioxide 27 (21-33) mmol/L Anion Gap 16 (10-20) BUN 11 (7-21) mg/dL Creatinine 0.9 (0.8-1.5) mg/dl Est GFR ( Amer) > 60 Est GFR (Non-Af Amer) > 60 POC Glucose (mg/dL) 86 (65-110) mg/dL Random Glucose 85 (70-110) mg/dL Calcium 8.9 (8.4-10.5) mg/dL Magnesium 2.2 (1.7-2.2) mg/dL Total Bilirubin 1.9 H (0.2-1.3) mg/dL AST 37 (17-59) U/L ALT 30 (7-56) U/L Alkaline Phosphatase 86 (38-126) U/L Total Protein 7.1 (5.8-8.3) g/dL Albumin 3.8 (3.0-4.8) g/dL Globulin 3.4 gm/dL Albumin/Globulin Ratio 1.1 (1.1-1.8) Arterial Blood Potassium 2.5 L* (3.6-5.2) mmol/L Venous Blood Potassium (3.6-5.2) mmol/L 05/23/18 05/23/18 05/23/18 Range/Units 04:30 04:00 01:35 WBC 25.8 H* (4.5-11.0) 10^3/ul RBC 5.27 (3.5-6.1) 10^6/uL Hgb 16.7 (14.0-18.0) g/dL Hct 46.6 (42.0-52.0) % MCV 88.4 (80.0-105.0) fl MCH 31.7 (25.0-35.0) pg MCHC 35.8 (31.0-37.0) g/dl RDW 14.0 (11.5-14.5) % Plt Count 159 (120.0-450.0) 10^3/uL MPV 11.9 H (7.0-11.0) fl Gran % 89.9 H (50.0-68.0) % Lymph % (Auto) 4.3 L (22.0-35.0) % Elk % (Auto) 5.7 (1.0-6.0) % Eos % (Auto) 0.0 L (1.5-5.0) % Baso % (Auto) 0.1 (0.0-3.0) % Gran # 23.17 H (1.4-6.5) Lymph # (Auto) 1.1 L (1.2-3.4) Elk # (Auto) 1.5 H (0.1-0.6) Eos # (Auto) 0.0 (0.0-0.7) Baso # (Auto) 0.02 (0.0-2.0) K/mm3 Neutrophils % (Manual) 90 H (50.0-70.0) % Band Neutrophils % 3 H (0-2) % Lymphocytes % (Manual) 3 L (22.0-35.0) % Monocytes % (Manual) 4 (1.0-6.0) % Platelet Evaluation Normal (NORMAL) pCO2 34 L (35-45) mm/Hg pO2 48 152.0 H (80-100) mm/Hg HCO3 22.6 (21-28) mmol/L ABG pH 7.43 (7.35-7.45) ABG Total CO2 23.6 (22-28) mmol.L ABG O2 Saturation 100.3 H (95-98) % ABG O2 Content 20.9 (15-23) ML/dl ABG Base Excess -1.0 (-2.0-3.0) mmol/L ABG Hemoglobin 15.2 (11.7-17.4) g/dL ABG Carboxyhemoglobin 2.2 H (0.5-1.5) % POC ABG HHb (Measured) -0.3 L (0-5) % ABG Methemoglobin 1.2 (0.0-3.0) % ABG O2 Capacity 20.8 (16-24) mL/dl ABG Potassium (3.6-5.2) mmol/L VBG pH 7.41 (7.32-7.43) VBG pCO2 43.0 (40-60) VBG HCO3 27.3 (21-28) mmol/l VBG Total CO2 28.6 H (22-28) mmol.L VBG O2 Sat (Calc) 86.3 H (40-65) % VBG Base Excess 2.2 H (0.0-2.0) mmol/L VBG Potassium 3.3 L (3.6-5.2) mmol/L Hgb O2 Saturation 96.8 (95.0-98.0) % Sodium 141.0 (132-148) mmol/L Chloride 104.0 (98-107) mmol/L Glucose 80 (75-110) mg/dl Lactate 2.6 H (0.7-2.1) mmol/L FiO2 21.0 100.0 % Potassium (3.6-5.0) mmol/L Carbon Dioxide (21-33) mmol/L Anion Gap (10-20) BUN (7-21) mg/dL Creatinine (0.8-1.5) mg/dl Est GFR ( Amer) Est GFR (Non-Af Amer) POC Glucose (mg/dL) (65-110) mg/dL Random Glucose (70-110) mg/dL Calcium (8.4-10.5) mg/dL Magnesium (1.7-2.2) mg/dL Total Bilirubin (0.2-1.3) mg/dL AST (17-59) U/L ALT (7-56) U/L Alkaline Phosphatase (38-126) U/L Total Protein (5.8-8.3) g/dL Albumin (3.0-4.8) g/dL Globulin gm/dL Albumin/Globulin Ratio (1.1-1.8) Arterial Blood Potassium (3.6-5.2) mmol/L Venous Blood Potassium 3.3 L (3.6-5.2) mmol/L Laboratory Results - last 24 hr 05/23/18 05/23/18 05/23/18 01:35 04:00 04:30 WBC 25.8 H* RBC 5.27 Hgb 16.7 Hct 46.6 MCV 88.4 MCH 31.7 MCHC 35.8 RDW 14.0 Plt Count 159 MPV 11.9 H Gran % 89.9 H Lymph % (Auto) 4.3 L Elk % (Auto) 5.7 Eos % (Auto) 0.0 L Baso % (Auto) 0.1 Gran # 23.17 H Lymph # (Auto) 1.1 L Elk # (Auto) 1.5 H Eos # (Auto) 0.0 Baso # (Auto) 0.02 Neutrophils % (Manual) 90 H Band Neutrophils % 3 H Lymphocytes % (Manual) 3 L Monocytes % (Manual) 4 Platelet Evaluation Normal pCO2 34 L pO2 152.0 H 48 HCO3 22.6 ABG pH 7.43 ABG Total CO2 23.6 ABG O2 Saturation 100.3 H ABG O2 Content 20.9 ABG Base Excess -1.0 ABG Hemoglobin 15.2 ABG Carboxyhemoglobin 2.2 H POC ABG HHb (Measured) -0.3 L ABG Methemoglobin 1.2 ABG O2 Capacity 20.8 ABG Potassium VBG pH 7.41 VBG pCO2 43.0 VBG HCO3 27.3 VBG Total CO2 28.6 H VBG O2 Sat (Calc) 86.3 H VBG Base Excess 2.2 H VBG Potassium 3.3 L Hgb O2 Saturation 96.8 Sodium 141.0 Chloride 104.0 Glucose 80 Lactate 2.6 H FiO2 100.0 21.0 Potassium Carbon Dioxide Anion Gap BUN Creatinine Est GFR ( Amer) Est GFR (Non-Af Amer) POC Glucose (mg/dL) Random Glucose Calcium Magnesium Total Bilirubin AST ALT Alkaline Phosphatase Total Protein Albumin Globulin Albumin/Globulin Ratio Arterial Blood Potassium Venous Blood Potassium 3.3 L 05/23/18 05/23/18 05/23/18 04:30 05:45 07:17 WBC RBC Hgb Hct MCV MCH MCHC RDW Plt Count MPV Gran % Lymph % (Auto) Elk % (Auto) Eos % (Auto) Baso % (Auto) Gran # Lymph # (Auto) Elk # (Auto) Eos # (Auto) Baso # (Auto) Neutrophils % (Manual) Band Neutrophils % Lymphocytes % (Manual) Monocytes % (Manual) Platelet Evaluation pCO2 28 L pO2 61.0 L HCO3 17.7 L ABG pH 7.41 ABG Total CO2 18.6 L ABG O2 Saturation 96.4 ABG O2 Content ABG Base Excess -5.5 L ABG Hemoglobin ABG Carboxyhemoglobin POC ABG HHb (Measured) ABG Methemoglobin ABG O2 Capacity ABG Potassium 2.5 L* VBG pH VBG pCO2 VBG HCO3 VBG Total CO2 VBG O2 Sat (Calc) VBG Base Excess VBG Potassium Hgb O2 Saturation Sodium 144 148.0 Chloride 104 120.0 H Glucose 58 L Lactate 1.1 FiO2 50.0 Potassium 3.4 L Carbon Dioxide 27 Anion Gap 16 BUN 11 Creatinine 0.9 Est GFR ( Amer) > 60 Est GFR (Non-Af Amer) > 60 POC Glucose (mg/dL) 86 Random Glucose 85 Calcium 8.9 Magnesium 2.2 Total Bilirubin 1.9 H AST 37 ALT 30 Alkaline Phosphatase 86 Total Protein 7.1 Albumin 3.8 Globulin 3.4 Albumin/Globulin Ratio 1.1 Arterial Blood Potassium 2.5 L* Venous Blood Potassium Fingerstick Blood Sugar Results: 158 Review of Systems - Constitutional Constitutional: absent: Fever, Chills - Cardiovascular Cardiovascular: absent: Chest Pain, Lightheadedness, Palpitations - Respiratory Respiratory: absent: Cough, Dyspnea, Hemoptysis, Wheezing, Stridor - Gastrointestinal Gastrointestinal: absent: Abdominal Pain, Hematemesis, Nausea, Vomiting - Genitourinary Genitourinary: absent: Dysuria, Flank Pain - Musculoskeletal Musculoskeletal: absent: Back Pain, Neck Pain - Neurological Neurological: absent: Dizziness, Focal Weakness Critical Care Progress Note - Nutrition Nutrition: Nutrition Category Date Time Status NPO Diet [DIET] Diets 05/23/18 Lunch Ordered Assessment/Plan - Assessment and Plan (Free Text) Assessment: Assessment: This is a 57 year old male with PMH significant for diastolic CHF, COPD, 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 Lungs: -extubated this morning without incident, currently breathing well. No wheezing , stridor or accessory muscle use -ABG reveals pH 7.41, pCO2 28, pO2 61, HCO3 17.7. FiO2 of 21. -Chest xray today showed no active disease -Chest CT showed bibasilar consolidation -history of COPD, continue duonebs ID: -lactate is 2.6 from previous 9.2. Currently hemodynamically stable. Continue to monitor -WBC count is 25.8 today, up from 19.1 yesterday -blood cultures, urine culture, MRSA screen, Strep pneumo, legionella and sputum culture pending -Procalcitonin pending -Currently on Vancomycin, cefepime, and doxycycline -ID is following Neuro: -maintain normothermia -Head CT show no acute findings. Heart: -maintain MAP greater than 65 -BNP noted to be 1590, consistent with previous baseline -troponin is unremarkable -currently on digoxin, metoprolol Nephro: -BUN/Cr is 11/0.9 -U/A is negative for leukocyte esterase GI: -CT abdomen today showed cholilithiasis -protonix ppx Heme: -H/H is stable -PT/INR shows 13.8/1.21 -currently on eliquis Endo: -History of DM2, maintain euglycemia. -Currently on insulin sliding scale <Roger Riojas - Last Filed: 05/24/18 18:36> CCU Objective - Vital Signs / Intake & Output Intake and Output (Last 8hrs): Intake & Output 05/24/18 05/24/18 05/24/18 06:59 14:59 22:59 Intake Total 900 Output Total 1600 Balance -700 Intake: IV 200 Left Antecubital 0 Right Forearm 100 Oral 700 Output: Urine 1600 Urethral (Bryan) 1600 Stool 0 Urine/Stool Mix 0 Emesis 0 Oral Regurgitation 0 Other 0 Other: # Bowel Movements 0 - Medications Active Medications: Active Medications Generic Name Dose Route Start Last Admin Trade Name Freq PRN Reason Stop Dose Admin Albuterol/Ipratropium 3 ml 05/23/18 08:00 05/24/18 13:52 Duoneb 3 Mg/0.5 Mg (3 Ml) Ud IH 3 ml [id number] KATIE Administration Albuterol/Ipratropium 3 ml 05/23/18 02:21 Duoneb 3 Mg/0.5 Mg (3 Ml) Ud IH Q2H PRN Shortness of Breath Apixaban 5 mg 05/23/18 10:00 05/24/18 17:06 Eliquis PO 5 mg BID KATIE Administration Protocol Benzocaine/Menthol 1 juan 05/24/18 08:29 05/24/18 17:06 Cepacol Sore Throat MT 1 juan Q2H PRN Administration Sore Throat Dextrose 0 ml 05/23/18 03:17 Dextrose 50% Inj IV STAT PRN Hypoglycemia Protocol Protocol Digoxin 0.125 mg 05/23/18 14:00 05/23/18 15:38 Digoxin PO Not Given 1400 KATIE Doxycycline Hyclate 100 mg 05/23/18 22:00 05/24/18 09:08 Doryx PO 06/01/18 22:01 100 mg Q12 KATIE Administration Protocol Dextrose 1,000 mls @ 0 mls/hr 05/23/18 03:17 Dextrose 5% In Water 1000 Ml IV .Q0M PRN Hypoglycemia Protocol Protocol Per Protocol Cefepime HCl 1 gm in 100 mls @ 100 mls/hr 05/23/18 10:45 05/24/18 10:56 Maxipime 1gm IVPB 100 mls/hr Q24H KATIE Administration Protocol Insulin Human Regular 0 units 05/24/18 07:30 Humulin R SC ACHS [facility] Protocol Lisinopril 10 mg 05/24/18 10:30 05/24/18 13:34 Zestril PO 10 mg DAILY KATIE Administration Metoprolol Tartrate 25 mg 05/23/18 10:00 05/24/18 09:07 Lopressor PO 25 mg DAILY KATIE Administration Oxycodone HCl 15 mg 05/24/18 18:00 05/24/18 17:05 Oxycodone Immediate Release Tab PO 15 mg Q8H PRN Administration Pain, moderate (4-7) Pantoprazole Sodium 40 mg 05/24/18 06:00 05/24/18 05:57 Protonix Ec Tab PO 40 mg 0600 KATIE Administration - Patient Studies Lab Studies: Microbiology Studies 05/23/18 01:35 Blood Culture - Preliminary Blood NO GROWTH AFTER 24 HOURS Lab Studies 05/24/18 05/24/18 05/24/18 Range/Units 15:51 05:30 05:24 WBC (4.5-11.0) 10^3/ul RBC (3.5-6.1) 10^6/uL Hgb (14.0-18.0) g/dL Hct (42.0-52.0) % MCV (80.0-105.0) fl MCH (25.0-35.0) pg MCHC (31.0-37.0) g/dl RDW (11.5-14.5) % Plt Count (120.0-450.0) 10^3/uL MPV (7.0-11.0) fl Gran % (50.0-68.0) % Lymph % (Auto) (22.0-35.0) % Elk % (Auto) (1.0-6.0) % Eos % (Auto) (1.5-5.0) % Baso % (Auto) (0.0-3.0) % Gran # (1.4-6.5) Lymph # (Auto) (1.2-3.4) Elk # (Auto) (0.1-0.6) Eos # (Auto) (0.0-0.7) Baso # (Auto) (0.0-2.0) K/mm3 Sodium 141 (132-148) mmol/L Potassium 4.2 (3.6-5.0) mmol/L Chloride 100 (98-107) mmol/L Carbon Dioxide 32 (21-33) mmol/L Anion Gap 12 (10-20) BUN 12 (7-21) mg/dL Creatinine 0.9 (0.8-1.5) mg/dl Est GFR ( Amer) > 60 Est GFR (Non-Af Amer) > 60 POC Glucose (mg/dL) 87 (65-110) mg/dL Random Glucose 79 (70-110) mg/dL Calcium 8.6 (8.4-10.5) mg/dL Phosphorus 3.0 (2.5-4.5) mg/dL Magnesium 2.0 (1.7-2.2) mg/dL Total Bilirubin (0.2-1.3) mg/dL Direct Bilirubin 0.3 (0.0-0.4) mg/dL AST (17-59) U/L ALT (7-56) U/L Alkaline Phosphatase (38-126) U/L Total Protein (5.8-8.3) g/dL Albumin (3.0-4.8) g/dL Globulin gm/dL Albumin/Globulin Ratio (1.1-1.8) 05/24/18 05/24/18 05/23/18 Range/Units 05:00 05:00 22:56 WBC 16.2 H D (4.5-11.0) 10^3/ul RBC 4.84 (3.5-6.1) 10^6/uL Hgb 14.9 (14.0-18.0) g/dL Hct 42.9 (42.0-52.0) % MCV 88.6 (80.0-105.0) fl MCH 30.8 (25.0-35.0) pg MCHC 34.7 (31.0-37.0) g/dl RDW 14.1 (11.5-14.5) % Plt Count 139 (120.0-450.0) 10^3/uL MPV 11.1 H (7.0-11.0) fl Gran % 81.5 H (50.0-68.0) % Lymph % (Auto) 11.2 L (22.0-35.0) % Elk % (Auto) 6.9 H (1.0-6.0) % Eos % (Auto) 0.3 L (1.5-5.0) % Baso % (Auto) 0.1 (0.0-3.0) % Gran # 13.17 H (1.4-6.5) Lymph # (Auto) 1.8 (1.2-3.4) Elk # (Auto) 1.1 H (0.1-0.6) Eos # (Auto) 0.1 (0.0-0.7) Baso # (Auto) 0.02 (0.0-2.0) K/mm3 Sodium 142 (132-148) mmol/L Potassium 2.9 L* (3.6-5.0) mmol/L Chloride 103 (98-107) mmol/L Carbon Dioxide 28 (21-33) mmol/L Anion Gap 14 (10-20) BUN 9 (7-21) mg/dL Creatinine 0.9 (0.8-1.5) mg/dl Est GFR ( Amer) > 60 Est GFR (Non-Af Amer) > 60 POC Glucose (mg/dL) 97 (65-110) mg/dL Random Glucose 95 (70-110) mg/dL Calcium 8.5 (8.4-10.5) mg/dL Phosphorus (2.5-4.5) mg/dL Magnesium (1.7-2.2) mg/dL Total Bilirubin 2.3 H (0.2-1.3) mg/dL Direct Bilirubin (0.0-0.4) mg/dL AST 84 H D (17-59) U/L ALT 54 (7-56) U/L Alkaline Phosphatase 72 (38-126) U/L Total Protein 6.7 (5.8-8.3) g/dL Albumin 3.4 (3.0-4.8) g/dL Globulin 3.3 gm/dL Albumin/Globulin Ratio 1.0 L (1.1-1.8) 05/23/18 Range/Units 19:34 WBC (4.5-11.0) 10^3/ul RBC (3.5-6.1) 10^6/uL Hgb (14.0-18.0) g/dL Hct (42.0-52.0) % MCV (80.0-105.0) fl MCH (25.0-35.0) pg MCHC (31.0-37.0) g/dl RDW (11.5-14.5) % Plt Count (120.0-450.0) 10^3/uL MPV (7.0-11.0) fl Gran % (50.0-68.0) % Lymph % (Auto) (22.0-35.0) % Elk % (Auto) (1.0-6.0) % Eos % (Auto) (1.5-5.0) % Baso % (Auto) (0.0-3.0) % Gran # (1.4-6.5) Lymph # (Auto) (1.2-3.4) Elk # (Auto) (0.1-0.6) Eos # (Auto) (0.0-0.7) Baso # (Auto) (0.0-2.0) K/mm3 Sodium (132-148) mmol/L Potassium (3.6-5.0) mmol/L Chloride (98-107) mmol/L Carbon Dioxide (21-33) mmol/L Anion Gap (10-20) BUN (7-21) mg/dL Creatinine (0.8-1.5) mg/dl Est GFR ( Amer) Est GFR (Non-Af Amer) POC Glucose (mg/dL) 114 H (65-110) mg/dL Random Glucose (70-110) mg/dL Calcium (8.4-10.5) mg/dL Phosphorus (2.5-4.5) mg/dL Magnesium (1.7-2.2) mg/dL Total Bilirubin (0.2-1.3) mg/dL Direct Bilirubin (0.0-0.4) mg/dL AST (17-59) U/L ALT (7-56) U/L Alkaline Phosphatase (38-126) U/L Total Protein (5.8-8.3) g/dL Albumin (3.0-4.8) g/dL Globulin gm/dL Albumin/Globulin Ratio (1.1-1.8) Laboratory Results - last 24 hr 05/23/18 05/23/18 05/24/18 19:34 22:56 05:00 WBC 16.2 H D RBC 4.84 Hgb 14.9 Hct 42.9 MCV 88.6 MCH 30.8 MCHC 34.7 RDW 14.1 Plt Count 139 MPV 11.1 H Gran % 81.5 H Lymph % (Auto) 11.2 L Elk % (Auto) 6.9 H Eos % (Auto) 0.3 L Baso % (Auto) 0.1 Gran # 13.17 H Lymph # (Auto) 1.8 Elk # (Auto) 1.1 H Eos # (Auto) 0.1 Baso # (Auto) 0.02 Sodium Potassium Chloride Carbon Dioxide Anion Gap BUN Creatinine Est GFR ( Amer) Est GFR (Non-Af Amer) POC Glucose (mg/dL) 114 H 97 Random Glucose Calcium Phosphorus Magnesium Total Bilirubin Direct Bilirubin AST ALT Alkaline Phosphatase Total Protein Albumin Globulin Albumin/Globulin Ratio 05/24/18 05/24/18 05/24/18 05:00 05:24 05:30 WBC RBC Hgb Hct MCV MCH MCHC RDW Plt Count MPV Gran % Lymph % (Auto) Elk % (Auto) Eos % (Auto) Baso % (Auto) Gran # Lymph # (Auto) Elk # (Auto) Eos # (Auto) Baso # (Auto) Sodium 142 Potassium 2.9 L* Chloride 103 Carbon Dioxide 28 Anion Gap 14 BUN 9 Creatinine 0.9 Est GFR ( Amer) > 60 Est GFR (Non-Af Amer) > 60 POC Glucose (mg/dL) 87 Random Glucose 95 Calcium 8.5 Phosphorus 3.0 Magnesium 2.0 Total Bilirubin 2.3 H Direct Bilirubin 0.3 AST 84 H D ALT 54 Alkaline Phosphatase 72 Total Protein 6.7 Albumin 3.4 Globulin 3.3 Albumin/Globulin Ratio 1.0 L 05/24/18 15:51 WBC RBC Hgb Hct MCV MCH MCHC RDW Plt Count MPV Gran % Lymph % (Auto) Elk % (Auto) Eos % (Auto) Baso % (Auto) Gran # Lymph # (Auto) Elk # (Auto) Eos # (Auto) Baso # (Auto) Sodium 141 Potassium 4.2 Chloride 100 Carbon Dioxide 32 Anion Gap 12 BUN 12 Creatinine 0.9 Est GFR ( Amer) > 60 Est GFR (Non-Af Amer) > 60 POC Glucose (mg/dL) Random Glucose 79 Calcium 8.6 Phosphorus Magnesium Total Bilirubin Direct Bilirubin AST ALT Alkaline Phosphatase Total Protein Albumin Globulin Albumin/Globulin Ratio Critical Care Progress Note - Nutrition Nutrition: Nutrition Category Date Time Status Dysphagia/Modified Consistency Diet [DIET] Diets 05/24/18 Breakfast Ordered Attending/Attestation - Attestation I have personally seen and examined this patient.: Yes I have fully participated in the care of the patient.: Yes I have reviewed all pertinent clinical information: Yes Notes (Text): 05/24/18 18:[address] Riojas's note
[2018-05-23] MEDS ORDERED: Vancomycin 1gm in NS 250ml 1 GM/250 ML BAG IVPB SCH (14:00)
[2018-05-23] MEDS: Digoxin 125 mcg (0.125 mg) Tab PO SCH (15:38)
--- NOTE | 2018-05-23 21:03 | CON ---
Copied To: Roger Riojas MD Attending MD: Roger Riojas MD. DATE: 05/23/2018 HISTORY OF PRESENT ILLNESS: This is a 57-year-old gentleman with history of COPD, psychiatric disorder, DESTINEE, hypertension, CHF, coronary artery disease, and PE in the past (noncompliant with Eliquis) who developed episode of psychosis yesterday with visual hallucinations. He was awaiting transfer to Psychiatric Unit in [facility]; however, he developed respiratory distress and was intubated for impending respiratory failure. It appears that at that time he became unresponsive and had difficulty breathing. He also was found to have severe lactic acidosis. The patient initially was suspected to have septic shock and vancomycin and Zosyn were given as empiric broad-spectrum antibiotics. However, chest x-ray as well as CAT scan of the abdomen, pelvis did not reveal any clear-cut source of infection. No nausea, no vomiting, no diarrhea, no constipation. No fever, no chills, no sweats. PAST MEDICAL HISTORY: COPD, DESTINEE, hypertension, hyperlipidemia, diastolic CHF, coronary artery disease, and history of DVT, PE in the past (noncompliant with Eliquis). The patient does have IVC filter. PAST SURGICAL HISTORY: IVC filter, pelvic fracture repair, right shoulder surgery, skull fracture repair. HOME MEDICATIONS: Metformin, nicotine patch, morphine, metoprolol, methadone, Lasix, enalapril, digoxin, Eliquis, and Xanax. REVIEW OF SYSTEMS: Review of 12-organ system other than mentioned in history of present illness is negative. SOCIAL HISTORY: The patient is an active and heavy smoker. No alcohol or illicit drug abuse. FAMILY HISTORY: Noncontributory. ALLERGIES: NKDA. PHYSICAL EXAMINATION: GENERAL: Currently, the patient is intubated on pressure support 5/5, FiO2 of 50%. His rapid shallow breathing index is 72. He is awake, alert, and following commands. Appears to be comfortable. He is on propofol 20 mcg per kg per minute. VITAL SIGNS: His heart rate 87, oxygen saturation 98% on 50% FiO2, blood pressure 134/85. End-tidal CO2 on the monitor 37 and respiratory rate varies. ENT: Head and neck atraumatic. LUNGS: Clear auscultation bilaterally. HEART: Regular rate and rhythm. S1 and S2 normal. ABDOMEN: Soft, nontender, nondistended. MUSCULOSKELETAL: No C/C/E. NEUROLOGIC: The patient moves all extremities spontaneously. SKIN: Moist. PSYCHIATRIC: The patient is alert, awake, and oriented, anxious to get the tube removed. LABORATORY DATA: WBC 25.8, hemoglobin 16.7, platelet count 159. Sodium 144, potassium 3.4, chloride 104, carbon dioxide 27, BUN 11, creatinine 0.9, glucose 86. AST 37, ALT 30, total bilirubin 1.9. ABGs: 7.41/28/61. Lactic acid 1.1, down from 9.2 yesterday. MEDICATIONS AT HOSPITAL: DuoNeb p.r.n., DuoNeb every 6 hours, Eliquis, Precedex drip, digoxin, regular insulin sliding scale , methadone, metoprolol, Protonix, potassium supplementation, propofol drip, vancomycin, and Zosyn. Chest x-ray, no active pulmonary disease. CT of abdomen and pelvis, no acute intra-abdominal processes. ASSESSMENT AND PLAN: This is a 57-year-old gentleman who was intubated for impending respiratory failure of unclear etiology. Possibility of pulmonary embolism cannot be ruled out; however, the patient is therapeutically anticoagulated with Eliquis. He is on broad-spectrum antibiotics to cover possibility of sepsis; however, I do not have high suspicion for ongoing infectious process in the absence of clear-cut source and clinical stability despite elevated white cell count. At the present time, the patient tolerates pressure support very well. In light of his prior psychiatric illness with significant agitation, I will start the patient on Precedex prior to extubating him. He is alert, awake, following commands, has significant muscle strength. We will to continue target euvolemia, euglycemia, normothermia, and oxygen saturation more than 90%. Of note, head CT also showed no active intracranial abnormalities. ccm time 40 min Roger Riojas MD [facility]
[2018-05-24] MEDS: Dexmedetomidine 400mcg/100mL 400 MCG/100 ML BOTTLE IV PRN (03:00)
[2018-05-24] MEDS: Albuterol-Ipratrop 3 mg / 0.5 (3 ml) UD IH SCH ×5 (03:01→20:14)
[2018-05-24] MEDS: Insulin Regular 1 UNITS/0.01 ML ML SC SCH ×6 (05:29→22:00)
[2018-05-24 05:42] LABS: BASO # 0.02 K/mm3 (0.0-2.0); BASO % 0.1 % (0.0-3.0); EOS # 0.1 (0.0-0.7); EOS % 0.3 % (1.5-5.0); GRAN # 13.17 (1.4-6.5); GRAN % 81.5 % (50.0-68.0); HEMOGLOBIN 14.9 g/dL (14.0-18.0); LYMPH # 1.8 (1.2-3.4); LYMPH % 11.2 % (22.0-35.0); MEAN CELL VOLUME 88.6 fl (80.0-105.0); MEAN CORPUSCULAR HEMOGLOBIN 30.8 pg (25.0-35.0); MEAN CORPUSCULAR HGB CONC 34.7 g/dl (31.0-37.0); MEAN PLATELET VOLUME 11.1 fl (7.0-11.0); MONO # 1.1 (0.1-0.6); MONO % 6.9 % (1.0-6.0); RBC 4.84 10^6/uL (3.5-6.1); RED CELL DISTRIBUTION WIDTH 14.1 % (11.5-14.5); WHITE BLOOD COUNT 16.2 10^3/ul (4.5-11.0)
[2018-05-24] MEDS: Pantoprazole 40 mg EC Tab PO SCH (05:57)
[2018-05-24 06:39] LABS: ALBUMIN 3.4 g/dL (3.0-4.8); ALT/SGPT 54 U/L (7-56); AST/SGOT 84 U/L (17-59); BLOOD UREA NITROGEN 9 mg/dL (7-21); CALCIUM 8.5 mg/dL (8.4-10.5); GFR AFRICAN-AMERICAN > 60; GFR NON-AFRICAN AMERICAN > 60
[2018-05-24] MEDS ORDERED: Potassium Chloride 20 mEq ER Tab PO STA ×2 (06:48→07:08)
[2018-05-24 07:44] LABS: BILIRUBIN,DIRECT 0.3 mg/dL (0.0-0.4)
--- NOTE | 2018-05-24 07:50 | PN ---
Copied To: Matt Jenkins MD Attending MD: Matt Jenkins MD. DATE: 05/24/2018 SUBJECTIVE: The patient is seen earlier today in the ICU 128, bed 2. He is awake and alert. He is extubated. He is comfortable. He has no fevers. Uneventful night as per the nurse caring for the patient. OBJECTIVE: VITAL SIGNS: On exam, temperature is 98, blood pressure is 160/70, respiratory rate of 23, heart rate of 58. HEENT: Examination is unremarkable. NECK: Supple. LUNGS: Have decreased breath sounds. HEART: Normal S1, S2. ABDOMEN: Soft, nontender. No organomegaly, no rebound, no guarding, no masses. DATA: Laboratory examination reveals a white count is down to 16,200, hemoglobin of 14 and the chemistries reveals a BUN of 9, creatinine of 0.9. Procalcitonin is 0.05. Urinalysis is noted. Toxicology is noted and serology of urine for Legionella antigen is negative. Microbiology reveals the blood cultures are negative. Review of orders reveals the patient to be on p.o. doxycycline, cefepime and vancomycin. ASSESSMENT AND PLAN: This is a 57-year-old male who has no known allergies with past medical history of diastolic congestive heart failure, chronic obstructive lung disease, deep venous thrombosis, pulmonary embolism who was admitted with severe sepsis; respiratory failure, intubated on the ventilator and now extubated, comfortable with negative blood cultures, negative procalcitonin. The patient did have an elevated lactate with community-acquired pneumonia on CAT scan of the chest with negative blood cultures, today is day #2 of cefepime and doxycycline. We will discontinue the vancomycin. Negative blood cultures, negative procalcitonin. The patient appears to be improving. We will check on this morning's chest x-ray, which is pending. Yesterday's chest x-ray revealed no active lung disease, may be able just discontinue cefepime within the next 24 hours and complete with 4 to 7 days of p.o. doxycycline. Matt Jenkins MD [facility] # [id number]
--- NOTE | 2018-05-24 08:58 | CON ---
Copied To: Matt Jenkins MD Attending MD: Matt Jenkins MD DATE: 05/23/2018 The patient was seen earlier this morning. CHIEF COMPLAINT: Respiratory failure x1 day duration. HISTORY OF PRESENT ILLNESS: This is a 57-year-old male with past medical history significant for dilated cardiomyopathy, diabetes mellitus, hypertension, chronic obstructive lung disease, pulmonary emboli, DVT, congestive heart failure, Enterococcus bacteremia, IVC filter, cardiac catheterization, with NO KNOWN ALLERGIES, who has morbid obesity with a BMI of 45, admitted on 05/23/2018, was seen in the emergency room by Dr. Gokul Reddy and while in the emergency room, the patient was found to have COPD, hypertension, hyperlipidemia, congestive heart failure, PA, DVT, PE osteoarthritis by history and brought to the emergency room for agitation. The patient had the paranoid behavior, the patient intubated on ventilator. This morning the patient is intubated on ventilator and there have been no fevers or chills and the patient was intubated in the emergency room and no abdominal pain, diarrhea or constipation. No bright red blood per rectum. No melena. PAST MEDICAL HISTORY: Significant for dilated cardiomyopathy and the patient also with diabetes mellitus, morbid obesity, BMI of 45, hypertension, chronic obstructive lung disease, pulmonary emboli, DVT, congestive heart failure and Enterococcus bacteremia. PAST SURGICAL HISTORY: Significant for IVC filter placement and a cardiac catheterization. ALLERGIES: THE PATIENT HAS NO KNOWN ALLERGIES. MEDICATIONS: At home include the patient to be on Glucophage, nicotine, morphine, metoprolol, methadone, Lasix, enalapril, digoxin, Eliquis and Xanax. PHYSICAL EXAMINATION: GENERAL: The patient who was seen early this morning, intubated on a ventilator VITAL SIGNS: Temperature of 99. The T-max earlier today was 100.6 with heart rate of 59 and it was up to 112, heart rate earlier today and respiratory rate of 22 was up to 26. The patient intubated on a ventilator with a blood pressure of 171/80 and with morbid obesity with BMI of 49.3. HEENT: Examination of HEENT reveals ET tube in place NECK: Supple. LUNGS: Have decreased breath sounds. HEART: Normal S1, S2. ABDOMEN: Soft, nontender. No organomegaly. No rebound or guarding. No masses. LABORATORY EXAMINATION: Reveals a white count of 25,800, hemoglobin of 16, platelets of 159. The patient did have a hemoglobin of 18.7 yesterday and the patient does have 3% bandemia, 90% neutrophils. Coagulation is noted. INR 1.21 and blood gases are reviewed. The patient did have a lactic acid, lactate on a blood gas of 9.2 which is down to 1.1. Chemistries reveals a BUN of 11, creatinine of 0.6. The BNP is 1590 and CK is 301. Urinalysis is noted and unremarkable. The patient's toxicology reveals urine opiates screen are positive. Urine methadone screen is positive. Microbiology is pending. The patient's microbiology in the past reveals the blood cultures have been negative and the patient did have Staph haemolyticus and Enterococcus faecalis in 2013, one bottle of which is reviewed. IMAGING STUDIES: Reveals the patient has a chest x-ray from this morning, shows no active disease. History and physical examination by is reviewed. CAT scan of the abdomen and pelvis and CAT scan of the chest is done that shows bibasilar consolidation and cholelithiasis. CAT scan of the head is done, negative. The patient did have an echo which was done on 11/2017 which showed an ejection fraction of 62%. ASSESSMENT/PLAN: This is a 57-year-old male with a dilated cardiomyopathy, diabetes mellitus, hypertension, morbid obesity with BMI of 44, osteoarthritis, chronic obstructive lung disease, pulmonary emboli, DVT, congestive heart failure, Enterobacter bacteremia by history, who also has anxiety and long-time smoker, history of heroin use, who is admitted with shortness of breath, #1 is respiratory failure, intubated on a ventilator what appears to be with severe sepsis with a temperature of 100.6, tachycardia and dyspnea, with severe sepsis with respiratory failure intubated on a ventilator with a community-acquired pneumonia bilaterally, with acute diastolic congestive heart failure on chronic congestive heart failure, with acute diastolic congestive heart failure and chronic congestive heart failure in a patient with acute kidney disease, acute kidney injury in the past, no kidney disease at this time. We will treat the patient with Cefepime currently and doxycycline pending blood cultures, urine cultures, sputum cultures, procalcitonin, urine for Legionella antigen, pending pancultures and methicillin-resistant staphylococcus aureus screen, urine Streptococcus pneumonia antigen. The patient is also on IV vancomycin. Pending pancultures workup ordered nicely by , we will discuss with him and follow the patient with severe sepsis, respiratory failure intubated on a ventilator, community-acquired pneumonia bilaterally with acute diastolic congestive heart failure on top of chronic congestive heart failure. Matt Jenkins MD
[2018-05-24] MEDS: Benzocaine/Menthol (Cepacol) Lozenge MT PRN ×4 (09:00→17:06)
--- NOTE | 2018-05-24 09:13 | RAD ---
Date of service: 05/24/2018 HISTORY: Evaluation COMPARISON: 05/23/2018 FINDINGS: LUNGS: No active pulmonary disease. PLEURA: No significant pleural effusion identified, no pneumothorax apparent. CARDIOVASCULAR: Normal. OSSEOUS STRUCTURES: No significant abnormalities. VISUALIZED UPPER ABDOMEN: Normal. OTHER FINDINGS: None. IMPRESSION: No active disease.
[2018-05-24] MEDS: Cefepime 1gm in NS 100ml 1 GM/100 ML BAG IVPB SCH (10:56)
--- NOTE | 2018-05-24 11:04 | US ---
Date of service: 05/24/2018 HISTORY: Cholelithiasis; T. Bili elevation COMPARISON: None. TECHNIQUE: Sonographic evaluation of the abdomen. FINDINGS: LIVER: Measures cm. Heterogeneous echogenicity of the liver parenchyma. No mass. No intrahepatic bile duct dilatation. GALLBLADDER: Gallstones. COMMON BILE DUCT: Measures mm. No stones. No dilatation. PANCREAS: Unremarkable as visualized. No mass. No ductal dilatation. RIGHT KIDNEY: Measures cm. Normal echogenicity. No calculus, mass, or hydronephrosis. LEFT KIDNEY: Measures cm. Normal echogenicity. No calculus, mass, or hydronephrosis. SPLEEN: Normal in size and contour. No mass. AORTA: No aneurysmal dilatation. IVC: Unremarkable. OTHER FINDINGS: None. IMPRESSION: Fibro/ fatty infiltration of liver. Cholelithiasis.
--- NOTE | 2018-05-24 13:03 | CP.CCUPN ---
<Karo Choudhury - Last Filed: 05/24/18 12:56> CCU Subjective - Physician Review Events Since Last Encounter (Free Text): 05/24/18 12:57 Karo Choudhury, PGY-1 ICU progress note for Dr. Riojas Patient seen and examined at bedside. No events overnight. Patient is resting comfortably in bed and has no complaints. Reports good appetite. GI consulted. Denies chest pain, SOB and abdominal pain. CCU Objective - Vital Signs / Intake & Output Vital Signs (Last 4 hours): Vital Signs Pulse BP 05/24/18 09:07 70 148/72 Intake and Output (Last 8hrs): Intake & Output 05/23/18 05/24/18 05/24/18 22:59 06:59 14:59 Intake Total 730 900 Output Total 1550 1600 Balance -820 -700 Intake: IV 250 200 Left Antecubital 0 Right Antecubital 250 Right Forearm 100 Oral 480 700 Output: Urine 1550 1600 Urethral (Bryan) 1550 1600 Stool 0 Urine/Stool Mix 0 Emesis 0 Oral Regurgitation 0 Other 0 Other: # Bowel Movements 0 - Physical Exam Head: Positive for: Atraumatic, Normocephalic Pupils: Positive for: PERRL Extroacular Muscles: Positive for: EOMI Conjunctiva: Positive for: Normal Mouth: Positive for: Moist Mucous Membranes Neck: Positive for: Normal Range of Motion Respiratory/Chest: Positive for: Clear to Auscultation (poor inspiratory effort noted). Negative for: Respiratory Distress, Accessory Muscle Use, Wheezes, Tachypneic Cardiovascular: Positive for: Regular Rate and Rhythm, Normal S1, S2. Negative for: Murmurs Abdomen: Negative for: Tenderness, Distention, Peritoneal Signs Back: Positive for: Normal Inspection Upper Extremity: Positive for: Normal Inspection. Negative for: Cyanosis, Edema Lower Extremity: Positive for: Normal Inspection. Negative for: Edema Neurological: Positive for: Speech Normal, Motor Func Grossly Intact, Normal Sensory Function Skin: Positive for: Warm, Dry, Normal Color. Negative for: Rashes Psychiatric: Positive for: Alert, Other (tangential thoughts, paranoid behavior) - Medications Active Medications: Active Medications Generic Name Dose Route Start Last Admin Trade Name Freq PRN Reason Stop Dose Admin Albuterol/Ipratropium 3 ml 05/23/18 08:00 05/24/18 08:06 Duoneb 3 Mg/0.5 Mg (3 Ml) Ud IH 3 ml [id number] KATIE Administration Albuterol/Ipratropium 3 ml 05/23/18 02:21 Duoneb 3 Mg/0.5 Mg (3 Ml) Ud IH Q2H PRN Shortness of Breath Apixaban 5 mg 05/23/18 10:00 05/24/18 09:09 Eliquis PO 5 mg BID KATIE Administration Protocol Benzocaine/Menthol 1 juan 05/24/18 08:29 05/24/18 10:56 Cepacol Sore Throat MT 1 juan Q2H PRN Administration Sore Throat Dextrose 0 ml 05/23/18 03:17 Dextrose 50% Inj IV STAT PRN Hypoglycemia Protocol Protocol Digoxin 0.125 mg 05/23/18 14:00 05/23/18 15:38 Digoxin PO Not Given 1400 KATIE Doxycycline Hyclate 100 mg 05/23/18 22:00 05/24/18 09:08 Doryx PO 06/01/18 22:01 100 mg Q12 KATIE Administration Protocol Dextrose 1,000 mls @ 0 mls/hr 05/23/18 03:17 Dextrose 5% In Water 1000 Ml IV .Q0M PRN Hypoglycemia Protocol Protocol Per Protocol Cefepime HCl 1 gm in 100 mls @ 100 mls/hr 05/23/18 10:45 05/24/18 10:56 Maxipime 1gm IVPB 100 mls/hr Q24H KATIE Administration Protocol Insulin Human Regular 0 units 05/24/18 07:30 Humulin R SC ACHS [facility] Protocol Lisinopril 10 mg 05/24/18 10:30 Zestril PO DAILY KATIE Methadone HCl 10 mg 05/23/18 10:00 05/24/18 09:14 Methadone PO 10 mg BID KATIE Administration Metoprolol Tartrate 25 mg 05/23/18 10:00 05/24/18 09:07 Lopressor PO 25 mg DAILY KATIE Administration Pantoprazole Sodium 40 mg 05/24/18 06:00 05/24/18 05:57 Protonix Ec Tab PO 40 mg 0600 KATIE Administration - Patient Studies Lab Studies: Microbiology Studies 05/23/18 01:35 Blood Culture - Preliminary Blood NO GROWTH AFTER 24 HOURS Lab Studies 08/01/18 08/01/18 08/01/18 Range/Units 05:30 05:24 05:00 WBC (4.5-11.0) 10^3/ul RBC (3.5-6.1) 10^6/uL Hgb (14.0-18.0) g/dL Hct (42.0-52.0) % MCV (80.0-105.0) fl MCH (25.0-35.0) pg MCHC (31.0-37.0) g/dl RDW (11.5-14.5) % Plt Count (120.0-450.0) 10^3/uL MPV (7.0-11.0) fl Gran % (50.0-68.0) % Lymph % (Auto) (22.0-35.0) % Anson % (Auto) (1.0-6.0) % Eos % (Auto) (1.5-5.0) % Baso % (Auto) (0.0-3.0) % Gran # (1.4-6.5) Lymph # (Auto) (1.2-3.4) Anson # (Auto) (0.1-0.6) Eos # (Auto) (0.0-0.7) Baso # (Auto) (0.0-2.0) K/mm3 Sodium 142 (132-148) mmol/L Potassium 2.9 L* (3.6-5.0) mmol/L Chloride 103 (98-107) mmol/L Carbon Dioxide 28 (21-33) mmol/L Anion Gap 14 (10-20) BUN 9 (7-21) mg/dL Creatinine 0.9 (0.8-1.5) mg/dl Est GFR ( Amer) > 60 Est GFR (Non-Af Amer) > 60 POC Glucose (mg/dL) 87 (65-110) mg/dL Random Glucose 95 (70-110) mg/dL Calcium 8.5 (8.4-10.5) mg/dL Phosphorus 3.0 (2.5-4.5) mg/dL Magnesium 2.0 (1.7-2.2) mg/dL Total Bilirubin 2.3 H (0.2-1.3) mg/dL Direct Bilirubin 0.3 (0.0-0.4) mg/dL AST 84 H D (17-59) U/L ALT 54 (7-56) U/L Alkaline Phosphatase 72 (38-126) U/L Total Protein 6.7 (5.8-8.3) g/dL Albumin 3.4 (3.0-4.8) g/dL Globulin 3.3 gm/dL Albumin/Globulin Ratio 1.0 L (1.1-1.8) Procalcitonin (0.19-0.49) NG/ML Ur L.pneumophila Ag (NEGATIVE) 05/24/18 05/23/18 05/23/18 Range/Units 05:00 22:56 19:34 WBC 16.2 H D (4.5-11.0) 10^3/ul RBC 4.84 (3.5-6.1) 10^6/uL Hgb 14.9 (14.0-18.0) g/dL Hct 42.9 (42.0-52.0) % MCV 88.6 (80.0-105.0) fl MCH 30.8 (25.0-35.0) pg MCHC 34.7 (31.0-37.0) g/dl RDW 14.1 (11.5-14.5) % Plt Count 139 (120.0-450.0) 10^3/uL MPV 11.1 H (7.0-11.0) fl Gran % 81.5 H (50.0-68.0) % Lymph % (Auto) 11.2 L (22.0-35.0) % Anson % (Auto) 6.9 H (1.0-6.0) % Eos % (Auto) 0.3 L (1.5-5.0) % Baso % (Auto) 0.1 (0.0-3.0) % Gran # 13.17 H (1.4-6.5) Lymph # (Auto) 1.8 (1.2-3.4) Anson # (Auto) 1.1 H (0.1-0.6) Eos # (Auto) 0.1 (0.0-0.7) Baso # (Auto) 0.02 (0.0-2.0) K/mm3 Sodium (132-148) mmol/L Potassium (3.6-5.0) mmol/L Chloride (98-107) mmol/L Carbon Dioxide (21-33) mmol/L Anion Gap (10-20) BUN (7-21) mg/dL Creatinine (0.8-1.5) mg/dl Est GFR ( Amer) Est GFR (Non-Af Amer) POC Glucose (mg/dL) 97 114 H (65-110) mg/dL Random Glucose (70-110) mg/dL Calcium (8.4-10.5) mg/dL Phosphorus (2.5-4.5) mg/dL Magnesium (1.7-2.2) mg/dL Total Bilirubin (0.2-1.3) mg/dL Direct Bilirubin (0.0-0.4) mg/dL AST (17-59) U/L ALT (7-56) U/L Alkaline Phosphatase (38-126) U/L Total Protein (5.8-8.3) g/dL Albumin (3.0-4.8) g/dL Globulin gm/dL Albumin/Globulin Ratio (1.1-1.8) Procalcitonin (0.19-0.49) NG/ML Ur L.pneumophila Ag (NEGATIVE) 05/23/18 05/23/18 05/23/18 Range/Units 15:50 10:46 10:44 WBC (4.5-11.0) 10^3/ul RBC (3.5-6.1) 10^6/uL Hgb (14.0-18.0) g/dL Hct (42.0-52.0) % MCV (80.0-105.0) fl MCH (25.0-35.0) pg MCHC (31.0-37.0) g/dl RDW (11.5-14.5) % Plt Count (120.0-450.0) 10^3/uL MPV (7.0-11.0) fl Gran % (50.0-68.0) % Lymph % (Auto) (22.0-35.0) % Anson % (Auto) (1.0-6.0) % Eos % (Auto) (1.5-5.0) % Baso % (Auto) (0.0-3.0) % Gran # (1.4-6.5) Lymph # (Auto) (1.2-3.4) Anson # (Auto) (0.1-0.6) Eos # (Auto) (0.0-0.7) Baso # (Auto) (0.0-2.0) K/mm3 Sodium (132-148) mmol/L Potassium (3.6-5.0) mmol/L Chloride (98-107) mmol/L Carbon Dioxide (21-33) mmol/L Anion Gap (10-20) BUN (7-21) mg/dL Creatinine (0.8-1.5) mg/dl Est GFR ( Amer) Est GFR (Non-Af Amer) POC Glucose (mg/dL) 105 (65-110) mg/dL Random Glucose (70-110) mg/dL Calcium (8.4-10.5) mg/dL Phosphorus (2.5-4.5) mg/dL Magnesium (1.7-2.2) mg/dL Total Bilirubin (0.2-1.3) mg/dL Direct Bilirubin (0.0-0.4) mg/dL AST (17-59) U/L ALT (7-56) U/L Alkaline Phosphatase (38-126) U/L Total Protein (5.8-8.3) g/dL Albumin (3.0-4.8) g/dL Globulin gm/dL Albumin/Globulin Ratio (1.1-1.8) Procalcitonin < 0.05 L (0.19-0.49) NG/ML Ur L.pneumophila Ag Negative (NEGATIVE) Laboratory Results - last 24 hr 05/23/18 05/23/18 05/23/18 10:44 10:46 15:50 WBC RBC Hgb Hct MCV MCH MCHC RDW Plt Count MPV Gran % Lymph % (Auto) Anson % (Auto) Eos % (Auto) Baso % (Auto) Gran # Lymph # (Auto) Anson # (Auto) Eos # (Auto) Baso # (Auto) Sodium Potassium Chloride Carbon Dioxide Anion Gap BUN Creatinine Est GFR ( Amer) Est GFR (Non-Af Amer) POC Glucose (mg/dL) 105 Random Glucose Calcium Phosphorus Magnesium Total Bilirubin Direct Bilirubin AST ALT Alkaline Phosphatase Total Protein Albumin Globulin Albumin/Globulin Ratio Procalcitonin < 0.05 L Ur L.pneumophila Ag Negative 05/23/18 05/23/18 05/24/18 19:34 22:56 05:00 WBC 16.2 H D RBC 4.84 Hgb 14.9 Hct 42.9 MCV 88.6 MCH 30.8 MCHC 34.7 RDW 14.1 Plt Count 139 MPV 11.1 H Gran % 81.5 H Lymph % (Auto) 11.2 L Anson % (Auto) 6.9 H Eos % (Auto) 0.3 L Baso % (Auto) 0.1 Gran # 13.17 H Lymph # (Auto) 1.8 Anson # (Auto) 1.1 H Eos # (Auto) 0.1 Baso # (Auto) 0.02 Sodium Potassium Chloride Carbon Dioxide Anion Gap BUN Creatinine Est GFR ( Amer) Est GFR (Non-Af Amer) POC Glucose (mg/dL) 114 H 97 Random Glucose Calcium Phosphorus Magnesium Total Bilirubin Direct Bilirubin AST ALT Alkaline Phosphatase Total Protein Albumin Globulin Albumin/Globulin Ratio Procalcitonin Ur L.pneumophila Ag 05/24/18 05/24/18 05/24/18 05:00 05:24 05:30 WBC RBC Hgb Hct MCV MCH MCHC RDW Plt Count MPV Gran % Lymph % (Auto) Anson % (Auto) Eos % (Auto) Baso % (Auto) Gran # Lymph # (Auto) Anson # (Auto) Eos # (Auto) Baso # (Auto) Sodium 142 Potassium 2.9 L* Chloride 103 Carbon Dioxide 28 Anion Gap 14 BUN 9 Creatinine 0.9 Est GFR ( Amer) > 60 Est GFR (Non-Af Amer) > 60 POC Glucose (mg/dL) 87 Random Glucose 95 Calcium 8.5 Phosphorus 3.0 Magnesium 2.0 Total Bilirubin 2.3 H Direct Bilirubin 0.3 AST 84 H D ALT 54 Alkaline Phosphatase 72 Total Protein 6.7 Albumin 3.4 Globulin 3.3 Albumin/Globulin Ratio 1.0 L Procalcitonin Ur L.pneumophila Ag Fingerstick Blood Sugar Results: 114 Review of Systems - Constitutional Constitutional: absent: Fever - EENT Eyes: absent: Change in Vision - Cardiovascular Cardiovascular: absent: Chest Pain, Dyspnea, Palpitations - Respiratory Respiratory: absent: Cough, Wheezing - Gastrointestinal Gastrointestinal: absent: Abdominal Pain, Constipation, Diarrhea, Dysphagia, Hematemesis, Hematochezia - Genitourinary Genitourinary: absent: Dysuria, Flank Pain - Musculoskeletal Musculoskeletal: absent: Back Pain, Neck Pain - Neurological Neurological: absent: Dizziness, Headaches Critical Care Progress Note - Nutrition Nutrition: Nutrition Category Date Time Status Dysphagia/Modified Consistency Diet [DIET] Diets 05/24/18 Breakfast Ordered Assessment/Plan - Assessment and Plan (Free Text) Assessment: Assessment: This is a 57 year old male with PMH significant for diastolic CHF, COPD, 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 Lungs: -extubated yesterday morning without incident, currently breathing well. No wheezing, stridor or accessory muscle use. Currently on trach collor with -Chest xray today showed no active disease -Chest CT yesterday showed bibasilar consolidation -history of COPD, continue duonebs ID: -lactate is 1.1 from previous 9.2. Currently hemodynamically stable. Continue to monitor -WBC count is 16.2 today, down from 25.8 yesterday -urine culture, MRSA screen, Strep pneumo, and sputum culture pending. Urine legionella is negative. Blood culture is negative after 24 hours. -Procalcitonin pending -On day 2 of cefipime, doxycycline -ID is following and may discontinue cefipime within 24 hours and complete with 4-7 days of doxycline. Neuro: -maintain normothermia -Head CT previously show no acute findings. Heart: -maintain MAP greater than 65 -BNP noted previously to be 1590, consistent with previous baseline -troponin is unremarkable -currently on digoxin, metoprolol Nephro: -K+ was low in the AM, repleted with oral and IV KCl. -BUN/Cr is 14/0.9 -U/A is negative for leukocyte esterase -maintain euvolemia. Avoid hypochloremia GI: -Abdomen US showed fatty/fibro infiltration of liver. Cholilithiasis. -CT abdomen on 05/22 cholilithiasis -protonix ppx Heme: -H/H is stable -PT/INR yesterday shows 13.8/1.21 -currently on eliquis Endo: -History of DM2, maintain euglycemia. -Currently on insulin sliding scale <Roger Riojas - Last Filed: 05/25/18 10:00> CCU Objective - Vital Signs / Intake & Output Vital Signs (Last 4 hours): Vital Signs Pulse Resp BP Pulse Ox 05/25/18 09:41 106 H 109/66 05/25/18 09:38 102 H 109/56 L 05/25/18 06:00 64 22 95 Intake and Output (Last 8hrs): Intake & Output 05/24/18 05/25/18 05/25/18 22:59 06:59 14:59 Intake Total 975 600 Output Total 1350 1575 Balance -375 -975 Weight 298 lb 1.6 oz Intake: IV 300 Right Forearm 300 Oral 675 600 Output: Urine 1350 1575 Urethral (Bryan) 1350 1575 Emesis 0 Oral Regurgitation 0 Other 0 Other: # Voids Urethral (Bryan) 1 # Bowel Movements 1 0 - Medications Active Medications: Active Medications Generic Name Dose Route Start Last Admin Trade Name Freq PRN Reason Stop Dose Admin Albuterol/Ipratropium 3 ml 05/23/18 08:00 05/25/18 07:37 Duoneb 3 Mg/0.5 Mg (3 Ml) Ud IH 3 ml [id number] KATIE Administration Albuterol/Ipratropium 3 ml 05/23/18 02:21 Duoneb 3 Mg/0.5 Mg (3 Ml) Ud IH Q2H PRN Shortness of Breath Apixaban 5 mg 05/23/18 10:00 05/25/18 09:38 Eliquis PO 5 mg BID KATIE Administration Protocol Benzocaine/Menthol 1 juan 05/24/18 08:29 05/24/18 17:06 Cepacol Sore Throat MT 1 juan Q2H PRN Administration Sore Throat Dextrose 0 ml 05/23/18 03:17 Dextrose 50% Inj IV STAT PRN Hypoglycemia Protocol Protocol Digoxin 0.125 mg 05/23/18 14:00 05/24/18 14:25 Digoxin PO 0.125 mg 1400 KATIE Administration Doxycycline Hyclate 100 mg 05/23/18 22:00 05/25/18 09:38 Doryx PO 06/01/18 22:01 100 mg Q12 KATIE Administration Protocol Dextrose 1,000 mls @ 0 mls/hr 05/23/18 03:17 Dextrose 5% In Water 1000 Ml IV .Q0M PRN Hypoglycemia Protocol Protocol Per Protocol Cefepime HCl 1 gm in 100 mls @ 100 mls/hr 05/23/18 10:45 05/24/18 10:56 Maxipime 1gm IVPB 100 mls/hr Q24H KATIE Administration Protocol Insulin Human Regular 0 units 05/24/18 07:30 05/25/18 07:57 Humulin R SC Not Given ACHS KATIE Protocol Lisinopril 10 mg 05/24/18 10:30 05/25/18 09:41 Zestril PO 10 mg DAILY KATIE Administration Metoprolol Tartrate 25 mg 05/23/18 10:00 05/25/18 09:38 Lopressor PO 25 mg DAILY KATIE Administration Oxycodone HCl 15 mg 05/24/18 18:00 05/25/18 08:01 Oxycodone Immediate Release Tab PO 15 mg Q8H PRN Administration Pain, moderate (4-7) Pantoprazole Sodium 40 mg 05/24/18 06:00 05/25/18 05:16 Protonix Ec Tab PO 40 mg 0600 KATIE Administration - Patient Studies Lab Studies: Microbiology Studies 05/23/18 01:35 Blood Culture - Preliminary Blood NO GROWTH AFTER 48 HOURS Lab Studies 05/25/18 05/25/18 05/25/18 Range/Units 07:40 05:30 05:30 WBC 15.2 H (4.5-11.0) 10^3/ul RBC 4.67 (3.5-6.1) 10^6/uL Hgb 14.7 (14.0-18.0) g/dL Hct 41.5 L (42.0-52.0) % MCV 88.9 (80.0-105.0) fl MCH 31.5 (25.0-35.0) pg MCHC 35.4 (31.0-37.0) g/dl RDW 14.2 (11.5-14.5) % Plt Count 153 (120.0-450.0) 10^3/uL MPV 11.4 H (7.0-11.0) fl Gran % 77.7 H (50.0-68.0) % Lymph % (Auto) 13.6 L (22.0-35.0) % Anson % (Auto) 8.1 H (1.0-6.0) % Eos % (Auto) 0.5 L (1.5-5.0) % Baso % (Auto) 0.1 (0.0-3.0) % Gran # 11.83 H (1.4-6.5) Lymph # (Auto) 2.1 (1.2-3.4) Anson # (Auto) 1.2 H (0.1-0.6) Eos # (Auto) 0.1 (0.0-0.7) Baso # (Auto) 0.02 (0.0-2.0) K/mm3 Sodium 139 (132-148) mmol/L Potassium 3.2 L (3.6-5.0) mmol/L Chloride 102 (98-107) mmol/L Carbon Dioxide 28 (21-33) mmol/L Anion Gap 13 (10-20) BUN 10 (7-21) mg/dL Creatinine 0.8 (0.8-1.5) mg/dl Est GFR ( Amer) > 60 Est GFR (Non-Af Amer) > 60 POC Glucose (mg/dL) 93 (65-110) mg/dL Random Glucose 100 (70-110) mg/dL Calcium 8.5 (8.4-10.5) mg/dL Total Bilirubin 1.8 H (0.2-1.3) mg/dL AST 50 (17-59) U/L ALT 37 (7-56) U/L Alkaline Phosphatase 72 (38-126) U/L Total Protein 6.5 (5.8-8.3) g/dL Albumin 3.3 (3.0-4.8) g/dL Globulin 3.2 gm/dL Albumin/Globulin Ratio 1.0 L (1.1-1.8) 05/24/18 05/24/18 05/24/18 Range/Units 21:56 16:01 15:51 WBC (4.5-11.0) 10^3/ul RBC (3.5-6.1) 10^6/uL Hgb (14.0-18.0) g/dL Hct (42.0-52.0) % MCV (80.0-105.0) fl MCH (25.0-35.0) pg MCHC (31.0-37.0) g/dl RDW (11.5-14.5) % Plt Count (120.0-450.0) 10^3/uL MPV (7.0-11.0) fl Gran % (50.0-68.0) % Lymph % (Auto) (22.0-35.0) % Anson % (Auto) (1.0-6.0) % Eos % (Auto) (1.5-5.0) % Baso % (Auto) (0.0-3.0) % Gran # (1.4-6.5) Lymph # (Auto) (1.2-3.4) Anson # (Auto) (0.1-0.6) Eos # (Auto) (0.0-0.7) Baso # (Auto) (0.0-2.0) K/mm3 Sodium 141 (132-148) mmol/L Potassium 4.2 (3.6-5.0) mmol/L Chloride 100 (98-107) mmol/L Carbon Dioxide 32 (21-33) mmol/L Anion Gap 12 (10-20) BUN 12 (7-21) mg/dL Creatinine 0.9 (0.8-1.5) mg/dl Est GFR ( Amer) > 60 Est GFR (Non-Af Amer) > 60 POC Glucose (mg/dL) 120 H 85 (65-110) mg/dL Random Glucose 79 (70-110) mg/dL Calcium 8.6 (8.4-10.5) mg/dL Total Bilirubin (0.2-1.3) mg/dL AST (17-59) U/L ALT (7-56) U/L Alkaline Phosphatase (38-126) U/L Total Protein (5.8-8.3) g/dL Albumin (3.0-4.8) g/dL Globulin gm/dL Albumin/Globulin Ratio (1.1-1.8) 05/24/18 05/24/18 Range/Units 11:38 08:31 WBC (4.5-11.0) 10^3/ul RBC (3.5-6.1) 10^6/uL Hgb (14.0-18.0) g/dL Hct (42.0-52.0) % MCV (80.0-105.0) fl MCH (25.0-35.0) pg MCHC (31.0-37.0) g/dl RDW (11.5-14.5) % Plt Count (120.0-450.0) 10^3/uL MPV (7.0-11.0) fl Gran % (50.0-68.0) % Lymph % (Auto) (22.0-35.0) % Anson % (Auto) (1.0-6.0) % Eos % (Auto) (1.5-5.0) % Baso % (Auto) (0.0-3.0) % Gran # (1.4-6.5) Lymph # (Auto) (1.2-3.4) Anson # (Auto) (0.1-0.6) Eos # (Auto) (0.0-0.7) Baso # (Auto) (0.0-2.0) K/mm3 Sodium (132-148) mmol/L Potassium (3.6-5.0) mmol/L Chloride (98-107) mmol/L Carbon Dioxide (21-33) mmol/L Anion Gap (10-20) BUN (7-21) mg/dL Creatinine (0.8-1.5) mg/dl Est GFR ( Amer) Est GFR (Non-Af Amer) POC Glucose (mg/dL) 94 81 (65-110) mg/dL Random Glucose (70-110) mg/dL Calcium (8.4-10.5) mg/dL Total Bilirubin (0.2-1.3) mg/dL AST (17-59) U/L ALT (7-56) U/L Alkaline Phosphatase (38-126) U/L Total Protein (5.8-8.3) g/dL Albumin (3.0-4.8) g/dL Globulin gm/dL Albumin/Globulin Ratio (1.1-1.8) Laboratory Results - last 24 hr 05/24/18 05/24/18 05/24/18 08:31 11:38 15:51 WBC RBC Hgb Hct MCV MCH MCHC RDW Plt Count MPV Gran % Lymph % (Auto) Anson % (Auto) Eos % (Auto) Baso % (Auto) Gran # Lymph # (Auto) Anson # (Auto) Eos # (Auto) Baso # (Auto) Sodium 141 Potassium 4.2 Chloride 100 Carbon Dioxide 32 Anion Gap 12 BUN 12 Creatinine 0.9 Est GFR ( Amer) > 60 Est GFR (Non-Af Amer) > 60 POC Glucose (mg/dL) 81 94 Random Glucose 79 Calcium 8.6 Total Bilirubin AST ALT Alkaline Phosphatase Total Protein Albumin Globulin Albumin/Globulin Ratio 05/24/18 05/24/18 05/25/18 16:01 21:56 05:30 WBC 15.2 H RBC 4.67 Hgb 14.7 Hct 41.5 L MCV 88.9 MCH 31.5 MCHC 35.4 RDW 14.2 Plt Count 153 MPV 11.4 H Gran % 77.7 H Lymph % (Auto) 13.6 L Anson % (Auto) 8.1 H Eos % (Auto) 0.5 L Baso % (Auto) 0.1 Gran # 11.83 H Lymph # (Auto) 2.1 Anson # (Auto) 1.2 H Eos # (Auto) 0.1 Baso # (Auto) 0.02 Sodium Potassium Chloride Carbon Dioxide Anion Gap BUN Creatinine Est GFR ( Amer) Est GFR (Non-Af Amer) POC Glucose (mg/dL) 85 120 H Random Glucose Calcium Total Bilirubin AST ALT Alkaline Phosphatase Total Protein Albumin Globulin Albumin/Globulin Ratio 05/25/18 05/25/18 05:30 07:40 WBC RBC Hgb Hct MCV MCH MCHC RDW Plt Count MPV Gran % Lymph % (Auto) Anson % (Auto) Eos % (Auto) Baso % (Auto) Gran # Lymph # (Auto) Anson # (Auto) Eos # (Auto) Baso # (Auto) Sodium 139 Potassium 3.2 L Chloride 102 Carbon Dioxide 28 Anion Gap 13 BUN 10 Creatinine 0.8 Est GFR ( Amer) > 60 Est GFR (Non-Af Amer) > 60 POC Glucose (mg/dL) 93 Random Glucose 100 Calcium 8.5 Total Bilirubin 1.8 H AST 50 ALT 37 Alkaline Phosphatase 72 Total Protein 6.5 Albumin 3.3 Globulin 3.2 Albumin/Globulin Ratio 1.0 L Critical Care Progress Note - Nutrition Nutrition: Nutrition Category Date Time Status Heart Healthy Diet [DIET] Diets 05/25/18 Breakfast Active Attending/Attestation - Attestation I have personally seen and examined this patient.: Yes I have fully participated in the care of the patient.: Yes I have reviewed all pertinent clinical information: Yes Notes (Text): 05/25/18 09:59 57 yo male with resolved hypoxemic respiratory failure, extubated yesterday. OOB to chair, IS, chest PT, nebs. Maintain euvolemia, euglycemia and 02sat>90 percent. DVT/GI prophylaxis ccm time 40 min
--- NOTE | 2018-05-24 14:17 | CP.PCM.PN ---
<Juan Diego Corcoran - Last Filed: 05/24/18 15:40> Subjective - Date & Time of Evaluation Date of Evaluation: 05/24/18 Time of Evaluation: 08:15 - Subjective Subjective: Juan Diego Corcoran PGY-1 Progress Note for Hospitalist Service Patient seen and evaluated at bedside. Patient extubated yesterday and is able to verbally communicate. Patient denies chest pain, palpitations, shortness of breath, abdominal pain, hallucinations, and leg pain. Objective - Vital Signs/Intake and Output Vital Signs (last 24 hours): Temp Pulse Resp BP Pulse Ox 99.7 F H 93 H 73 H 105/60 94 L 05/24/18 12:10 05/24/18 13:34 05/24/18 12:30 05/24/18 13:34 05/24/18 13:00 Intake and Output: 05/24/18 05/24/18 06:59 18:59 Intake Total 900 Output Total 1600 Balance -700 - Medications Medications: Current Medications Albuterol/Ipratropium (Duoneb 3 Mg/0.5 Mg (3 Ml) Ud) 3 ml IH [id number] [facility] Last Admin: 05/24/18 13:52 Dose: 3 ml Albuterol/Ipratropium (Duoneb 3 Mg/0.5 Mg (3 Ml) Ud) 3 ml IH Q2H PRN PRN Reason: Shortness of Breath Apixaban (Eliquis) 5 mg PO BID KATIE PRN Reason: Protocol Last Admin: 05/24/18 09:09 Dose: 5 mg Benzocaine/Menthol (Cepacol Sore Throat) 1 juan MT Q2H PRN PRN Reason: Sore Throat Last Admin: 05/24/18 13:37 Dose: 1 juan Dextrose (Dextrose 50% Inj) 0 ml IV STAT PRN; Protocol PRN Reason: Hypoglycemia Protocol Digoxin (Digoxin) 0.125 mg PO 1400 [facility] Last Admin: 05/23/18 15:38 Dose: Not Given Doxycycline Hyclate (Doryx) 100 mg PO Q12 KATIE PRN Reason: Protocol Stop: 06/01/18 22:01 Last Admin: 05/24/18 09:08 Dose: 100 mg Dextrose (Dextrose 5% In Water 1000 Ml) 1,000 mls @ 0 mls/hr IV .Q0M PRN; Protocol; Per Protocol PRN Reason: Hypoglycemia Protocol Cefepime HCl (Maxipime 1gm) 1 gm in 100 mls @ 100 mls/hr IVPB Q24H [facility] PRN Reason: Protocol Last Admin: 05/24/18 10:56 Dose: 100 mls/hr Insulin Human Regular (Humulin R) 0 units SC ACHS [facility] PRN Reason: Protocol Lisinopril (Zestril) 10 mg PO DAILY [facility] Last Admin: 05/24/18 13:34 Dose: 10 mg Methadone HCl (Methadone) 10 mg PO BID [facility] Last Admin: 05/24/18 09:14 Dose: 10 mg Metoprolol Tartrate (Lopressor) 25 mg PO DAILY [facility] Last Admin: 05/24/18 09:07 Dose: 25 mg Pantoprazole Sodium (Protonix Ec Tab) 40 mg PO 0600 [facility] Last Admin: 05/24/18 05:57 Dose: 40 mg - Labs Labs: 05/24/18 05:00 05/24/18 05:00 PT 13.8 SECONDS 05/23/18 01:09 INR 1.21 05/23/18 01:09 APTT 26.9 Seconds 05/23/18 01:09 - Constitutional Appears: Well, No Acute Distress, Older Than Stated Age - Head Exam Head Exam: ATRAUMATIC, NORMOCEPHALIC - Eye Exam Eye Exam: EOMI, Normal appearance Pupil Exam: PERRL - ENT Exam ENT Exam: Mucous Membranes Moist Additional comments: On nasal cannula - Respiratory Exam Respiratory Exam: Wheezes, NORMAL BREATHING PATTERN. absent: Accessory Muscle Use, Rales, Rhonchi - Cardiovascular Exam Cardiovascular Exam: RRR, +S1, +S2 - GI/Abdominal Exam GI & Abdominal Exam: Soft, Normal Bowel Sounds. absent: Guarding, Rigid Additional comments: No RUQ tenderness to palpation - Extremities Exam Extremities Exam: Pedal Edema (1+). absent: Calf Tenderness - Neurological Exam Neurological Exam: Alert, Awake, Oriented x3 - Psychiatric Exam Psychiatric exam: Normal Affect, Normal Mood. absent: Agitated - Skin Skin Exam: Dry, Intact, Normal Color. absent: Diaphoretic Assessment and Plan - Assessment and Plan (Free Text) Assessment: Assessment: Mr. 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 Plan: Acute Respiratory Failure vs COPD exacerbation- resolved - Respiratory distress and unresponsive and intubated upon admission. Patient extubated without issue yesterday - currently saturating 95% on 6L NC - hx of COPD - CXR showing no active disease and chest CT showed bibasilar consolidation - incidental cholelithiasis noted on CT. F/U Abdomen US today showed fatty/ fibro infiltration of liver and cholelithiasis. Sepsis 2/2 Abdominal process vs. PNA - Currently WBC 16.2, Tachycardia 101. Afebrile since admission. - Patient noted to be hemodynamically stable at time of evaluation - UA negative leuk esterase, nitrate - Vanc and zosyn administered in ED - Doxycycline 100 BID per ID begun today - Abdominal/Pelvis CT showing bibasilar consolidation - f/u urine and blood cx Hypokalemia 2.9 this AM 80 mEq of KCL repleted this AM will monitor with f/u BMP and AM labs Hx of diastolic CHF - Last echo 12/14: LV normal size, EF 55-60%, RV mod dilated, Sys RV function mod reduced, mild to moderate RVSP 51 - Elevated BNP, appears to be normal from previous admission - continue Meds: Enalapril and dig Hx of DM2 - ISS low - ACHS - Monitor, maintain euglycemia GI/DVT ppx Protonix Eliquis 5 BID Patient seen, case reviewed, and plan discussed with Dr. Tsang. Juan Diego Corcoran, PGY-1 <Kody Tsang - Last Filed: 05/24/18 17:27> Objective - Vital Signs/Intake and Output Vital Signs (last 24 hours): Temp Pulse Resp BP Pulse Ox 99.7 F H 93 H 73 H 105/60 94 L 05/24/18 12:10 05/24/18 13:34 05/24/18 12:30 05/24/18 13:34 05/24/18 13:00 Intake and Output: 05/24/18 05/24/18 06:59 18:59 Intake Total 900 Output Total 1600 Balance -700 - Medications Medications: Current Medications Albuterol/Ipratropium (Duoneb 3 Mg/0.5 Mg (3 Ml) Ud) 3 ml IH [id number] [facility] Last Admin: 05/24/18 13:52 Dose: 3 ml Albuterol/Ipratropium (Duoneb 3 Mg/0.5 Mg (3 Ml) Ud) 3 ml IH Q2H PRN PRN Reason: Shortness of Breath Apixaban (Eliquis) 5 mg PO BID KATIE PRN Reason: Protocol Last Admin: 05/24/18 17:06 Dose: 5 mg Benzocaine/Menthol (Cepacol Sore Throat) 1 juan MT Q2H PRN PRN Reason: Sore Throat Last Admin: 05/24/18 17:06 Dose: 1 juan Dextrose (Dextrose 50% Inj) 0 ml IV STAT PRN; Protocol PRN Reason: Hypoglycemia Protocol Digoxin (Digoxin) 0.125 mg PO 1400 [facility] Last Admin: 05/23/18 15:38 Dose: Not Given Doxycycline Hyclate (Doryx) 100 mg PO Q12 [facility] PRN Reason: Protocol Stop: 06/01/18 22:01 Last Admin: 05/24/18 09:08 Dose: 100 mg Dextrose (Dextrose 5% In Water 1000 Ml) 1,000 mls @ 0 mls/hr IV .Q0M PRN; Protocol; Per Protocol PRN Reason: Hypoglycemia Protocol Cefepime HCl (Maxipime 1gm) 1 gm in 100 mls @ 100 mls/hr IVPB Q24H [facility] PRN Reason: Protocol Last Admin: 05/24/18 10:56 Dose: 100 mls/hr Insulin Human Regular (Humulin R) 0 units SC ACHS [facility] PRN Reason: Protocol Lisinopril (Zestril) 10 mg PO DAILY [facility] Last Admin: 05/24/18 13:34 Dose: 10 mg Metoprolol Tartrate (Lopressor) 25 mg PO DAILY [facility] Last Admin: 05/24/18 09:07 Dose: 25 mg Oxycodone HCl (Oxycodone Immediate Release Tab) 15 mg PO Q8H PRN PRN Reason: Pain, moderate (4-7) Last Admin: 05/24/18 17:05 Dose: 15 mg Pantoprazole Sodium (Protonix Ec Tab) 40 mg PO 0600 [facility] Last Admin: 05/24/18 05:57 Dose: 40 mg - Labs Labs: 05/24/18 05:00 05/24/18 15:51 PT 13.8 SECONDS 05/23/18 01:09 INR 1.21 05/23/18 01:09 APTT 26.9 Seconds 05/23/18 01:09 Attending/Attestation - Attestation I have personally seen and examined this patient.: Yes I have fully participated in the care of the patient.: Yes I have reviewed all pertinent clinical information, including history, physical exam and plan: Yes Notes (Text): 05/24/18 17:23 57 year old male with past medical history of COPD, DVT/PE on eliquis s/p IVC filter and history of chronic opiate use for chronic back pain who presented who initially presented with altered mental status and hallucinations (resolved) . He was admitted to ICU for acute respiratory distress s/p intubation. He was extubated yesterday. CT chest showed bibasilar pneumonia for which he is on iv antibiotics. Leukocytosis is improving. ID is following. Psychiatry evaluation was also requested. Currently his mental status appears at his baseline. He was counselled on risks of opiate abuse. Will replete and repeat lytes. Kody Tsang MD Hospitalist.
[2018-05-24] MEDS: Digoxin 125 mcg (0.125 mg) Tab PO SCH (14:25)
[2018-05-24 16:12] LABS: BLOOD UREA NITROGEN 12 mg/dL (7-21); CALCIUM 8.6 mg/dL (8.4-10.5); GFR AFRICAN-AMERICAN > 60; GFR NON-AFRICAN AMERICAN > 60
[2018-05-24] MEDS: oxyCODONE 15 mg Immediate Release Tab PO PRN (17:05)
--- NOTE | 2018-05-24 22:53 | CON ---
Copied To: Felicia Kothari MD Attending MD: Felicia Kothari MD DATE: HISTORY OF PRESENT ILLNESS: In short, the patient is 57-year-old male with not known previous psychiatric history. The patient has history of substance abuse. The patient was brought in as per family called police because the patient was experiencing paranoid and disorganized behavior at home, was agitated. The patient also had history of COPD, hypertension, hyperlipidemia, CHF, MS, DVT, PE with IVC filter and osteoarthritis. In the emergency room, the patient was very confused, combative. The patient did not even know where he was. This show card writer checked the lab work. WBC cells were 15.2, but medical team cleared the patient. This show card writer refused to accept the patient because the patient was obviously in delirium stage. Later on, after repeat of the blood work, WBC cells were climbing up. The patient became more confused, required admission to ICU. The patient was seen today at ICU. The patient was alert. The patient knows that he is in the hospital. The patient acknowledged that he was paranoid and he was feeling that his and his daughter is after him. The patient acknowledged the irrational of that thinking The patient reported now he feels much better. The patient was able to explain that he has history of addiction to the pain medications. As per emergency room assessment, the patient had admitted that he was using about 12-13 bags of heroin a day. The patient denied any thoughts of harming himself or others. Denied intent or plan. As of now, no agitation or aggression. Vital signs are stable, but the patient is tachycardiac, 110, 93, blood pressure 105/60, respirations 73, oxygen saturation is 94. Medications reviewed. The patient is on DuoNeb, Eliquis, Cepacol, Maxipime, dextrose, doxycycline, Humulin, lisinopril, methadone 10 mg twice a day, Lopressor, Protonix. Labs reviewed. Yesterday, WBC cells 25.8, today is 16.2. Hemoglobin and hematocrit are 14.9 and 42.9. Toxicology reviewed. Positive for opioids and methadone. Chemistry reviewed. Potassium is 2.9 which is very low. Reports reviewed. Lungs, no active disease. Gallbladder ultrasound, cholelithiasis and also infiltration of the liver. The patient was intubated and extubated as per medical team notes. This show card writer called to the patient's pharmacy. The patient was prescribed on the following medications: Methadone 10 mg twice a day by Dr. Ybarra. The patient filled this medication on 04/29/2018. The patient was on alprazolam 2 mg every 8 hours, the same prescriber. The patient filled that medication on 04/29/2018, oxycodone 30 mg every 6 hours as needed for pain, same doctor. The patient filled that on 04/29/2018. The rest is medical medications. The patient is not on any antipsychotic medication, not on any antidepressants. The patient denied history of being admitted to the Psychiatric Inpatient Unit in the past, denied suicidal attempts in the past. Based on the history from [place], the patient never been evaluated by a psychiatrist and never been admitted to the Psychiatric Inpatient Unit in the past. The patient was seen by this show card writer in 03/2017. The patient was not psychotic, not depressed, but complained of insomnia. MENTAL STATUS EXAM: The patient presented to be alert and oriented, pleasant, cooperative. The patient acknowledged that he is using pain killers as well as opioids. The patient was aware of the circumstances of his admission to ICU. Mood described as "I feel better." Affect was constricted, but reactive. Mood congruent. Thought process seems to be coherent and goal directed, but this show card writer cannot exclude that the patient was caught in lucid periods. The patient denied hearing voices, denied seeing things. Denied paranoid ideation during the interview, but prior to coming to the hospital, the patient presented to be disorganized, psychotic and paranoid and agitated. Insight and judgment seems to be improving. Impulses are well controlled. IMPRESSION: The patient most likely was in delirium stage due to medical condition and substances, which is improving. The patient also is addicted to pain killers. PLAN: We will observe the patient, medications confirmed. The patient's delirium is improving. There is no need for screening process to be initiated. This show card writer discussed case with manager medical affairs. Should you have any questions, give me a call back. Thank you very much for letting me participate in care of your patient Felicia Kothari MD
[2018-05-24] MEDS ORDERED: oxyCODONE 15 mg Immediate Release Tab PO STA (23:02)
[2018-05-25] MEDS: Albuterol-Ipratrop 3 mg / 0.5 (3 ml) UD IH SCH ×4 (02:02→19:40)
[2018-05-25] MEDS: Pantoprazole 40 mg EC Tab PO SCH (05:16)
[2018-05-25 05:50] LABS: BASO # 0.02 K/mm3 (0.0-2.0); BASO % 0.1 % (0.0-3.0); EOS # 0.1 (0.0-0.7); EOS % 0.5 % (1.5-5.0); GRAN # 11.83 (1.4-6.5); GRAN % 77.7 % (50.0-68.0); HEMOGLOBIN 14.7 g/dL (14.0-18.0); LYMPH # 2.1 (1.2-3.4); LYMPH % 13.6 % (22.0-35.0); MEAN CELL VOLUME 88.9 fl (80.0-105.0); MEAN CORPUSCULAR HEMOGLOBIN 31.5 pg (25.0-35.0); MEAN CORPUSCULAR HGB CONC 35.4 g/dl (31.0-37.0); MEAN PLATELET VOLUME 11.4 fl (7.0-11.0); MONO # 1.2 (0.1-0.6); MONO % 8.1 % (1.0-6.0); RBC 4.67 10^6/uL (3.5-6.1); RED CELL DISTRIBUTION WIDTH 14.2 % (11.5-14.5); WHITE BLOOD COUNT 15.2 10^3/ul (4.5-11.0)
[2018-05-25 06:43] LABS: ALBUMIN 3.3 g/dL (3.0-4.8); ALT/SGPT 37 U/L (7-56); AST/SGOT 50 U/L (17-59); BLOOD UREA NITROGEN 10 mg/dL (7-21); CALCIUM 8.5 mg/dL (8.4-10.5); GFR AFRICAN-AMERICAN > 60; GFR NON-AFRICAN AMERICAN > 60
[2018-05-25] MEDS ORDERED: Potassium Chloride 20 mEq ER Tab PO STA (06:56)
[2018-05-25] MEDS: Insulin Regular 1 UNITS/0.01 ML ML SC SCH ×4 (07:57→23:17)
[2018-05-25] MEDS: oxyCODONE 15 mg Immediate Release Tab PO PRN ×2 (08:01→16:24)
--- NOTE | 2018-05-25 08:30 | PN ---
Copied To: Matt Jenkins MD Attending MD: Matt Jenkins MD DATE: 05/25/2018 SUBJECTIVE: The patient is seen in bed in the ICU 128, bed 2. He is awake and alert. No fevers and chills. As per nurse caring for him, he had an uneventful night. PHYSICAL EXAMINATION: VITAL SIGNS: Temperature is 99, blood pressure is 130/80, respiratory rate of 22, heart rate of 65. HEENT: Examination of HEENT is unremarkable. NECK: Supple. LUNGS: Have decreased breath sounds. HEART: Normal S1, S2. ABDOMEN: Soft, nontender. LABORATORY DATA: Laboratory examination reveals a white count of 15,200, hemoglobin of 14, platelets of 153. Chemistries reveals a BUN of 10, creatinine of 0.8. The patient's procalcitonin is less than 0.05. Urinalysis is noted. Toxicology is reviewed. Serology, urine for Legionella antigen is negative. Microbiology reveals the blood cultures are no growth. Urine cultures are no growth. The patient is on p.o. doxycycline and cefepime. The patient had an ultrasound of the gallbladder, which showed cholelithiasis, but no intrahepatic bile duct dilatation. ASSESSMENT AND PLAN: A 57-year-old male, who has no known allergies with past medical history significant for diastolic congestive heart failure, chronic obstructive lung disease, deep venous thrombosis, pulmonary emboli, who was admitted with severe sepsis, respiratory failure, intubated on a ventilator, now extubated, comfortable with negative blood cultures, negative urine cultures, negative procalcitonin with community-acquired pneumonia on CAT scan. Day #3 of cefepime and doxycycline. We will discontinue the cefepime in the next 24 hours and complete 4-7 days of doxycycline. Matt Jenkins MD
[2018-05-25] MEDS: Cefepime 1gm in NS 100ml 1 GM/100 ML BAG IVPB SCH (10:44)
[2018-05-25] MEDS: Digoxin 125 mcg (0.125 mg) Tab PO SCH (13:34)
[2018-05-25 14:39] LABS: BLOOD UREA NITROGEN 10 mg/dL (7-21); CALCIUM 8.6 mg/dL (8.4-10.5); GFR AFRICAN-AMERICAN > 60; GFR NON-AFRICAN AMERICAN > 60
--- NOTE | 2018-05-25 15:25 | CP.PCM.PN ---
<Juan Diego Corcoran - Last Filed: 05/25/18 15:16> Subjective - Date & Time of Evaluation Date of Evaluation: 05/25/18 Time of Evaluation: 07:30 - Subjective Subjective: Juan Diego Corcoran PGY-1 Progress Note for Hospitalist Service Patient seen and evaluated at bedside. Patient transported to [facility]surg floor today. Patient reports lack of sleep due to inability to find position of comfort. Patient denies shortness of breath, chest pain, hallucinations, abdominal pain, headaches, and dizziness. Objective - Vital Signs/Intake and Output Vital Signs (last 24 hours): Temp Pulse Resp BP Pulse Ox 97.9 F 89 19 100/64 93 L 05/25/18 10:00 05/25/18 10:11 05/25/18 10:11 05/25/18 09:41 05/25/18 10:00 Intake and Output: 05/25/18 05/25/18 06:59 18:59 Intake Total 600 590 Output Total 1575 300 Balance -975 290 - Medications Medications: Current Medications Albuterol/Ipratropium (Duoneb 3 Mg/0.5 Mg (3 Ml) Ud) 3 ml IH [id number] [facility] Last Admin: 05/25/18 14:14 Dose: 3 ml Albuterol/Ipratropium (Duoneb 3 Mg/0.5 Mg (3 Ml) Ud) 3 ml IH Q2H PRN PRN Reason: Shortness of Breath Apixaban (Eliquis) 5 mg PO BID KATIE PRN Reason: Protocol Last Admin: 05/25/18 09:38 Dose: 5 mg Benzocaine/Menthol (Cepacol Sore Throat) 1 juan MT Q2H PRN PRN Reason: Sore Throat Last Admin: 05/24/18 17:06 Dose: 1 juan Dextrose (Dextrose 50% Inj) 0 ml IV STAT PRN; Protocol PRN Reason: Hypoglycemia Protocol Digoxin (Digoxin) 0.125 mg PO 1400 [facility] Last Admin: 05/25/18 13:34 Dose: 0.125 mg Doxycycline Hyclate (Doryx) 100 mg PO Q12 [facility] PRN Reason: Protocol Stop: 06/01/18 22:01 Last Admin: 05/25/18 09:38 Dose: 100 mg Dextrose (Dextrose 5% In Water 1000 Ml) 1,000 mls @ 0 mls/hr IV .Q0M PRN; Protocol; Per Protocol PRN Reason: Hypoglycemia Protocol Cefepime HCl (Maxipime 1gm) 1 gm in 100 mls @ 100 mls/hr IVPB Q24H [facility] PRN Reason: Protocol Last Admin: 05/25/18 10:44 Dose: 100 mls/hr Insulin Human Regular (Humulin R) 0 units SC ACHS [facility] PRN Reason: Protocol Last Admin: 05/25/18 13:34 Dose: Not Given Lisinopril (Zestril) 10 mg PO DAILY [facility] Last Admin: 05/25/18 09:41 Dose: 10 mg Metoprolol Tartrate (Lopressor) 25 mg PO DAILY [facility] Last Admin: 05/25/18 09:38 Dose: 25 mg Oxycodone HCl (Oxycodone Immediate Release Tab) 15 mg PO Q8H PRN PRN Reason: Pain, moderate (4-7) Last Admin: 05/25/18 08:01 Dose: 15 mg Pantoprazole Sodium (Protonix Ec Tab) 40 mg PO 0600 [facility] Last Admin: 05/25/18 05:16 Dose: 40 mg - Labs Labs: 05/25/18 05:30 05/25/18 14:00 PT 13.8 SECONDS 05/23/18 01:09 INR 1.21 05/23/18 01:09 APTT 26.9 Seconds 05/23/18 01:09 - Constitutional Appears: Well, No Acute Distress, Older Than Stated Age - Head Exam Head Exam: ATRAUMATIC, NORMOCEPHALIC - Eye Exam Eye Exam: EOMI, Normal appearance Pupil Exam: PERRL - ENT Exam ENT Exam: Mucous Membranes Moist Additional comments: Off nasal cannula and on room air - Respiratory Exam Respiratory Exam: Wheezes, NORMAL BREATHING PATTERN. absent: Accessory Muscle Use, Rales, Rhonchi - Cardiovascular Exam Cardiovascular Exam: RRR, +S1, +S2 - GI/Abdominal Exam GI & Abdominal Exam: Soft, Normal Bowel Sounds. absent: Guarding, Rigid Additional comments: No RUQ tenderness to palpation - Extremities Exam Extremities Exam: Pedal Edema (1+). absent: Calf Tenderness - Neurological Exam Neurological Exam: Alert, Awake, Oriented x3 - Psychiatric Exam Psychiatric exam: Normal Affect, Normal Mood. absent: Agitated - Skin Skin Exam: Dry, Intact, Normal Color. absent: Diaphoretic Assessment and Plan - Assessment and Plan (Free Text) Assessment: Assessment: Mr. 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 Plan: Acute Respiratory Failure likely 2/2 substance abuse vs COPD exacerbation- resolved - Respiratory distress and unresponsive and intubated upon admission. Patient extubated without issue yesterday - currently saturating well off nasal cannula; transferred to med-surg floors - hx of COPD; on duonebs 3q6 scheduled and 3q2 prn - CXR showing no active disease and chest CT showed bibasilar consolidation - home oxycodone dose decreased to 15 mg q8 due to recent respiratory depression. - incidental cholelithiasis noted on CT. F/U Abdomen US showed fatty/fibro infiltration of liver and cholelithiasis. No RUQ pain. Tbili stable at 1.8 - GI consult placed- will follow up recommendations Sepsis 2/2 Abdominal process vs. PNA - Currently WBC 15.2. Afebrile since admission. - Patient noted to be hemodynamically stable - UA negative leuk esterase, nitrate - Vanc and zosyn administered in ED - Doxycycline 100 BID and cefepime 1 g day 3. Plan per ID is to D/c cefepime tomorrow and complete 4-7 days of doxycycline - Abdominal/Pelvis CT showing bibasilar consolidation - urine and blood cx 2/2 negative day 3 Hypokalemia - 3.2 this AM - 40 mEq of KCL repleted this AM. F/u BMP revealed K 4.0 - Will monitor with f/u AM labs HFpEF - Last echo 12/14: LV normal size, EF 55-60%, RV mod dilated, Sys RV function mod reduced, mild to moderate RVSP 51 - Elevated BNP, appears to be normal from previous admission - continue Meds: Enalapril and dig Hx of DM2 - ISS low - ACHS - sugars under control. Will continue to Monitor GI/DVT ppx - Protonix - Eliquis 5 BID Disposition: PT recs appreciated now for weakness and deconditioning now that patient is extubated and out of bed. F/u rn case manager hospice and psych recs regarding possible discharge into psych unit vs home. Patient seen, case reviewed, and plan discussed with Dr. Tsang. Juan Diego Corcoran, PGY-1 <Kody Tsang - Last Filed: 05/25/18 18:12> Objective - Vital Signs/Intake and Output Vital Signs (last 24 hours): Temp Pulse Resp BP Pulse Ox 97.9 F 89 19 100/64 93 L 05/25/18 10:00 05/25/18 10:11 05/25/18 10:11 05/25/18 09:41 05/25/18 10:00 Intake and Output: 05/25/18 05/25/18 06:59 18:59 Intake Total 600 590 Output Total 1575 300 Balance -975 290 - Medications Medications: Current Medications Albuterol/Ipratropium (Duoneb 3 Mg/0.5 Mg (3 Ml) Ud) 3 ml IH [id number] [facility] Last Admin: 05/25/18 14:14 Dose: 3 ml Albuterol/Ipratropium (Duoneb 3 Mg/0.5 Mg (3 Ml) Ud) 3 ml IH Q2H PRN PRN Reason: Shortness of Breath Alprazolam (Xanax) 2 mg PO BID PRN; Protocol PRN Reason: Anxiety Last Admin: 05/25/18 18:04 Dose: 2 mg Apixaban (Eliquis) 5 mg PO BID [facility] PRN Reason: Protocol Last Admin: 05/25/18 18:04 Dose: 5 mg Benzocaine/Menthol (Cepacol Sore Throat) 1 juan MT Q2H PRN PRN Reason: Sore Throat Last Admin: 05/24/18 17:06 Dose: 1 juan Dextrose (Dextrose 50% Inj) 0 ml IV STAT PRN; Protocol PRN Reason: Hypoglycemia Protocol Digoxin (Digoxin) 0.125 mg PO 1400 [facility] Last Admin: 05/25/18 13:34 Dose: 0.125 mg Doxycycline Hyclate (Doryx) 100 mg PO Q12 [facility] PRN Reason: Protocol Stop: 06/01/18 22:01 Last Admin: 05/25/18 09:38 Dose: 100 mg Dextrose (Dextrose 5% In Water 1000 Ml) 1,000 mls @ 0 mls/hr IV .Q0M PRN; Protocol; Per Protocol PRN Reason: Hypoglycemia Protocol Cefepime HCl (Maxipime 1gm) 1 gm in 100 mls @ 100 mls/hr IVPB Q24H [facility] PRN Reason: Protocol Last Admin: 05/25/18 10:44 Dose: 100 mls/hr Insulin Human Regular (Humulin R) 0 units SC ACHS [facility] PRN Reason: Protocol Last Admin: 05/25/18 16:40 Dose: Not Given Lisinopril (Zestril) 10 mg PO DAILY [facility] Last Admin: 05/25/18 09:41 Dose: 10 mg Metoprolol Tartrate (Lopressor) 25 mg PO DAILY [facility] Last Admin: 05/25/18 09:38 Dose: 25 mg Oxycodone HCl (Oxycodone Immediate Release Tab) 15 mg PO Q8H PRN PRN Reason: Pain, moderate (4-7) Last Admin: 05/25/18 16:24 Dose: 15 mg Pantoprazole Sodium (Protonix Ec Tab) 40 mg PO 0600 [facility] Last Admin: 05/25/18 05:16 Dose: 40 mg Quetiapine Fumarate (Seroquel) 25 mg PO HS [facility] PRN Reason: Protocol - Labs Labs: 05/25/18 05:30 05/25/18 14:00 PT 13.8 SECONDS 05/23/18 01:09 INR 1.21 05/23/18 01:09 APTT 26.9 Seconds 05/23/18 01:09 Attending/Attestation - Attestation I have personally seen and examined this patient.: Yes I have fully participated in the care of the patient.: Yes I have reviewed all pertinent clinical information, including history, physical exam and plan: Yes Notes (Text): 05/25/18 18:11 57 year old male with past medical history of COPD, DVT/PE on eliquis s/p IVC filter and history of chronic opiate use for chronic back pain who presented who initially presented with altered mental status and hallucinations (resolved) . He was admitted to ICU for acute respiratory distress s/p intubation and later extubated. CT chest showed bibasilar pneumonia for which he is on iv antibiotics. Leukocytosis continues to improve. ID is following. Psychiatry evaluation was also appreciated. Currently his mental status appears at his baseline. He was counselled on risks of opiate abuse. Will replete and repeat lytes. PT evaluation is requested. Kody Tsang MD Hospitalist.
--- NOTE | 2018-05-25 17:13 | CON ---
Copied To: Jason Hernandez DO Attending MD: Jason Hernandez DO DATE: 05/25/2018 HISTORY OF PRESENT ILLNESS: I saw Mr. Riley this morning, who is a 57-year-old male with past medical history of COPD, sleep apnea, hypertension, congestive heart failure, non-STEMI, DVT, who presented to the emergency room with issues related to paranoia. In the emergency room, he was found to have leukocytosis, also difficulty breathing and subsequently became unresponsive. The patient is a status post Code Sepsis. After short time on ventilator, respiratory status improved after antibiotics were administered. The patient had a chest and abdominal CT scan performed, which was significant for cholelithiasis, bilateral consolidation, fatty liver. The patient is currently in ICU extubated. There are no complaints of nausea, vomiting, abdominal pain, or chest pain. Consult was called because of his elevated transaminases. PHYSICAL EXAMINATION: VITAL SIGNS: I reviewed this patient's vital signs. HEENT: Noncontributory. LUNGS: Decreased breath sounds, basilar. HEART: Regular rhythm. ABDOMEN: Protuberant. Soft. No tenderness elicited in any quadrants. LABORATORY DATA: I reviewed this patient's laboratory data which as of yesterday shows leukocytosis, WBC count 16, and H and H 14 and 42. Legionella serology negative. Elevation of the patient's transaminases extending back to 05/22/2018; good AST and ALT ratio of 25 over 38; subsequently over the next 2 days, mild increase in the alkaline phosphatase. Note that his B-natriuretic peptide was 1590. As of yesterday, the patient's alkaline phosphatase is 72, AST and ALT ratio is 84 over 54, and direct bilirubin of 0.3. There is a mild indirect elevation of his bilirubin. CT was discussed previously. Note that he had a gallbladder ultrasound done recently, which indicated heterogeneous echogenicity of the liver parenchyma with no intrahepatic bile duct dilatation. Common bile duct is free, not dilated, but gallstones are noted in the gallbladder. ASSESSMENT: This is a 57-year-old male, currently being treated for sepsis and pneumonia with possibly some component of congestive heart failure based on B-natriuretic peptide. His current antibiotic therapy includes doxycycline as well as cefepime. Further input by Dr. Jenkins later on today. I reviewed the patient's laboratory data which indicated mild elevation of transaminases. Etiology is probably multifactorial which includes significant component of fatty liver due to the patient's body habitus, current weight 298 pounds. Also component of sepsis plus gallstones and possibly some cardiac issue as well. The transaminase elevation is diminutive, I am assuming after leaving the hospital, this should refer back to his pre-admission level. Jason Hernandez DO, PhD MTDAndres
[2018-05-26] MEDS: oxyCODONE 15 mg Immediate Release Tab PO PRN ×3 (00:08→21:06)
--- NOTE | 2018-05-26 00:44 | PN ---
Copied To: Felicia Kothari MD Attending MD: Felicia Kothari MD DATE: 05/25/2018 SUBJECTIVE: Shortly, the patient is 57-year-old male with not known previous psychiatric history, history of addiction to opioids. The patient was admitted to ICU initially for altered mental status. Patient was intubated, successfully extubated and transferred down to medical side for further evaluation and stabilization. This insurance underwriter sales involved in the patient's care because of altered mental status, paranoia, and agitation, which were primarily symptoms before patient came to the hospital. Patient was followed up initially in the ICU, then on the medical side. Patient was seen today. Patient is more alert, able to provide history. Medication list was requested from the patient's pharmacy. Please see previous note for more detailed information. Discussed with medical claims assistant today, was advised to resume Xanax because this medication was prescribed to the patient and patient could have benzodiazepine withdrawal, which contribute to the patient's delirium stage. Also patient was on methadone, which was confirmed by patient's pharmacy. Patient was prescribed 10 mg of methadone twice a day for chronic pain. Going back to the patient's presentation, patient was alert, oriented, remember this insurance underwriter sales. Patient is still mildly paranoid. Patient says that he had questionable hallucination. Patient is not sure if his brother came or visit him. Patient still has paranoid ideation towards his sister and his daughter. He says "they try to poison me and steal my money." But at the same time, patient cannot exclude that his mind is playing tricks on him. Vitals reviewed. Labs reviewed. MENTAL STATUS EXAMINATION: The patient presented to be alert. Patient knows that he is in the hospital. He is aware of circumstances of acute admission to the medical side. Fair eye contact. Speech was normal rate, tone, quality, and quantity. Thought process, mildly disorganized, seems to be circumstantial, but not tangential. Thought content, patient is mildly paranoid, had some visual hallucinations. Patient was not sure if he saw his brother in the room. IMPRESSION: Most likely the patient is in delirium stage, visual hallucination, majority of the time, related to the medical issues. Delirium could be related to opioid withdrawal, drugs, as well as infection. PLAN: This insurance underwriter sales suggested Seroquel 12.5 mg at the nighttime for delirium. Risks, benefits, alternatives discussed with the patient, was advised to resume benzodiazepines and confirmed all of the medications from the pharmacy. Medication list was provided to medical claims assistant. Meanwhile, continue current management. This insurance underwriter sales will offer patient admission to the Psychiatric Inpatient Unit if the psychosis will be prominent. Thank you very much for letting me participate in the care of your patient. Should you have any questions, give me a call back. Felicia Kothari MD GIRISH
[2018-05-26] MEDS: Albuterol-Ipratrop 3 mg / 0.5 (3 ml) UD IH SCH ×4 (02:59→19:34)
[2018-05-26] MEDS: Pantoprazole 40 mg EC Tab PO SCH (06:06)
[2018-05-26 07:57] LABS: BASO # 0.03 K/mm3 (0.0-2.0); BASO % 0.2 % (0.0-3.0); EOS # 0.2 (0.0-0.7); EOS % 1.2 % (1.5-5.0); GRAN # 9.12 (1.4-6.5); GRAN % 75.2 % (50.0-68.0); HEMOGLOBIN 14.7 g/dL (14.0-18.0); LYMPH % 16.7 % (22.0-35.0); MEAN CELL VOLUME 89.3 fl (80.0-105.0); MEAN CORPUSCULAR HEMOGLOBIN 30.8 pg (25.0-35.0); MEAN CORPUSCULAR HGB CONC 34.5 g/dl (31.0-37.0); MEAN PLATELET VOLUME 11.9 fl (7.0-11.0); MONO # 0.8 (0.1-0.6); MONO % 6.7 % (1.0-6.0); RBC 4.77 10^6/uL (3.5-6.1); RED CELL DISTRIBUTION WIDTH 14.2 % (11.5-14.5); WHITE BLOOD COUNT 12.1 10^3/ul (4.5-11.0)
[2018-05-26 08:12] LABS: ALB/GLOB RATIO 1.1 (1.1-1.8); ALBUMIN 3.5 g/dL (3.0-4.8); ALT/SGPT 35 U/L (7-56); AST/SGOT 35 U/L (17-59); BLOOD UREA NITROGEN 11 mg/dL (7-21); CALCIUM 8.7 mg/dL (8.4-10.5); GFR AFRICAN-AMERICAN > 60; GFR NON-AFRICAN AMERICAN > 60
[2018-05-26] MEDS: Insulin Regular 1 UNITS/0.01 ML ML SC SCH ×4 (08:35→21:49)
--- NOTE | 2018-05-26 12:36 | PN ---
Copied To: Felicia Kothari MD Attending MD: Felicia Kothari MD DATE: 05/26/2018 FOLLOWUP NOTE SUBJECTIVE: Shortly, the patient is a 57-year-old male with not known previous psychiatric history, history of addiction to opioids and pain killers. The patient was admitted to ICU initially for acute respiratory failure, was intubated, extubated. Prior to come to the hospital, the patient was very confused, combative, was feeling that his family is going to kill him, presented to be delirious. Psych consult was called because of the patient's presentation. This jingle writer is following the patient on the medical site since the time of admission. All medications were confirmed with the patient's pharmacy and discussed with the medical office receptionist. The patient was prescribed opioids, methadone. All of the medications confirmed. The patient also was taking Xanax 2 mg three times a day, which was resumed as needed. Withdrawal from benzodiazepines could contribute for the patient's condition. The patient has episodes of visual hallucinations, feeling unease, but at the same time no aggression, no agitation. The patient was followed up today. The patient presented to be alert. The patient complained that he was not able to sleep last night because of the noises. The patient reports that overall he feels better, but still the patient reports that his mood is depressed and patient has episodes of confusion and feeling that his sister and his daughter wanted to kill him in order to steal from the patient, but at the same time, the patient is aware that his mind is playing tricks on him. Vital signs are stable. Temperature 98.5, pulse is 98, blood pressure 138/91, respirations 20, oxygen saturation is 95. Medications reviewed. The patient is on DuoNeb, Xanax 2 mg b.i.d. p.r.n., , Cepacol, dextrose, digoxin, doxycycline, Humulin, Zestril, oxycodone, Protonix and Seroquel 25 mg at the nighttime. Labs reviewed. WBC cells trending down, 12.1 today. Coagulation is reviewed. Chemistry reviewed. Urinalysis reviewed. Toxicology reviewed. Positive for opioids and methadone. Serology reviewed. MENTAL STATUS EXAMINATION: As this jingle writer described above. The patient was alert and oriented, pleasant and intermittent eye contact. Mood described as depressed. Affect was flat. Thought process was concrete. Thought content, the patient has episodes of hallucinations and paranoia. Insight and judgment seems to be improving, but still limited. Impulses are well controlled. IMPRESSION: Multifactorial delirium, which is related to sepsis, respiratory failure, substance abuse. In the emergency room, the patient said that he used 10 bags of heroin prior to come to the hospital, which will contribute to the patient's presentation. PLAN: Continue current management. Continue current medication. Xanax was 2 mg three times a day, prescribed by pain management doctor. It is up to the medical team whether to continue or not. Seroquel was started by this jingle writer at the nighttime schedule to improve his psychosis. Risks, benefits and alternatives discussed with the patient. The patient is agreeing. Meanwhile, at present moment, the patient needs to continue his treatment on the medical site. We will assess if the patient meets criteria to go to the Psychiatric Inpatient Unit because of the hallucinations as well as depressive symptoms, we will definitely do so. The patient was asked if he is willing to, the patient preliminarily said yes. We will keep monitoring the patient over the weekend, Dr. Lee covers. We will see if the patient meets criteria for psych admission. Thank you very much for letting me participate in the care of your patient. Felicia Kothari MD
--- NOTE | 2018-05-26 13:05 | CP.PCM.PN ---
<Juan Diego Corcoran - Last Filed: 05/26/18 17:42> Subjective - Date & Time of Evaluation Date of Evaluation: 05/26/18 Time of Evaluation: 07:40 - Subjective Subjective: Juan Diego Corcoran PGY-1 Progress Note for Hospitalist Service Patient seen and evaluated at bedside. No acute events overnight. No nasal cannula in place. Patient denies any shortness of breath, chest pain, palpitations, abdominal pain, hallucinations but does admit to paranoia and anxiety overnight due to a loud noises from another patient room. Objective - Vital Signs/Intake and Output Vital Signs (last 24 hours): Temp Pulse Resp BP Pulse Ox 98.5 F 98 H 20 138/91 H 95 05/26/18 06:00 05/26/18 09:36 05/26/18 06:00 05/26/18 09:36 05/26/18 06:00 - Medications Medications: Current Medications Albuterol/Ipratropium (Duoneb 3 Mg/0.5 Mg (3 Ml) Ud) 3 ml IH [id number] [facility] Last Admin: 05/26/18 07:26 Dose: 3 ml Albuterol/Ipratropium (Duoneb 3 Mg/0.5 Mg (3 Ml) Ud) 3 ml IH Q2H PRN PRN Reason: Shortness of Breath Alprazolam (Xanax) 2 mg PO BID PRN; Protocol PRN Reason: Anxiety Last Admin: 05/26/18 09:34 Dose: 2 mg Apixaban (Eliquis) 5 mg PO BID KATIE PRN Reason: Protocol Last Admin: 05/26/18 09:35 Dose: 5 mg Benzocaine/Menthol (Cepacol Sore Throat) 1 juan MT Q2H PRN PRN Reason: Sore Throat Last Admin: 05/24/18 17:06 Dose: 1 juan Dextrose (Dextrose 50% Inj) 0 ml IV STAT PRN; Protocol PRN Reason: Hypoglycemia Protocol Digoxin (Digoxin) 0.125 mg PO 1400 [facility] Last Admin: 05/25/18 13:34 Dose: 0.125 mg Doxycycline Hyclate (Doryx) 100 mg PO Q12 KATIE PRN Reason: Protocol Stop: 06/01/18 22:01 Last Admin: 05/26/18 09:35 Dose: 100 mg Dextrose (Dextrose 5% In Water 1000 Ml) 1,000 mls @ 0 mls/hr IV .Q0M PRN; Protocol; Per Protocol PRN Reason: Hypoglycemia Protocol Insulin Human Regular (Humulin R) 0 units SC ACHS [facility] PRN Reason: Protocol Last Admin: 05/26/18 12:02 Dose: Not Given Lisinopril (Zestril) 10 mg PO DAILY [facility] Last Admin: 05/26/18 09:36 Dose: 10 mg Metoprolol Tartrate (Lopressor) 25 mg PO DAILY [facility] Last Admin: 05/26/18 09:35 Dose: 25 mg Oxycodone HCl (Oxycodone Immediate Release Tab) 15 mg PO Q8H PRN PRN Reason: Pain, moderate (4-7) Last Admin: 05/26/18 08:37 Dose: 15 mg Pantoprazole Sodium (Protonix Ec Tab) 40 mg PO 0600 [facility] Last Admin: 05/26/18 06:06 Dose: 40 mg Quetiapine Fumarate (Seroquel) 25 mg PO HS [facility] PRN Reason: Protocol Last Admin: 05/25/18 22:12 Dose: 25 mg - Labs Labs: 05/26/18 07:15 05/26/18 07:15 PT 13.8 SECONDS 05/23/18 01:09 INR 1.21 05/23/18 01:09 APTT 26.9 Seconds 05/23/18 01:09 - Constitutional Appears: Well, No Acute Distress - Head Exam Head Exam: ATRAUMATIC, NORMOCEPHALIC - Eye Exam Eye Exam: EOMI, Normal appearance Pupil Exam: PERRL - ENT Exam ENT Exam: Mucous Membranes Moist Additional comments: Off nasal cannula and on room air - Respiratory Exam Respiratory Exam: Wheezes, NORMAL BREATHING PATTERN. absent: Accessory Muscle Use, Rales, Rhonchi - Cardiovascular Exam Cardiovascular Exam: RRR, +S1, +S2 - GI/Abdominal Exam GI & Abdominal Exam: Soft, Normal Bowel Sounds. absent: Guarding, Rigid Additional comments: No RUQ tenderness to palpation - Extremities Exam Extremities Exam: Pedal Edema (1+). absent: Calf Tenderness - Neurological Exam Neurological Exam: Alert, Awake, Oriented x3 - Psychiatric Exam Psychiatric exam: Normal Affect, Normal Mood. absent: Agitated - Skin Skin Exam: Dry, Intact, Normal Color. absent: Diaphoretic Assessment and Plan - Assessment and Plan (Free Text) Assessment: Assessment: Mr. 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 Plan: Acute Respiratory Failure likely 2/2 substance abuse vs COPD exacerbation- resolved - Respiratory distress and unresponsive and intubated upon admission. Patient extubated without issue - currently saturating well off nasal cannula; transferred to med-surg floors - hx of COPD; on duonebs 3q6 scheduled and 3q2 prn - CXR showing no active disease and chest CT showed bibasilar consolidation - home oxycodone dose decreased to 15 mg q8 due to recent respiratory depression. Transaminitis- resolved - incidental cholelithiasis noted on CT. F/U Abdomen US showed fatty/fibro infiltration of liver and cholelithiasis. No RUQ pain. Tbili stable at 1.7 - GI consult placed- no acute actions planned at this time Sepsis 2/2 Abdominal process vs. PNA - resolved - Currently WBC 12.1. Afebrile since admission. - Patient noted to be hemodynamically stable - UA negative leuk esterase, nitrate - Vanc and zosyn administered in ED - Cefepime 1 g discontinued. Doxycycline 100 continued day 4 today - Abdominal/Pelvis CT showing bibasilar consolidation - urine and blood cx 2/2 negative day 4 Hypokalemia - 3.6 this AM - Will monitor with f/u AM labs HFpEF - Last echo 12/14: LV normal size, EF 55-60%, RV mod dilated, Sys RV function mod reduced, mild to moderate RVSP 51 - Elevated BNP, appears to be normal from previous admission - continue Meds: Enalapril and dig Hx of DM2 - ISS low - ACHS - sugars under control. Will continue to Monitor GI/DVT ppx - Protonix - Eliquis 5 BID Disposition: PT recs for TCU but patient insurance not accepted there. F/u psych recs regarding possible discharge into psych unit vs home with services med assist. Patient seen, case reviewed, and plan discussed with Dr. Tsagn. Juan Diego Corcoran, PGY-1 <Kody Tsang - Last Filed: 05/27/18 08:14> Objective - Vital Signs/Intake and Output Vital Signs (last 24 hours): Temp Pulse Resp BP Pulse Ox 98.1 F 78 20 134/80 96 05/27/18 07:45 05/27/18 07:45 05/27/18 07:45 05/27/18 07:45 05/27/18 07:45 - Medications Medications: Current Medications Albuterol/Ipratropium (Duoneb 3 Mg/0.5 Mg (3 Ml) Ud) 3 ml IH [id number] [facility] Last Admin: 05/27/18 07:36 Dose: 3 ml Albuterol/Ipratropium (Duoneb 3 Mg/0.5 Mg (3 Ml) Ud) 3 ml IH Q2H PRN PRN Reason: Shortness of Breath Alprazolam (Xanax) 2 mg PO BID PRN; Protocol PRN Reason: Anxiety Last Admin: 05/26/18 23:20 Dose: 2 mg Apixaban (Eliquis) 5 mg PO BID [facility] PRN Reason: Protocol Last Admin: 05/26/18 17:45 Dose: 5 mg Benzocaine/Menthol (Cepacol Sore Throat) 1 juan MT Q2H PRN PRN Reason: Sore Throat Last Admin: 05/24/18 17:06 Dose: 1 juan Dextrose (Dextrose 50% Inj) 0 ml IV STAT PRN; Protocol PRN Reason: Hypoglycemia Protocol Digoxin (Digoxin) 0.125 mg PO 1400 [facility] Last Admin: 05/26/18 14:34 Dose: 0.125 mg Doxycycline Hyclate (Doryx) 100 mg PO Q12 [facility] PRN Reason: Protocol Stop: 06/01/18 22:01 Last Admin: 05/26/18 21:49 Dose: 100 mg Dextrose (Dextrose 5% In Water 1000 Ml) 1,000 mls @ 0 mls/hr IV .Q0M PRN; Protocol; Per Protocol PRN Reason: Hypoglycemia Protocol Insulin Human Regular (Humulin R) 0 units SC ACHS [facility] PRN Reason: Protocol Last Admin: 05/26/18 21:49 Dose: Not Given Lisinopril (Zestril) 10 mg PO DAILY [facility] Last Admin: 05/26/18 09:36 Dose: 10 mg Metoprolol Tartrate (Lopressor) 25 mg PO DAILY [facility] Last Admin: 05/26/18 09:35 Dose: 25 mg Oxycodone HCl (Oxycodone Immediate Release Tab) 15 mg PO Q8H PRN PRN Reason: Pain, moderate (4-7) Last Admin: 05/26/18 21:06 Dose: 15 mg Pantoprazole Sodium (Protonix Ec Tab) 40 mg PO 0600 [facility] Last Admin: 05/27/18 05:18 Dose: 40 mg Quetiapine Fumarate (Seroquel) 25 mg PO HS KATIE PRN Reason: Protocol Last Admin: 05/26/18 21:50 Dose: 25 mg - Labs Labs: 05/27/18 07:00 05/27/18 07:00 PT 13.8 SECONDS 05/23/18 01:09 INR 1.21 05/23/18 01:09 APTT 26.9 Seconds 05/23/18 01:09 Attending/Attestation - Attestation I have personally seen and examined this patient.: Yes I have fully participated in the care of the patient.: Yes I have reviewed all pertinent clinical information, including history, physical exam and plan: Yes Notes (Text): 05/26/18 57 year old male with past medical history of COPD, DVT/PE on eliquis s/p IVC filter and history of chronic opiate use for chronic back pain who presented who initially presented with altered mental status and hallucinations (resolved) . He was admitted to ICU for acute respiratory distress s/p intubation and later extubated. CT chest showed bibasilar pneumonia for which he is on antibiotics. Leukocytosis has improved. ID is following. Psychiatry is following as well for anxiety. He was counselled on risks of substance and opiate abuse. Will follow up with PT and psychiatry recommendations for d/c planning. Kody Tsang MD Hospitalist.
[2018-05-26] MEDS: Digoxin 125 mcg (0.125 mg) Tab PO SCH (14:34)
[2018-05-26] MEDS: Cefepime 1gm in NS 100ml 1 GM/100 ML BAG IVPB SCH (14:34)
--- NOTE | 2018-05-26 16:18 | CP.PCM.PN ---
Subjective - Date & Time of Evaluation Date of Evaluation: 05/26/18 Time of Evaluation: 13:35 - Subjective Subjective: Comfortable in bed, no fevers, not in distress. Objective - Vital Signs/Intake and Output Vital Signs (last 24 hours): Temp Pulse Resp BP Pulse Ox 98 F 86 20 128/83 98 05/26/18 14:00 05/26/18 14:00 05/26/18 14:00 05/26/18 14:00 05/26/18 14:00 - Medications Medications: Current Medications Albuterol/Ipratropium (Duoneb 3 Mg/0.5 Mg (3 Ml) Ud) 3 ml IH [id number] [facility] Last Admin: 05/26/18 13:47 Dose: 3 ml Albuterol/Ipratropium (Duoneb 3 Mg/0.5 Mg (3 Ml) Ud) 3 ml IH Q2H PRN PRN Reason: Shortness of Breath Alprazolam (Xanax) 2 mg PO BID PRN; Protocol PRN Reason: Anxiety Last Admin: 05/26/18 09:34 Dose: 2 mg Apixaban (Eliquis) 5 mg PO BID [facility] PRN Reason: Protocol Last Admin: 05/26/18 09:35 Dose: 5 mg Benzocaine/Menthol (Cepacol Sore Throat) 1 juan MT Q2H PRN PRN Reason: Sore Throat Last Admin: 05/24/18 17:06 Dose: 1 juan Dextrose (Dextrose 50% Inj) 0 ml IV STAT PRN; Protocol PRN Reason: Hypoglycemia Protocol Digoxin (Digoxin) 0.125 mg PO 1400 [facility] Last Admin: 05/26/18 14:34 Dose: 0.125 mg Doxycycline Hyclate (Doryx) 100 mg PO Q12 [facility] PRN Reason: Protocol Stop: 06/01/18 22:01 Last Admin: 05/26/18 09:35 Dose: 100 mg Dextrose (Dextrose 5% In Water 1000 Ml) 1,000 mls @ 0 mls/hr IV .Q0M PRN; Protocol; Per Protocol PRN Reason: Hypoglycemia Protocol Insulin Human Regular (Humulin R) 0 units SC ACHS [facility] PRN Reason: Protocol Last Admin: 05/26/18 12:02 Dose: Not Given Lisinopril (Zestril) 10 mg PO DAILY [facility] Last Admin: 05/26/18 09:36 Dose: 10 mg Metoprolol Tartrate (Lopressor) 25 mg PO DAILY [facility] Last Admin: 05/26/18 09:35 Dose: 25 mg Oxycodone HCl (Oxycodone Immediate Release Tab) 15 mg PO Q8H PRN PRN Reason: Pain, moderate (4-7) Last Admin: 05/26/18 08:37 Dose: 15 mg Pantoprazole Sodium (Protonix Ec Tab) 40 mg PO 0600 [facility] Last Admin: 05/26/18 06:06 Dose: 40 mg Quetiapine Fumarate (Seroquel) 25 mg PO HS [facility] PRN Reason: Protocol Last Admin: 05/25/18 22:12 Dose: 25 mg - Labs Labs: 05/26/18 07:15 05/26/18 07:15 PT 13.8 SECONDS 05/23/18 01:09 INR 1.21 05/23/18 01:09 APTT 26.9 Seconds 05/23/18 01:09 - Constitutional Appears: Chronically Ill - Head Exam Head Exam: NORMAL INSPECTION - Respiratory Exam Respiratory Exam: Decreased Breath Sounds - Cardiovascular Exam Cardiovascular Exam: +S1, +S2 - GI/Abdominal Exam GI & Abdominal Exam: Soft. absent: Tenderness Assessment and Plan - Assessment and Plan (Free Text) Plan: Assessment severe sepsis S/P VDRF due to severe CAP diastolic congestive heart failure COPD history of DVT, PE Plan continue Doxycycline to complete 7 days of therapy (day 4 today) discussed with Dr. Tsang
[2018-05-27] MEDS ORDERED: oxyCODONE 5 mg Immediate Release Tab PO STA (01:49)
[2018-05-27] MEDS: Albuterol-Ipratrop 3 mg / 0.5 (3 ml) UD IH SCH ×4 (02:50→20:13)
[2018-05-27] MEDS: Pantoprazole 40 mg EC Tab PO SCH (05:18)
[2018-05-27 07:46] VITALS: O2SAT 96
[2018-05-27 07:49] LABS: BASO # 0.02 K/mm3 (0.0-2.0); BASO % 0.2 % (0.0-3.0); EOS # 0.2 (0.0-0.7); EOS % 1.7 % (1.5-5.0); GRAN # 8.2 (1.4-6.5); GRAN % 70.5 % (50.0-68.0); HEMOGLOBIN 14.4 g/dL (14.0-18.0); LYMPH # 2.5 (1.2-3.4); LYMPH % 21.6 % (22.0-35.0); MEAN CELL VOLUME 89.8 fl (80.0-105.0); MEAN CORPUSCULAR HEMOGLOBIN 30.6 pg (25.0-35.0); MEAN PLATELET VOLUME 11.9 fl (7.0-11.0); MONO # 0.7 (0.1-0.6); RBC 4.71 10^6/uL (3.5-6.1); RED CELL DISTRIBUTION WIDTH 14.3 % (11.5-14.5); WHITE BLOOD COUNT 11.6 10^3/ul (4.5-11.0)
[2018-05-27 08:00] LABS: ALB/GLOB RATIO 1.1 (1.1-1.8); ALBUMIN 3.3 g/dL (3.0-4.8); ALT/SGPT 28 U/L (7-56); AST/SGOT 25 U/L (17-59); BLOOD UREA NITROGEN 13 mg/dL (7-21); CALCIUM 8.7 mg/dL (8.4-10.5); GFR AFRICAN-AMERICAN > 60; GFR NON-AFRICAN AMERICAN > 60
[2018-05-27] MEDS: oxyCODONE 15 mg Immediate Release Tab PO PRN (10:41)
--- NOTE | 2018-05-27 11:45 | PN ---
Copied To: Matt Jenkins MD Attending MD: Matt Jenkins MD DATE: 05/27/2018 SUBJECTIVE: The patient is in bed, in no acute distress, nontoxic. PHYSICAL EXAMINATION: VITAL SIGNS: Temperature is 98, blood pressure is 130/80, respiratory rate of 20, heart rate of 86. HEENT: Examination of HEENT is unremarkable. NECK: Supple. LUNGS: Have decreased breath sounds. HEART: Normal S1, S2. ABDOMEN: Soft, nontender. LABORATORY DATA: Laboratory examination reveals the white count is down to 11,600, hemoglobin of 14, platelets of 156. Chemistries are noted. Urinalysis is noted. Toxicology is reviewed. Urine for Legionella antigen is negative. Microbiology reveals the nares are negative. The blood cultures are negative. Urine cultures negative. Review of orders reveals the patient is on p.o. doxycycline. ASSESSMENT AND PLAN: A 57-year-old male seen earlier this morning in 573, bed 1 who was initially with severe sepsis, status post ventilator-dependent respiratory failure due to severe community-acquired pneumonia with diastolic congestive heart failure, chronic obstructive lung disease, history of deep venous thrombosis and pulmonary embolism, today is day #5 of doxycycline, would complete 7 days. Matt Jenkins MD
[2018-05-27] MEDS: Digoxin 125 mcg (0.125 mg) Tab PO SCH (14:45)
[2018-05-27 14:50] VITALS: PULSE 78
--- NOTE | 2018-05-27 15:33 | CP.PCM.DIS ---
<Juan Diego Corcoran - Last Filed: 05/27/18 15:28> Provider - Provider Date of Admission: 05/23/18 01:26 Attending physician: Kody Tsang MD Primary care physician: Yoni Young MD Consults: Psychiatry: Dr. Wilkes, Dr. Lee GI: Dr. Hernandez ID: Dr. [email or web address] Time Spent in preparation of Discharge (in minutes): 45 Hospital Course - Lab Results Lab Results: Micro Results 05/23/18 01:35 Blood Blood Culture - Preliminary NO GROWTH AFTER 4 DAYS 05/24/18 03:30 Naris MRSA Culture (Admit) - Final MRSA NOT DETECTED Most Recent Lab Values WBC 11.6 10^3/ul (4.5-11.0) H 05/27/18 07:00 RBC 4.71 10^6/uL (3.5-6.1) 05/27/18 07:00 Hgb 14.4 g/dL (14.0-18.0) 05/27/18 07:00 Hct 42.3 % (42.0-52.0) 05/27/18 07:00 MCV 89.8 fl (80.0-105.0) 05/27/18 07:00 MCH 30.6 pg (25.0-35.0) 05/27/18 07:00 MCHC 34.0 g/dl (31.0-37.0) 05/27/18 07:00 RDW 14.3 % (11.5-14.5) 05/27/18 07:00 Plt Count 156 10^3/uL (120.0-450.0) 05/27/18 07:00 MPV 11.9 fl (7.0-11.0) H 05/27/18 07:00 Gran % 70.5 % (50.0-68.0) H 05/27/18 07:00 Lymph % (Auto) 21.6 % (22.0-35.0) L 05/27/18 07:00 [place] % (Auto) 6.0 % (1.0-6.0) 05/27/18 07:00 Eos % (Auto) 1.7 % (1.5-5.0) 05/27/18 07:00 Baso % (Auto) 0.2 % (0.0-3.0) 05/27/18 07:00 Gran # 8.20 (1.4-6.5) H 05/27/18 07:00 Lymph # (Auto) 2.5 (1.2-3.4) 05/27/18 07:00 [place] # (Auto) 0.7 (0.1-0.6) H 05/27/18 07:00 Eos # (Auto) 0.2 (0.0-0.7) 05/27/18 07:00 Baso # (Auto) 0.02 K/mm3 (0.0-2.0) 05/27/18 07:00 Neutrophils % (Manual) 90 % (50.0-70.0) H 05/23/18 04:30 Band Neutrophils % 3 % (0-2) H 05/23/18 04:30 Lymphocytes % (Manual) 3 % (22.0-35.0) L 05/23/18 04:30 Monocytes % (Manual) 4 % (1.0-6.0) 05/23/18 04:30 Platelet Evaluation Normal (NORMAL) 05/23/18 04:30 PT 13.8 SECONDS 05/23/18 01:09 INR 1.21 05/23/18 01:09 APTT 26.9 Seconds 05/23/18 01:09 pCO2 28 mm/Hg (35-45) L 05/23/18 05:45 pO2 61.0 mm/Hg (80-100) L 05/23/18 05:45 HCO3 17.7 mmol/L (21-28) L 05/23/18 05:45 ABG pH 7.41 (7.35-7.45) 05/23/18 05:45 ABG Total CO2 18.6 mmol.L (22-28) L 05/23/18 05:45 ABG O2 Saturation 96.4 % (95-98) 05/23/18 05:45 ABG O2 Content 20.9 ML/dl (15-23) 05/23/18 01:35 ABG Base Excess -5.5 mmol/L (-2.0-3.0) L 05/23/18 05:45 ABG Hemoglobin 15.2 g/dL (11.7-17.4) 05/23/18 01:35 ABG Carboxyhemoglobin 2.2 % (0.5-1.5) H 05/23/18 01:35 POC ABG HHb (Measured) -0.3 % (0-5) L 05/23/18 01:35 ABG Methemoglobin 1.2 % (0.0-3.0) 05/23/18 01:35 ABG O2 Capacity 20.8 mL/dl (16-24) 05/23/18 01:35 ABG Potassium 2.5 mmol/L (3.6-5.2) L* 05/23/18 05:45 VBG pH 7.41 (7.32-7.43) 05/23/18 04:00 VBG pCO2 43.0 (40-60) 05/23/18 04:00 VBG HCO3 27.3 mmol/l (21-28) 05/23/18 04:00 VBG Total CO2 28.6 mmol.L (22-28) H 05/23/18 04:00 VBG O2 Sat (Calc) 86.3 % (40-65) H 05/23/18 04:00 VBG Base Excess 2.2 mmol/L (0.0-2.0) H 05/23/18 04:00 VBG Potassium 3.3 mmol/L (3.6-5.2) L 05/23/18 04:00 Hgb O2 Saturation 96.8 % (95.0-98.0) 05/23/18 01:35 Sodium 148.0 mmol/L (132-148) 05/23/18 05:45 Chloride 120.0 mmol/L (98-107) H 05/23/18 05:45 Glucose 58 mg/dl (75-110) L 05/23/18 05:45 Lactate 1.1 mmol/L (0.7-2.1) 05/23/18 05:45 FiO2 50.0 % 05/23/18 05:45 Sodium 141 mmol/L (132-148) 05/27/18 07:00 Potassium 3.7 mmol/L (3.6-5.0) 05/27/18 07:00 Chloride 101 mmol/L (98-107) 05/27/18 07:00 Carbon Dioxide 31 mmol/L (21-33) 05/27/18 07:00 Anion Gap 12 (10-20) 05/27/18 07:00 BUN 13 mg/dL (7-21) 05/27/18 07:00 Creatinine 0.8 mg/dl (0.8-1.5) 05/27/18 07:00 Est GFR ( Amer) > 60 05/27/18 07:00 Est GFR (Non-Af Amer) > 60 05/27/18 07:00 POC Glucose (mg/dL) 88 mg/dL (65-110) 05/27/18 06:34 Random Glucose 94 mg/dL (70-110) 05/27/18 07:00 Calcium 8.7 mg/dL (8.4-10.5) 05/27/18 07:00 Phosphorus 3.0 mg/dL (2.5-4.5) 05/24/18 05:30 Magnesium 2.0 mg/dL (1.7-2.2) 05/24/18 05:30 Total Bilirubin 1.2 mg/dL (0.2-1.3) 05/27/18 07:00 Direct Bilirubin 0.3 mg/dL (0.0-0.4) 05/24/18 05:30 AST 25 U/L (17-59) 05/27/18 07:00 ALT 28 U/L (7-56) 05/27/18 07:00 Alkaline Phosphatase 63 U/L (38-126) 05/27/18 07:00 Lactate Dehydrogenase 571 U/L (333-699) 05/23/18 01:09 Total Creatine Kinase 301 U/L (35-230) H 05/23/18 01:09 CK-MB (CK-2) 2.1 ng/mL (0.0-3.6) 05/23/18 01:09 CK-MB (CK-2) % Cancelled 05/23/18 01:09 Troponin I 0.04 ng/mL D 05/23/18 01:09 NT-Pro-B Natriuret Pep 1590 pg/mL (0-450) H 05/23/18 01:09 Total Protein 6.5 g/dL (5.8-8.3) 05/27/18 07:00 Albumin 3.3 g/dL (3.0-4.8) 05/27/18 07:00 Globulin 3.2 gm/dL 05/27/18 07:00 Albumin/Globulin Ratio 1.1 (1.1-1.8) 05/27/18 07:00 Procalcitonin < 0.05 NG/ML (0.19-0.49) L 05/23/18 10:46 Arterial Blood Potassium 2.5 mmol/L (3.6-5.2) L* 05/23/18 05:45 Venous Blood Potassium 3.3 mmol/L (3.6-5.2) L 05/23/18 04:00 Urine Color Yellow (YELLOW) 05/23/18 01:09 Urine Appearance Clear (CLEAR) 05/23/18 01:09 Urine pH 7.0 (4.7-8.0) 05/23/18 01:09 Ur Specific [place] 1.010 (1.005-1.035) 05/23/18 01:09 Urine Protein 100 mg/dL (<30 mg/dL) H 05/23/18 01:09 Urine Glucose (UA) Negative mg/dL (NEGATIVE) 05/23/18 01:09 Urine Ketones 15 mg/dL (NEGATIVE) H 05/23/18 01:09 Urine Blood Negative (NEGATIVE) 05/23/18 01:09 Urine Nitrate Negative (NEGATIVE) 05/23/18 01:09 Urine Bilirubin Negative (NEGATIVE) 05/23/18 01:09 Urine Urobilinogen 2.0 E.U./dL (<1 E.U./dL) H 05/23/18 01:09 Ur Leukocyte Esterase Negative [place]/uL (NEGATIVE) 05/23/18 01:09 Urine RBC 0 - 2 /hpf (0-2) 05/23/18 01:09 Urine WBC 0 - 2 /hpf (0-6) 05/23/18 01:09 Ur Epithelial Cells 0 - 2 /hpf (0-5) 05/23/18 01:09 Urine Opiates Screen Positive (NEGATIVE) H 05/22/18 06:35 Urine Methadone Screen Positive (NEGATIVE) H 05/22/18 06:35 Ur Barbiturates Screen Negative (NEGATIVE) 05/22/18 06:35 Ur Phencyclidine Scrn Negative (NEGATIVE) 05/22/18 06:35 Ur Amphetamines Screen Negative (NEGATIVE) 05/22/18 06:35 U Benzodiazepines Scrn Negative (NEGATIVE) 05/22/18 06:35 U Oth Cocaine Metabols Negative (NEGATIVE) 05/22/18 06:35 U Cannabinoids Screen Negative (NEGATIVE) 05/22/18 06:35 Alcohol, Quantitative < 10 mg/dL (0-10) 05/22/18 05:25 Ur L.pneumophila Ag Negative (NEGATIVE) 05/23/18 10:44 - Hospital Course Hospital Course: Juan Diego Corcoran, PGY-1 Discharge Summary for Hospitalist Service This 57 y male with past medical history of COPD, DESTINEE, HTN, HLD, diastolic CHF, NSTEMI, DVT/PE on Eliquis, s/p IVC filter and medication non-compliance who presented to [facility] ED on 05/22 for psychosis episode with visual hallucinations. Patient reported having 10-20 bags of heroin before coming to the emergency room. The patient developed respiratory distress in the supervisor blood of 05/23 and the patient was intubated and sedated to prevent further respiratory distress. Code sepsis was called for elevated lactate, leukocytosis, and tachycardia. We believe his respiratory distress was likely due to underlying pneumonia as shown in his chest CT which showed bibasilar consolidation. Patient was initially given vancomycin and zosyn as well as 1 liter bolus fluids. Chest CT was ordered which showed bibasilar consolidation, fatty liver and cholelithiasis. UA, urine and blood cultures were all negative. To treat his pneumonia, the patient was started on cefepime and doxycycline. Cefepime was discontinued per infectious diseases and was advised to continue doxycycline for 7 day course. Patient was extubated on 05/24 without issue. Saturation at that time was on nasal cannula. Psych was consulted and they determined that the patient mostly likely has delirium due to substance abuse (opioid addiction) and paranoid ideations. The patient may be addicted to painkillers and advised to undergo substance abuse counseling. Gastroenterology was consulted regarding some abnormal transaminases and Total bilirubin levels. Abnormal lab values likely multifactorial due to fatty liver, morbid obesity, and cholelithiasis. No further workup was needed per GI. Physical therapy was also consulted and they originally recommended placement in TCU. However, since patient's insurance is not accepterd there, and patient was generally steady while ambulating per discussions with Physical therapist, patient was instructed to continue PT in the psychiatry unit. The patient is currently medically stable in no acute distress and breathing well, and is stable for psych admission. Dr. Lee has accepted the patient into her service. Patient is hemodynamically stable, vital signs stable, and in full cognitive capacity. Patient wishes to follow up in psych unit for substance abuse education, anxiety, and poor sleep. Patient is completing antibiotics course for PNA for an additional two days after today. Medications to continue: Xanax 2 mg PO TID - would appreciate psych recommendations Eliquis 5 mg BID Dig 125 mcg PO Doxycycline 100 BID for two more days Enalapril 10 Lasix 20 PO Metformin 500 BID Lopressor 25 Nicotine patch (Seroquel per Psych recommendations) Patient seen, case reviewed, and plan discussed with Dr. Tsang. Juan Diego Corcoran, PGY-1 Discharge Exam - Head Exam Head Exam: ATRAUMATIC, NORMAL INSPECTION - Eye Exam Eye Exam: EOMI, Normal appearance. absent: Conjunctival injection Pupil Exam: PERRL - ENT Exam ENT Exam: Mucous Membranes Moist - Neck Exam Neck exam: Full Rom, Normal Inspection - Respiratory Exam Respiratory Exam: Decreased Breath Sounds, NORMAL BREATHING PATTERN, UNREMARKABLE. absent: Respiratory Distress, Stridor - Cardiovascular Exam Cardiovascular Exam: RRR, +S1, +S2. absent: JVD - GI/Abdominal Exam GI & Abdominal Exam: Normal Bowel Sounds, Soft, Unremarkable. absent: Guarding , Organomegaly, Tenderness - Back Exam Back exam: FULL ROM. absent: CVA tenderness (L), CVA tenderness (R) - Neurological Exam Neurological exam: Alert (AAOx2) - Psychiatric Exam Psychiatric exam: Normal Affect, Normal Mood - Skin Skin Exam: Dry, Intact, Normal Color, Warm Discharge Plan - Follow Up Plan Condition: GUARDED Disposition: DISCHARGE TO PSYCH HOSPITAL Instructions: Drug Abuse and Drug Addiction (DC), Opioid Use Disorder, Sepsis ( ED), Altered Mental Status (GEN) Additional Instructions: Patient to follow all medications as prescribed. Patient to follow all psychiatry unit recommendations. Patient should discontinue all substance use. Patient was provided education material and spoke with at length regarding attempts and plan to stop. Should symptoms reoccur or worsen, please return to local emergency department. Referrals: Felicia Kothari MD [Staff Provider] - Yoni Young MD [Primary Care Provider] - Mc Lee MD [Staff Provider] - <Kody Tsang - Last Filed: 05/27/18 18:36> Provider - Provider Date of Admission: 05/23/18 01:26 Attending physician: Kody Tsang MD Primary care physician: Yoni Young MD Hospital Course - Lab Results Lab Results: Micro Results 05/23/18 01:35 Blood Blood Culture - Preliminary NO GROWTH AFTER 4 DAYS 05/24/18 03:30 Naris MRSA Culture (Admit) - Final MRSA NOT DETECTED Most Recent Lab Values WBC 11.6 10^3/ul (4.5-11.0) H 05/27/18 07:00 RBC 4.71 10^6/uL (3.5-6.1) 05/27/18 07:00 Hgb 14.4 g/dL (14.0-18.0) 05/27/18 07:00 Hct 42.3 % (42.0-52.0) 05/27/18 07:00 MCV 89.8 fl (80.0-105.0) 05/27/18 07:00 MCH 30.6 pg (25.0-35.0) 05/27/18 07:00 MCHC 34.0 g/dl (31.0-37.0) 05/27/18 07:00 RDW 14.3 % (11.5-14.5) 05/27/18 07:00 Plt Count 156 10^3/uL (120.0-450.0) 05/27/18 07:00 MPV 11.9 fl (7.0-11.0) H 05/27/18 07:00 Gran % 70.5 % (50.0-68.0) H 05/27/18 07:00 Lymph % (Auto) 21.6 % (22.0-35.0) L 05/27/18 07:00 [place] % (Auto) 6.0 % (1.0-6.0) 05/27/18 07:00 Eos % (Auto) 1.7 % (1.5-5.0) 05/27/18 07:00 Baso % (Auto) 0.2 % (0.0-3.0) 05/27/18 07:00 Gran # 8.20 (1.4-6.5) H 05/27/18 07:00 Lymph # (Auto) 2.5 (1.2-3.4) 05/27/18 07:00 [place] # (Auto) 0.7 (0.1-0.6) H 05/27/18 07:00 Eos # (Auto) 0.2 (0.0-0.7) 05/27/18 07:00 Baso # (Auto) 0.02 K/mm3 (0.0-2.0) 05/27/18 07:00 Neutrophils % (Manual) 90 % (50.0-70.0) H 05/23/18 04:30 Band Neutrophils % 3 % (0-2) H 05/23/18 04:30 Lymphocytes % (Manual) 3 % (22.0-35.0) L 05/23/18 04:30 Monocytes % (Manual) 4 % (1.0-6.0) 05/23/18 04:30 Platelet Evaluation Normal (NORMAL) 05/23/18 04:30 PT 13.8 SECONDS 05/23/18 01:09 INR 1.21 05/23/18 01:09 APTT 26.9 Seconds 05/23/18 01:09 pCO2 28 mm/Hg (35-45) L 05/23/18 05:45 pO2 61.0 mm/Hg (80-100) L 05/23/18 05:45 HCO3 17.7 mmol/L (21-28) L 05/23/18 05:45 ABG pH 7.41 (7.35-7.45) 05/23/18 05:45 ABG Total CO2 18.6 mmol.L (22-28) L 05/23/18 05:45 ABG O2 Saturation 96.4 % (95-98) 05/23/18 05:45 ABG O2 Content 20.9 ML/dl (15-23) 05/23/18 01:35 ABG Base Excess -5.5 mmol/L (-2.0-3.0) L 05/23/18 05:45 ABG Hemoglobin 15.2 g/dL (11.7-17.4) 05/23/18 01:35 ABG Carboxyhemoglobin 2.2 % (0.5-1.5) H 05/23/18 01:35 POC ABG HHb (Measured) -0.3 % (0-5) L 05/23/18 01:35 ABG Methemoglobin 1.2 % (0.0-3.0) 05/23/18 01:35 ABG O2 Capacity 20.8 mL/dl (16-24) 05/23/18 01:35 ABG Potassium 2.5 mmol/L (3.6-5.2) L* 05/23/18 05:45 VBG pH 7.41 (7.32-7.43) 05/23/18 04:00 VBG pCO2 43.0 (40-60) 05/23/18 04:00 VBG HCO3 27.3 mmol/l (21-28) 05/23/18 04:00 VBG Total CO2 28.6 mmol.L (22-28) H 05/23/18 04:00 VBG O2 Sat (Calc) 86.3 % (40-65) H 05/23/18 04:00 VBG Base Excess 2.2 mmol/L (0.0-2.0) H 05/23/18 04:00 VBG Potassium 3.3 mmol/L (3.6-5.2) L 05/23/18 04:00 Hgb O2 Saturation 96.8 % (95.0-98.0) 05/23/18 01:35 Sodium 148.0 mmol/L (132-148) 05/23/18 05:45 Chloride 120.0 mmol/L (98-107) H 05/23/18 05:45 Glucose 58 mg/dl (75-110) L 05/23/18 05:45 Lactate 1.1 mmol/L (0.7-2.1) 05/23/18 05:45 FiO2 50.0 % 05/23/18 05:45 Sodium 141 mmol/L (132-148) 05/27/18 07:00 Potassium 3.7 mmol/L (3.6-5.0) 05/27/18 07:00 Chloride 101 mmol/L (98-107) 05/27/18 07:00 Carbon Dioxide 31 mmol/L (21-33) 05/27/18 07:00 Anion Gap 12 (10-20) 05/27/18 07:00 BUN 13 mg/dL (7-21) 05/27/18 07:00 Creatinine 0.8 mg/dl (0.8-1.5) 05/27/18 07:00 Est GFR ( Amer) > 60 05/27/18 07:00 Est GFR (Non-Af Amer) > 60 05/27/18 07:00 POC Glucose (mg/dL) 102 mg/dL (65-110) 05/27/18 15:57 Random Glucose 94 mg/dL (70-110) 05/27/18 07:00 Calcium 8.7 mg/dL (8.4-10.5) 05/27/18 07:00 Phosphorus 3.0 mg/dL (2.5-4.5) 05/24/18 05:30 Magnesium 2.0 mg/dL (1.7-2.2) 05/24/18 05:30 Total Bilirubin 1.2 mg/dL (0.2-1.3) 05/27/18 07:00 Direct Bilirubin 0.3 mg/dL (0.0-0.4) 05/24/18 05:30 AST 25 U/L (17-59) 05/27/18 07:00 ALT 28 U/L (7-56) 05/27/18 07:00 Alkaline Phosphatase 63 U/L (38-126) 05/27/18 07:00 Lactate Dehydrogenase 571 U/L (333-699) 05/23/18 01:09 Total Creatine Kinase 301 U/L (35-230) H 05/23/18 01:09 CK-MB (CK-2) 2.1 ng/mL (0.0-3.6) 05/23/18 01:09 CK-MB (CK-2) % Cancelled 05/23/18 01:09 Troponin I 0.04 ng/mL D 05/23/18 01:09 NT-Pro-B Natriuret Pep 1590 pg/mL (0-450) H 05/23/18 01:09 Total Protein 6.5 g/dL (5.8-8.3) 05/27/18 07:00 Albumin 3.3 g/dL (3.0-4.8) 05/27/18 07:00 Globulin 3.2 gm/dL 05/27/18 07:00 Albumin/Globulin Ratio 1.1 (1.1-1.8) 05/27/18 07:00 Procalcitonin < 0.05 NG/ML (0.19-0.49) L 05/23/18 10:46 Arterial Blood Potassium 2.5 mmol/L (3.6-5.2) L* 05/23/18 05:45 Venous Blood Potassium 3.3 mmol/L (3.6-5.2) L 05/23/18 04:00 Urine Color Yellow (YELLOW) 05/23/18 01:09 Urine Appearance Clear (CLEAR) 05/23/18 01:09 Urine pH 7.0 (4.7-8.0) 05/23/18 01:09 Ur Specific [place] 1.010 (1.005-1.035) 05/23/18 01:09 Urine Protein 100 mg/dL (<30 mg/dL) H 05/23/18 01:09 Urine Glucose (UA) Negative mg/dL (NEGATIVE) 05/23/18 01:09 Urine Ketones 15 mg/dL (NEGATIVE) H 05/23/18 01:09 Urine Blood Negative (NEGATIVE) 05/23/18 01:09 Urine Nitrate Negative (NEGATIVE) 05/23/18 01:09 Urine Bilirubin Negative (NEGATIVE) 05/23/18 01:09 Urine Urobilinogen 2.0 E.U./dL (<1 E.U./dL) H 05/23/18 01:09 Ur Leukocyte Esterase Negative [place]/uL (NEGATIVE) 05/23/18 01:09 Urine RBC 0 - 2 /hpf (0-2) 05/23/18 01:09 Urine WBC 0 - 2 /hpf (0-6) 05/23/18 01:09 Ur Epithelial Cells 0 - 2 /hpf (0-5) 05/23/18 01:09 Urine Opiates Screen Positive (NEGATIVE) H 05/22/18 06:35 Urine Methadone Screen Positive (NEGATIVE) H 05/22/18 06:35 Ur Barbiturates Screen Negative (NEGATIVE) 05/22/18 06:35 Ur Phencyclidine Scrn Negative (NEGATIVE) 05/22/18 06:35 Ur Amphetamines Screen Negative (NEGATIVE) 05/22/18 06:35 U Benzodiazepines Scrn Negative (NEGATIVE) 05/22/18 06:35 U Oth Cocaine Metabols Negative (NEGATIVE) 05/22/18 06:35 U Cannabinoids Screen Negative (NEGATIVE) 05/22/18 06:35 Alcohol, Quantitative < 10 mg/dL (0-10) 05/22/18 05:25 Ur L.pneumophila Ag Negative (NEGATIVE) 05/23/18 10:44 Attending/Attestation - Attestation I have personally seen and examined this patient.: Yes I have fully participated in the care of the patient.: Yes I have reviewed all pertinent clinical information, including history, physical exam and plan: Yes Notes (Text): 05/27/18 18:34 57 year old male with past medical history of COPD, DVT/PE on eliquis s/p IVC filter, anxiety and history of chronic opiate use for chronic back pain who initially presented with altered mental status and hallucinations (resolved). He was admitted to ICU for acute respiratory distress s/p intubation and later extubated. CT chest showed bibasilar pneumonia for which he is on antibiotics. Leukocytosis has improved. He was also being followed by psychiatry who recommended inpatient psychiatric assessment which patient is agreeable to. Patient will be transferred to psychiatric unit. Medical team will follow up in AM. Continue with po antibiotics. He was counselled on risks of substance and opiate abuse. Kody Tsang MD Hospitalist.
[2018-05-27 16:01] VITALS: BP 132/88; PULSE 83; RESP 18; TEMP 98.9
--- NOTE | 2018-05-27 21:40 | CON ---
Copied To: Mc Lee MD Attending MD: Mc Lee MD. DATE: 05/27/2018 HISTORY OF PRESENT ILLNESS: Patient is an 87-year-old male with no prior psychiatric history, history of addiction to opioids and possibly benzodiazepines, whom Psychiatry has been following due to continued confusion, paranoia, and hallucination, likely secondary to delirium. I reviewed his recent notes with patient at bedside. Patient to be improving. He is aware of which hospital he is in and the month and the year. He reports depression, though denies any suicidal thoughts. Denies having any hallucinations at this time and he reports that he remains paranoid. He has been in better control and more predictable on the unit and there have been no major behavioral issues overnight. Affect is flat during the course of my conversation. Insight and judgement as noted is improving, but still limited. I spoke with patient this morning requiring possible continued stabilization on the Psychiatric unit. Patient continues to be in agreement. IMPRESSION: Multifactorial delirium due to multiple etiologies, is improving; depression, not otherwise specified; opiate use disorder, severe; as well as rule out benzodiazepine use disorder. Vital signs, medications, and labs were reviewed by the provided. RELEVANT PSYCHIATRIC MEDICATIONS: Include Xanax 2 mg p.o. b.i.d. p.r.n., Seroquel 25 mg p.o. at bedtime. RECOMMENDATIONS: He may be transferred to the Psychiatric unit, once he is medically cleared for continued stabilizations, specifically treatment of depression, paranoia, and continue monitoring of mental status in consideration of the profound nature of his presenting psychotic symptoms. We will continue with Seroquel as prescribed. Mc Lee MD
== END 2018-05-27 20:31 | DRG 584 ==
LOC: ED 04:50 → ERH 05-23 01:26 → ICU 05-23 03:20 → 5RNO 05-25 11:48 → 5RSO 05-25 18:02
PROVIDERS: ADMIT Hospitalist; ATTEND Internal Medicine
PROC: 0BH17EZ Insertion of Endotracheal Airway into Trachea, Via Natural or Artificial Opening (ICD-10-PCS; principal; 2018-05-23)
PROC: 5A1935Z Respiratory Ventilation, Less than 24 Consecutive Hours (ICD-10-PCS; 2018-05-23)
DX: A41.9 Sepsis, unspecified organism (principal); J18.9 Pneumonia, unspecified organism; I50.32 Chronic diastolic (congestive) heart failure; J96.00 Acute respiratory failure, unspecified whether with hypoxia or hypercapnia; Z99.11 Dependence on respirator [ventilator] status; E11.22 Type 2 diabetes mellitus with diabetic chronic kidney disease; E87.2 Acidosis; F11.20 Opioid dependence, uncomplicated; F13.239 Sedative, hypnotic or anxiolytic dependence with withdrawal, unspecified; I13.0 Hypertensive heart and chronic kidney disease with heart failure and stage 1 through stage 4 chronic kidney disease, or unspecified chronic kidney disease; I42.0 Dilated cardiomyopathy; J44.0 Chronic obstructive pulmonary disease with (acute) lower respiratory infection; N18.9 Chronic kidney disease, unspecified; F05 Delirium due to known physiological condition; E66.01 Morbid (severe) obesity due to excess calories; E78.5 Hyperlipidemia, unspecified; F17.200 Nicotine dependence, unspecified, uncomplicated; F32.89 Other specified depressive episodes; F41.9 Anxiety disorder, unspecified; G47.00 Insomnia, unspecified; G47.33 Obstructive sleep apnea (adult) (pediatric); G89.29 Other chronic pain; I25.10 Atherosclerotic heart disease of native coronary artery without angina pectoris; K21.9 Gastro-esophageal reflux disease without esophagitis; K76.0 Fatty (change of) liver, not elsewhere classified; K80.20 Calculus of gallbladder without cholecystitis without obstruction; M19.90 Unspecified osteoarthritis, unspecified site; I25.2 Old myocardial infarction; R65.20 Severe sepsis without septic shock; Z79.01 Long term (current) use of anticoagulants; Z79.899 Other long term (current) drug therapy; Z86.711 Personal history of pulmonary embolism; Z86.718 Personal history of other venous thrombosis and embolism; Z91.14 Patient's other noncompliance with medication regimen; Z91.19 Patient's noncompliance with other medical treatment and regimen; Z78.1 Physical restraint status; Z68.42 Body mass index [BMI] 45.0-49.9, adult

== ENCOUNTER 2018-05-27 20:32 | Inpatient (IN) | payer MEDICAID ==
[2018-05-27 21:13] VITALS: BMI 45.3
[2018-05-27] MEDS ORDERED: Alum-Mag Hydrox-Simethicone Susp (30 mL) PO PRN (21:19)
[2018-05-27] MEDS ORDERED: Magnesium Hydroxide Susp 30 ml UD PO PRN (21:19)
--- NOTE | 2018-05-28 01:14 | PCM.BM ---
<Denny Diop - Last Filed: 05/28/18 01:12> Treatment Plan Problems - Problems identified on initial assessmt Substance abuse Date Initiated: 05/27/18 Time Initiated: 22:00 Assessment reference: NA Status: Active Priority: 1 Treatment assets and liabiliti Patient Assests: cooperative, good support system, good past tx response, good interpersonal skills Patient Liabilities: substance abuse, medical problems - Milieu Protocol Maintain good personal hygiene: daily Encourage regular showers, daily Remind patient to perform daily oral care, daily Assist patient to perform ADL's Maintain personal safety: daily Educate patient to report safety concerns to staff, daily Monitor environment for contraband/sharps Medication safety: Monitor for expected outcome, potential side effects: daily, Assess barriers to learning: daily, Assess readiness for medication education: daily Family Contact Family contact: Patient agrees to contact Discharge/Continuing Care - Education Needs Education Needs: Patient Medication, Patient Diagnosis/Disease Process, Patient Coping Skills, Patient Activities of Daily Living, Patient Pain, Patient Personal Hygiene/Grooming, Patient Aftercare Safety Plan - Discharge Discharge Criteria: Normal sleep pattern <Mc Lee - Last Filed: 05/28/18 10:41> - Diagnosis (1) Psychosis Status: Acute Interventions: Seroquel 12.5 mg po HS continued for history of paranoia and hallucinations Lexapro 5 mg po daily started for symptoms of depression and anxiety Ativan 2 mg po q8 prn for anxiety 05/28/18 10:42 (2) Anxiety Status: Chronic Interventions: Seroquel 12.5 mg po HS continued for history of paranoia and hallucinations Lexapro 5 mg po daily started for symptoms of depression and anxiety Ativan 2 mg po q8 prn for anxiety 05/28/18 10:42 (3) Depression Status: Chronic Interventions: Seroquel 12.5 mg po HS continued for history of paranoia and hallucinations Lexapro 5 mg po daily started for symptoms of depression and anxiety Ativan 2 mg po q8 prn for anxiety 05/28/18 10:42 (4) Opiate dependence Status: Acute Interventions: Seroquel 12.5 mg po HS continued for history of paranoia and hallucinations Lexapro 5 mg po daily started for symptoms of depression and anxiety Ativan 2 mg po q8 prn for anxiety 05/28/18 10:44 <Odalis Vallejo - Last Filed: 05/29/18 14:42>
[2018-05-28] MEDS ORDERED: NICOTINE TD SCH (08:00)
--- NOTE | 2018-05-28 10:40 | PCM.PSYCH ---
Initial Psychiatric Evaluation - Initial Psychiatric Evaluation Type of Admission: Voluntary History of Present Illness and Precipitating Events: Patient is a 57-year-old -Ugand[place] male with a psychiatric history of depression and anxiety, severe opiate use disorder (patient was reportedly using 10-15 bags of heroin intranasally prior to his admission), no history of psychiatric admissions or SA, prior outpatient psychiatric treatment x1 year ago with "Dr. Rai", who was transferred from the medical floor for stabilization of depression and paranoia. Please refer to medical notes for further information regarding patients treatment on the medical unit. Dr. Kothari followed up with patient on May 23, May 25 and May 26. Medical records and Dr. Kothari's consultations indicate that patient's family called police because patient was experiencing paranoia, agitation, disorganization and hallucinations at home. Urine drug screen was positive for opiates and methadone on 05/23/18. Patient was treated with Seroquel 12.5 mg po HS for delirium as well as xanax 2 mg prn for anxiety. His confusion and psychosis improved during the course of his medical treatment. However he continued to report depression and some paranoia. He indicated willingness to sign into the psychiatric unit for further stabilization during my follow up with him on the medical floor yesterday. I met with patient at bedside today and he remembers me from our introduction yesterday on the medical floor. He is alert and oriented to month, year, location and circumstances. He reports continued depression and anxiety. Denies recurrence of hallucinations x48 hours. Patient also reports that paranoia is much better and he denies having any belief that family members (including his exwife and daughter) are plotting against him. Eye contact is fair and his affect is constricted. He does not appear to be responding to internal stimuli and he indicates that he is tolerating current psychiatric medications well. Denies any new discomfort or pain. Presently patient is receptive to initiating antidepressant that targets both depression and anxiety symptoms. Psychiatric history Patient denies any prior psychiatric hospitalizations. He denies any suicidal attempts. Patient reports that he used to be in outpatient psychiatric care with Dr. Rai. Last follow up was a year ago. Review of Dr. Kothari's consultation dated May 26, 2018 indicates that patient was prescribed Xanax 2 mg three times daily. Patient was also prescribed methadone [employer] Social history Patient reports he is . He lives with his daughter and sister. He is unemployed. Indicated he has been using 10 to 15 bags of heroin intranasally prior to admission. Patient denies any other drug use and denies any alcohol use. He cannot quantify his tobacco use however defers on a nicotine patch when offered to him. Current Medications: Active Medications Generic Name Dose Route Start Last Admin Trade Name Freq PRN Reason Stop Dose Admin Al Hydrox/Mg Hydrox/Simethicone 30 ml 05/27/18 21:19 Maalox Plus 30 Ml PO DAILY PRN Indigestion / Heartburn Apixaban 5 mg 05/28/18 08:00 Eliquis PO BID KATIE Protocol Digoxin 0.125 mg 05/28/18 14:00 Digoxin PO 1400 KATIE Doxycycline Hyclate 100 mg 05/28/18 06:00 Doryx PO Q12 [facility] Protocol Furosemide 20 mg 05/28/18 08:00 Lasix PO DAILY [facility] Lisinopril 10 mg 05/28/18 08:00 Zestril PO DAILY [facility] Lorazepam 2 mg 05/27/18 21:20 05/27/18 22:35 Ativan PO 2 mg Q6 PRN Administration Anxiety Protocol Magnesium Hydroxide 30 ml 05/27/18 21:19 Milk Of Magnesia PO DAILY PRN Constipation Metformin HCl 500 mg 05/28/18 08:00 Glucophage PO BID [facility] Metoprolol Tartrate 25 mg 05/28/18 08:00 Lopressor PO DAILY [facility] Past Psychiatric History - Past Psychiatric History Pertinent Medical Hx (Current Medical&Sleep Prob, Allergies): Allergies Allergy/AdvReac Type Severity Reaction Status Date / Time No Known Allergies Allergy Verified 05/27/18 22:50 Enalapril Maleate [Vasotec] 10 mg PO DAILY 01/27/17 Metoprolol Tartrate [Lopressor] 25 mg PO DAILY 01/27/17 Alprazolam [Xanax] 2 mg PO TID 12/13/17 Apixaban [Eliquis] 5 mg PO BID 03/08/18 Digoxin [Lanoxin] 125 mcg PO DAILY 03/08/18 Furosemide [Lasix] 20 mg PO DAILY 03/08/18 Nicotine [Nicotine Patch] 1 each TD DAILY 03/08/18 metFORMIN [glucOPHAGE] 500 mg PO BID 03/08/18 Doxycycline Hyclate [Doryx] 100 mg PO Q12 cap 05/27/18 DSM 5 DX - DSM 5 DSM 5 Diagnosis: Mood Disorder NOS Anxiety Disorder NOS r/o MDD, severe r/o [id number] Resolving delirium with associated psychosis Opiate Use Disorder, Severe - Recommended/Plan of Treatment Treatment Recommendations and Plan of Treatment: * Group, milieu and supportive tx * Seroquel 12.5 mg po HS continued for history of paranoia and hallucinations * Lexapro 5 mg po daily started for symptoms of depression and anxiety * Ativan 2 mg po q8 prn for anxiety * Awaiting medical f/u * Vitals reviewed and elevated results noted below: Selected Entries 05/28/18 05/28/18 05/28/18 07:01 08:30 08:31 Temperature 98 F Pulse Rate 94 H 94 H 94 H Respiratory 17 Rate Blood Pressure 153/70 H 153/90 H 153/90 H * No new floor lab results noted thus far - Smoking Cessation Smoking Cessation Initiated: Yes Reason for not providing: Patiend defers
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
[2018-05-28] MEDS ORDERED: Albuterol-Ipratrop 3 mg / 0.5 (3 ml) UD IH PRN (11:27)
[2018-05-28] MEDS: oxyCODONE 15 mg Immediate Release Tab PO PRN ×2 (12:53→21:14)
[2018-05-28] MEDS: Digoxin 125 mcg (0.125 mg) Tab PO SCH (15:09)
[2018-05-29] MEDS: oxyCODONE 15 mg Immediate Release Tab PO PRN ×3 (06:28→23:02)
[2018-05-29] MEDS: Digoxin 125 mcg (0.125 mg) Tab PO SCH (13:15)
--- NOTE | 2018-05-29 15:56 | PCM.PYCHPN ---
Psychiatric Progress Note - Psychiatric Progress Note Patient seen today, length of contact: 30min Patient Chief Complaint: "I am alright, I feel I am just foggy" Problems Identified/Issues Discussed: Suicide/ homicide prevention, past psychiatric h/o, current psychiatric symptoms , medical problems, risk/benefits and alternatives of medications, medications compliance, coping strategies, substance abuse h/o, relapse prevention, importance of follow up with psychiatrist and therapist, discharge plan. 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), s /p IVC filter, s/p extubation, PNA on antibiotics Diagnostic Results: Vital Signs Temp Pulse Pulse Resp BP 05/29/18 08:48 111 H 130/85 05/29/18 08:47 111 H 130/85 05/29/18 07:00 97.8 F 111 H 17 130/85 05/28/18 16:35 97 H 122/79 05/28/18 08:31 94 H 153/90 H 05/28/18 08:30 94 H 153/90 H 05/28/18 07:01 98 F 94 H 17 153/70 H 05/27/18 23:14 85 18 DSM 5 Symptoms Update: Patient is a 57-year-old -[place] male with a psychiatric history of depression and anxiety, severe opiate use disorder (patient was reportedly using 10-15 bags of heroin intranasally prior to his admission), no history of psychiatric admissions or SA, prior outpatient psychiatric treatment x1 year ago with "Dr. Rai", who was transferred from the medical floor where he was admitted for AMS, PNA, intubation/extubation, pt requires further evaluation and stabilization of depression and paranoia. please see consult notes for more detailed information. pt was seen today at the treatment team meeting, pt was transferred to the psych unit over the weekend uneventfully. Patient was treated with Seroquel 12.5 mg po HS for delirium as well as xanax 2 mg prn for anxiety which was confirmed by pt's pharmacy. His confusion and psychosis improved during the course of his medical treatment. However he continued to report depression and some paranoia. today pt complaint that he feels "foggy and sluggish". pt reported that he does not feel himself as of now. Denies recurrence of hallucinations x48 hours. Patient also reports that paranoia is much better and he denies having any belief that family members ( including his exwife and daughter) are plotting against him, pt had visual hallucinations on the medical site. pt was asking future oriented questions about outpatient providers, he wants to be f/u with [place]. pt also asked about pain management providers in [place]. aas per staff patient started attending groups, no agitation or aggression, patient is socially appropriate. Patient tolerates medications well, no side effects observed or reported, aims 0 , no EPS. Impression: Rule out substance-induced psychosis Rule out substance-induced mood disorder Delirium is improving Medication Change: Yes (Seroquel increased, Lexapro started, Xanax discontinued , Ativan started) Medical Record Reviewed: Yes Consults ordered or reviewed: medical consult appreciated please see notes for more detailed information Mental Status Examination - Cognitive Function Orientation: Person Memory: Intact Attention: Poor Concentration: Poor Association: Loose Fund of Knowledge: WNL - Mood Mood: Depressed - Affect Affect: Constricted - Speech Speech: Slurred - Formal Thought Process Formal Thought Process: Other (thought process mildly disorganized) - Suicidal Ideation Suicidal Ideation: No - Homicidal Ideation Homicidal Ideation: No Goal/Treatment Plan - Goal/Treatment Plan Need for Continued Stay: Remain at risks for inpatient hospitalization, Severe depression anxiety, Discharge may exacerbated symptoms, Severe functional impairment Progress Toward Problem(s) and Goals/Treatment Plan: Milieu/structure/supportive therapy Medical consult appreciated, see medical team note for more detailed info SW consultation for discharge plan and social issues Med management Lexapro Seroquel Ativan Family involvement Follow up on labs Will monitor closely Pt was educated about risk/benefits and alternatives of medications, coping strategies (safety plan, suicide prevention), relapse prevention, importance of follow up with psychiatrist and therapist, stay away from drugs/alcohol/smoking Estimated Date of D/C: 06/05/18 (we'll monitor closely)
[2018-05-30] MEDS: oxyCODONE 15 mg Immediate Release Tab PO PRN ×2 (09:47→18:06)
[2018-05-30] MEDS ORDERED: Magnesium Citrate Oral SOL (300 ml) PO ONE (10:31)
[2018-05-30] MEDS: Digoxin 125 mcg (0.125 mg) Tab PO SCH (14:17)
--- NOTE | 2018-05-30 15:02 | CP.PCM.PN ---
<Jose Odonnell - Last Filed: 05/30/18 14:53> Subjective - Date & Time of Evaluation Date of Evaluation: 05/30/18 Time of Evaluation: 10:00 - Subjective Subjective: IM Progress Note for Hospitalist Service Jose Odonnell, PGY-3 IM Called to see patient due to reported multiple episodes of emesis and nausea/ abdominal pain. Patient lying in bed at time of exam, no acute distress. Patient reports (confirmed by Psych staff) 4x episodes of clear emesis. Patient reports normal PO intake last night, emesis today began before food but persisted after PO intake. Emesis clear, no bilious or bloody emesis. Reports last BM this AM, small and hard, none yesterday. Known to be on extensive opioids, and has had episodes of opioid-induced constipation before. Exam notable for multiple discretely palpable loops of bowel, hard-feeling. No chest pain, shortness of breath, melena, hematemesis, loss of consciousness. Objective - Vital Signs/Intake and Output Vital Signs (last 24 hours): Temp Pulse Resp BP Pulse Ox 97.4 F L 98 H 20 122/79 05/30/18 06:59 05/30/18 09:28 05/30/18 06:59 05/30/18 09:28 - Medications Medications: Current Medications Al Hydrox/Mg Hydrox/Simethicone (Maalox Plus 30 Ml) 30 ml PO DAILY PRN PRN Reason: Indigestion / Heartburn Albuterol/Ipratropium (Duoneb 3 Mg/0.5 Mg (3 Ml) Ud) 3 ml IH [id number] PRN PRN Reason: Shortness of Breath Last Admin: 05/28/18 22:24 Dose: 3 ml Apixaban (Eliquis) 5 mg PO BID [facility] PRN Reason: Protocol Last Admin: 05/30/18 09:27 Dose: 5 mg Digoxin (Digoxin) 0.125 mg PO 1400 [facility] Last Admin: 05/30/18 14:17 Dose: 0.125 mg Doxycycline Hyclate (Doryx) 100 mg PO Q12 [facility] PRN Reason: Protocol Last Admin: 05/30/18 06:27 Dose: 100 mg Escitalopram Oxalate (Lexapro) 5 mg PO DAILY [facility] Last Admin: 05/30/18 09:27 Dose: 5 mg Furosemide (Lasix) 20 mg PO DAILY [facility] Last Admin: 05/30/18 09:27 Dose: 20 mg Lisinopril (Zestril) 10 mg PO DAILY [facility] Last Admin: 05/30/18 09:28 Dose: 10 mg Lorazepam (Ativan) 2 mg PO Q8 [facility] PRN Reason: Protocol Last Admin: 05/30/18 14:18 Dose: 2 mg Magnesium Hydroxide (Milk Of Magnesia) 30 ml PO DAILY PRN PRN Reason: Constipation Metformin HCl (Glucophage) 500 mg PO BID [facility] Last Admin: 05/30/18 09:45 Dose: Not Given Metoprolol Tartrate (Lopressor) 25 mg PO DAILY [facility] Last Admin: 05/30/18 09:28 Dose: 25 mg Ondansetron HCl (Zofran Odt) 8 mg PO Q8H PRN PRN Reason: Nausea/Vomiting Last Admin: 05/30/18 10:49 Dose: 8 mg Oxycodone HCl (Oxycodone Immediate Release Tab) 15 mg PO Q8H PRN PRN Reason: Pain, moderate (4-7) Last Admin: 05/30/18 09:47 Dose: 15 mg Quetiapine Fumarate (Seroquel) 25 mg PO HS [facility] PRN Reason: Protocol Last Admin: 05/29/18 22:08 Dose: 25 mg - Constitutional Appears: Non-toxic, No Acute Distress - Head Exam Head Exam: ATRAUMATIC, NORMAL INSPECTION, NORMOCEPHALIC - Eye Exam Eye Exam: Normal appearance. absent: Conjunctival injection, Scleral icterus Pupil Exam: absent: Fixed, Irregular - ENT Exam ENT Exam: Mucous Membranes Moist - Neck Exam Neck Exam: Full ROM. absent: Lymphadenopathy - Respiratory Exam Respiratory Exam: Decreased Breath Sounds (mild diffuse decreased breath sounds , likely 2/2 body habitus), Clear to Ausculation Bilateral, NORMAL BREATHING PATTERN. absent: Accessory Muscle Use, Rales, Rhonchi, Wheezes - Cardiovascular Exam Cardiovascular Exam: REGULAR RHYTHM, RRR, +S1, +S2. absent: Bradycardia, Tachycardia, Irregular Rhythm, JVD, +S4 - GI/Abdominal Exam GI & Abdominal Exam: Soft, Tenderness (mild diffuse tenderness, most prominent in RLQ and LUQ), Diminished Bowel Sounds. absent: Distended, Firm, Guarding, Rigid, Hyperactive Bowel Sounds, Hypoactive Bowel Sounds, Normal Bowel Sounds Additional comments: multiple palpable discrete loops of bowel, hard-feeling, feels like full of stool - Extremities Exam Extremities Exam: Full ROM, Normal Inspection. absent: Calf Tenderness, Pedal Edema - Back Exam Back Exam: absent: CVA tenderness (L), CVA tenderness (R) - Neurological Exam Additional comments: lethargic but arousable, awake and alert when awakened, following all commands appropriately, seen ambulating without difficulty in psych unit from bed to bathroom and back - Psychiatric Exam Psychiatric exam: Flat Affect, Normal Mood - Skin Skin Exam: Dry, Intact, Normal Color, Warm Assessment and Plan - Assessment and Plan (Free Text) Assessment: This is a 57 year old Male with a PMHx of HFpEF, COPD, NSTEMI, medication noncompliance, and DVT/PE on Eliquis s/p IVC filter undergoing tx in Psych unit after medical admission for respiratory distress requiring intubation, thought to be due to aspiration pneumonia. New seen for nausea and emesis x4 today. Plan: Nausea and Vomiting x4 -clear, non-bilious, non-bloody -in setting of physical exam and given past history of this patient, strongly suspect opioid-induced constipation, on oxy 15mg q8 and getting regularly as per psych staff -milk of mag likely insufficient, ordered Mag Citrate x1 for constipation -Zofran ODT 8mg PO q8 prn for nausea, emesis -If remains severely constipated after mag citrate, may need to decrease opioid use and may need to consider enema HFpEF -Last echo 12/14: LV normal size, EF 55-60%, RV mod dilated, Sys RV function mod reduced, mild to moderate RVSP 51 -Elevated BNP, appears to be normal from previous admission -continue Meds: Enalapril, metorpolol and dig -no appreciable signs or symptoms of fluid overload on this exam Hx of DM2 -Metofrmin 500 BID -ACHS -sugars under control Will continue to follow patient PRN. Seen reviewed and discussed with attending, Dr. Leiva. <Lulu Leiva - Last Filed: 05/31/18 08:02> Objective - Vital Signs/Intake and Output Vital Signs (last 24 hours): Temp Pulse Resp BP Pulse Ox 98.4 F 98 H 20 139/93 H 05/31/18 06:40 05/31/18 06:40 05/31/18 06:40 05/31/18 06:40 - Medications Medications: Current Medications Al Hydrox/Mg Hydrox/Simethicone (Maalox Plus 30 Ml) 30 ml PO DAILY PRN PRN Reason: Indigestion / Heartburn Albuterol/Ipratropium (Duoneb 3 Mg/0.5 Mg (3 Ml) Ud) 3 ml IH [id number] PRN PRN Reason: Shortness of Breath Last Admin: 05/28/18 22:24 Dose: 3 ml Apixaban (Eliquis) 5 mg PO BID [facility] PRN Reason: Protocol Last Admin: 05/30/18 17:33 Dose: 5 mg Digoxin (Digoxin) 0.125 mg PO 1400 [facility] Last Admin: 05/30/18 14:17 Dose: 0.125 mg Doxycycline Hyclate (Doryx) 100 mg PO Q12 [facility] PRN Reason: Protocol Last Admin: 05/31/18 05:24 Dose: 100 mg Escitalopram Oxalate (Lexapro) 10 mg PO DAILY [facility] Furosemide (Lasix) 20 mg PO DAILY [facility] Last Admin: 05/30/18 09:27 Dose: 20 mg Lisinopril (Zestril) 10 mg PO DAILY [facility] Last Admin: 05/30/18 09:28 Dose: 10 mg Lorazepam (Ativan) 2 mg PO Q8 [facility] PRN Reason: Protocol Last Admin: 05/31/18 05:25 Dose: 2 mg Magnesium Hydroxide (Milk Of Magnesia) 30 ml PO DAILY PRN PRN Reason: Constipation Metformin HCl (Glucophage) 500 mg PO BID [facility] Last Admin: 05/30/18 17:33 Dose: 500 mg Metoprolol Tartrate (Lopressor) 25 mg PO DAILY [facility] Last Admin: 05/30/18 09:28 Dose: 25 mg Ondansetron HCl (Zofran Odt) 8 mg PO Q8H PRN PRN Reason: Nausea/Vomiting Last Admin: 05/30/18 21:28 Dose: 8 mg Oxycodone HCl (Oxycodone Immediate Release Tab) 15 mg PO Q8H PRN PRN Reason: Pain, moderate (4-7) Last Admin: 05/31/18 05:25 Dose: 15 mg Quetiapine Fumarate (Seroquel) 25 mg PO [facility] PRN Reason: Protocol Last Admin: 05/30/18 21:28 Dose: 25 mg Attending/Attestation - Attestation I have personally seen and examined this patient.: Yes I have fully participated in the care of the patient.: Yes I have reviewed all pertinent clinical information, including history, physical exam and plan: Yes Notes (Text): 05/31/18 08:02 Medical record note made by the resident after discussion with my direction and input after the patient was personally seen and examined by me. I have reviewed the chart and agree that the record accurately reflects by personal performance of the history, physical exam, data review, and medical decision-making, in the course for the patient. I have also personally directed the plan of care.
--- NOTE | 2018-05-30 16:28 | PCM.PYCHPN ---
Psychiatric Progress Note - Psychiatric Progress Note Patient seen today, length of contact: 30min Patient Chief Complaint: "I was not feeling well over night" Problems Identified/Issues Discussed: Suicide/ homicide prevention, past psychiatric h/o, current psychiatric symptoms , medical problems, risk/benefits and alternatives of medications, medications compliance, coping strategies, substance abuse h/o, relapse prevention, importance of follow up with psychiatrist and therapist, discharge plan. 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), s /p IVC filter, s/p extubation, PNA on antibiotics Diagnostic Results: Vital Signs Temp Pulse Pulse Resp BP 05/29/18 08:48 111 H 130/85 05/29/18 08:47 111 H 130/85 05/29/18 07:00 97.8 F 111 H 17 130/85 05/28/18 16:35 97 H 122/79 05/28/18 08:31 94 H 153/90 H 05/28/18 08:30 94 H 153/90 H 05/28/18 07:01 98 F 94 H 17 153/70 H 05/27/18 23:14 85 18 Lab Results 05/30/18 16:21: POC Glucose (mg/dL) 125 H 05/30/18 07:45: POC Glucose (mg/dL) 114 H Temp Pulse Resp BP Pulse Ox 97.4 F L 98 H 20 122/79 05/30/18 06:59 05/30/18 09:28 05/30/18 06:59 05/30/18 09:28 DSM 5 Symptoms Update: Patient is a 57-year-old -[place] male with a psychiatric history of depression and anxiety, severe opiate use disorder (patient was reportedly using 10-15 bags of heroin intranasally prior to his admission), no history of psychiatric admissions or SA, prior outpatient psychiatric treatment x1 year ago with "Dr. Rai", who was transferred from the medical floor where he was admitted for AMS, PNA, intubation/extubation, pt requires further evaluation and stabilization of depression and paranoia. pt was seen today in his room, pt presented to be more alert and more clear to compare to yesterday. pt had 4epsiodes of vomiting, pt was seen by medical team, consult appreciated. pt reported that his mood is slowly improving, as well as paranoia. pt still c/ o depression, transient hopelessness. pt said that he does not feel that family is against him or stealing from him. pt was asking future oriented questions about outpatient providers, he wants to be f/u with [place]. pt also asked about pain management providers in [place]. as per staff patient started attending groups, no agitation or aggression, patient is socially appropriate. Patient tolerates medications well, no side effects observed or reported, aims 0 , no EPS. Impression: Rule out substance-induced psychosis Rule out substance-induced mood disorder Delirium is improving Medication Change: Yes (lexapro increased) Medical Record Reviewed: Yes Consults ordered or reviewed: medical consult appreciated please see notes for more detailed information Nausea and Vomiting x4 Mental Status Examination - Cognitive Function Orientation: Person Memory: Intact Attention: Poor Concentration: Poor Association: Loose Fund of Knowledge: WNL - Mood Mood: Depressed - Affect Affect: Constricted - Speech Speech: Slurred - Formal Thought Process Formal Thought Process: Other (thought process mildly disorganized) - Suicidal Ideation Suicidal Ideation: No - Homicidal Ideation Homicidal Ideation: No Goal/Treatment Plan - Goal/Treatment Plan Need for Continued Stay: Remain at risks for inpatient hospitalization, Severe depression anxiety, Discharge may exacerbated symptoms, Severe functional impairment Progress Toward Problem(s) and Goals/Treatment Plan: Milieu/structure/supportive therapy Medical consult appreciated, see medical team note for more detailed info SW consultation for discharge plan and social issues Med management Lexapro 10mg po daily for depression and anxiety Seroquel 25mgp o hs for mood and psychosis Ativan 2mg po tid for anxiety Family involvement Follow up on labs Will monitor closely Pt was educated about risk/benefits and alternatives of medications, coping strategies (safety plan, suicide prevention), relapse prevention, importance of follow up with psychiatrist and therapist, stay away from drugs/alcohol/smoking Estimated Date of D/C: 06/05/18 (we'll monitor closely)
[2018-05-31] MEDS: oxyCODONE 15 mg Immediate Release Tab PO PRN ×3 (05:25→22:44)
[2018-05-31] MEDS: Digoxin 125 mcg (0.125 mg) Tab PO SCH (13:57)
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
[2018-06-01] MEDS: oxyCODONE 15 mg Immediate Release Tab PO PRN ×2 (08:19→17:13)
--- NOTE | 2018-06-01 09:59 | PCM.PYCHPN ---
Psychiatric Progress Note - Psychiatric Progress Note Patient seen today, length of contact: 30min Patient Chief Complaint: "better" Problems Identified/Issues Discussed: History of Present Illness and Precipitating Events: Patient is a 57-year-old -[place]er male with a psychiatric history of depression and anxiety, severe opiate use disorder (patient was reportedly using 10-15 bags of heroin intranasally prior to his admission), no history of psychiatric admissions or SA, prior outpatient psychiatric treatment x1 year ago with "Dr. Rai", who was transferred from the medical floor for stabilization of depression and paranoia. Please refer to medical notes for further information regarding patients treatment on the medical unit. Dr. Kothari followed up with patient on May 23, May 25 and May 26. Medical records and Dr. Kothari's consultations indicate that patient's family called police because patient was experiencing paranoia, agitation, disorganization and hallucinations at home. Urine drug screen was positive for opiates and methadone on 05/23/18. Patient was treated with Seroquel 12.5 mg po HS for delirium as well as xanax 2 mg prn for anxiety. His confusion and psychosis improved during the course of his medical treatment. However he continued to report depression and some paranoia. He indicated willingness to sign into the psychiatric unit for further stabilization during my follow up with him on the medical floor yesterday. I met with patient at bedside today and he remembers me from our introduction yesterday on the medical floor. He is alert and oriented to month, year, location and circumstances. He reports continued depression and anxiety. Denies recurrence of hallucinations x48 hours. Patient also reports that paranoia is much better and he denies having any belief that family members (including his exwife and daughter) are plotting against him. Eye contact is fair and his affect is constricted. He does not appear to be responding to internal stimuli and he indicates that he is tolerating current psychiatric medications well. Denies any new discomfort or pain. Presently patient is receptive to initiating antidepressant that targets both depression and anxiety symptoms. Psychiatric history Patient denies any prior psychiatric hospitalizations. He denies any suicidal attempts. Patient reports that he used to be in outpatient psychiatric care with Dr. Rai. Last follow up was a year ago. Review of Dr. Kothari's consultation dated May 26, 2018 indicates that patient was prescribed Xanax 2 mg three times daily. Patient was also prescribed methadone [employer] Social history Patient reports he is . He lives with his daughter and sister. He is unemployed. Indicated he has been using 10 to 15 bags of heroin intranasally prior to admission. Patient denies any other drug use and denies any alcohol use. He cannot quantify his tobacco use however defers on a nicotine patch when offered to him. PROGRESS NOTE I reviewed recent notes and met with patient at bedside. He appears nourished, groomed and well-oriented to circumstances. He is improving. Though depression persists, he denies having any wishes or suicidal thoughts. Hallucinations and paranoid delusions seem to have resolved. There have been no behavioral issues on the unit and he is a little brighter with more reactive affect (though still constricted) when interacting with peers and staff. He has been calm, cooperative and pleasant. Patient denies any new pain or discomfort and has been tolerating his medications. Insight and judgement are improving. Diagnostic Results: Rule out substance-induced psychosis Rule out substance-induced mood disorder Delirium is improving Medication Change: Yes (seroquel and lexapro increased) Medical Record Reviewed: Yes Mental Status Examination - Cognitive Function Orientation: Person, Place, Situation Memory: Intact Attention: WNL Concentration: Poor Association: Loose Fund of Knowledge: WNL - Mood Mood: Depressed - Affect Affect: Constricted - Speech Speech: Slurred - Formal Thought Process Formal Thought Process: Other (thought process mildly disorganized) - Suicidal Ideation Suicidal Ideation: No - Homicidal Ideation Homicidal Ideation: No Goal/Treatment Plan - Goal/Treatment Plan Need for Continued Stay: Remain at risks for inpatient hospitalization, Severe depression anxiety, Discharge may exacerbated symptoms, Severe functional impairment Progress Toward Problem(s) and Goals/Treatment Plan: * Group, milieu and supportive tx * Seroquel 25 mg po HS continued for history of paranoia and hallucinations * Lexapro 15 mg po daily for symptoms of depression and anxiety * Ativan 2 mg po q8 prn for anxiety * Vitals reviewed and elevated results noted below: 06/01/18 06/01/18 07:09 08:18 Temperature 98.4 F Pulse Rate 107 H 107 H Respiratory 22 Rate Blood Pressure 105/75 105/75 * No new floor lab results noted thus far Estimated Date of D/C: 06/05/18 (we'll monitor closely)
[2018-06-01] MEDS: Digoxin 125 mcg (0.125 mg) Tab PO SCH (14:16)
[2018-06-02] MEDS: oxyCODONE 15 mg Immediate Release Tab PO PRN ×3 (05:51→22:10)
[2018-06-02 07:02] VITALS: RESP 20
[2018-06-02] MEDS: Digoxin 125 mcg (0.125 mg) Tab PO SCH (14:09)
--- NOTE | 2018-06-02 15:57 | PCM.PYCHPN ---
Psychiatric Progress Note - Psychiatric Progress Note Patient seen today, length of contact: 30min Patient Chief Complaint: "I am having difficulties to sleep" Problems Identified/Issues Discussed: Suicide/ homicide prevention, past psychiatric h/o, current psychiatric symptoms , medical problems, risk/benefits and alternatives of medications, medications compliance, coping strategies, substance abuse h/o, relapse prevention, importance of follow up with psychiatrist and therapist, discharge plan. 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), s /p IVC filter, s/p extubation, PNA on antibiotics Diagnostic Results: Vital Signs Temp Pulse Pulse Resp BP 05/29/18 08:48 111 H 130/85 05/29/18 08:47 111 H 130/85 05/29/18 07:00 97.8 F 111 H 17 130/85 05/28/18 16:35 97 H 122/79 05/28/18 08:31 94 H 153/90 H 05/28/18 08:30 94 H 153/90 H 05/28/18 07:01 98 F 94 H 17 153/70 H 05/27/18 23:14 85 18 Lab Results 05/30/18 16:21: POC Glucose (mg/dL) 125 H 05/30/18 07:45: POC Glucose (mg/dL) 114 H Temp Pulse Resp BP Pulse Ox 97.4 F L 98 H 20 122/79 05/30/18 06:59 05/30/18 09:28 05/30/18 06:59 05/30/18 09:28 DSM 5 Symptoms Update: Patient is a 57-year-old -Eritre[place] male with a psychiatric history of depression and anxiety, severe opiate use disorder (patient was reportedly using 10-15 bags of heroin intranasally prior to his admission), no history of psychiatric admissions or SA, prior outpatient psychiatric treatment x1 year ago with "Dr. Rai", who was transferred from the medical floor where he was admitted for AMS, PNA, intubation/extubation, pt requires further evaluation and stabilization of depression and paranoia. pt was seen today at the dinning area, pt presented to be more alert and more clear to compare to the time of admission, pt c/o low energy which pt related to the insomnia, sonata started. pt was seen by medical team, consult appreciated. pt reported that his mood is slowly improving, as well as paranoia. pt said that he does not feel that family is against him or stealing from him. pt was asking future oriented questions about outpatient providers, he wants to be f/u with [place]. pt also asked about pain management providers in [place]. as per staff patient started attending groups, no agitation or aggression, patient is socially appropriate. Patient tolerates medications well, no side effects observed or reported, aims 0 , no EPS. Impression: Rule out substance-induced psychosis Rule out substance-induced mood disorder Delirium is improving Medication Change: Yes (sonata hs, lexapro increased) Medical Record Reviewed: Yes Consults ordered or reviewed: medical consult appreciated please see notes for more detailed information Nausea and Vomiting x4 Mental Status Examination - Cognitive Function Orientation: Person, Place, Situation Memory: Intact Attention: WNL Concentration: Poor Association: Loose Fund of Knowledge: WNL - Mood Mood: Depressed - Affect Affect: Constricted - Speech Speech: Slurred - Formal Thought Process Formal Thought Process: Other (thought process mildly disorganized) - Suicidal Ideation Suicidal Ideation: No - Homicidal Ideation Homicidal Ideation: No Goal/Treatment Plan - Goal/Treatment Plan Need for Continued Stay: Remain at risks for inpatient hospitalization, Severe depression anxiety, Discharge may exacerbated symptoms, Severe functional impairment Progress Toward Problem(s) and Goals/Treatment Plan: Milieu/structure/supportive therapy Medical consult appreciated, see medical team note for more detailed info SW consultation for discharge plan and social issues Med management Lexapro 20mg po daily for depression and anxiety sonata 5mg po hs for insomnia Seroquel 50mgp o hs for mood and psychosis Ativan 2mg po tid for anxiety Family involvement Follow up on labs Will monitor closely Pt was educated about risk/benefits and alternatives of medications, coping strategies (safety plan, suicide prevention), relapse prevention, importance of follow up with psychiatrist and therapist, stay away from drugs/alcohol/smoking Estimated Date of D/C: 06/05/18 (we'll monitor closely)
[2018-06-03] MEDS: oxyCODONE 15 mg Immediate Release Tab PO PRN ×2 (09:53→17:01)
--- NOTE | 2018-06-03 10:02 | PCM.PYCHPN ---
Psychiatric Progress Note - Psychiatric Progress Note Patient seen today, length of contact: 30min Patient Chief Complaint: "better" Problems Identified/Issues Discussed: History of Present Illness and Precipitating Events: Patient is a 57-year-old -Turkmen male with a psychiatric history of depression and anxiety, severe opiate use disorder (patient was reportedly using 10-15 bags of heroin intranasally prior to his admission), no history of psychiatric admissions or SA, prior outpatient psychiatric treatment x1 year ago with "Dr. Rai", who was transferred from the medical floor for stabilization of depression and paranoia. Please refer to medical notes for further information regarding patients treatment on the medical unit. Dr. Kothari followed up with patient on May 23, May 25 and May 26. Medical records and Dr. Kothari's consultations indicate that patient's family called police because patient was experiencing paranoia, agitation, disorganization and hallucinations at home. Urine drug screen was positive for opiates and methadone on 05/23/18. Patient was treated with Seroquel 12.5 mg po HS for delirium as well as xanax 2 mg prn for anxiety. His confusion and psychosis improved during the course of his medical treatment. However he continued to report depression and some paranoia. He indicated willingness to sign into the psychiatric unit for further stabilization during my follow up with him on the medical floor yesterday. I met with patient at bedside today and he remembers me from our introduction yesterday on the medical floor. He is alert and oriented to month, year, location and circumstances. He reports continued depression and anxiety. Denies recurrence of hallucinations x48 hours. Patient also reports that paranoia is much better and he denies having any belief that family members (including his exwife and daughter) are plotting against him. Eye contact is fair and his affect is constricted. He does not appear to be responding to internal stimuli and he indicates that he is tolerating current psychiatric medications well. Denies any new discomfort or pain. Presently patient is receptive to initiating antidepressant that targets both depression and anxiety symptoms. Psychiatric history Patient denies any prior psychiatric hospitalizations. He denies any suicidal attempts. Patient reports that he used to be in outpatient psychiatric care with Dr. Rai. Last follow up was a year ago. Review of Dr. Kothari's consultation dated May 26, 2018 indicates that patient was prescribed Xanax 2 mg three times daily. Patient was also prescribed methadone [employer] Social history Patient reports he is . He lives with his daughter and sister. He is unemployed. Indicated he has been using 10 to 15 bags of heroin intranasally prior to admission. Patient denies any other drug use and denies any alcohol use. He cannot quantify his tobacco use however defers on a nicotine patch when offered to him. PROGRESS NOTE I reviewed recent notes and met with patient in his room. He continues to report sustained improvement in mood and anxiety symptoms. Hallucinations and paranoid remain resolved. There have been no behavioral issues on the unit and he is brighter with more reactive affect (though still constricted) when interacting with peers and staff. Patient has been calm, cooperative and pleasant. Patient denies any new pain or discomfort and has been tolerating his medications. Insight and judgement are improving. Diagnostic Results: Rule out substance-induced psychosis Rule out substance-induced mood disorder Delirium is improving Medication Change: Yes (sonata hs, lexapro increased) Medical Record Reviewed: Yes Mental Status Examination - Cognitive Function Orientation: Person, Place, Situation Memory: Intact Attention: WNL Concentration: Poor Association: Loose Fund of Knowledge: WNL - Mood Mood: Depressed (better) - Affect Affect: Constricted (brighter) - Speech Speech: Appropriate - Formal Thought Process Formal Thought Process: Other (thought process mildly disorganized) - Suicidal Ideation Suicidal Ideation: No - Homicidal Ideation Homicidal Ideation: No Goal/Treatment Plan - Goal/Treatment Plan Need for Continued Stay: Remain at risks for inpatient hospitalization, Severe depression anxiety, Discharge may exacerbated symptoms, Severe functional impairment Progress Toward Problem(s) and Goals/Treatment Plan: * Group, milieu and supportive tx * Seroquel 50 mg po HS continued for history of paranoia and hallucinations * Lexapro 20 mg po daily for symptoms of depression and anxiety * Ativan 2 mg po q8 prn for anxiety * Sonata 5 mg po HS prn: insomnia * Vitals reviewed and elevated results noted below: Selected Entries 06/03/18 06/03/18 06:35 09:43 Temperature 97.8 F Pulse Rate 101 H 107 H Respiratory 20 Rate Blood Pressure 144/87 144/87 * No new floor lab results noted thus far Estimated Date of D/C: 06/05/18 (we'll monitor closely)
[2018-06-03] MEDS: Digoxin 125 mcg (0.125 mg) Tab PO SCH (14:25)
[2018-06-04] MEDS: oxyCODONE 15 mg Immediate Release Tab PO PRN ×3 (01:10→18:25)
--- NOTE | 2018-06-04 09:06 | PCM.PYCHPN ---
Psychiatric Progress Note - Psychiatric Progress Note Patient seen today, length of contact: 30min Patient Chief Complaint: "better" Problems Identified/Issues Discussed: History of Present Illness and Precipitating Events: Patient is a 57-year-old -Bulgarian male with a psychiatric history of depression and anxiety, severe opiate use disorder (patient was reportedly using 10-15 bags of heroin intranasally prior to his admission), no history of psychiatric admissions or SA, prior outpatient psychiatric treatment x1 year ago with "Dr. Rai", who was transferred from the medical floor for stabilization of depression and paranoia. Please refer to medical notes for further information regarding patients treatment on the medical unit. Dr. Kothari followed up with patient on May 23, May 25 and May 26. Medical records and Dr. Kothari's consultations indicate that patient's family called police because patient was experiencing paranoia, agitation, disorganization and hallucinations at home. Urine drug screen was positive for opiates and methadone on 05/23/18. Patient was treated with Seroquel 12.5 mg po HS for delirium as well as xanax 2 mg prn for anxiety. His confusion and psychosis improved during the course of his medical treatment. However he continued to report depression and some paranoia. He indicated willingness to sign into the psychiatric unit for further stabilization during my follow up with him on the medical floor yesterday. I met with patient at bedside today and he remembers me from our introduction yesterday on the medical floor. He is alert and oriented to month, year, location and circumstances. He reports continued depression and anxiety. Denies recurrence of hallucinations x48 hours. Patient also reports that paranoia is much better and he denies having any belief that family members (including his exwife and daughter) are plotting against him. Eye contact is fair and his affect is constricted. He does not appear to be responding to internal stimuli and he indicates that he is tolerating current psychiatric medications well. Denies any new discomfort or pain. Presently patient is receptive to initiating antidepressant that targets both depression and anxiety symptoms. Psychiatric history Patient denies any prior psychiatric hospitalizations. He denies any suicidal attempts. Patient reports that he used to be in outpatient psychiatric care with Dr. Rai. Last follow up was a year ago. Review of Dr. Kothari's consultation dated May 26, 2018 indicates that patient was prescribed Xanax 2 mg three times daily. Patient was also prescribed methadone [employer] Social history Patient reports he is . He lives with his daughter and sister. He is unemployed. Indicated he has been using 10 to 15 bags of heroin intranasally prior to admission. Patient denies any other drug use and denies any alcohol use. He cannot quantify his tobacco use however defers on a nicotine patch when offered to him. PROGRESS NOTE I reviewed recent notes and met with patient in his room. He continues to report sustained improvement in mood and anxiety symptoms. Hallucinations and paranoid remain resolved. There have been no behavioral issues on the unit and he is brighter with more reactive affect (though still constricted) when interacting with peers and staff. Staff have noted that patient is visible, watching tv in the dayroom most of the day but still keeps to himself most of the time. He doesn't appear paranoid and impulse control is good. Patient noted to have positive encounter with his visitors yesterday. Patient has been calm, cooperative and pleasant. Patient denies any new pain and has been tolerating his medications. Insight and judgement are improving. Diagnostic Results: Rule out substance-induced psychosis Rule out substance-induced mood disorder Delirium is improving Medication Change: Yes (sonata hs, lexapro increased) Medical Record Reviewed: Yes Mental Status Examination - Cognitive Function Orientation: Person, Place, Situation Memory: Intact Attention: WNL Concentration: Poor Association: Loose Fund of Knowledge: WNL - Mood Mood: Depressed (better) - Affect Affect: Constricted (brighter, more reactive and more related) - Speech Speech: Appropriate - Formal Thought Process Formal Thought Process: Other (thought process mildly scattered) - Suicidal Ideation Suicidal Ideation: No - Homicidal Ideation Homicidal Ideation: No Goal/Treatment Plan - Goal/Treatment Plan Need for Continued Stay: Remain at risks for inpatient hospitalization, Severe depression anxiety, Discharge may exacerbated symptoms, Severe functional impairment Progress Toward Problem(s) and Goals/Treatment Plan: * Group, milieu and supportive tx * Seroquel 50 mg po HS continued for history of paranoia and hallucinations * Lexapro 20 mg po daily for symptoms of depression and anxiety * Ativan 2 mg po q8 prn for anxiety * Sonata 5 mg po HS prn: insomnia * Vitals reviewed and elevated results noted below: Selected Entries 06/04/18 07:20 Temperature 98.6 F Pulse Rate 104 H Respiratory 20 Rate Blood Pressure 125/83 * No new floor lab results noted * Will request medical f/u as patient is reporting urinary frequency all night Estimated Date of D/C: 06/05/18 (we'll monitor closely)
[2018-06-04] MEDS: Digoxin 125 mcg (0.125 mg) Tab PO SCH (16:06)
[2018-06-05] MEDS: oxyCODONE 15 mg Immediate Release Tab PO PRN ×2 (06:53→14:47)
[2018-06-05 07:39] VITALS: BP 113/85; PULSE 105; TEMP 99.8
--- NOTE | 2018-06-05 13:15 | PCM.PYCHDC ---
Mental Status Examination - Mental Status Examination Orientation: Person, Place, Situation Memory: Intact Mood: Neutral Affect: Constricted (With improved reactivity and relatedness) Speech: Appropriate Attention: WNL Concentration: WNL Association: WNL Fund of Knowledge: WNL Formal Thought Process: No Impairment Description of patient's judgement and insight: Improved and fair I/J Psychotic Thoughts and Behaviors: Patient denies any AVH or paranoia any further. Delusions were not elicited. Suicidal Ideation: No Current Homicidal Ideation?: No Discharge Summary - Discharge Note Reason for Hospitalization: Patient is a 57-year-old -Zambian male with a psychiatric history of depression and anxiety, severe opiate use disorder (patient was reportedly using 10-15 bags of heroin intranasally prior to his admission), no history of psychiatric admissions or SA, prior outpatient psychiatric treatment x1 year ago with "Dr. Rai", who was transferred from the medical floor for stabilization of depression and paranoia. Laboratory Data: Laboratory Tests 05/30/18 05/30/18 05/31/18 07:45 16:21 07:44 POC Glucose (mg/dL) 114 H 125 H 111 H 05/31/18 06/01/18 06/01/18 16:13 07:27 16:11 POC Glucose (mg/dL) 105 95 89 06/02/18 06/02/18 07:37 16:33 POC Glucose (mg/dL) 95 98 Consultations:: List each consultation separately and include: 1. Reason for request. 2. Findings. 3. Follow-up Consultations: Patient seen by Dr. Leiva 05/28/18 (signed off) and Dr. Tsang 05/30/18 Treated with oxycodone for pain relief. Summary of Hospital Course include:: 1. Description of specific treatment plan utilized for patients during their course of treatmen. 2. Summarize the time- course for resolution of acute symptoms and/or regressed behaviors. 3. Describe issues identified and worked on during hospitalization. 4. Describe medication utilized. 5. Describe medical problems identified and treated. 6. Reassessment of suicide risk Summary of Hospital Course: Patient is a 57-year-old -Zambian male with a psychiatric history of depression and anxiety, severe opiate use disorder (patient was reportedly using 10-15 bags of heroin intranasally prior to his admission), no history of psychiatric admissions or SA, prior outpatient psychiatric treatment x1 year ago with "Dr. Rai", who was transferred from the medical floor for stabilization of depression and paranoia. Please refer to medical notes for further information regarding patients treatment on the medical unit. Dr. Kothari followed up with patient on May 23, May 25 and May 26. Medical records and Dr. Kothari's consultations indicate that patient's family called police because patient was experiencing paranoia, agitation, disorganization and hallucinations at home. Urine drug screen was positive for opiates and methadone on 05/23/18. Patient was treated with Seroquel 12.5 mg po HS for delirium as well as xanax 2 mg prn for anxiety. His confusion and psychosis improved during the course of his medical treatment. However he continued to report depression and some paranoia. He indicated willingness to sign into the psychiatric unit for further stabilization during my follow up with him on the medical floor yesterday. I met with patient at bedside today and he remembers me from our introduction yesterday on the medical floor. He is alert and oriented to month, year, location and circumstances. He reports continued depression and anxiety. Denies recurrence of hallucinations x48 hours. Patient also reports that paranoia is much better and he denies having any belief that family members (including his exwife and daughter) are plotting against him. Eye contact is fair and his affect is constricted. He does not appear to be responding to internal stimuli and he indicates that he is tolerating current psychiatric medications well. Denies any new discomfort or pain. Presently patient is receptive to initiating antidepressant that targets both depression and anxiety symptoms. Psychiatric history Patient denies any prior psychiatric hospitalizations. He denies any suicidal attempts. Patient reports that he used to be in outpatient psychiatric care with Dr. Rai. Last follow up was a year ago. Review of Dr. Kothari's consultation dated May 26, 2018 indicates that patient was prescribed Xanax 2 mg three times daily. Patient was also prescribed methadone [employer] Social history Patient reports he is . He lives with his daughter and sister. He is unemployed. Indicated he has been using 10 to 15 bags of heroin intranasally prior to admission. Patient denies any other drug use and denies any alcohol use. He cannot quantify his tobacco use however defers on a nicotine patch when offered to him. DISCHARGE NOTE I interviewed patient at bedside to assess continued stability for discharge. Patient is alert and well-oriented to month, year and circumstances. Eye contact is good. Patient feels improved and denies any suicidal thoughts or thoughts to harm others. Affect is calm and appropriately reactive though still constricted. Patient denies hallucinations and is not responding to internal stimuli. Paranoid thoughts towards family have completely resolved. Thought process is clear and coherent. Patient feels comfortable with discharge today and denies any new concerns. Denies any new acute discomfort or pain. Tolerating medications and denies any issues with them. As noted above, delusions and paranoia were not elicited on day of discharge. - Diagnosis (1) Psychosis Current Visit: No Status: Acute (2) Anxiety Current Visit: No Status: Chronic (3) Depression Current Visit: No Status: Chronic (4) Opiate dependence Current Visit: Yes Status: Acute - Final Diagnosis (DSM 5) Condition upon Discharge: GOOD DSM 5: Depression NOS Rule out substance-induced psychosis Rule out substance-induced mood disorder Delirium is resolved and likely cause of psychosis Disposition: DISCHARGED TO HOME CARE Follow-up Treatment Plan: * PLEASE SEE SW NOTE FOR AFTERCARE PLANS THE FOLLOWING MEDICATIONS WERE CALLED INTO [facility] [phone] AT 9; 20 AM ON 06/05/18 (14 DAYS + 1 RF) * Seroquel 50 mg po HS continued for history of paranoia and hallucinations * Lexapro 20 mg po daily for symptoms of depression and anxiety * Ativan 2 mg po q8 prn for anxiety Treated with oxycodone for pain relief. Naltrexone in this regard was not an option (patient must be abstinent from all opioids 7-10 days prior to trial) though patient was strongly encouraged to explore this treatment option as an outpatient. He cannot quantify his tobacco use however defers on a nicotine patch when offered to him. Prescriptions/Medication Reconciliation: Enalapril Maleate [Vasotec] 10 mg PO DAILY #30 tab Furosemide [Lasix] 20 mg PO DAILY #30 tab Metoprolol Tartrate [Lopressor] 25 mg PO DAILY #30 tab Polyethylene Glycol 3350 [Miralax] 17 gm PO DAILY #30 ml - Smoking Cessation Smoking Cessation Medication prescribed: No Reason for not providing: defers on a nicotine patch when offered to him - Antipsychotic Medications Pt discharged on 2 or more routine antipsychotic medications: No
[2018-06-05] MEDS: Digoxin 125 mcg (0.125 mg) Tab PO SCH (14:47)
[2018-06-05 14:53] VITALS: PULSE 101
== END 2018-06-05 17:11 | disposition home or self-care (01) | DRG 430 ==
LOC: PSYC 20:32
PROVIDERS: ADMIT Psychiatry & Neurology Psychiatry; ATTEND Psychiatry & Neurology Psychiatry
DX: F32.3 Major depressive disorder, single episode, severe with psychotic features (principal); J18.9 Pneumonia, unspecified organism; I50.30 Unspecified diastolic (congestive) heart failure; I13.0 Hypertensive heart and chronic kidney disease with heart failure and stage 1 through stage 4 chronic kidney disease, or unspecified chronic kidney disease; E11.22 Type 2 diabetes mellitus with diabetic chronic kidney disease; N18.9 Chronic kidney disease, unspecified; F11.20 Opioid dependence, uncomplicated; J44.0 Chronic obstructive pulmonary disease with (acute) lower respiratory infection; E78.00 Pure hypercholesterolemia, unspecified; E78.5 Hyperlipidemia, unspecified; F41.9 Anxiety disorder, unspecified; G47.00 Insomnia, unspecified; G47.33 Obstructive sleep apnea (adult) (pediatric); K21.9 Gastro-esophageal reflux disease without esophagitis; K59.03 Drug induced constipation; F05 Delirium due to known physiological condition; T40.2X5A Adverse effect of other opioids, initial encounter; I25.2 Old myocardial infarction; Z91.14 Patient's other noncompliance with medication regimen; Z87.891 Personal history of nicotine dependence; Z91.19 Patient's noncompliance with other medical treatment and regimen; Z86.718 Personal history of other venous thrombosis and embolism; Z79.01 Long term (current) use of anticoagulants; Z79.84 Long term (current) use of oral hypoglycemic drugs

== ENCOUNTER 2018-07-24 17:58 | Emergency (ER) | payer MEDICAID ==
[2018-07-24 17:59] VITALS: PULSE 101
[2018-07-24 18:14] VITALS: RESP 18; BMI 50.0
[2018-07-24] MEDS ORDERED: Albuterol-Ipratrop 3 mg / 0.5 (3 ml) UD IH STA (18:18)
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
[2018-07-24 19:34] LABS: ALB/GLOB RATIO 1.1 (1.1-1.8); ALBUMIN 3.8 g/dL (3.0-4.8); ALT/SGPT 24 U/L (7-56); AST/SGOT 23 U/L (17-59); BLOOD UREA NITROGEN 8 mg/dL (7-21); CALCIUM 8.8 mg/dL (8.4-10.5); GFR NON-AFRICAN AMERICAN > 60
[2018-07-24 19:35] LABS: BASO # 0.02 K/mm3 (0.0-2.0); BASO % 0.1 % (0.0-3.0); EOS % 0.1 % (1.5-5.0); GRAN # 11.28 (1.4-6.5); GRAN % 81.9 % (50.0-68.0); HEMOGLOBIN 12.9 g/dL (14.0-18.0); LYMPH # 1.8 (1.2-3.4); LYMPH % 12.8 % (22.0-35.0); MEAN CELL VOLUME 94.4 fl (80.0-105.0); MEAN CORPUSCULAR HEMOGLOBIN 31.5 pg (25.0-35.0); MEAN CORPUSCULAR HGB CONC 33.4 g/dl (31.0-37.0); MEAN PLATELET VOLUME 11.1 fl (7.0-11.0); MONO # 0.7 (0.1-0.6); MONO % 5.1 % (1.0-6.0); RBC 4.09 10^6/uL (3.5-6.1); RED CELL DISTRIBUTION WIDTH 15.7 % (11.5-14.5); WHITE BLOOD COUNT 13.8 10^3/ul (4.5-11.0)
[2018-07-24 19:39] LABS: INR 1.08; PARTIAL THROMBOPLASTIN TIME 25.5 Seconds (25.1-36.5); PROTHROMBIN TIME 12.3 SECONDS (9.4-12.5)
[2018-07-24 19:48] LABS: B-TYPE NATRIURETIC PEPTIDE 826 pg/mL (0-450); TROPONIN I 0.02 ng/mL
--- NOTE | 2018-07-24 20:40 | CARD ---
APPROVED REPORT Date of service: 07/24/2018 EKG Measurement Heart [id number] <Conclusion> Normal sinus rhythm Normal ECG
[2018-07-24 21:18] VITALS: TEMP 98; O2SAT 95
[2018-07-24 21:53] LABS: BARBITURATES, UR NEGATIVE (NEGATIVE); BENZODIAZEPINES, UR NEGATIVE (NEGATIVE); OPIATES, UR POSITIVE (NEGATIVE); PHENCYCLIDINE, UR NEGATIVE (NEGATIVE)
[2018-07-24] MEDS ORDERED: Potassium Chloride 20 mEq ER Tab PO STA (21:58)
[2018-07-24 22:56] VITALS: BP 130/72; PULSE 78
--- NOTE | 2018-07-25 08:00 | RAD ---
Date of service: 07/24/2018 HISTORY: sob COMPARISON: 05/24/2018 FINDINGS: LUNGS: No active pulmonary disease. PLEURA: No significant pleural effusion identified, no pneumothorax apparent. CARDIOVASCULAR: Mild cardiomegaly OSSEOUS STRUCTURES: No significant abnormalities. VISUALIZED UPPER ABDOMEN: Normal. OTHER FINDINGS: None. IMPRESSION: No active disease.
--- NOTE | 2018-07-25 09:04 | CT ---
Date of service: 07/24/2018 PROCEDURE: CT Chest with contrast (Pulmonary Angiogram) HISTORY: elevated dimer COMPARISON: None available. TECHNIQUE: Axial computed tomography images were obtained of the chest in the pulmonary arterial phase of enhancement. Coronal and sagittal reformatted images were created and reviewed. Intravenous contrast dose: Radiation dose: Total exam DLP = 555.32 mGy-cm. This CT exam was performed using one or more of the following dose reduction techniques: Automated exposure control, adjustment of the mA and/or kV according to patient size, and/or use of iterative reconstruction technique. FINDINGS: PULMONARY ARTERIES: No filling defects in the pulmonary arteries to suggest acute pulmonary embolism. AORTA: No acute findings. No thoracic aortic aneurysm. LUNGS: The lungs are well inflated. No nodule, mass or pulmonary consolidation. PLEURAL SPACES: No effusion or pneumothorax. HEART: No cardiomegaly. No significant pericardial effusion. LYMPH NODES: No lymphadenopathy. BONES, CHEST WALL: No fracture or destructive lesion OTHER FINDINGS: There thickening of the adrenal glands without discrete. IMPRESSION: No central pulmonary embolism. Clear lungs. A preliminary report was provided by [employer].
== END 2018-07-24 22:40 ==
LOC: ED 17:58
DX: I42.0 Dilated cardiomyopathy (principal); D72.829 Elevated white blood cell count, unspecified; F11.20 Opioid dependence, uncomplicated; D64.9 Anemia, unspecified; R06.00 Dyspnea, unspecified; E66.2 Morbid (severe) obesity with alveolar hypoventilation; Z68.43 Body mass index [BMI] 50.0-59.9, adult; I11.0 Hypertensive heart disease with heart failure; I50.9 Heart failure, unspecified; E11.9 Type 2 diabetes mellitus without complications; Z87.891 Personal history of nicotine dependence
CPT/HCPCS: 71045; 71275; 80053; 80320; 80324; 80345; 80346; 80349; 80353; 80358; 80361; 82550; 83615; 83735; 83880; 83992; 84484; 85025; 85378; 85610; 85730; 93005; 96374; 99284; J1940; Q9967

== ENCOUNTER 2018-08-23 21:22 | Inpatient (IN) | payer MEDICAID ==
[2018-08-23 21:27] VITALS: BMI 45.9
[2018-08-23] MEDS ORDERED: Albuterol-Ipratrop 3 mg / 0.5 (3 ml) UD IH STA ×2 (21:53→23:56)
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
[2018-08-23 22:21] LABS: HEMOGLOBIN 12.9 g/dL (14.0-18.0); MEAN CORPUSCULAR HEMOGLOBIN 31.6 pg (25.0-35.0); MEAN CORPUSCULAR HGB CONC 31.9 g/dl (31.0-37.0); MEAN PLATELET VOLUME 10.8 fl (7.0-11.0); RBC 4.08 10^6/uL (3.5-6.1); RED CELL DISTRIBUTION WIDTH 14.6 % (11.5-14.5); WHITE BLOOD COUNT 10.5 10^3/uL (4.5-11.0)
[2018-08-23 22:29] LABS: INR 1.09; PARTIAL THROMBOPLASTIN TIME 30.5 Seconds (25.1-36.5); PROTHROMBIN TIME 12.5 SECONDS (9.4-12.5)
[2018-08-23 22:36] LABS: ALBUMIN 3.5 g/dL (3.0-4.8); ALT/SGPT 23 U/L (7-56); AST/SGOT 21 U/L (17-59); BLOOD UREA NITROGEN 8 mg/dL (7-21); CALCIUM 8.7 mg/dL (8.4-10.5); GFR NON-AFRICAN AMERICAN > 60
[2018-08-23 22:47] LABS: B-TYPE NATRIURETIC PEPTIDE 449 pg/mL (0-450); TROPONIN I < 0.01 ng/mL
[2018-08-24] MEDS ORDERED: Albuterol-Ipratrop 3 mg / 0.5 (3 ml) UD IH STA (00:34)
[2018-08-24 00:58] LABS: ARTERIAL BLOOD GAS HCO3 33.5 mmol/L (21-28); ARTERIAL BLOOD GAS O2 CAPACITY 17.3 mL/dl (16-24); ARTERIAL BLOOD GAS O2 CONTENT 16.8 ML/dl (15-23); ARTERIAL BLOOD GAS O2 SAT 96.9 % (95-98); ARTERIAL BLOOD GAS PCO2 58 mm/Hg (35-45); ARTERIAL BLOOD GAS PH 7.37 (7.35-7.45); ARTERIAL BLOOD GAS TCO2 35.3 mmol.L (22-28)
[2018-08-24] MEDS ORDERED: Albuterol-Ipratrop 3 mg / 0.5 (3 ml) UD IH PRN (01:07)
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
[2018-08-24 02:08] LABS: BARBITURATES, UR NEGATIVE (NEGATIVE); BENZODIAZEPINES, UR POSITIVE (NEGATIVE); OPIATES, UR POSITIVE (NEGATIVE); PHENCYCLIDINE, UR NEGATIVE (NEGATIVE)
[2018-08-24 05:18] LABS: ARTERIAL BLOOD GAS HCO3 33.1 mmol/L (21-28); ARTERIAL BLOOD GAS HEMOGLOBIN 13.4 g/dL (11.7-17.4); ARTERIAL BLOOD GAS O2 CONTENT 17.3 ML/dl (15-23); ARTERIAL BLOOD GAS O2 SAT 96.3 % (95-98); ARTERIAL BLOOD GAS PCO2 56 mm/Hg (35-45); ARTERIAL BLOOD GAS PH 7.38 (7.35-7.45); ARTERIAL BLOOD GAS TCO2 34.8 mmol.L (22-28)
--- NOTE | 2018-08-24 07:18 | RAD ---
Date of service: 08/23/2018 HISTORY: sob COMPARISON: 07/24/2018 FINDINGS: LUNGS: There is an infiltrate at the right lung base PLEURA: No significant pleural effusion identified, no pneumothorax apparent. CARDIOVASCULAR: No aortic atherosclerotic calcification present. Moderate cardiomegaly no pulmonary vascular congestion. OSSEOUS STRUCTURES: No significant abnormalities. VISUALIZED UPPER ABDOMEN: Normal. OTHER FINDINGS: None. IMPRESSION: There is an infiltrate at the right lung base. Moderate cardiomegaly
[2018-08-24] MEDS: Insulin Reg-MEDIUM-Coverage SC SCH ×4 (08:35→22:42)
[2018-08-24] MEDS: MethylPREDNISolone 40 mg Vial IVP SCH ×2 (09:58→21:56)
--- NOTE | 2018-08-24 12:30 | US ---
HISTORY: Leg pain and swelling. Evaluate for DVT PHYSICIAN(S): Edgar Cifuentes MD. TECHNIQUE: Duplex sonography and color-flow Doppler with graded compression were used to evaluate the deep venous systems of both lower extremities. The exam is limited by body habitus and edema. FINDINGS: The visualized deep venous systems of both lower extremities are sonographically normal and compressible. Normal wave forms and augmentation are seen. There is no sonographic evidence for deep venous thrombosis in the visualized segments of both lower extremities. There is a 3.2 x 5.8 cm fluid collection in the left popliteal fossa, consistent with a Valdez cyst. IMPRESSION: No sonographic evidence for deep venous thrombosis in the visualized segments of both lower extremities. Limited study
[2018-08-24] MEDS: Azithromycin 500MG/NS 250ml 500 MG/250 ML BAG IVPB SCH (14:52)
[2018-08-24] MEDS: cefTRIAXone 1 gm 1 GM/100 ML BAG IVPB SCH (14:52)
[2018-08-24] MEDS: Digoxin 125 mcg (0.125 mg) Tab PO SCH (14:52)
[2018-08-24] MEDS: Vancomycin 1gm in NS 250ml 1 GM/250 ML BAG IVPB SCH ×2 (14:52→21:01)
[2018-08-24] MEDS ORDERED: Insulin Reg-HIGH-Coverage SC SCH (16:30)
--- NOTE | 2018-08-24 18:08 | CARD ---
APPROVED REPORT Date of service: 08/23/2018 EKG Measurement Heart [id number] <Conclusion> Normal sinus rhythm Nonspecifc T wave changes Abnormal EKG
[2018-08-24] MEDS: Albuterol-Ipratrop 3 mg / 0.5 (3 ml) UD IH SCH (20:42)
[2018-08-25 01:46] VITALS: O2SAT 96
[2018-08-25] MEDS: Albuterol-Ipratrop 3 mg / 0.5 (3 ml) UD IH SCH ×4 (03:43→20:01)
--- NOTE | 2018-08-25 05:16 | CON ---
DATE OF CONSULTATION: 08/24/2018 REASON FOR THE CONSULTATION AND FOLLOWUP: Cardiac evaluation, possible congestive heart failure. BRIEF CLINICAL HISTORY: This is a 57-year-old morbidly obese male with a body mass index of 46 kg/m2 with a past medical history of hypertension, diabetes, hyperlipidemia, CHF, history of DVT, PE, status post IVC filter, osteoarthritis, history of coronary artery disease, admitted with progressively worsening shortness of breath. Denies any chest pain, denies any palpitations. PAST MEDICAL HISTORY: Significant for DVT, PE, history of inferior vena cava filter, history of morbid obesity. History of cardiac catheterization on 05/25/2014, nonobstructive coronary artery disease, essentially normal coronary arteries, nonischemic cardiomyopathy, ejection fraction 25%, later on it improved. On 03/15/2014, the patient had an ANTONIETA that showed an ejection fraction 55% to 60%. Later on, the patient had a repeat echo on 05/31/2014 that showed an ejection fraction of 55%, diastolic dysfunction, [id number] TR, RV systolic pressure of 43. History of diabetes, hypertension, hyperlipidemia, obesity, COPD, history of active tobacco abuse, history of hypertension, and history of hyperlipidemia. Previous cardiac workup as follows: The patient has most recent echo done on 12/14/2017 that showed ejection fraction 55% to 60%, right ventricle moderately dilated, RV systolic function moderately reduced, trace aortic regurgitation, mild aortic stenosis, [id number] mitral regurgitation, [id number] tricuspid regurgitation, right ventricular systolic pressure of 51. History of multiple echos. Prior to that, echo dated 01/28/2017 also showed an ejection fraction of 55% to 60%. History of cardiac catheterization on 05/25/2014 that showed normal coronary arteries, but the ejection fraction was low. Later on, the patient had most recently MUGA scan done on 12/15/2017 that revealed an ejection fraction of 60% and normal RV dated 12/15/2017. SOCIAL HISTORY: Active tobacco use one pack a day, off and on, quit and then resumed back. Denies any history of alcohol abuse. CURRENT MEDICATIONS: The patient is taking at home Eliquis 5 mg p.o. b.i.d., lorazepam, digoxin, albuterol, aspirin, enalapril, and metformin. ALLERGIES: NO KNOWN DRUG ALLERGIES. REVIEW OF SYSTEMS: As per HPI. PHYSICAL EXAMINATION: VITAL SIGNS: Temperature afebrile, heart rate 60, and blood pressure 169/94. HEENT: PERRLA. Extraocular muscles intact. NECK: Supple. No carotid bruit. No thyromegaly. CHEST: Clear to auscultation. HEART: S1 and S2 regular. ABDOMEN: Soft. EXTREMITIES: Clubbing and cyanosis negative. LABORATORY DATA: Recent EKG on 07/24/2018 shows a normal sinus with no acute ST-T changes noted. Blood workup as follows: WBC 10.5, hemoglobin 12.8, hematocrit 40.4, and platelet count 297. Chemistry shows sodium of 140, potassium 3.8, chloride 103, carbon dioxide 33, anion gap of 8, BUN 8, and creatinine 0.8. Troponin 0.01. BNP margin of 449. Chest x-ray shows questionable right lower lobe pneumonia, moderate cardiomegaly, and mild pulmonary congestion noted. IMPRESSION: This is a 57-year-old male with a history of acute tobacco abuse, chronic obstructive pulmonary disease, moderate obesity, possible obstructive sleep apnea, hypertension, hyperlipidemia, history of deep vein thrombosis and pulmonary embolism, on Eliquis, history of non-obstructive coronary artery disease in the past, admitted with shortness of breath and marginally elevated BNP. Chest x-ray consistent with congestive heart failure. Moderate obesity. History of cardiac catheterization in 2013 with essentially normal coronaries. At that time, cardiomyopathy was noted. Later on, serial echo as well as MUGA scan in 2018 with a preserved LV function, possibly with diastolic dysfunction. The patient is in normal sinus. Echo, last one, on 12/14/2017, shows a diastolic dysfunction grade III with moderately dilated RV function and moderately reduced ejection fraction 55% to 60%. RECOMMENDATION: Aggressive supplement per potassium, aggressively treat for COPD. Continue diuretics. The patient is already on Eliquis for DVT and PE and no need for DVT prophylaxis. Continue digoxin. Continue Lasix. Continue beta-tony. Questionable right lower lobe pneumonia. Continue with antibiotic. We will follow with you. Thank you, Dr. Yi for providing us the opportunity in taking care of the patient. Lulu Jacobo MD [facility] # [id number]
[2018-08-25 07:20] LABS: GRAN # 14.79 (1.4-6.5); GRAN % 92.1 % (50.0-68.0); HEMOGLOBIN 13.5 g/dL (14.0-18.0); LYMPH # 0.8 (1.2-3.4); MEAN CELL VOLUME 94.9 fl (80.0-105.0); MEAN CORPUSCULAR HEMOGLOBIN 31.1 pg (25.0-35.0); MEAN CORPUSCULAR HGB CONC 32.8 g/dl (31.0-37.0); MEAN PLATELET VOLUME 10.9 fl (7.0-11.0); MONO # 0.5 (0.1-0.6); MONO % 2.9 % (1.0-6.0); PLATELET COUNT 315 10^3/uL (120.0-450.0); RBC 4.34 10^6/uL (3.5-6.1); RED CELL DISTRIBUTION WIDTH 14.5 % (11.5-14.5); WHITE BLOOD COUNT 16.1 10^3/uL (4.5-11.0)
[2018-08-25 07:36] LABS: ALB/GLOB RATIO 0.9 (1.1-1.8); ALBUMIN 3.5 g/dL (3.0-4.8); ALT/SGPT 13 U/L (7-56); AST/SGOT 19 U/L (17-59); BLOOD UREA NITROGEN 15 mg/dL (7-21); CALCIUM 9.1 mg/dL (8.4-10.5); GFR NON-AFRICAN AMERICAN > 60; HDL CHOLESTEROL 47 mg/dL (29-60)
[2018-08-25 07:39] LABS: LDL CHOLESTEROL 103 mg/dL (0-129)
--- NOTE | 2018-08-25 07:49 | CP.PCM.PN ---
Subjective - Date & Time of Evaluation Date of Evaluation: 08/25/18 Time of Evaluation: 07:40 - Subjective Subjective: Bong Talbert DO, PGY-1 Hospitalist Progress Note for Dr. Yi Patient was seen and examined at bedside this AM. He states he still has abdominal and back pain and would like something additional for pain. Objective - Vital Signs/Intake and Output Vital Signs (last 24 hours): Temp Pulse Resp BP Pulse Ox 97.4 F L 69 20 159/92 H 96 08/25/18 05:46 08/25/18 05:46 08/25/18 05:46 08/25/18 05:46 08/25/18 05:46 Intake and Output: 08/25/18 08/25/18 06:59 18:59 Intake Total 420 Output Total 3450 Balance -3030 - Medications Medications: Current Medications Acetaminophen (Tylenol 325mg Tab) 650 mg PO Q6H PRN PRN Reason: Pain, moderate (4-7) Last Admin: 08/25/18 03:14 Dose: 650 mg Albuterol/Ipratropium (Duoneb 3 Mg/0.5 Mg (3 Ml) Ud) 3 ml IH [id number] KATIE Last Admin: 08/25/18 07:32 Dose: 3 ml Albuterol/Ipratropium (Duoneb 3 Mg/0.5 Mg (3 Ml) Ud) 3 ml IH Q2H PRN PRN Reason: Shortness of Breath Apixaban (Eliquis) 5 mg PO BID KATIE; Protocol Last Admin: 08/24/18 17:45 Dose: 5 mg Digoxin (Digoxin) 0.125 mg PO 1400 KATIE Last Admin: 08/24/18 14:52 Dose: 0.125 mg Furosemide (Lasix) 40 mg IVP DAILY KATIE Hydralazine HCl (Apresoline) 10 mg PO QID PRN PRN Reason: forsbp>160 Azithromycin (Zithromax 500mg In Ns) 500 mg in 250 mls @ 167 mls/hr IVPB DAILY KATIE; Protocol Last Admin: 08/24/18 14:52 Dose: 167 mls/hr Ceftriaxone Sodium (Rocephin 1 Gram Ivpb) 1 gm in 100 mls @ 100 mls/hr IVPB DAILY KATIE; Protocol Last Admin: 08/24/18 14:52 Dose: 100 mls/hr Vancomycin HCl (Vancomycin 1gm) 1 gm in 250 mls @ 167 mls/hr IVPB Q12H [facility]; Protocol Last Admin: 08/24/18 21:01 Dose: 167 mls/hr Insulin Human Regular (Humulin R Med) 0 units SC ACHS [facility]; Protocol Last Admin: 08/24/18 22:42 Dose: Not Given Lisinopril (Zestril) 20 mg PO DAILY [facility] Methylprednisolone (Solu-Medrol) 40 mg IVP Q12 [facility] Last Admin: 08/24/18 21:56 Dose: 40 mg Metoprolol Tartrate (Lopressor) 50 mg PO BID [facility] Last Admin: 08/24/18 17:44 Dose: 50 mg Pantoprazole Sodium (Protonix Inj) 40 mg IVP DAILY [facility] Last Admin: 08/24/18 09:58 Dose: 40 mg - Labs Labs: 08/25/18 06:00 08/25/18 06:00 PT 12.5 SECONDS (9.4-12.5) 08/23/18 22:10 INR 1.09 08/23/18 22:10 APTT 30.5 Seconds (25.1-36.5) 08/23/18 22:10 - Constitutional Appears: Non-toxic, No Acute Distress - Head Exam Head Exam: ATRAUMATIC, NORMOCEPHALIC - Eye Exam Eye Exam: EOMI, Normal appearance, PERRL - ENT Exam ENT Exam: Mucous Membranes Moist - Neck Exam Neck Exam: Full ROM, Normal Inspection - Respiratory Exam Respiratory Exam: Clear to Ausculation Bilateral, NORMAL BREATHING PATTERN. absent: Accessory Muscle Use, Rales, Rhonchi, Wheezes, Respiratory Distress - Cardiovascular Exam Cardiovascular Exam: REGULAR RHYTHM, RRR, +S1, +S2. absent: Gallop, Rubs, Murmur - GI/Abdominal Exam GI & Abdominal Exam: Soft, Normal Bowel Sounds. absent: Guarding, Rebound - Extremities Exam Extremities Exam: Full ROM, Normal Inspection - Back Exam Back Exam: NORMAL INSPECTION - Neurological Exam Neurological Exam: Alert, Awake, Oriented x3 - Psychiatric Exam Psychiatric exam: Normal Affect, Normal Mood - Skin Skin Exam: Dry, Intact, Warm
[2018-08-25 08:25] LABS: LARGE PLATELETS PRESENT; LYMPHOCYTE 11 % (22.0-35.0); NEUTROPHIL 89 % (50.0-70.0); PLATELET ESTIMATE NORMAL (NORMAL)
[2018-08-25] MEDS: Insulin Reg-MEDIUM-Coverage SC SCH ×2 (09:10→17:59)
[2018-08-25] MEDS: MethylPREDNISolone 40 mg Vial IVP SCH (11:29)
[2018-08-25] MEDS: cefTRIAXone 1 gm 1 GM/100 ML BAG IVPB SCH (11:33)
[2018-08-25] MEDS: Azithromycin 500MG/NS 250ml 500 MG/250 ML BAG IVPB SCH (11:34)
[2018-08-25 14:06] VITALS: RESP 21; TEMP 98.8
--- NOTE | 2018-08-25 14:22 | CP.PCM.DIS ---
<Bong Talbert - Last Filed: 08/25/18 14:33> Provider - Provider Date of Admission: 08/24/18 01:05 Attending physician: Smiley Yi MD Primary care physician: Yoni Young MD Consults: Cardio: [place] Time Spent in preparation of Discharge (in minutes): 40 Diagnosis - Discharge Diagnosis (1) Compensated respiratory acidosis Status: Chronic (2) Obesity hypoventilation syndrome Status: Chronic (3) Opiate dependence Status: Chronic (4) Pneumonia Status: Acute Hospital Course - Lab Results Lab Results: Most Recent Lab Values WBC 16.1 10^3/uL (4.5-11.0) H D 08/25/18 06:00 RBC 4.34 10^6/uL (3.5-6.1) 08/25/18 06:00 Hgb 13.5 g/dL (14.0-18.0) L 08/25/18 06:00 Hct 41.2 % (42.0-52.0) L 08/25/18 06:00 MCV 94.9 fl (80.0-105.0) D 08/25/18 06:00 MCH 31.1 pg (25.0-35.0) 08/25/18 06:00 MCHC 32.8 g/dl (31.0-37.0) 08/25/18 06:00 RDW 14.5 % (11.5-14.5) 08/25/18 06:00 Plt Count 315 10^3/uL (120.0-450.0) 08/25/18 06:00 MPV 10.9 fl (7.0-11.0) 08/25/18 06:00 Gran % 92.1 % (50.0-68.0) H 08/25/18 06:00 Lymph % (Auto) 5.0 % (22.0-35.0) L 08/25/18 06:00 [place] % (Auto) 2.9 % (1.0-6.0) 08/25/18 06:00 Eos % (Auto) 0.0 % (1.5-5.0) L 08/25/18 06:00 Baso % (Auto) 0.0 % (0.0-3.0) 08/25/18 06:00 Gran # 14.79 (1.4-6.5) H 08/25/18 06:00 Lymph # (Auto) 0.8 (1.2-3.4) L 08/25/18 06:00 [place] # (Auto) 0.5 (0.1-0.6) 08/25/18 06:00 Eos # (Auto) 0.0 (0.0-0.7) 08/25/18 06:00 Baso # (Auto) 0.00 K/mm3 (0.0-2.0) 08/25/18 06:00 Neutrophils % (Manual) 89 % (50.0-70.0) H 08/25/18 06:00 Lymphocytes % (Manual) 11 % (22.0-35.0) L 08/25/18 06:00 Monocytes % (Manual) TEST NOT PERFORMED 08/25/18 06:00 Platelet Evaluation Normal (NORMAL) 08/25/18 06:00 Large Platelets Present 08/25/18 06:00 ESR 36 mm/hr (0.00-15.0) H 08/24/18 07:40 PT 12.5 SECONDS (9.4-12.5) 08/23/18 22:10 INR 1.09 08/23/18 22:10 APTT 30.5 Seconds (25.1-36.5) 08/23/18 22:10 pCO2 56 mm/Hg (35-45) H 08/24/18 05:10 pO2 68.0 mm/Hg (80-100) L 08/24/18 05:10 HCO3 33.1 mmol/L (21-28) H 08/24/18 05:10 ABG pH 7.38 (7.35-7.45) 08/24/18 05:10 ABG Total CO2 34.8 mmol.L (22-28) H 08/24/18 05:10 ABG O2 Saturation 96.3 % (95-98) 08/24/18 05:10 ABG O2 Content 17.3 ML/dl (15-23) 08/24/18 05:10 ABG Base Excess 6.3 mmol/L (-2.0-3.0) H 08/24/18 05:10 ABG Hemoglobin 13.4 g/dL (11.7-17.4) 08/24/18 05:10 ABG Carboxyhemoglobin 3.8 % (0.5-1.5) H 08/24/18 05:10 POC ABG HHb (Measured) 3.5 % (0-5) 08/24/18 05:10 ABG Methemoglobin 1.0 % (0.0-3.0) 08/24/18 05:10 ABG O2 Capacity 18.0 mL/dl (16-24) 08/24/18 05:10 Hgb O2 Saturation 91.7 % (95.0-98.0) L 08/24/18 05:10 FiO2 35.0 % 08/24/18 05:10 Sodium 138 mmol/L (132-148) 08/25/18 06:00 Potassium 3.9 mmol/L (3.6-5.0) 08/25/18 06:00 Chloride 99 mmol/L (98-107) 08/25/18 06:00 Carbon Dioxide 33 mmol/L (21-33) 08/25/18 06:00 Anion Gap 10 (10-20) 08/25/18 06:00 BUN 15 mg/dL (7-21) 08/25/18 06:00 Creatinine 0.8 mg/dl (0.8-1.5) 08/25/18 06:00 Est GFR ( Amer) > 60 08/25/18 06:00 Est GFR (Non-Af Amer) > 60 08/25/18 06:00 POC Glucose (mg/dL) 216 mg/dL (65-110) H 08/25/18 12:26 Random Glucose 174 mg/dL (70-110) H 08/25/18 06:00 Hemoglobin A1c 4.9 % (4.2-6.5) 08/24/18 07:40 Calcium 9.1 mg/dL (8.4-10.5) 08/25/18 06:00 Phosphorus 2.7 mg/dL (2.5-4.5) 08/25/18 06:00 Magnesium 1.8 mg/dL (1.7-2.2) 08/25/18 06:00 Total Bilirubin 0.7 mg/dL (0.2-1.3) 08/25/18 06:00 AST 19 U/L (17-59) 08/25/18 06:00 ALT 13 U/L (7-56) 08/25/18 06:00 Alkaline Phosphatase 84 U/L (38-126) 08/25/18 06:00 Lactate Dehydrogenase 494 U/L (333-699) 08/23/18 22:10 Total Creatine Kinase 81 U/L (35-230) 08/23/18 22:10 Troponin I < 0.01 ng/mL D 08/23/18 22:10 C-Reactive Protein 31.40 mg/L (0.0-9.9) H 08/24/18 07:40 NT-Pro-B Natriuret Pep 449 pg/mL (0-450) 08/23/18 22:10 Total Protein 7.2 g/dL (5.8-8.3) 08/25/18 06:00 Albumin 3.5 g/dL (3.0-4.8) 08/25/18 06:00 Globulin 3.7 gm/dL 08/25/18 06:00 Albumin/Globulin Ratio 0.9 (1.1-1.8) L 08/25/18 06:00 Triglycerides 75 mg/dL (35-160) 08/25/18 06:00 Cholesterol 164 mg/dL (130-200) 08/25/18 06:00 LDL Cholesterol Direct 103 mg/dL (0-129) 08/25/18 06:00 HDL Cholesterol 47 mg/dL (29-60) 08/25/18 06:00 Procalcitonin < 0.05 NG/ML (0.19-0.49) L 08/24/18 07:40 TSH 3rd Generation 0.05 mIU/mL (0.46-4.68) L 08/25/18 06:00 Urine Opiates Screen Positive (NEGATIVE) H 08/24/18 01:32 Urine Methadone Screen Negative (NEGATIVE) 08/24/18 01:32 Ur Barbiturates Screen Negative (NEGATIVE) 08/24/18 01:32 Ur Phencyclidine Scrn Negative (NEGATIVE) 08/24/18 01:32 Ur Amphetamines Screen Negative (NEGATIVE) 08/24/18 01:32 U Benzodiazepines Scrn Positive (NEGATIVE) H 08/24/18 01:32 U Oth Cocaine Metabols Negative (NEGATIVE) 08/24/18 01:32 U Cannabinoids Screen Negative (NEGATIVE) 08/24/18 01:32 Alcohol, Quantitative < 10 mg/dL (0-10) 08/24/18 07:40 Ur L.pneumophila Ag Negative (NEGATIVE) 08/24/18 19:35 Mycoplasma pneumon IgM Positive (NEGATIVE) H 08/24/18 07:40 - Hospital Course Hospital Course: Bong Talbert DO, PGY-1 Hospitalist Discharge Summary for Dr. Yi Mr. Riley is a 57 year old male with PMH of COPD, DESTINEE/obesity hypoventilation syndrome, HTN, HLD, diastolic CHF, NSTEMI, DVT/PE (on Eliquis, s/p IVC filter placement), and non-compliance who was last admitted to [facility] on 05/23 for COPD exacerbation which required intubation. He again presented to ED with worsening cough, SOB, and LE edema worsening worsening over 3-4 days. He admitted to taking 0.25 mg of xanax prior to arrival. He has a history of substance abuse, drug-seeking behavior, and UDS was positive for opiates and benzodiazepines in ED. CXR found a RLL infiltrate concerning for possible PNA He was subsequently admitted and treated for presumed COPD exacerbation/PNA. He was initially treated with vanc/rocephin. Doppler US of b/l LE were negative for DVT. He was continued on home eliquis per Dr. Donnell whitney. Urine legionella was negative but mycoplasma was positive. He is subsequently discharged on zithromax for treatment of mycoplasma PNA. Prescriptions were delivered at bedside prior to patient leaving. All questions were answered. Discharge Exam - Head Exam Head Exam: ATRAUMATIC, NORMOCEPHALIC - Eye Exam Eye Exam: EOMI, Normal appearance, PERRL - ENT Exam ENT Exam: Mucous Membranes Moist - Neck Exam Neck exam: Full Rom, Normal Inspection Additional comments: thick neck c/w hx of DESTINEE/obesity hypoventilation syndrome - Respiratory Exam Respiratory Exam: Clear to PA & Lateral, NORMAL BREATHING PATTERN, UNREMARKABLE. absent: Accessory Muscle Use, Rales, Rhonchi, Wheezes, Respiratory Distress - Cardiovascular Exam Cardiovascular Exam: REGULAR RHYTHM, RRR, +S1, +S2. absent: Diastolic murmur, Gallop, Rubs, Systolic Murmur - GI/Abdominal Exam GI & Abdominal Exam: Normal Bowel Sounds, Soft. absent: Guarding, Tenderness - Extremities Exam Extremities exam: normal inspection, pedal edema (trace pitting edema b/l) - Back Exam Back exam: NORMAL INSPECTION - Neurological Exam Neurological exam: Alert, Oriented x3 - Psychiatric Exam Psychiatric exam: Normal Affect, Normal Mood - Skin Skin Exam: Dry, Intact, Warm Additional comments: erythematous patches on LE b/l c/w venous stasis dermatitis Discharge Plan - Discharge Medications Prescriptions: Apixaban [Eliquis] 5 mg PO BID 14 Days #28 tablet Azithromycin [Zithromax] 500 mg PO DAILY 5 Days #5 tablet Methylprednisolone [Medrol Dose Pack (21 tabs)] 4 mg PO DAILY #21 mg Metoprolol Tartrate [Lopressor] 50 mg PO BID 14 Days #28 tab - Follow Up Plan Condition: STABLE Disposition: HOME/ ROUTINE Instructions: Heart Failure, Adult (DC), Pneumonia, Adult (DC), Exacerbation of COPD Additional Instructions: TSH is low suspicious of hyperthyroidism. Please follow up outpatient to repeat thyroid function test in 4-6 weeks. Follow up with Dr Shannon, supervisor sewer system, for your COPD Obtain outpatient physical therapy. Continue with home oxygen. Continue your home meds. You are given a script for azithromycin, medrol dose pack. You are given 14 day supply of Elliquis. Follow up with PMAndres Young in 3-5 days. Return to ER for any worsening of symptoms. Referrals: Yoni Young MD [Primary Care Provider] - Lulu Shannon MD [Staff Provider] - <Smiley Yi - Last Filed: 08/25/18 18:27> Provider - Provider Date of Admission: 08/24/18 01:05 Attending physician: Smiley Yi MD Primary care physician: Yoni Young MD Hospital Course - Lab Results Lab Results: Most Recent Lab Values WBC 16.1 10^3/uL (4.5-11.0) H D 08/25/18 06:00 RBC 4.34 10^6/uL (3.5-6.1) 08/25/18 06:00 Hgb 13.5 g/dL (14.0-18.0) L 08/25/18 06:00 Hct 41.2 % (42.0-52.0) L 08/25/18 06:00 MCV 94.9 fl (80.0-105.0) D 08/25/18 06:00 MCH 31.1 pg (25.0-35.0) 08/25/18 06:00 MCHC 32.8 g/dl (31.0-37.0) 08/25/18 06:00 RDW 14.5 % (11.5-14.5) 08/25/18 06:00 Plt Count 315 10^3/uL (120.0-450.0) 08/25/18 06:00 MPV 10.9 fl (7.0-11.0) 08/25/18 06:00 Gran % 92.1 % (50.0-68.0) H 08/25/18 06:00 Lymph % (Auto) 5.0 % (22.0-35.0) L 08/25/18 06:00 [place] % (Auto) 2.9 % (1.0-6.0) 08/25/18 06:00 Eos % (Auto) 0.0 % (1.5-5.0) L 08/25/18 06:00 Baso % (Auto) 0.0 % (0.0-3.0) 08/25/18 06:00 Gran # 14.79 (1.4-6.5) H 08/25/18 06:00 Lymph # (Auto) 0.8 (1.2-3.4) L 08/25/18 06:00 [place] # (Auto) 0.5 (0.1-0.6) 08/25/18 06:00 Eos # (Auto) 0.0 (0.0-0.7) 08/25/18 06:00 Baso # (Auto) 0.00 K/mm3 (0.0-2.0) 08/25/18 06:00 Neutrophils % (Manual) 89 % (50.0-70.0) H 08/25/18 06:00 Lymphocytes % (Manual) 11 % (22.0-35.0) L 08/25/18 06:00 Monocytes % (Manual) TEST NOT PERFORMED 08/25/18 06:00 Platelet Evaluation Normal (NORMAL) 08/25/18 06:00 Large Platelets Present 08/25/18 06:00 ESR 36 mm/hr (0.00-15.0) H 08/24/18 07:40 PT 12.5 SECONDS (9.4-12.5) 08/23/18 22:10 INR 1.09 08/23/18 22:10 APTT 30.5 Seconds (25.1-36.5) 08/23/18 22:10 pCO2 56 mm/Hg (35-45) H 08/24/18 05:10 pO2 68.0 mm/Hg (80-100) L 08/24/18 05:10 HCO3 33.1 mmol/L (21-28) H 08/24/18 05:10 ABG pH 7.38 (7.35-7.45) 08/24/18 05:10 ABG Total CO2 34.8 mmol.L (22-28) H 08/24/18 05:10 ABG O2 Saturation 96.3 % (95-98) 08/24/18 05:10 ABG O2 Content 17.3 ML/dl (15-23) 08/24/18 05:10 ABG Base Excess 6.3 mmol/L (-2.0-3.0) H 08/24/18 05:10 ABG Hemoglobin 13.4 g/dL (11.7-17.4) 08/24/18 05:10 ABG Carboxyhemoglobin 3.8 % (0.5-1.5) H 08/24/18 05:10 POC ABG HHb (Measured) 3.5 % (0-5) 08/24/18 05:10 ABG Methemoglobin 1.0 % (0.0-3.0) 08/24/18 05:10 ABG O2 Capacity 18.0 mL/dl (16-24) 08/24/18 05:10 Hgb O2 Saturation 91.7 % (95.0-98.0) L 08/24/18 05:10 FiO2 35.0 % 08/24/18 05:10 Sodium 138 mmol/L (132-148) 08/25/18 06:00 Potassium 3.9 mmol/L (3.6-5.0) 08/25/18 06:00 Chloride 99 mmol/L (98-107) 08/25/18 06:00 Carbon Dioxide 33 mmol/L (21-33) 08/25/18 06:00 Anion Gap 10 (10-20) 08/25/18 06:00 BUN 15 mg/dL (7-21) 08/25/18 06:00 Creatinine 0.8 mg/dl (0.8-1.5) 08/25/18 06:00 Est GFR ( Amer) > 60 08/25/18 06:00 Est GFR (Non-Af Amer) > 60 08/25/18 06:00 POC Glucose (mg/dL) 216 mg/dL (65-110) H 08/25/18 12:26 Random Glucose 174 mg/dL (70-110) H 08/25/18 06:00 Hemoglobin A1c 4.9 % (4.2-6.5) 08/24/18 07:40 Calcium 9.1 mg/dL (8.4-10.5) 08/25/18 06:00 Phosphorus 2.7 mg/dL (2.5-4.5) 08/25/18 06:00 Magnesium 1.8 mg/dL (1.7-2.2) 08/25/18 06:00 Total Bilirubin 0.7 mg/dL (0.2-1.3) 08/25/18 06:00 AST 19 U/L (17-59) 08/25/18 06:00 ALT 13 U/L (7-56) 08/25/18 06:00 Alkaline Phosphatase 84 U/L (38-126) 08/25/18 06:00 Lactate Dehydrogenase 494 U/L (333-699) 08/23/18 22:10 Total Creatine Kinase 81 U/L (35-230) 08/23/18 22:10 Troponin I < 0.01 ng/mL D 08/23/18 22:10 C-Reactive Protein 31.40 mg/L (0.0-9.9) H 08/24/18 07:40 NT-Pro-B Natriuret Pep 449 pg/mL (0-450) 08/23/18 22:10 Total Protein 7.2 g/dL (5.8-8.3) 08/25/18 06:00 Albumin 3.5 g/dL (3.0-4.8) 08/25/18 06:00 Globulin 3.7 gm/dL 08/25/18 06:00 Albumin/Globulin Ratio 0.9 (1.1-1.8) L 08/25/18 06:00 Triglycerides 75 mg/dL (35-160) 08/25/18 06:00 Cholesterol 164 mg/dL (130-200) 08/25/18 06:00 LDL Cholesterol Direct 103 mg/dL (0-129) 08/25/18 06:00 HDL Cholesterol 47 mg/dL (29-60) 08/25/18 06:00 Procalcitonin < 0.05 NG/ML (0.19-0.49) L 08/24/18 07:40 TSH 3rd Generation 0.05 mIU/mL (0.46-4.68) L 08/25/18 06:00 Urine Opiates Screen Positive (NEGATIVE) H 08/24/18 01:32 Urine Methadone Screen Negative (NEGATIVE) 08/24/18 01:32 Ur Barbiturates Screen Negative (NEGATIVE) 08/24/18 01:32 Ur Phencyclidine Scrn Negative (NEGATIVE) 08/24/18 01:32 Ur Amphetamines Screen Negative (NEGATIVE) 08/24/18 01:32 U Benzodiazepines Scrn Positive (NEGATIVE) H 08/24/18 01:32 U Oth Cocaine Metabols Negative (NEGATIVE) 08/24/18 01:32 U Cannabinoids Screen Negative (NEGATIVE) 08/24/18 01:32 Alcohol, Quantitative < 10 mg/dL (0-10) 08/24/18 07:40 Ur L.pneumophila Ag Negative (NEGATIVE) 08/24/18 19:35 Mycoplasma pneumon IgM Positive (NEGATIVE) H 08/24/18 07:40 Attending/Attestation - Attestation I have personally seen and examined this patient.: Yes I have fully participated in the care of the patient.: Yes I have reviewed all pertinent clinical information, including history, physical exam and plan: Yes Notes (Text): 08/25/18 18:21 Attending note; Patient seen and examined with resident. Patient is alert and awake. Sitting in the bed. Denies any chest pain, shortness of breath. Denies any abdominal pain, nausea, vomiting. Denies any urinary, bowel symptoms. Patient uses oxygen 2 L nasal cannula. Patient is a 57 year old male with PMH of COPD, DESTINEE/obesity hypoventilation syndrome, HTN, HLD, diastolic CHF, NSTEMI, DVT/PE (on Eliquis, s/p IVC filter placement), opiate use , benzodiazepine use and non-compliance is admitted for lower extremity swelling. Mild erythema noted; treated with vancomycin and Rocephin. COPD; continue oxygen nasal cannula. Mycoplasma pneumonia. Continue azithromycin. Stable respiratory status. Lower extremity swelling; improved significantly . Continue Lasix .Lower extremity Doppler is negative for DVT. Patient takes liquids at home. Obesity; needs follow-up with pulmonary as outpatient. Chronic opiate and benzo use; advised to taper her down and discontinue as tolerated. PT evaluation appreciated. Outpatient physical therapy ordered. Case discussed with manager case management for discharge planning. Patient will follow-up with PMD upon discharge.
[2018-08-25] MEDS: Digoxin 125 mcg (0.125 mg) Tab PO SCH (16:31)
[2018-08-25 16:32] VITALS: PULSE 71
[2018-08-25 18:04] VITALS: BP 128/75; PULSE 73
[2018-08-25] MEDS ORDERED: Influenza Vaccine 60 mcg/0.5 mL SYR (4YR UP) IM ONE (18:22)
--- NOTE | 2018-08-25 22:37 | PN ---
DATE: 08/25/2018 REASON FOR CONSULTATION: Cardiac evaluation and possible congestive heart failure. SUBJECTIVE: The patient denies any chest pain or shortness of breath. PHYSICAL EXAMINATION: GENERAL: Lying flat in the bed, not in apparent distress. VITAL SIGNS: As follows; temperature afebrile, heart rate 73, and blood pressure 128/75. HEENT: PERRLA. Extraocular muscles intact. NECK: Supple. No carotid bruits or thyromegaly. CHEST: Clear to auscultation. HEART: S1 and S2 regular. ABDOMEN: Soft. EXTREMITIES: Clubbing and cyanosis negative. LABORATORY DATA: Blood workup as follows; WBC 16, hemoglobin 13.5, hematocrit 41.2, and platelet count 315. Chemistry shows sodium 130, potassium 3.9, chloride 99, carbon dioxide 33, anion gap of 10, BUN 50, and creatinine 0.8. IMPRESSION: A 57-year-old male with past medical history significant for morbid obesity body mass index of 46 kg/m2, admitted with shortness of breath, severe sepsis is stable, apparently the patient is for the history of deep venous thrombosis and pulmonary embolus, history of cardiac nonobstructive coronary artery disease. Last MUGA scan showed preserved LV function. The patient shows diastolic dysfunction secondary to diastolic dysfunction because admitting BNP was upper limit normal. Chest x-ray did not show any significant congestive heart failure, mildly elevated BNP secondary to diastolic dysfunction, but the patient had chronic obstructive pulmonary disease exacerbation. RECOMMENDATIONS: We will discontinue telemetry, continue aggressive treatment to COPD, continue gentle diuretics, and we follow with you. Thank you Dr. Yi for providing us the opportunity in taking care of the patient, Naresh Riley. Lulu Jacobo MD
== END 2018-08-25 21:00 | disposition home health service (06) | DRG 541 ==
LOC: ED 21:22 → ERH 08-24 01:05 → 2RSO 08-24 03:39
PROVIDERS: ADMIT Internal Medicine; ATTEND Internal Medicine
DX: J44.1 Chronic obstructive pulmonary disease with (acute) exacerbation (principal); J96.92 Respiratory failure, unspecified with hypercapnia; I50.32 Chronic diastolic (congestive) heart failure; N18.9 Chronic kidney disease, unspecified; E11.22 Type 2 diabetes mellitus with diabetic chronic kidney disease; E66.2 Morbid (severe) obesity with alveolar hypoventilation; E87.2 Acidosis; F11.20 Opioid dependence, uncomplicated; F13.90 Sedative, hypnotic, or anxiolytic use, unspecified, uncomplicated; I13.0 Hypertensive heart and chronic kidney disease with heart failure and stage 1 through stage 4 chronic kidney disease, or unspecified chronic kidney disease; I42.9 Cardiomyopathy, unspecified; J15.7 Pneumonia due to Mycoplasma pneumoniae; I08.3 Combined rheumatic disorders of mitral, aortic and tricuspid valves; K21.9 Gastro-esophageal reflux disease without esophagitis; M19.90 Unspecified osteoarthritis, unspecified site; Z68.42 Body mass index [BMI] 45.0-49.9, adult; E78.5 Hyperlipidemia, unspecified; I25.10 Atherosclerotic heart disease of native coronary artery without angina pectoris; I25.2 Old myocardial infarction; J44.0 Chronic obstructive pulmonary disease with (acute) lower respiratory infection; Z79.01 Long term (current) use of anticoagulants; Z86.711 Personal history of pulmonary embolism; Z86.718 Personal history of other venous thrombosis and embolism; Z87.891 Personal history of nicotine dependence; Z91.14 Patient's other noncompliance with medication regimen; Z91.19 Patient's noncompliance with other medical treatment and regimen